=== PATIENT | male | born 1975 | race Caucasian/White ===

== ENCOUNTER → 2016-07-17 | Outpatient (CLI) | payer OTHER ==
[2016-07-17 11:08] LABS: BASO % 0.8 % (0.0-1.0); EOS # 0.3 K/mm3 (0.0-0.50); EOS % 4.8 % (0.0-3.0); LARGE UNSTAINED CELL # 0.2 K/mm3 (0.0-0.4); LARGE UNSTAINED CELL % 3.1 % (0.0-4.0); LYMPH # 1.9 K/mm3 (1.5-4.5); LYMPH % 31.7 % (24.0-44.0); MEAN CORPUSCULAR HEMOGLOBIN 29.6 pg (27.0-33.0); MEAN CORPUSCULAR HGB CONC 33.4 g/dl (32.0-36.5); MEAN CORPUSCULAR VOLUME 88.6 fl (80.0-96.0); MONO # 0.3 K/mm3 (0.0-0.8); MONO % 5.5 % (0.0-5.0); NEUTROPHILS # 3.2 K/mm3 (1.8-7.7); NEUTROPHILS % 54.2 % (36.0-66.0); PLATELET COUNT, AUTOMATED 257 k/mm3 (150-450); WHITE BLOOD COUNT 5.9 K/mm3 (4.0-10.0)
[2016-07-17 11:24] LABS: ALBUMIN/GLOBULIN RATIO 1.33 (1.00-1.93); ALKALINE PHOSPHATASE 69 U/L (45-117); ALT/SGPT 29 U/L (12-78); ANION GAP 5 MEQ/L (8-16); AST/SGOT 24 U/L (15-37); BILIRUBIN,TOTAL 0.4 MG/DL (0.2-1.0); BLOOD UREA NITROGEN 16 MG/DL (7-18); CARBON DIOXIDE LEVEL 31 MEQ/L (21-32); CHLORIDE LEVEL 107 MEQ/L (98-107); GLOMERULAR FILTRATION RATE > 60.0 (>60); GLUCOSE, FASTING 99 MG/DL (70-105); MAGNESIUM LEVEL 2.2 MG/DL (1.8-2.4); POTASSIUM SERUM 4.4 MEQ/L (3.5-5.1); SODIUM LEVEL 143 MEQ/L (136-145)
== END ==
LOC: M LAB 10:41
PROVIDERS: ATTEND Internal Medicine Cardiovascular Disease
DX: I48.92 Unspecified atrial flutter (principal)

== ENCOUNTER → 2016-10-01 | Outpatient (REF) | payer OTHER ==
[2016-10-01 11:38] LABS: MEAN CORPUSCULAR HEMOGLOBIN 29.1 pg (27.0-33.0); MEAN CORPUSCULAR HGB CONC 32.6 g/dl (32.0-36.5); MEAN CORPUSCULAR VOLUME 89.1 fl (80.0-96.0); RED CELL DISTRIBUTION WIDTH 12.8 % (11.5-14.5); WHITE BLOOD COUNT 6.4 K/mm3 (4.0-10.0)
[2016-10-01 11:55] LABS: ANION GAP 5 MEQ/L (8-16); BLOOD UREA NITROGEN 14 MG/DL (7-18); CALCIUM LEVEL 8.6 MG/DL (8.5-10.1); CARBON DIOXIDE LEVEL 31 MEQ/L (21-32); CHLORIDE LEVEL 106 MEQ/L (98-107); CREATININE FOR GFR 0.96 MG/DL (0.70-1.30); GLOMERULAR FILTRATION RATE > 60.0 (>60); GLUCOSE, FASTING 99 MG/DL (70-105); POTASSIUM SERUM 4.2 MEQ/L (3.5-5.1); SODIUM LEVEL 142 MEQ/L (136-145)
== END ==
LOC: M LABDRAW1 11:12
DX: R55 Syncope and collapse (principal)

== ENCOUNTER 2018-01-02 14:48 | Emergency (ER) | payer OTHER, SELFPAY ==
[2018-01-02 15:53] LABS: BASO # 0.1 10^3/uL (0.0-0.2); BASO % 0.9 % (0.0-1.0); EOS # 0.2 10^3/uL (0.0-0.50); EOS % 3.4 % (0.0-3.0); HEMATOCRIT 43.5 % (42.0-52.0); HEMOGLOBIN 15.3 g/dl (13.5-17.5); IMMATURE GRANULOCYTE % 0.1 % (0-3.0); LYMPH # 2.3 10^3/uL (1.5-4.5); LYMPH % 34.2 % (24.0-44.0); MEAN CORPUSCULAR HEMOGLOBIN 29.8 pg (27.0-33.0); MEAN CORPUSCULAR HGB CONC 35.2 g/dl (32.0-36.5); MEAN CORPUSCULAR VOLUME 84.6 fl (80.0-96.0); MONO # 0.5 10^3/uL (0.0-0.8); MONO % 7.1 % (0.0-5.0); NEUTROPHILS # 3.7 10^3/uL (1.8-7.7); NEUTROPHILS % 54.3 % (36.0-66.0); PLATELET COUNT, AUTOMATED 218 10^3/uL (150-450); RED BLOOD COUNT 5.14 10^6/uL (4.30-6.10); RED CELL DISTRIBUTION WIDTH 13.2 % (11.5-14.5); WHITE BLOOD COUNT 6.8 10^3/uL (4.0-10.0)
[2018-01-02 16:18] LABS: ALBUMIN 3.8 GM/DL (3.2-5.2); ALBUMIN/GLOBULIN RATIO 1.23 (1.00-1.93); ALKALINE PHOSPHATASE 74 U/L (45-117); ALT/SGPT 28 U/L (12-78); ANION GAP 7 MEQ/L (8-16); AST/SGOT 19 U/L (7-37); BILIRUBIN,DIRECT < 0.1 MG/DL (0.0-0.2); BILIRUBIN,TOTAL 0.3 MG/DL (0.2-1.0); BLOOD UREA NITROGEN 15 MG/DL (7-18); CALCIUM LEVEL 8.4 MG/DL (8.5-10.1); CARBON DIOXIDE LEVEL 28 MEQ/L (21-32); CHLORIDE LEVEL 107 MEQ/L (98-107); CPK CREATINE PHOSPHOKINASE 120 U/L (39-308); CREATININE FOR GFR 0.94 MG/DL (0.70-1.30); GLOMERULAR FILTRATION RATE > 60.0 (>60); GLUCOSE, FASTING 88 MG/DL (70-100); LIPASE 1058 U/L (73-393); POTASSIUM SERUM 3.7 MEQ/L (3.5-5.1); SODIUM LEVEL 142 MEQ/L (136-145); TOTAL PROTEIN 6.9 GM/DL (6.4-8.2); TROPONIN I < 0.02 NG/ML (< 0.10)
[2018-01-02] MEDS: NS 1,000 ML IV (16:20)
[2018-01-02 16:24] LABS: CK-MB VALUE MASS 1.1 NG/ML (<3.6); MB/CK RELATIVE INDEX 0.91 (< OR =4); NT-PRO BNP 23 PG/ML (<125)
[2018-01-02] MEDS ORDERED: ISOVUE-370 76% 100ML VIAL (Q9967) As Ordered (16:31)
[2018-01-02 21:29] LABS: CPK CREATINE PHOSPHOKINASE 109 U/L (39-308); TROPONIN I < 0.02 NG/ML (< 0.10)
[2018-01-02 21:30] LABS: CK-MB VALUE MASS 1.3 NG/ML (<3.6); MB/CK RELATIVE INDEX 1.19 (< OR =4)
== END 2018-01-02 22:27 | disposition home or self-care (01) ==
LOC: M ED 14:48
DX: R07.89 Other chest pain (principal); Z95.0 Presence of cardiac pacemaker; Z79.899 Other long term (current) drug therapy; Z91.040 Latex allergy status
CPT/HCPCS: Q9967

== ENCOUNTER 2020-03-16 07:08 | Emergency (ER) | payer OTHER ==
[~2020-03-16] VITALS: Ht 180.3 cm; Wt 121.4 kg
[~2020-03-16 07:08] MED LIST: ALLE4TAB11 PO; ZOLO100T PO
[2020-03-16] MEDS ORDERED: HEPARIN DRIP 25,000 UNITS in IV 1 EA IV SCH (07:24)
[2020-03-16] MEDS ORDERED: TENECTEPLASE 50 MG KIT (TNKase) (J3101 PER 1MG) As Ordered ONE (07:25)
[2020-03-16] MEDS ORDERED: TENECTEPLASE 50 MG KIT (TNKase) (J3101 PER 1MG) IV ONE (07:30)
[2020-03-16] MEDS ORDERED: ONDANSETRON 4MG/2ML VIAL IV ONE ×2 (07:30→08:00)
[2020-03-16] MEDS ORDERED: CLOPIDOGREL 300 MG TAB (PLAVIX) PO ONE (07:30)
[2020-03-16] MEDS ORDERED: HEPARIN SOD (PORCINE) 5000UNITS/ML 1ML VIAL/SYRINGE IV ONE (07:30)
[2020-03-16] MEDS ORDERED: MORPHINE 4 MG/ML 1ML VIAL/SYRINGE (J2270) IV PRN (07:30)
[2020-03-16] MEDS: NITROGLYCERIN 0.4 MG SUBL TABLET SL PRN ×2 (07:31→07:39)
[2020-03-16 07:39] VITALS: BP 128/69
[2020-03-16 07:55] VITALS: BP 112/68
[2020-03-16] MEDS ORDERED: NS 500 ML IV ONE (08:00)
--- NOTE | 2020-03-16 08:01 | ED PDOC ---
Post-Departure Follow-Up 44 yo male with history of COPD, PTSD, tobacco, S/P pacer presents c/o Chest gretel n. EKG STEMI inferior with reciprocal changes lateral leads. NO absolute CI to thrombolytics though patient did have colonscopy with polyp resection about 2 months ago. D/W apatient risk and patient understands risk and wishes to proceed with thrombolytics. patient hemodynamically stable in ED - transient drop in BP which responded to minimal fluid administration. Patient improved out the door with decrease in pain and improved ST segments on EKG. Nani Bhatti MD Mar 16, 2020 08:01
[2020-03-16 08:05] LABS: BASO # 0.1 10^3/uL (0.0-0.2); BASO % 0.4 % (0.0-1.0); EOS # 0.1 10^3/uL (0.0-0.5); EOS % 0.9 % (0.0-3.0); HEMATOCRIT 44.8 % (42.0-52.0); HEMOGLOBIN 15.1 g/dl (13.5-17.5); LYMPH % 17.4 % (24.0-44.0); MEAN CORPUSCULAR HEMOGLOBIN 29.5 pg (27.0-33.0); MEAN CORPUSCULAR HGB CONC 33.7 g/dl (32.0-36.5); MEAN CORPUSCULAR VOLUME 87.7 fl (80.0-96.0); MONO # 0.6 10^3/uL (0.0-0.8); MONO % 5.5 % (0.0-5.0); NEUTROPHILS # 8.4 10^3/uL (1.5-8.5); NEUTROPHILS % 75.3 % (36.0-66.0); PLATELET COUNT, AUTOMATED 248 10^3/uL (150-450); RED BLOOD COUNT 5.11 10^6/uL (4.30-6.10); WHITE BLOOD COUNT 11.2 10^3/uL (4.0-10.0)
[2020-03-16 08:16] LABS: INR 0.88; PROTHROMBIN TIME 12.1 SECONDS (12.5-14.3)
[2020-03-16 08:17] LABS: PARTIAL THROMBOPLASTIN TIME 32.6 SECONDS (24.2-38.5)
--- NOTE | 2020-03-16 08:25 | REPVR ---
PROCEDURE INFORMATION: Exam: XR Chest, 1 View Exam date and time: 03/16/2020 7:29 AM Age: 44 years old Clinical indication: Chest pain and chest pressure TECHNIQUE: Imaging protocol: XR of the chest Views: 1 view. COMPARISON: CR PORTABLE CHEST X-RAY 01/02/2018 3:46 PM FINDINGS: Tubes, catheters and devices: A left-sided pacemaker is again present. Lungs: Unremarkable. No consolidation. Pleural space: Unremarkable. No pleural effusion. No pneumothorax. Heart/Mediastinum: The cardiomediastinal silhouette is fairly stable in appearance. Bones/joints: Degenerative changes again involve the spine. IMPRESSION: No evidence for acute pulmonary disease. Electronically signed by: Dylan Morgan On 03/16/2020 08:25:10 AM
[2020-03-16 08:26] LABS: ALT/SGPT 69 U/L (12-78); BILIRUBIN,DIRECT < 0.1 MG/DL (0.0-0.2); BILIRUBIN,TOTAL 0.3 MG/DL (0.2-1.0); BLOOD UREA NITROGEN 12 MG/DL (7-18); CALCIUM LEVEL 9.4 MG/DL (8.5-10.1); CARBON DIOXIDE LEVEL 25 MEQ/L (21-32); CHLORIDE LEVEL 108 MEQ/L (98-107); CK-MB VALUE MASS 3.9 NG/ML (<3.6); CPK CREATINE PHOSPHOKINASE 276 U/L (39-308); CREATININE FOR GFR 1.05 MG/DL (0.70-1.30); GLOMERULAR FILTRATION RATE > 60.0 (>60); GLUCOSE, FASTING 140 MG/DL (70-100); LIPASE 823 U/L (73-393); MB/CK RELATIVE INDEX 1.41 (< OR =4); POTASSIUM SERUM 3.7 MEQ/L (3.5-5.1); SODIUM LEVEL 141 MEQ/L (136-145); TOTAL PROTEIN 7.4 GM/DL (6.4-8.2); TROPONIN I 0.19 NG/ML (< 0.10)
--- NOTE | 2020-03-17 09:01 | ECGEPIP ---
[facility] - ED Test Date: 2020-03-16 Pat Name: CODEY ALVARADO Department: Room: - Gender: Male Clinical Pharmacy Manager: PEDRO : 1975 Requested By: Nani Bhatti Order Number: [id number] Reading MD: Nani Bhatti Measurements Intervals [place] Rate: 69 P: 266 ME: 223 QRS: 56 QRSD: 90 T: 89 QT: 356 QTc: 383 Interpretive Statements ELECTRONIC ATRIAL PACEMAKER ST ELEVATION, INFERIOR ACUTE SD CLINICAL CORRELATION Electronically Signed on 03-17-2020 9:01:21 EDT by Nani Bhatti
--- NOTE | 2020-03-20 18:51 | ECGEPIP ---
[facility] - ED Test Date: 2020-03-16 Pat Name: CODEY ALVARADO Department: Room: - Gender: Male Contract Specialist: MANUEL : 1975 Requested By: Nani Bhatti Order Number: [id number] Reading MD: Yong Leonard Measurements Intervals [place] Rate: 69 P: -23 ND: 202 QRS: 67 QRSD: 93 T: 71 QT: 385 QTc: 414 Interpretive Statements ELECTRONIC ATRIAL PACEMAKER ACUTE INFERIOR INFARCT WITH RESOLVING ST DEVIATIONS Electronically Signed on 03-20-2020 18:50:33 EDT by Yong Leonard
== END 2020-03-16 07:57 | disposition short-term general hospital (02) ==
LOC: M ED 07:08
DX: I21.19 ST elevation (STEMI) myocardial infarction involving other coronary artery of inferior wall (principal); R11.10 Vomiting, unspecified; I51.9 Heart disease, unspecified; J44.9 Chronic obstructive pulmonary disease, unspecified; R55 Syncope and collapse; F43.10 Post-traumatic stress disorder, unspecified; Z95.0 Presence of cardiac pacemaker; F17.200 Nicotine dependence, unspecified, uncomplicated; Z91.040 Latex allergy status; Z79.899 Other long term (current) drug therapy
CPT/HCPCS: 71045; 80047; 80048; 80076; 82550; 82553; 83690; 85025; 85610; 85730; 93005; 93041; 94760; 96365; 96375; 99285; J1644; J2270; J2405; J3101

== ENCOUNTER 2020-05-03 19:42 | Emergency (ER) | payer OTHER ==
[~2020-05-03] VITALS: Ht 177.8 cm; Wt 125.0 kg
[2020-05-03] MEDS ORDERED: HEPARIN DRIP 25,000 UNITS in IV 1 EA IV SCH (20:08)
[2020-05-03] MEDS ORDERED: NITROGLYCERIN 0.4 MG SUBL TABLET SL PRN (20:15)
[2020-05-03] MEDS ORDERED: ASPIRIN 81 MG CHEW TABLET PO ONE (20:15)
[2020-05-03] MEDS ORDERED: MORPHINE 4 MG/ML 1ML VIAL/SYRINGE (J2270) IV PRN (20:15)
[2020-05-03] MEDS ORDERED: ONDANSETRON 4MG/2ML VIAL IV ONE (20:15)
[2020-05-03] MEDS ORDERED: HEPARIN SOD (PORCINE) 5000UNITS/ML 1ML VIAL/SYRINGE IV ONE (20:15)
[2020-05-03] MEDS ORDERED: TENECTEPLASE 50 MG KIT (TNKase) (J3101 PER 1MG) IV ONE (20:30)
[2020-05-03] MEDS ORDERED: CLOPIDOGREL 300 MG TAB (PLAVIX) PO ONE (20:30)
[2020-05-03 20:35] LABS: BASO % 0.2 % (0.0-1.0); EOS # 0.1 10^3/uL (0.0-0.5); EOS % 0.8 % (0.0-3.0); HEMATOCRIT 44.8 % (42.0-52.0); HEMOGLOBIN 14.9 g/dl (13.5-17.5); LYMPH # 3.1 10^3/uL (1.5-5.0); LYMPH % 20.9 % (24.0-44.0); MEAN CORPUSCULAR HEMOGLOBIN 28.8 pg (27.0-33.0); MEAN CORPUSCULAR HGB CONC 33.3 g/dl (32.0-36.5); MEAN CORPUSCULAR VOLUME 86.7 fl (80.0-96.0); MONO % 6.8 % (0.0-5.0); NEUTROPHILS # 10.4 10^3/uL (1.5-8.5); NEUTROPHILS % 70.9 % (36.0-66.0); PLATELET COUNT, AUTOMATED 273 10^3/uL (150-450); RED BLOOD COUNT 5.17 10^6/uL (4.30-6.10); WHITE BLOOD COUNT 14.7 10^3/uL (4.0-10.0)
[2020-05-03 21:00] LABS: INR 1.01; PROTHROMBIN TIME 13.5 SECONDS (12.5-14.3)
[2020-05-03 21:01] LABS: PARTIAL THROMBOPLASTIN TIME 31.9 SECONDS (24.2-38.5)
[2020-05-03 21:08] LABS: BLOOD UREA NITROGEN 16 MG/DL (7-18); CALCIUM LEVEL 9.4 MG/DL (8.5-10.1); CARBON DIOXIDE LEVEL 27 MEQ/L (21-32); CHLORIDE LEVEL 107 MEQ/L (98-107); CK-MB VALUE MASS 8.3 NG/ML (<3.6); CPK CREATINE PHOSPHOKINASE 665 U/L (39-308); CREATININE FOR GFR 1.09 MG/DL (0.70-1.30); GLOMERULAR FILTRATION RATE > 60.0 (>60); GLUCOSE, FASTING 105 MG/DL (70-100); MB/CK RELATIVE INDEX 1.25 (< OR =4); NT-PRO BNP 242 PG/ML (<125); POTASSIUM SERUM 3.6 MEQ/L (3.5-5.1); SODIUM LEVEL 140 MEQ/L (136-145); TROPONIN I < 0.02 NG/ML (< 0.10)
--- NOTE | 2020-05-03 21:08 | REPVR ---
PROCEDURE INFORMATION: Exam: XR Chest, 1 View Exam date and time: 05/03/2020 8:24 PM Age: 44 years old Clinical indication: Chest pain TECHNIQUE: Imaging protocol: XR of the chest Views: 1 view. COMPARISON: CR PORTABLE CHEST X-RAY 03/16/2020 7:24 AM FINDINGS: Tubes, catheters and devices: Stable left chest cardiac device. Lungs: No consolidation. Pleural space: Unremarkable. No pleural effusion. No pneumothorax. Heart/Mediastinum: Stable cardiac silhouette. Bones/joints: Osteopenia. IMPRESSION: No acute cardiopulmonary process. Electronically signed by: Abran Amos On 05/03/2020 21:08:13 PM
[2020-05-03] MEDS ORDERED: ASPI81CH33 PO (21:32)
[2020-05-03] MEDS ORDERED: NITR0.4S14 SL (21:32)
[2020-05-03] MEDS ORDERED: ATOR80TA59 PO (21:32)
[2020-05-03] MEDS ORDERED: CLOP75TA2 PO (21:32)
[2020-05-03] MEDS ORDERED: CARV3.12 PO (21:32)
[2020-05-03 21:58] VITALS: BP 149/86
--- NOTE | 2020-05-04 14:26 | ECGEPIP ---
[facility] - ED Test Date: 2020-05-03 Pat Name: CODEY ALVARADO Department: Room: - Gender: Male Orthotics Prosthetics Technician: bud : 1975 Requested By: JANIS Dorado Order Number: [id number] Reading MD: Nani Bhatti Measurements Intervals [place] Rate: 69 P: -53 [place]: 197 QRS: 17 QRSD: 88 T: -11 QT: 380 QTc: 410 Interpretive Statements ELECTRONIC ATRIAL PACEMAKER ABNORMAL RHYTHM ECG Electronically Signed on 05-04-2020 14:26:35 EST by Nani Bhatti
== END 2020-05-03 22:09 | disposition short-term general hospital (02) ==
LOC: M ED 19:42
DX: I21.3 ST elevation (STEMI) myocardial infarction of unspecified site (principal); R11.2 Nausea with vomiting, unspecified; I25.10 Atherosclerotic heart disease of native coronary artery without angina pectoris; I25.2 Old myocardial infarction; J44.9 Chronic obstructive pulmonary disease, unspecified; Z95.0 Presence of cardiac pacemaker
CPT/HCPCS: 71045; 80048; 82550; 82553; 83880; 85025; 85610; 85730; 93005; 93041; 96365; 96366; 96375; 96376; 99285; J1644; J2270; J2405; J3101; U0002

== ENCOUNTER 2020-06-05 05:07 | Emergency (ER) | payer OTHER, SELFPAY ==
[~2020-06-05 05:07] MED LIST changes: +ASPI81CH33 PO; +ATOR80TA59 PO; +CARV3.12 PO; +CLOP75TA2 PO; +NITR0.4S14 SL
[2020-06-05] MEDS ORDERED: SERT25TA21 PO (05:34)
[2020-06-05] MEDS ORDERED: LORA-622 PO (05:34)
[2020-06-05] MEDS ORDERED: BRIL90TA PO (05:34)
[2020-06-05] MEDS ORDERED: LISI-538 PO (05:34)
[2020-06-05] MEDS ORDERED: AIRB1CHW PO (05:34)
[2020-06-05] MEDS ORDERED: CENT1TAB PO (05:34)
[2020-06-05 05:37] LABS: BASO % 0.4 % (0.0-1.0); EOS # 0.2 10^3/uL (0.0-0.5); EOS % 2.3 % (0.0-3.0); HEMATOCRIT 45.7 % (42.0-52.0); HEMOGLOBIN 15.2 g/dl (13.5-17.5); MEAN CORPUSCULAR HGB CONC 33.3 g/dl (32.0-36.5); MONO # 0.4 10^3/uL (0.0-0.8); MONO % 4.4 % (0.0-5.0); NEUTROPHILS # 7.2 10^3/uL (1.5-8.5); NEUTROPHILS % 72.6 % (36.0-66.0); PLATELET COUNT, AUTOMATED 238 10^3/uL (150-450); RED BLOOD COUNT 5.25 10^6/uL (4.30-6.10); WHITE BLOOD COUNT 9.9 10^3/uL (4.0-10.0)
[2020-06-05 05:49] LABS: INR 0.93; PROTHROMBIN TIME 12.7 SECONDS (12.5-14.3)
[2020-06-05 05:50] LABS: PARTIAL THROMBOPLASTIN TIME 31.1 SECONDS (24.2-38.5)
[2020-06-05 06:10] LABS: BLOOD UREA NITROGEN 7 MG/DL (7-18); CALCIUM LEVEL 8.3 MG/DL (8.5-10.1); CARBON DIOXIDE LEVEL 25 MEQ/L (21-32); CHLORIDE LEVEL 110 MEQ/L (98-107); CK-MB VALUE MASS 2.8 NG/ML (<3.6); CPK CREATINE PHOSPHOKINASE 259 U/L (39-308); CREATININE FOR GFR 0.96 MG/DL (0.70-1.30); GLOMERULAR FILTRATION RATE > 60.0 (>60); GLUCOSE, FASTING 121 MG/DL (70-100); MB/CK RELATIVE INDEX 1.08 (< OR =4); NT-PRO BNP 43 PG/ML (<125); SODIUM LEVEL 142 MEQ/L (136-145); TROPONIN I < 0.02 NG/ML (< 0.10)
[2020-06-05] MEDS ORDERED: NITROGLYCERIN 0.4 MG SUBL TABLET As Ordered ONE (06:25)
[2020-06-05] MEDS: NITROGLYCERIN 0.4 MG SUBL TABLET SL PRN ×4 (06:27→08:38)
[2020-06-05] MEDS ORDERED: ONDANSETRON 4MG/2ML VIAL As Ordered ONE (06:32)
--- NOTE | 2020-06-05 06:37 | REPVR ---
PROCEDURE INFORMATION: Exam: XR Chest, 1 View Exam date and time: 06/05/2020 6:00 AM Age: 44 years old Clinical indication: Chest pain; Type not specified TECHNIQUE: Imaging protocol: XR of the chest Views: 1 view. COMPARISON: CR PORTABLE CHEST X-RAY 05/03/2020 8:21 PM FINDINGS: Lungs: Lungs are well aerated. No consolidation. Pleural space: No significant pleural effusions. No pneumothorax. Heart/Mediastinum: Cardiac size is normal and mediastinal contour stable. Dual lead internal pacemaker is stable in position. Cardiac loop recorder. Bones/joints: Bones are stable. IMPRESSION: No acute abnormalities are identified. Electronically signed by: Bayron Rivas On 06/05/2020 06:37:27 AM
[2020-06-05] MEDS ORDERED: MORPHINE 4 MG/ML 1ML VIAL/SYRINGE (J2270) As Ordered ONE (06:44)
[2020-06-05] MEDS ORDERED: ONDANSETRON 4MG/2ML VIAL IV ONE (06:45)
[2020-06-05] MEDS ORDERED: MORPHINE 4 MG/ML 1ML VIAL/SYRINGE (J2270) IV PRN (06:45)
[2020-06-05] MEDS ORDERED: ISOVUE-370 76% 100ML VIAL As Ordered ONE (07:01)
--- NOTE | 2020-06-05 08:17 | REPVR ---
PROCEDURE INFORMATION: Exam: CT Angiography Chest With Contrast Exam date and time: 06/05/2020 6:53 AM Age: 44 years old Clinical indication: Chest pain; Type not specified; Additional info: Chest pain, SOB TECHNIQUE: Imaging protocol: Computed tomographic angiography of the chest with intravenous contrast. 3D rendering (Not supervised by radiologist): MIP and/or 3D reconstructed images were created by the technologist. Radiation optimization: All CT scans at this facility use at least one of these dose optimization techniques: automated exposure control; mA and/or kV adjustment per patient size (includes targeted exams where dose is matched to clinical indication); or iterative reconstruction. Contrast material: ISO; Contrast volume: 75 ml; Contrast route: INTRAVENOUS (IV); COMPARISON: CT ANGIO CHEST 01/02/2018 4:31 PM FINDINGS: Pulmonary arteries: No evidence of pulmonary embolism. Aorta: Thoracic aorta is normal in caliber. No aneurysm. No dissection. Lungs: Central airways are patent. Lungs are well aerated. No consolidation. Pleural space: No pleural effusions. No pneumothorax. Heart: Cardiac size is normal. Internal pacemaker with right atrial and right ventricular leads. No pericardial effusion. Lymph nodes: No significant adenopathy. Bones/joints: Old/healing fracture involving the lateral right 9th rib. Multilevel degenerative change within the thoracic spine. Soft tissues: Pacemaker battery pack implanted within the subcutaneous tissues of the left anterior chest wall. There is also an implanted cardiac loop recorder. IMPRESSION: 1. No evidence of pulmonary embolism or thoracic aortic aneurysm/dissection. 2. Internal pacemaker and cardiac loop recorder. 3. Lungs are well aerated. No consolidation. 4. Old/healing right lateral 9th rib fracture. Correlate with history of trauma. Electronically signed by: Bayron Rivas On 06/05/2020 08:17:25 AM
[2020-06-05] MEDS ORDERED: GI COCKTAIL 50ML BTL(HYOSCYAMINE/MAALOX/LIDOCAINE VISCOUS)(1:3:1) PO ONE (08:30)
[2020-06-05 08:38] VITALS: BP 161/101
[2020-06-05 09:35] LABS: RSV AMPLIFICATION NEGATIVE (NEGATIVE)
[2020-06-05 09:38] LABS: CK-MB VALUE MASS 3.1 NG/ML (<3.6); CPK CREATINE PHOSPHOKINASE 271 U/L (39-308); MB/CK RELATIVE INDEX 1.14 (< OR =4); TROPONIN I < 0.02 NG/ML (< 0.10)
[2020-06-05 10:32] LABS: C REACTIVE PROTEIN QUANTITATIV < 0.30 MG/DL (0.00-0.30)
[2020-06-05 10:52] LABS: ERYTHROCYTE SEDIMENTATION RATE 2 mm/hr (0-15)
[2020-06-05] MEDS ORDERED: OMEP40CA97 PO (11:52)
[2020-06-05] MEDS ORDERED: SUCR1TA PO (11:52)
[2020-06-05 12:00] VITALS: BP 140/65
--- NOTE | 2020-06-06 00:28 | ECGEPIP ---
[facility] - ED Test Date: 2020-06-05 Pat Name: CODEY ALVARADO Department: Room: - Gender: Male Coat Cutter: : 1975 Requested By: MUKUL Aguilar Order Number: [id number] Reading MD: Yong Leonard Measurements Intervals [place] Rate: 66 P: -61 NM: 229 QRS: 35 QRSD: 86 T: 12 QT: 384 QTc: 403 Interpretive Statements ELECTRONIC ATRIAL PACEMAKER SIMILAR TO 05/03/20 Electronically Signed on 06-06-2020 0:27:56 EST by Yong Leonard
--- NOTE | 2020-06-06 00:30 | ECGEPIP ---
[facility] - ED Test Date: 2020-06-05 Pat Name: CODEY ALVARADO Department: Room: - Gender: Male Behavioral Instructor: PEDRO : 1975 Requested By: SABAS Hadley Order Number: [id number] Reading MD: Yong Leonard Measurements Intervals [place] Rate: 69 P: -81 [place]: 218 QRS: 34 QRSD: 86 T: 9 QT: 384 QTc: 414 Interpretive Statements ELECTRONIC ATRIAL PACEMAKER SIMILAR TO PRIOR ON SAME DATE Electronically Signed on 06-06-2020 0:29:44 EST by Yong Leonard
== END 2020-06-05 12:11 | disposition home or self-care (01) ==
LOC: M ED 05:07
DX: R07.9 Chest pain, unspecified (principal); F12.10 Cannabis abuse, uncomplicated; I51.9 Heart disease, unspecified; I25.2 Old myocardial infarction; Z91.040 Latex allergy status; Z91.018 Allergy to other foods; Z95.0 Presence of cardiac pacemaker
CPT/HCPCS: 71045; 71275; 80048; 82550; 82553; 83880; 85025; 85610; 85652; 85730; 86140; 87631; 93005; 93041; 94760; 96374; 96375; 99285; J2270; J2405; Q9967

== ENCOUNTER → 2020-06-19 | Outpatient (CLI) | payer OTHER ==
[~2020-06-19] MED LIST changes: +AIRB1CHW PO; +BRIL90TA PO; +CENT1TAB PO; +LISI-538 PO; +LORA-622 PO; +OMEP40CA97 PO; +SERT25TA21 PO; +SUCR1TA PO
[2020-06-19 10:11] LABS: HEMATOCRIT 44.4 % (42.0-52.0); HEMOGLOBIN 15.1 g/dl (13.5-17.5); MEAN CORPUSCULAR HEMOGLOBIN 29.9 pg (27.0-33.0); MEAN CORPUSCULAR VOLUME 87.9 fl (80.0-96.0); PLATELET COUNT, AUTOMATED 240 10^3/uL (150-450); RED BLOOD COUNT 5.05 10^6/uL (4.30-6.10); WHITE BLOOD COUNT 7.9 10^3/uL (4.0-10.0)
[2020-06-19 10:35] LABS: BLOOD UREA NITROGEN 11 MG/DL (7-18); CALCIUM LEVEL 9.1 MG/DL (8.5-10.1); CARBON DIOXIDE LEVEL 31 MEQ/L (21-32); CHLORIDE LEVEL 106 MEQ/L (98-107); CREATININE FOR GFR 0.93 MG/DL (0.70-1.30); GLOMERULAR FILTRATION RATE > 60.0 (>60); GLUCOSE, FASTING 96 MG/DL (70-100); POTASSIUM SERUM 4.1 MEQ/L (3.5-5.1); SODIUM LEVEL 140 MEQ/L (136-145)
== END ==
LOC: M LAB 09:04
PROVIDERS: ATTEND Physician Assistant
DX: I25.10 Atherosclerotic heart disease of native coronary artery without angina pectoris (principal)

== ENCOUNTER → 2020-06-20 | Outpatient (CLI) | payer OTHER ==
--- NOTE | 2020-06-20 15:01 | REP ---
INDICATION: SEN HEARING LOSS LEFT EAR. COMPARISON: Comparison head CT January 09, 2016.. TECHNIQUE: Helical scanning is acquired and 1 mm axial images re-formatted. Bone targeted coronal and axial magnified re-formation images are provided. FINDINGS: The external auditory canals are normal and symmetric. The middle ears are normally and symmetrically aerated. There is no evidence of mastoiditis on either side. Internal auditory canals are normal in size and symmetric bilaterally. Soft tissue window settings show no evidence of CP angle cistern mass. Cochlear and vestibular apparatus appear normal bilaterally. The visualized intracranial structures are unremarkable. No intraorbital abnormality is seen. IMPRESSION: Negative noncontrast CT study of the petrous bones and internal auditory canals. <Electronically signed by Oziel June > 06/20/20 [id number]
== END ==
LOC: M RAD 14:40
PROVIDERS: ATTEND Otolaryngology
DX: H90.42 Sensorineural hearing loss, unilateral, left ear, with unrestricted hearing on the contralateral side (principal); H93.12 Tinnitus, left ear

== ENCOUNTER → 2020-09-15 | Outpatient (CLI) | payer OTHER ==
[~2020-09-15] MED LIST changes: -LISI-538 PO; +LISI20TA33 PO
--- NOTE | 2020-09-15 16:09 | REP ---
INDICATION: SYNCOPE AND COLLAPSE. COMPARISON: None. TECHNIQUE: Bilateral carotid artery duplex ultrasound. FINDINGS: Peak flow velocities: Right left Internal carotid artery 88.7 cm/sec 73.9 cm/sec Int. Carotid diastolic a 35.3 cm/sec 20.9 cm/sec External carotid artery the 58.0 cm/sec 66.0 cm/sec Common carotid artery 149 cm/sec 167 cm/sec ICA-CCA ratio 0.5 0.4 There is no visible atheromatous plaque on the right or the left. Peak flow velocities are normal bilaterally. There is no stenosis on the right or the left. There is antegrade flow in the vertebral arteries bilaterally. IMPRESSION: There is no stenosis on the right or the left. There is antegrade flow in the vertebral arteries bilaterally. <Electronically signed by Palomo Claudio > 09/15/20 [id number]
== END ==
LOC: M RAD 13:45
PROVIDERS: ATTEND Physician Assistant
DX: R55 Syncope and collapse (principal)

== ENCOUNTER → 2020-10-19 | Outpatient (CLI) | payer OTHER ==
[2020-10-19 11:20] LABS: ALT/SGPT 53 U/L (12-78); BILIRUBIN,TOTAL 0.3 MG/DL (0.2-1.0); BLOOD UREA NITROGEN 10 MG/DL (7-18); CALCIUM LEVEL 9.2 MG/DL (8.5-10.1); CARBON DIOXIDE LEVEL 28 MEQ/L (21-32); CHLORIDE LEVEL 108 MEQ/L (98-107); CHOLESTEROL LEVEL 108 MG/DL (<200); CREATININE FOR GFR 0.82 MG/DL (0.70-1.30); GLOMERULAR FILTRATION RATE > 60.0 (>60); GLUCOSE, FASTING 102 MG/DL (70-100); HDL CHOLESTEROL 36 MG/DL (>40); LDL CHOLESTEROL 46 MG/DL (<100); NON-HDL-C 72 MG/DL; POTASSIUM SERUM 4.2 MEQ/L (3.5-5.1); SODIUM LEVEL 141 MEQ/L (136-145); TOTAL PROTEIN 7.2 GM/DL (6.4-8.2); TRIGLYCERIDES LEVEL 132 MG/DL (<150)
== END ==
LOC: M LAB 10:17
PROVIDERS: ATTEND Physician Assistant
DX: E78.2 Mixed hyperlipidemia (principal)

== ENCOUNTER → 2020-10-29 | Outpatient (CLI) | payer OTHER | LOC: M LABSMTC 10:52 | DX: Z11.52 Encounter for screening for COVID-19 (principal) ==

== ENCOUNTER 2021-04-18 13:14 | Emergency (ER) | payer OTHER ==
[~2021-04-18] VITALS: Ht 180.3 cm; Wt 109.1 kg
[~2021-04-18 13:14] MED LIST changes: +OMEP40CA4 PO; -OMEP40CA97 PO
--- OUTSIDE RECORDS SUMMARY | 2021-04-18 13:21 | CCD ---
Author Author [facility] Organization [facility] Address Unknown Phone Unavailable Care Team Providers Care Paper Machine Supervisor Name Role Phone Melva Lazo Unavailable PROBLEMS Type Condition ICD9-CM Code [id number] Code Onset Dates Condition S tatus W/U Status Risk SNOMED Code Notes Problem Bipolar affective disorder, remission status unspecified F31.9 Active confirmed 54986017 Problem Hyperlipidemia E78.5 Active confirmed 25349 004 Problem Essential (primary) hypertension I10 Active conf irmed 90278202 Problem Bipolar affective disorder, currently depressed, moderate F31.32 Active confirmed 685630030 Problem Other idiopathic scoliosis, thoracolumbar region M 41.25 Active confirmed 145537626 Problem Anxiety F41.9 Active confirmed 86860281 Problem Other chronic pain G89.29 Active confirmed 8 6558954 Problem Tobacco dependence F17.200 Active confirmed 36054792 Problem Sick sinus syndrome I49.5 Active confirmed 14160067 Problem Fibromyalgia affecting multiple sites M79.7 Ac tive confirmed 12104028 Problem Erectile dysfunction, unspecified erectile dysfunction typ e N52.9 Active confirmed 461077427 Problem Benign prostatic hyperplasia with lower urinary tract symptoms, symptom details unspecified N40.1 Active confirmed 529986837 Problem Coronary atherosclerosis due to calcified coronary lesion I25.84 Active confirmed 97459178 ALLERGIES Allergen (clinical drug ingredient) Drug/Non Drug Allergy do cumented on EMR Reaction Allergy Type Onset Date Status Latex hives Non Drug Allergy Active adhesive rash Non Drug Allergy Active ENCOUNTERS from 1975 to 2021-01-24 Encounter Location Date Provider Diagnosis [address] [address] Jan, Melva Lazo Rectal abscess K61.1 IMMUNIZATIONS Vaccine Route Administration Date Status Tdap IM Intramuscular Mar 16, 2015 Administered INFLUENZA 3 YRS AND OLDER Preservative free IM Intramuscular May 24, 2016 Administered INFLUENZA 3 YRS AND OLDER Preservative free IM Intramuscular Mar 16, 2015 Administered Pneumococcal Vaccine PNEUMO 23 IM Intramuscular May 29, 2016 Administered Influenza preservative free IM Intramuscular Apr 10, 2020 Adm inistered Influenza preservative free IM Intramuscular Apr 14, 2019 Adm inistered SOCIAL HISTORY Tobacco Use: Social History Observation Description Date Details (start date - stop date) Current Smoker Sex Assigned At : Social History Observation Description Sex Assigned At Unknown Alcohol Screen Question Answer Notes Did you have a drink containing alcohol in the past year? No Points 0 Interpretation Negative Tobacco Use/Smoking Question Answer Notes Are you a current smoker How many cigarettes a day do you smoke? 11-20 How often do you smoke cigarettes? every day Sexual History Question Answer Notes Had sex in the past 12 months (vaginal, oral, or anal)? Yes Have you ever had a Sexually transmitted disease? No with Men only Use protection? No REASON FOR REFERRAL No Information VITAL SIGNS Height 67 in Jan, Weight 246.6 lbs Jan, BMI 38.62 kg/m2 Jan, Temperature 98.0 degrees Fahrenheit Jan, Heart Rate 62 /min Jan, Respiratory Rate 18 /min Jan, Oximetry 96 % Jan, Blood pressure systolic 118 mmHg Jan, Blood pressure diastolic 88 mmHg Jan, MEDICATIONS Medication SIG (Take, Route, Frequency, Duration) Notes Start Da te End Date Status Nicotine 14 MG/24HR 1 patch to skin Transdermal Once a day for 1 4 day(s) Sep, Unknown Aspir-81 81 MG 1 tablet Orally Once a day for 90 days Active Nicotine 21 MG/24HR 1 patch to skin Transdermal Once a day for 3 0 day(s) Aug, Not-Taking oxyCODONE-Acetaminophen 5-325 MG 1 tablet as needed Orally every 6 hrs Dec, Not-Taking Airborne - as directed Orally Active Atorvastatin Calcium 80 MG 1 tablet Orally Once a day at bedtime. Active Omeprazole 40 MG 1 capsule 30 minutes before morning meal Orally Once a day for 90 days Active nitroglycerin 0.4 mg 1 po sl q5mins x 3 Active Lisinopril 2.5 MG 1 tablet Orally Once a day at bedtime Active Carvedilol 3.125 MG 1 tablet with food Orally Twice a day for 30 day( s) Active Zoloft 25 MG 1 tablet Orally Once a day for 90 days Active Centrum Silver - as directed Orally Active Cetirizine HCl 10 MG 1 tablet Orally Once a day for 30 day(s) Unknown Brilinta 90 MG 1 tablet Orally Twice a day for 30 day(s) Active PROCEDURES No Information RESULTS No Results REASON FOR VISIT Hospital Followup MEDICAL (GENERAL) HISTORY Type Description Date Medical History hypertension, benign Medical History hyperlipidemia Medical History gastroesophageal reflux disease (GERD) Medical History fatty liver Medical History sick sinus syndrome with pacemaker Medical History bipolar disorder Medical History HPV 2018 Medical History heart attack 03/16/2020 Medical History heart attack 05/03/2020 Medical History Allergy to adhesive Medical History Cannabis abuse Medical History HPV Surgical History cystoscopy 2009 Surgical History colonoscopy-dr. velazquez 2003 Surgical History endoscopy 2003 Surgical History vasectomy Surgical History Umbilical hernia repair; Dr Farrell 2010 Surgical History loop recorder 09/2016 Surgical History pacemaker 10/2016 Surgical History resolute [place] Coronary Stent 03-16-20 Surgical History Rectal abcess removal 12/2020 Hospitalization History asthma 1994 Hospitalization History heart attack 03/16/2020 Hospitalization History heart attack,ST-elevation my ocardial infarction. [facility] 05/03/2020 Hospitalization History rectal abscess 12/2020 Goals Section No Information Health Concerns No Information MEDICAL EQUIPMENT No Information MENTAL STATUS No Information FUNCTIONAL STATUS No Information ASSESSMENTS Encounter Date Diagnosis Assessment Notes Treatment Notes Treatm ent Clinical Notes Jan, Rectal abscess (ICD-10 - K61.1) Pt with rectal abscess that was drained in the hospital. Pt was not comfortable with me taking a look at the abscess today in the office. Pt continues to have some discomfort. I recommended pt use Tylenol or Motrin as needed for pain. Discussed with pt that he should call his surgeon to discuss pain medication if that does not improve pain. Encouraged pt to continue to follow with rectal surgeon. Reviewed signs of infection and when to be seen in the ER. Will continue to monitor. Jan, Other All questions and concerns addressed, patient understanding and agreeable to plan. Patient encouraged to follow up at the clinic for any additional or new questions or concerns. Barbra Alexander, scribing the following service on behalf of JJ Morales on 01/19/2021. Time spent includes face to face time wi th patient and review of any pertinent laboratory results, consult documentation/hospital notes and diagnostic imaging. Time spent: 20 minutes. PLAN OF TREATMENT Medication Medication Name Sig Start Date Stop Date Zoloft 25 MG 1 tablet Orally Once a day for 90 days Omeprazole 40 MG 1 capsule 30 minutes before morning meal Orally Once a day for 90 days Treatment Notes Assessment Notes Clinical Notes Rectal abscess Pt with rectal abscess that was drained in the hospital. Pt was not comfortable with me taking a look at the abscess today in the office. Pt continues to have some discomfort. I recommended pt use Tylenol or Motrin as needed for pain. Discussed with pt that he should call his surgeon to discuss pain medication if that does not improve pain. Encouraged pt to continue to follow with rectal surgeon. Reviewed signs of infection and when to be seen in the ER. Will continue to monitor. Next Appt Details prn Reason: Insurance Providers Payer Name Payer Address Payer Phone Insured Name Patient Relati onship to Insured Coverage Start Date Coverage End Date [employer] MED[employer] [address] [facility] [id number] CODEY ALVARADO
--- OUTSIDE RECORDS SUMMARY | 2021-04-18 13:23 | CCD ---
Author Author [facility] Address Unknown Phone Unavailable Care Team Providers Care [employer] Designer Name Role Phone [place], L Kathrin ORNAMENTAL MACHINE OPERATOR Unavailable Unavailable [place], L Kathrin ORNAMENTAL MACHINE OPERATOR Unavailable Unavailable Harmony, L Kathrin ORNAMENTAL MACHINE OPERATOR Unavailable Unavailable [place], L Kathrin ORNAMENTAL MACHINE OPERATOR Unavailable Unavailable Harmony, L Kathrin ORNAMENTAL MACHINE OPERATOR Unavailable Unavailable [place], L Kathrin ORNAMENTAL MACHINE OPERATOR Unavailable Unavailable Harmony, L Kathrin ORNAMENTAL MACHINE OPERATOR Unavailable Unavailable [place], L Kathrin ORNAMENTAL MACHINE OPERATOR Unavailable Unavailable [place], L Kathrin ORNAMENTAL MACHINE OPERATOR Unavailable Unavailable Harmony, L Kathrin ORNAMENTAL MACHINE OPERATOR Unavailable Unavailable [place], L Kathrin ORNAMENTAL MACHINE OPERATOR Unavailable Unavailable [place], L Kathrin ORNAMENTAL MACHINE OPERATOR Unavailable Unavailable Hamrony, L Kathrin ORNAMENTAL MACHINE OPERATOR Unavailable Unavailable [place], L Kathrin ORNAMENTAL MACHINE OPERATOR Unavailable Unavailable [place], L Kathrin ORNAMENTAL MACHINE OPERATOR Unavailable Unavailable [place], L Kathrin ORNAMENTAL MACHINE OPERATOR Unavailable Unavailable Harmony, L Kathrin ORNAMENTAL MACHINE OPERATOR Unavailable Unavailable Harmony, L Kathrin ORNAMENTAL MACHINE OPERATOR Unavailable Unavailable Harmony, L Kathrin ORNAMENTAL MACHINE OPERATOR Unavailable Unavailable Harmony, L Kathrin ORNAMENTAL MACHINE OPERATOR Unavailable Unavailable Harmony, L Kathrin ORNAMENTAL MACHINE OPERATOR Unavailable Unavailable Harmony, L Kathrin ORNAMENTAL MACHINE OPERATOR Unavailable Unavailable [place], L Kathrin ORNAMENTAL MACHINE OPERATOR Unavailable Unavailable Harmony, L Kathrin ORNAMENTAL MACHINE OPERATOR Unavailable Unavailable [place], L Kathrin ORNAMENTAL MACHINE OPERATOR Unavailable Unavailable Harmony, L Kathrin ORNAMENTAL MACHINE OPERATOR Unavailable Unavailable [place], L Kathrin ORNAMENTAL MACHINE OPERATOR Unavailable Unavailable Harmony, L Kathrin ORNAMENTAL MACHINE OPERATOR Unavailable Unavailable Harmony, L Kathrin ORNAMENTAL MACHINE OPERATOR Unavailable Unavailable Harmony, L Kathrin ORNAMENTAL MACHINE OPERATOR Unavailable Unavailable [place], L Kathrin ORNAMENTAL MACHINE OPERATOR Unavailable Unavailable Harmony, L Kathrin ORNAMENTAL MACHINE OPERATOR Unavailable Unavailable [place], L Kathrin ORNAMENTAL MACHINE OPERATOR Unavailable Unavailable [place], L Kathrin ORNAMENTAL MACHINE OPERATOR Unavailable Unavailable [place], L Kathrin ORNAMENTAL MACHINE OPERATOR Unavailable Unavailable [place], L Kathrin ORNAMENTAL MACHINE OPERATOR Unavailable Unavailable [place], L Kathrin ORNAMENTAL MACHINE OPERATOR Unavailable Unavailable Harmony, L Kathrin ORNAMENTAL MACHINE OPERATOR Unavailable Unavailable [place], L Kathrin ORNAMENTAL MACHINE OPERATOR Unavailable Unavailable Ranulfo, L Ania PA Unavailable Unavailable Ranulfo, L Ania PA Unavailable Unavailable Ranulfo, L Ania PA Unavailable Unavailable Ranulfo, L Ania PA Unavailable Unavailable Ranulfo, L Ania PA Unavailable Unavailable Ranulfo, L Ania PA Unavailable Unavailable Ranulfo, L Ania PA Unavailable Unavailable Ranulfo, L Ania PA Unavailable Unavailable Ranulfo, L Ania PA Unavailable Unavailable Ranulfo, L Ania PA Unavailable Unavailable Ranulfo, L Ania PA Unavailable Unavailable Ranulfo, L Ania PA Unavailable Unavailable Ranulfo, L Ania PA Unavailable Unavailable Ranulfo, L Ania PA Unavailable Unavailable Ranulfo, L Ania PA Unavailable Unavailable Ranulfo, L Ania PA Unavailable Unavailable Ranulfo, L Ania PA Unavailable Unavailable Ranulfo, L Ania PA Unavailable Unavailable Ranulfo, L Ania PA Unavailable Unavailable Ranulfo, L Ania PA Unavailable Unavailable Ranulfo, L Ania PA Unavailable Unavailable Ranulfo, L Ania PA Unavailable Unavailable Ranulfo, L Ania PA Unavailable Unavailable Cintia PAGE MD Unavailable Unavailable Cintia PAGE MD Unavailable Unavailable Cintia PAGE MD Unavailable Unavailable Cintia PAGE MD Unavailable Unavailable Cintia PAGE MD Unavailable Unavailable Cintia PAGE MD Unavailable Unavailable Cintia PAGE MD Unavailable Unavailable Cintia PAGE MD Unavailable Unavailable Cintia PAGE MD Unavailable Unavailable Cintia PAGE MD Unavailable Unavailable Cintia PAGE MD Unavailable Unavailable Cintia PAGE MD Unavailable Unavailable Cintia PAGE MD Unavailable Unavailable Cintia PAGE MD Unavailable Unavailable Cintia PAGE MD Unavailable Unavailable Cintia PAGE MD Unavailable Unavailable Cintia PAGE MD Unavailable Unavailable Cintia PAGE MD Unavailable Unavailable Cintia PAGE MD Unavailable Unavailable Cintia PAGE MD Unavailable Unavailable HALLERAN, Cintia OBREGON MD Unavailable Unavailable HALLERAN, Cintia OBREGON MD Unavailable Unavailable HALLERAN, Cintia OBREGON MD Unavailable Unavailable HALLERAN, Cintia OBREGON MD Unavailable Unavailable HALLERAN, Cintia OBREGON MD Unavailable Unavailable HALLERAN, Cintia OBREGON MD Unavailable Unavailable HALLERAN, Cintia OBREGON MD Unavailable Unavailable HALLERAN, Cintia OBREGON MD Unavailable Unavailable HALLERAN, Cintia OBREGON MD Unavailable Unavailable HALLERAN, Cintia OBREGON MD Unavailable Unavailable HALLERAN, Cintia OBREGON MD Unavailable Unavailable HALLERAN, Cintia OBREGON MD Unavailable Unavailable HALLERAN, Cintia OBREGON MD Unavailable Unavailable HALLERAN, Cintia OBREGON MD Unavailable Unavailable HALLERAN, Cintia OBREGON MD Unavailable Unavailable HALLERAN, Cintia OBREGON MD Unavailable Unavailable HALLERAN, Cintia OBREGON MD Unavailable Unavailable HALLERAN, Cintia OBREGON MD Unavailable Unavailable HALLERAN, Cintia OBREGON MD Unavailable Unavailable HALLERAN, Cintia OBREGON MD Unavailable Unavailable HALLERAN, Cintia OBREGON MD Unavailable Unavailable HALLERAN, Cintia OBREGON MD Unavailable Unavailable HALLERAN, Cintia OBREGON MD Unavailable Unavailable HALLERAN, Cintia OBREGON MD Unavailable Unavailable HALLERAN, Cintia OBREGON MD Unavailable Unavailable HALLERAN, Cintia OBREGON MD Unavailable Unavailable HALLERAN, Cintia OBREGON MD Unavailable Unavailable HALLERAN, Cintia OBREGON MD Unavailable Unavailable HALLERAN, Cintia OBREGON MD Unavailable Unavailable HALLERAN, Cintia OBREGON MD Unavailable Unavailable HALLERAN, Cintia OBREGON MD Unavailable Unavailable HALLERAN, Cintia OBREGON MD Unavailable Unavailable HALLERAN, Cintia OBREGON MD Unavailable Unavailable HALLERAN, Cintia OBREGON MD Unavailable Unavailable HALLERAN, Cintia OBREGON MD Unavailable Unavailable HALLERAN, Cintia OBREGON MD Unavailable Unavailable HALLERAHector, Cintia OBREGON MD Unavailable Unavailable HALLERAN, Cintia OBREGON MD Unavailable Unavailable HALLERAN, Cintia OBREGON MD Unavailable Unavailable HALLERAN, Cintia OBREGON MD Unavailable Unavailable HALLERAN, Cintia OBREGON MD Unavailable Unavailable HALLERAN, Cintia OBREGON MD Unavailable Unavailable HALLERAN, Cintia OBREGON MD Unavailable Unavailable HALLERAHector, Cintia OBREGON MD Unavailable Unavailable HALLERAN, Cintia OBREGON MD Unavailable Unavailable HALLERAN, Cintia OBREGON MD Unavailable Unavailable HALLERAN, Cintia OBREGON MD Unavailable Unavailable HALLERAN, Cintia OBREGON MD Unavailable Unavailable HALLERAN, Cintia OBREGON MD Unavailable Unavailable HALLERAN, Cintia OBREGON MD Unavailable Unavailable HALLERAN, Cintia OBREGON MD Unavailable Unavailable HALLERAN, Cintia OBREGON MD Unavailable Unavailable HALLERAN, Cintia OBREGON MD Unavailable Unavailable El-Marjorieally, Stephon Montes MD Unavailable Unavailable El-Khally, Stephon Montes MD Unavailable Unavailable El-Khally, A Ziad MD Unavailable Unavailable El-Khally, A Ziad MD Unavailable Unavailable El-Khally, A Ziad MD Unavailable Unavailable El-Khally, A Ziad MD Unavailable Unavailable El-Khally, A Ziad MD Unavailable Unavailable El-Khally, A Ziad MD Unavailable Unavailable El-Khally, A Ziad MD Unavailable Unavailable El-Khally, A Ziad MD Unavailable Unavailable El-Khally, A Ziad MD Unavailable Unavailable El-Khally, A Ziad MD Unavailable Unavailable El-Khally, A Ziad MD Unavailable Unavailable El-Khally, A Ziad MD Unavailable Unavailable El-Khally, A Ziad MD Unavailable Unavailable El-Khally, A Ziad MD Unavailable Unavailable El-Khally, A Ziad MD Unavailable Unavailable El-Khally, A Ziad MD Unavailable Unavailable El-Khally, A Ziad MD Unavailable Unavailable El-Khally, A Ziad MD Unavailable Unavailable El-Khally, A Ziad MD Unavailable Unavailable El-Khally, A Ziad MD Unavailable Unavailable El-Khally, A Ziad MD Unavailable Unavailable El-Khally, A Ziad MD Unavailable Unavailable El-Khally, A Ziad MD Unavailable Unavailable El-Khally, A Ziad MD Unavailable Unavailable El-Khally, A Ziad MD Unavailable Unavailable El-Khally, A Ziad MD Unavailable Unavailable El-Khally, A Ziad MD Unavailable Unavailable El-Khally, A Ziad MD Unavailable Unavailable El-Khally, A Ziad MD Unavailable Unavailable El-Khally, A Ziad MD Unavailable Unavailable El-Khally, A Ziad MD Unavailable Unavailable El-Khally, A Ziad MD Unavailable Unavailable El-Khally, A Ziad MD Unavailable Unavailable El-Khally, A Ziad MD Unavailable Unavailable El-Khally, A Ziad MD Unavailable Unavailable El-Khally, A Ziad MD Unavailable Unavailable El-Khally, A Ziad MD Unavailable Unavailable El-Khally, A Ziad MD Unavailable Unavailable El-Khally, A Ziad MD Unavailable Unavailable El-Khally, A Ziad MD Unavailable Unavailable El-Khally, A Ziad MD Unavailable Unavailable Rydberg, Adrienne PA Unavailable Unavailable Rydberg, Adrienne PA Unavailable Unavailable Rydberg, Adrienne PA Unavailable Unavailable Rydberg, Adrienne PA Unavailable Unavailable Rydberg, Adrienne PA Unavailable Unavailable Rydberg, Adrienne PA Unavailable Unavailable Rydberg, Adrienne PA Unavailable Unavailable Rydberg, Adrienne PA Unavailable Unavailable Rydberg, Adrienne PA Unavailable Unavailable Rydberg, Adrienne PA Unavailable Unavailable Rydberg, Adrienne PA Unavailable Unavailable Rydberg, Adrienne PA Unavailable Unavailable Rydberg, Adrienne PA Unavailable Unavailable Rydberg, Adrienne PA Unavailable Unavailable Rydberg, Adrienne PA Unavailable Unavailable Rydberg, Adrienne PA Unavailable Unavailable Rydberg, Adrienne PA Unavailable Unavailable Rydberg, Adrienne PA Unavailable Unavailable Rydberg, Adrienne PA Unavailable Unavailable Rydberg, Adrienne PA Unavailable Unavailable Rydberg, Adrienne PA Unavailable Unavailable Rydberg, Adrienne PA Unavailable Unavailable Rydberg, Adrienne PA Unavailable Unavailable Violet, M Melva PA-C Unavailable Unavailable Violet, M Melva PA-C Unavailable Unavailable Violet, M Melva PA-C Unavailable Unavailable Violet, M Melva PA-C Unavailable Unavailable Violet, M Melva PA-C Unavailable Unavailable Violet, M Melva PA-C Unavailable Unavailable Violet, M Melva PA-C Unavailable Unavailable Violet, M Melva PA-C Unavailable Unavailable Violet, M Melva PA-C Unavailable Unavailable Violet, M Melva PA-C Unavailable Unavailable Violet, M Melva PA-C Unavailable Unavailable Violet, M Melva PA-C Unavailable Unavailable Violet, M Melva PA-C Unavailable Unavailable Violet, M Melva PA-C Unavailable Unavailable Violet, M Melva PA-C Unavailable Unavailable Violet, M Melva PA-C Unavailable Unavailable Violet, M Melva PA-C Unavailable Unavailable Violet, M Melva PA-C Unavailable Unavailable Violet, M Melva PA-C Unavailable Unavailable Violet, M Melva PA-C Unavailable Unavailable Violet, M Melva PA-C Unavailable Unavailable Violet, M Melva PA-C Unavailable Unavailable Violet, M Melva PA-C Unavailable Unavailable Violet, M Melva PA-C Unavailable Unavailable Violet, M Melva PA-C Unavailable Unavailable Violet, M Melva PA-C Unavailable Unavailable Violet, M Melva PA-C Unavailable Unavailable Violet, M Melva PA-C Unavailable Unavailable Violet, M Melva PA-C Unavailable Unavailable Violet, M Melva PA-C Unavailable Unavailable Violet, M Melva PA-C Unavailable Unavailable Violet, M Melva PA-C Unavailable Unavailable Violet, M Melva PA-C Unavailable Unavailable Violet, M Melva PA-C Unavailable Unavailable Violet, M Melva PA-C Unavailable Unavailable Violet, M Melva PA-C Unavailable Unavailable Violet, M Melva PA-C Unavailable Unavailable Sigala, Cintia Elizabeth MD Unavailable Unavailable Sigala, Cintia Elizabeth MD Unavailable Unavailable Sigala, Cintia Elizabeth MD Unavailable Unavailable Sigala, Cintia Elizabeth MD Unavailable Unavailable Sigala, Cintia Elizabeth MD Unavailable Unavailable Sigala, Cintia Elizabeth MD Unavailable Unavailable Sigala, Cintia Elizabeth MD Unavailable Unavailable Sigala, Cintia Elizabeth MD Unavailable Unavailable Sigala, Cintia Elizabeth MD Unavailable Unavailable Sigala, Cintia Elizabeth MD Unavailable Unavailable Sigala, Cintia Elizabeth MD Unavailable Unavailable Sigala, Cintia Elizabeth MD Unavailable Unavailable Sigala, Cintia Elizabeth MD Unavailable Unavailable Sigala, Cintia Elizabeth MD Unavailable Unavailable Sigala, Cintia Elizabeth MD Unavailable Unavailable Sigala, Cintia Elizabeth MD Unavailable Unavailable Sigala, Cintia Elizabeth MD Unavailable Unavailable Sigala, Cintia Elizabeth MD Unavailable Unavailable Sigala, Cintia Elizabeth MD Unavailable Unavailable Sigala, Cintia Elizabeth MD Unavailable Unavailable Sigala, Cintia Elizabeth MD Unavailable Unavailable FISCHI, Jose Rafael ORO MD Unavailable Unavailable FISCHI, Jose Rafael ORO MD Unavailable Unavailable FISCHI, Jose Rafael ORO MD Unavailable Unavailable FISCHI, Jose Rafael ORO MD Unavailable Unavailable FISCHI, Jose Rafael ORO MD Unavailable Unavailable FISCHI, Jose Rafael ORO MD Unavailable Unavailable FISCHI, Jose Rafael ORO MD Unavailable Unavailable FISCHI, Jose Rafael ORO MD Unavailable Unavailable FISCHI, Jose Rafael ORO MD Unavailable Unavailable FISFIDENCIO, Jose Rafael ORO MD Unavailable Unavailable FISCHI, Jose Rafael ORO MD Unavailable Unavailable FISCHI, Jose Rafael ORO MD Unavailable Unavailable FISCHI, Jose Rafael ORO MD Unavailable Unavailable FISCHI, Jose Rafael ORO MD Unavailable Unavailable FISCHI, Jose Rafael ORO MD Unavailable Unavailable FISCHI, Jose Rafael ORO MD Unavailable Unavailable FISCHI, Jose Rafael ORO MD Unavailable Unavailable FISCHI, Jose Rafael ORO MD Unavailable Unavailable FISCHI, Jose Rafael ORO MD Unavailable Unavailable FISCHI, Jose Rafael ORO MD Unavailable Unavailable FISCHI, Jose Rafael ORO MD Unavailable Unavailable FISCHI, Jose Rafael ORO MD Unavailable Unavailable FISCHI, Jose Rafael ORO MD Unavailable Unavailable FISCHI, Jose Rafael ORO MD Unavailable Unavailable FISCHI, Jose Rafael ORO MD Unavailable Unavailable FISFIDENCIO, Jose Rafael ORO MD Unavailable Unavailable FISFIDENCIO, Jose Rafael ORO MD Unavailable Unavailable FISFIDENCIO, Jose Rafael ORO MD Unavailable Unavailable FISCHI, Jose Rafael ORO MD Unavailable Unavailable FISCHI, Jose Rafael ORO MD Unavailable Unavailable FISCHI, Jose Rafael ORO MD Unavailable Unavailable FISCHI, Jose Rafael ORO MD Unavailable Unavailable FISCHI, Jose Rafael ORO MD Unavailable Unavailable FISCHI, Jose Rafael ORO MD Unavailable Unavailable FISCHI, Jose Rafael ORO MD Unavailable Unavailable FISCHI, Jose Rafael ORO MD Unavailable Unavailable FISCHI, Jose Rafael ORO MD Unavailable Unavailable FISCHI, Jose Rafael ORO MD Unavailable Unavailable FISCHI, Jose Rafael ORO MD Unavailable Unavailable FISCHI, Jose Rafael ORO MD Unavailable Unavailable FISCHI, Jose Rafael ORO MD Unavailable Unavailable FISCHI, Jose Rafael ORO MD Unavailable Unavailable FISCHI, Jose Rafael ORO MD Unavailable Unavailable FISCHI, Jose Rafael ORO MD Unavailable Unavailable FISCHI, Jose Rafael ORO MD Unavailable Unavailable FISCHI, Jose Rafael ORO MD Unavailable Unavailable FISCHI, Jose Rafael ORO MD Unavailable Unavailable FISCHI, Jose Rafael ORO MD Unavailable Unavailable FISCHI, Jose Rafael ORO MD Unavailable Unavailable FISCHI, Jose Rafael ORO MD Unavailable Unavailable FISCHI, Jose Rafael ORO MD Unavailable Unavailable FISCHI, Jose Rafael ORO MD Unavailable Unavailable FISCHI, Jose Rafael ORO MD Unavailable Unavailable FISCHI, Jose Rafael ORO MD Unavailable Unavailable FISCHI, Jose Rafael ROO MD Unavailable Unavailable FISCHI, Jose Rafael ORO MD Unavailable Unavailable FISCHI, Jose Rafael ORO MD Unavailable Unavailable FISCHI, Jose Rafael ORO MD Unavailable Unavailable FISCHI, Jose Rafael ORO MD Unavailable Unavailable FISCHI, Jose Rafael OOR MD Unavailable Unavailable FISCHI, Jose Rafael ORO MD Unavailable Unavailable FISCHI, Jose Rafael ORO MD Unavailable Unavailable FISCHI, Jose Rafael ORO MD Unavailable Unavailable FISCHI, Jose Rafael ORO MD Unavailable Unavailable FISCHI, Jose Rafael ORO MD Unavailable Unavailable FISCHI, Jose Rafael ORO MD Unavailable Unavailable FISCHI, Jose Rafael ORO MD Unavailable Unavailable FISCHI, Jose Rafael ORO MD Unavailable Unavailable FISCHI, Jose Rafael ORO MD Unavailable Unavailable FISCHI, Jose Rafael ORO MD Unavailable Unavailable FISCHI, Jose Rafael ORO MD Unavailable Unavailable FISCHI, Jose Rafael ORO MD Unavailable Unavailable FISCHI, Jose Rafael ORO MD Unavailable Unavailable FISCHI, Jose Rafael ORO MD Unavailable Unavailable FISCHI, Jose Rafael ORO MD Unavailable Unavailable FISCHI, Jose Rafael ORO MD Unavailable Unavailable FISCHI, Jose Rafael ORO MD Unavailable Unavailable FISCHI, Jose Rafael ORO MD Unavailable Unavailable Estrella ONTIVEROS Unavailable Unavailable Cintia Sigala MD Unavailable Unavailable Cintia Sigala MD Unavailable Unavailable Cintia Sigala MD Unavailable Unavailable Cintia Sigala MD Unavailable Unavailable Cintia Sigala MD Unavailable Unavailable Cintia Sigala MD Unavailable Unavailable Cintia Sigala MD Unavailable Unavailable Cintia Sigala MD Unavailable Unavailable Cintia Sigala MD Unavailable Unavailable Cintia Sigala MD Unavailable Unavailable Cnitia Sigala MD Unavailable Unavailable Cintia Sigala MD Unavailable Unavailable Cintia Sigala MD Unavailable Unavailable Cintia Sigala MD Unavailable Unavailable Cintia Sigala MD Unavailable Unavailable Cintia Sigala MD Unavailable Unavailable Cintia Sigala MD Unavailable Unavailable Cintia Sigala MD Unavailable Unavailable Jovon, Cintia Elizabeth MD Unavailable Unavailable Jovon, Cintia Elizabeth MD Unavailable Unavailable Sigala, Cintia Elizabeth MD Unavailable Unavailable Alexandra, Catalina W Lizzy HEMSTITCHER-C Unavailable Unavailabl e Alexandra, Catalina W Lizzy HEMSTITCHER-C Unavailable Unavailabl e Alexandra, Catalina W Lizzy HEMSTITCHER-C Unavailable Unavailabl e Alexandra, Catalina W Lizzy HEMSTITCHER-C Unavailable Unavailabl e Alexandra, Catalina W Lizzy HEMSTITCHER-C Unavailable Unavailabl e Alexandra, Catalina W Lizzy HEMSTITCHER-C Unavailable Unavailabl e Alexandra, Catalina W Lizzy HEMSTITCHER-C Unavailable Unavailabl e Alexandra, Catalina W Lizzy HEMSTITCHER-C Unavailable Unavailabl e Alexandra, Catalina W Lizzy HEMSTITCHER-C Unavailable Unavailabl e Alexandra, Catalina W Lizzy HEMSTITCHER-C Unavailable Unavailabl e Alexandra, Catalina W Lizzy HEMSTITCHER-C Unavailable Unavailabl e Alexandra, Catalina W Lizzy HEMSTITCHER-C Unavailable Unavailabl e Alexandra, Catalina W Lizzy HEMSTITCHER-C Unavailable Unavailabl e Alexandra, Catalina W Lizzy HEMSTITCHER-C Unavailable Unavailabl e Alexandra, Catalina W Lizzy HEMSTITCHER-C Unavailable Unavailabl e Alexandra, Catalina W Lizzy HEMSTITCHER-C Unavailable Unavailabl e Alexandra, Catalina W Lizzy HEMSTITCHER-C Unavailable Unavailabl e Alexandra, Catalina W Lizzy HEMSTITCHER-C Unavailable Unavailabl e Alexandra, Regfritz W Lizzy HEMSTITCHER-C Unavailable Unavailabl e Alexandra, Regfritz W Lizzy HEMSTITCHER-C Unavailable Unavailabl e Alexandra, Regfritz W Lizzy HEMSTITCHER-C Unavailable Unavailabl e Alexandra, Regfritz W Lizzy HEMSTITCHER-C Unavailable Unavailabl e Alexandra, Regfritz W Lizzy HEMSTITCHER-C Unavailable Unavailabl e Alexandra, Regfritz W Lizzy HEMSTITCHER-C Unavailable Unavailabl e Alexandra, Regshannan W Lizzy HEMSTITCHER-C Unavailable Unavailabl e Alexandra, Catalina Matson Lizzy HEMSTITCHER-C Unavailable Unavailabl e Alexandra, Catalina Maston Lizzy HEMSTITCHER-C Unavailable Unavailabl e Alexandra, Catalina W Lizzy HEMSTITCHER-C Unavailable Unavailabl e Alexandra, Catalina Matson Lizzy HEMSTITCHER-C Unavailable Unavailabl e Alexandra, Catalina W Lizzy HEMSTITCHER-C Unavailable Unavailabl e Alexandra, Catalina Matson Lizzy HEMSTITCHER-C Unavailable Unavailabl e Alexandra, Regshannanh W Lizzy HEMSTITCHER-C Unavailable Unavailabl e Symenow, Marlene Basilia PA Unavailable Unavailable Symenow, Marlene Basilia PA Unavailable Unavailable Symenow, Marlene Basilia PA Unavailable Unavailable Symenow, Marlene Basilia PA Unavailable Unavailable Symenow, Marlene Basilia PA Unavailable Unavailable Symenow, Marlene Basilia PA Unavailable Unavailable Symenow, Marlene Basilia PA Unavailable Unavailable Symenow, Marlene Basilia PA Unavailable Unavailable Symenow, Marlene Basilia PA Unavailable Unavailable Symenow, Marlene Basilia PA Unavailable Unavailable Symenow, Marlene Basilia PA Unavailable Unavailable Symenow, Marlene Basilia PA Unavailable Unavailable Symenow, Marlene Basilia PA Unavailable Unavailable Symenow, Marlene Basilia PA Unavailable Unavailable Symenow, Marlene Basilia PA Unavailable Unavailable Symenow, Marlene Basilia PA Unavailable Unavailable Symenow, Marlene Basilia PA Unavailable Unavailable Symenow, Marlene Basilia PA Unavailable Unavailable Symenow, Marlene Basilia PA Unavailable Unavailable Symenow, Marlene Basilia PA Unavailable Unavailable Symenow, Marlene Basilia PA Unavailable Unavailable Symenow, Marlene Basilia PA Unavailable Unavailable Symenow, Marlene Basilia PA Unavailable Unavailable Symenow, Marlene Basilia PA Unavailable Unavailable Symenow, Marlene Basilia PA Unavailable Unavailable Symenow, Marlene Basilia PA Unavailable Unavailable Symenow, Marlene Basilia PA Unavailable Unavailable Symenow, Marelne Basilia PA Unavailable Unavailable Symenow, Marlene Basilia PA Unavailable Unavailable Symenow, Marlene Basilia PA Unavailable Unavailable Symenow, Marlene Basilia PA Unavailable Unavailable Symenow, Marlene Basilia PA Unavailable Unavailable Symenow, Marlene Basilia PA Unavailable Unavailable Symenow, Marlene Basilia PA Unavailable Unavailable CORRINE, L DUSTIN PA Unavailable Unavailable CORRINE, L DUSTIN PA Unavailable Unavailable CORRINE, L DUSTIN PA Unavailable Unavailable CORRINE, L DUSTIN PA Unavailable Unavailable CORRINE, L DUSTIN PA Unavailable Unavailable CORRINE, L DUSTIN PA Unavailable Unavailable CORRINE, L DUSTIN PA Unavailable Unavailable CORRINE, L DUSTIN PA Unavailable Unavailable CORRINE, L DUSTIN PA Unavailable Unavailable CORRINE, L DUSTIN PA Unavailable Unavailable CORRINE, L DUSTIN PA Unavailable Unavailable CORRINE, L DUSTIN PA Unavailable Unavailable CORRINE, L DUSTIN PA Unavailable Unavailable CORRINE, L DUSTIN PA Unavailable Unavailable CORRINE, L DUSTIN PA Unavailable Unavailable CORRINE, L DUSTIN PA Unavailable Unavailable ZAPIEN, RIYA SLIM RPA-C Unavailable Unavailable ZAPIEN, RIYA SLIM RPA-C Unavailable Unavailable ZAPIEN, RIYA SLIM RPA-C Unavailable Unavailable ZAPIEN, RIYA SLIM RPA-C Unavailable Unavailable ZAPIEN, RIYA SLIM RPA-C Unavailable Unavailable ZAPIEN, RIYA SLIM RPA-C Unavailable Unavailable ZAPIEN, RIYA SLIM RPA-C Unavailable Unavailable ZAPIEN, RIYA SLIM RPA-C Unavailable Unavailable ZAPIEN, RIYA SLIM RPA-C Unavailable Unavailable ZAPIEN, RIYA SLIM RPA-C Unavailable Unavailable ZAPIEN, RIYA SLIM RPA-C Unavailable Unavailable ZAPIEN, RIYA SLIM RPA-C Unavailable Unavailable ZAPIEN, RIYA SLIM RPA-C Unavailable Unavailable ZAPIEN, RIYA SLIM RPA-C Unavailable Unavailable ZAPIEN, RIYA SLIM RPA-C Unavailable Unavailable ZAPIEN, RIYA SLIM RPA-C Unavailable Unavailable ZAPIEN, RIYA SLIM RPA-C Unavailable Unavailable ZAPIEN, RIYA SLIM RPA-C Unavailable Unavailable ZAPIEN, RIYA SLIM RPA-C Unavailable Unavailable ZAPIEN, RIYA SLIM RPA-C Unavailable Unavailable ZAPIEN, RIYA SLIM RPA-C Unavailable Unavailable ZAPIEN, RIYA SLIM RPA-C Unavailable Unavailable ZAPIEN, RIYA SLIM RPA-C Unavailable Unavailable ZAPIEN, RIYA SLIM RPA-C Unavailable Unavailable ZAPIEN, RIYA SLIM RPA-C Unavailable Unavailable ZAPIEN, RIYA SLIM RPA-C Unavailable Unavailable ZAPIEN, RIYA SLIM RPA-C Unavailable Unavailable ZAPIEN, RIYA SLIM RPA-C Unavailable Unavailable ZAPIEN, RIYA SLIM RPA-C Unavailable Unavailable ZAPIEN, RIYA SLIM RPA-C Unavailable Unavailable ZAPIEN, RIYA SLIM RPA-C Unavailable Unavailable ZAPIEN, RIYA SLIM RPA-C Unavailable Unavailable ZAPIEN, RIYA SLIM RPA-C Unavailable Unavailable ZAPIEN, RIYA SLIM RPA-C Unavailable Unavailable ZAPIEN, RIYA SLIM RPA-C Unavailable Unavailable ZAPIEN, RIYA SLIM RPA-C Unavailable Unavailable ZAPIEN, RIYA SLIM RPA-C Unavailable Unavailable ZAPIEN, RIYA SLIM RPA-C Unavailable Unavailable ZAPIEN, RIYA SLIM RPA-C Unavailable Unavailable ZAPIEN, RIYA SLIM RPA-C Unavailable Unavailable ZAPIEN, RIYA SLIM RPA-C Unavailable Unavailable ZAPIEN, RIYA SLIM RPA-C Unavailable Unavailable ZAPIEN, RIYA SLIM RPA-C Unavailable Unavailable EL, L FARZANEH PA Unavailable Unavailable EL, L FARZANEH PA Unavailable Unavailable EL, L FARZANEH PA Unavailable Unavailable EL, L FARZANEH PA Unavailable Unavailable EL, L FARZANEH PA Unavailable Unavailable EL, L FARZANEH PA Unavailable Unavailable EL, L FARZANEH PA Unavailable Unavailable EL, L FARZANEH PA Unavailable Unavailable EL, L FARZANEH PA Unavailable Unavailable EL, L FARZANEH PA Unavailable Unavailable EL, L FARZANEH PA Unavailable Unavailable EL, L FARZANEH PA Unavailable Unavailable EL, L FARZANEH PA Unavailable Unavailable EL, L FARZANEH PA Unavailable Unavailable EL, L FARZANEH PA Unavailable Unavailable EL, L FARZANEH PA Unavailable Unavailable EL, L FARZANEH PA Unavailable Unavailable EL, L FARZANEH PA Unavailable Unavailable EL, L FARZANEH PA Unavailable Unavailable EL, L FARZANEH PA Unavailable Unavailable EL, L FARZANEH PA Unavailable Unavailable EL, L FARZANEH PA Unavailable Unavailable Re-disclosure Warning The records that you are about to access may contain information from federally-assisted alcohol or drug abuse programs. If such information is present, then the following federally mandated warning applies: This information has been disclosed to you from records protected by federal confidentiality rules (42 CFR part 2). The federal rules prohibit you from making any further disclosure of this information unless further disclosure is expressly permitted by the written consent of the person to whom it pertains or as otherwise permitted by 42 CFR part 2. A general authorization for the release of medical or other information is NOT sufficient for this purpose. The Federal rules restrict any use of the information to criminally investigate or prosecute any alcohol or drug abuse patient.The records that you are about to access may contain highly sensitive health information, the redisclosure of which is protected by Article 27-F of the [facility] Public Health law. If you continue you may have access to information: Regarding HIV / AIDS; Provided by facilities licensed or operated by the [facility] Office of Mental Health; or Provided by the [facility] Office for People With Developmental Disabilities. If such information is present, then the following [facility] mandated warning applies: This information has been disclosed to you from confidential records which are protected by state law. State law prohibits you from making any further disclosure of this information without the specific written consent of the person to whom it pertains, or as otherwise permitted by law. Any unauthorized further disclosure in violation of state law may result in a fine or long-term sentence or both. A general authorization for the release of medical or other information is NOT sufficient authorization for further disc losure. Allergies and Adverse Reactions Type Description Substance Reaction Status Data Source(s ) Propensity to adverse reactions LATEX Latex Acti ve [facility] Family History Family Member Name Family Member Gender Family Member Status Date o f Status Description Data Source(s) Unknown Male Problem MEDENT ([facility]) Unknown Male Problem MEDENT ([facility] Unknown Female Problem MEDENT ([facility]) Encounters Encounter Providers Location Date Indications Data Source(s ) Outpatient Attender: Melva Lazo PA-C 01/19/2021 11:30 :00 AM EDT [facility] (TCM) TCM/Hospital Follow Up [facility] 01/19/2021 12:00:00 AM EDT eCW1 ([facility]) Outpatient [facility] 01/08/2021 12:00:00 AM EDT eCW1 ([facility]) Outpatient [facility] 01/08/2021 12:00:00 AM EDT eCW1 ([facility]) Inpatient Attender: SABAS PAGE MDA dmitter: SABAS PAGE MDReferrer: KANDACE GARDNER [id number] 01/04/2021 03:12:00 PM EDT - 01/06/2021 06:04:00 PM EDT [facility] Patient discharged. Outpatient [facility] 01/04/2021 12:00:00 AM EDT eCW1 ([facility]) Attender: Glenn Sigala MD 11/06/2020 06:15:42 PM EDT [facility] [place] [facility] Outpatient Attender: Glenn Sigala MDAdmitter: Glenn Sigala MD 11/03/2020 07:25:00 AM EDT - 11/03/2020 05:06:00 PM EDT ANAL CONDYLOMA A63.0 [facility] ANAL CONDYLOMA A63.0 Patient discharged. Outpatient Attender: DUSTIN GARDNER Main Office 10/19/2020 0 9:15:00 AM EDT MEDENT ([facility]) Outpatient [facility] 10/19/2020 12:00:00 AM EDT eCW1 ([facility]) Outpatient [facility] 10/09/2020 12:00:00 AM EDT eCW1 ([facility]) Outpatient Attender: Glenn Sigala MD [place] 10/05/2020 03:00:00 PM EDT MEDENT ([facility]) Outpatient Attender: Melva Lazo PA-C 09/29/2020 09:29 :00 AM EDT [facility] Outpatient [facility] 09/29/2020 12:00:00 AM EDT eCW1 ([facility]) Outpatient [facility] 09/13/2020 12:00:00 AM EDT eCW1 ([facility]) [place] [address] [address] 09/12/2020 12:00:00 AM EDT eCW1 ([facility]) [place] [address] [address] 09/08/2020 12:00:00 AM EDT eCW1 ([facility]) Outpatient Attender: DUSTIN GARDNER Main Office 09/07/2020 0 9:45:00 AM EDT MEDENT ([facility]) Outpatient [facility] 09/05/2020 12:00:00 AM EDT eCW1 ([facility]) Outpatient Attender: Melva Lazo PA-C 08/18/2020 08:48 :00 AM EST [facility] Outpatient [facility] 08/18/2020 12:00:00 AM EST eCW1 ([facility]) [place] [address] [address] 08/11/2020 12:00:00 AM EST eCW1 ([facility]) Outpatient [facility] 07/28/2020 12:00:00 AM EST eCW1 ([facility]) Outpatient [facility] 07/26/2020 12:00:00 AM EST eCW1 ([facility]) Outpatient [facility] 07/21/2020 12:00:00 AM EST eCW1 ([facility]) [place] [address] [address] 07/10/2020 12:00:00 AM EST eCW1 ([facility]) Outpatient Attender: Melva Lazo PA-C 06/30/2020 08:40 :00 AM EST [facility] Outpatient [facility] 06/30/2020 12:00:00 AM EST eCW1 ([facility]) Outpatient Attender: DUSTIN GARDNER Main Office 06/21/2020 0 8:15:00 AM EST [facility] ([facility]) [place] [address] [address] 06/19/2020 12:00:00 AM EST eCW1 ([facility]) Outpatient Attender: Melva Lazo PA-C 05/26/2020 08:21 :00 AM EST [facility] Outpatient [facility] 05/26/2020 12:00:00 AM EST eCW1 ([facility]) Outpatient [facility] 05/23/2020 12:00:00 AM EST eCW1 ([facility]) [place] [address] [address] 05/18/2020 12:00:00 AM EST eCW1 ([facility]) Outpatient Attender: Basilia GARDNER Main Office 05/10/2020 07:15:00 AM EST MEDENT ([facility]) Inpatient Attender: PREETHI GUERRERO MDAdmitter: PREETHI VILLAREAL CHI, MD [id number] 05/03/2020 11:28:47 PM EST - 05/05/2020 01:53:00 PM EST [facility] Patient discharged. Outpatient [facility] 04/27/2020 12:00:00 AM EST eCW1 ([facility]) Outpatient [facility] 04/17/2020 12:00:00 AM EST eCW1 ([facility]) Outpatient Attender: Kathrin PATIÑO 04/10/2020 08:52:00 AM EDT [facility] Outpatient [facility] 04/10/2020 12:00:00 AM EDT eCW1 ([facility]) Outpatient [facility] 04/07/2020 12:00:00 AM EDT eCW1 ([facility]) Outpatient Attender: Ania GARDNER Main Office 03/20/2020 08:45:0 0 AM EDT MEDENT ([facility]) Inpatient Attender: Simon Witt MDAdmitter: Simon silver MD [id number] 03/16/2020 09:15:00 AM EDT - 03/18/2020 03:59:00 PM EDT [facility] Patient discharged. Outpatient [facility] 02/28/2020 12:00:00 AM EDT eCW1 ([facility]) Outpatient Attender: Kathrin PATIÑO 01/07/2020 08:10:00 AM T [facility] Outpatient Attender: Kathrin PATIÑO 12/15/2019 03:27:00 PM [facility] Outpatient Attender: Lizzy MCGINNIS-CAttender: Adrienne GARDNER 11/29/2019 04:51:00 PM [facility] Outpatient Attender: Lizzy TIRADO 11/13/2019 11:32:0 0 AM [facility] Outpatient Attender: Adrienne GARDNER 10/23/2019 09:00:00 AM [facility] Outpatient Attender: SLIM CHIANGCReferrer: [facility] 12/01/2018 12:43:00 PM EDT - 12/01/2018 12:43:00 PM EDT [facility] Outpatient Attender: FARZANEH GARDNER EMERG[facility] RO[facility] 0 10/19/2018 01:36:00 PM EDT - 10/19/2018 01:36:00 PM EDT [facility] Outpatient Attender: SLIM ZAPIEN RPA-C 08/14/2017 10:30:00 AM EST [facility] Immunizations Vaccine Date Status Description Data Source(s) COVID-19 VACCINE Moderna 10/09/2020 12:00:00 AM EDT completed [facility] Vaccine Series Complete: YESThis Data wa s Submitted to [facility]. COVID-19 VACC,MRNA(MODERNA)/PF 09/08/2020 12:00:00 AM EDT completed [facility] COVID-19 VACCINE Moderna 09/08/2020 12:00:00 AM EDT completed [facility] Vaccine Series Complete: NOThis Data was Submitted to [facility]. New in 2011. IIV4 04/10/2020 09:46:00 AM EDT completed eCW1 ([facility]) New in 2011. IIV4 04/10/2020 09:46:00 AM EDT completed eCW1 ([facility]) New in 2011. IIV4 04/10/2020 09:46:00 AM EDT completed eCW1 ([facility]) New in 2011. IIV4 04/10/2020 09:46:00 AM EDT completed eCW1 ([facility]) New in 2011. IIV4 04/10/2020 09:46:00 AM EDT completed eCW1 ([facility]) New in 2011. IIV4 04/10/2020 09:46:00 AM EDT completed eCW1 ([facility]) New in 2011. IIV4 04/10/2020 09:46:00 AM EDT completed eCW1 ([facility]) New in 2011. IIV4 04/10/2020 09:46:00 AM EDT completed eCW1 ([facility]) New in 2011. IIV4 04/10/2020 09:46:00 AM EDT completed eCW1 ([facility]) New in 2011. IIV4 04/10/2020 09:46:00 AM EDT completed eCW1 ([facility]) New in 2011. IIV4 04/10/2020 09:46:00 AM EDT completed eCW1 ([facility]) New in 2011. IIV4 04/10/2020 09:46:00 AM EDT completed eCW1 ([facility]) New in 2011. IIV4 04/10/2020 09:46:00 AM EDT completed eCW1 ([facility]) New in 2011. IIV4 04/10/2020 09:46:00 AM EDT completed eCW1 ([facility]) New in 2011. IIV4 04/10/2020 09:46:00 AM EDT completed eCW1 ([facility]) New in 2011. IIV4 04/10/2020 09:46:00 AM EDT completed eCW1 ([facility]) New in 2011. IIV4 04/10/2020 09:46:00 AM EDT completed eCW1 ([facility]) New in 2011. IIV4 04/10/2020 09:46:00 AM EDT completed eCW1 ([facility]) New in 2011. IIV4 04/10/2020 09:46:00 AM EDT completed eCW1 ([facility]) Medications Medication Brand Name Start Date Product Form Dose Route Admi nistrative Instructions Pharmacy Instructions Status Indications Reaction Description Data Source(s) 0.4 mg 04/03/2021 12:00:00 AM EDT tablet, sublingual 25 1TAB.UNDER TONGUE EVERY 5MIN.UP TO 3 DOSES NEEDED FOR CHEST PAIN 1TAB.UNDER TONGUE EVERY 5MIN.UP TO 3 DOSES NEEDED FOR CHEST PAIN SOLD: 04/06/2021 [facility] 2.5 mg 04/03/2021 12:00:00 AM EDT tablet 90 TAKE 1 TABLET BY MOUTH EVERY NIGHT AT BEDTIME TAKE 1 TABLET BY MOUTH EVERY NIGHT AT BEDTIME SOLD: 04/06/20 [facility] 90 mg 04/03/2021 12:00:00 AM EDT tablet 180 TAKE ONE TABLET BY MOUTH TWICE A DAY TAKE ONE TABLET BY MOUTH TWICE A DAY SOLD: 04/06/2021 [facility] 80 mg 03/30/2021 12:00:00 AM EDT tablet 90 TAKE 1 TABLET BY MOUTH EVERY NIGHT AT BEDTIME TAKE 1 TABLET BY MOUTH EVERY NIGHT AT BEDTIME SOLD: 04/03/20 [facility] 25 mg 02/21/2021 12:00:00 AM EDT tablet 30 TAKE ONE TABLET BY MOUTH EVERY DAY TAKE ONE TABLET BY MOUTH EVERY DAY SOLD: 03/26/2021 [facility] 25 mg 02/21/2021 12:00:00 AM EDT tablet 30 TAKE ONE TABLET BY MOUTH EVERY DAY TAKE ONE TABLET BY MOUTH EVERY DAY SOLD: 02/27/2021 [facility] 40 mg 01/29/2021 12:00:00 AM EDT capsule,delayed release (DR/EC) 90 TAKE 1 CAPSULE BY MOUTH ONCE A DAY 30 MINUTES BEFORE MORNING MEAL TAKE 1 CAPSULE BY MOUTH ONCE A DAY 30 MINUTES BEFORE MORNING MEAL SOLD: 02/06/2021 [facility] 5-325 mg 01/08/2021 12:00:00 AM EDT tablet 30 TAKE 1-2 TABLETS BY MOUTH EVERY 4 HOURS NEEDED FOR PAIN MAXIMUM DAILY DOSE = 8 TABLETS TAKE 1-2 TABLETS BY MOUTH EVERY 4 HOURS NEEDED FOR PAIN MAXIMUM DAILY DOSE = 8 TABLETS SOLD: 01/08/2021 [facility] Aspirin 81 MG Chewable Tablet aspirin chewable tablet 81 mg aspirin chewable tablet 81 mg 01/06/2021 09:00:00 AM EDT 81 mg Oral activ e 81 mg, Oral, Daily, First dose on 01/06/21 at 0900 [facility] Medication administered onsite Sertraline 50 MG Oral Tablet sertraline (ZOLOFT) table t 25 mg sertraline (ZOLOFT) tablet 25 mg 01/06/2021 09:00:00 AM EDT 25 mg Oral active 25 mg, Oral, Daily, First dose on 01/06/21 at 0900 [facility] Medication administered onsite Lisinopril 5 MG Oral Tablet lisinopril (PRINIVIL,ZESTR IL) tablet 2.5 mg lisinopril (PRINIVIL,ZESTRIL) tablet 2.5 mg 01/06/2021 09:00:00 AM EDT 2.5 mg Oral active 2.5 mg, Oral, Daily, First dose on 01/06/21 at 0900 [facility] Medication administered onsite Acetaminophen 325 MG / Oxycodone Hydroch loride 5 MG Oral Tablet oxyCODONE- Acetaminophen 5-325 MG oxyCODONE-Acetaminophen 5-325 MG 01/06/2021 12:00:00 A M EDT 1.0 {tablet_as_needed} suspended oxyCODONE-Acetaminophen 5-325 MG eCW1 ([facility]) Acetaminophen 325 MG / Oxycodone Hydroch loride 5 MG Oral Tablet oxyCODONE- acetaminophen (PERCOCET) 5-325 MG per tablet oxyCODONE-acetaminophen (PERCOCET) 5-325 MG per tablet 01/06/2021 12:00:00 AM EDT {tbl} Oral aborted Take 1-2 tablets by mouth every 4 (four) hours as needed for pain Max Daily Amount: 6 tablets [facility] Acetaminophen 325 MG / Oxycodone Hydroch loride 5 MG Oral Tablet oxyCODONE- Acetaminophen 5-325 MG oxyCODONE-Acetaminophen 5-325 MG 01/06/2021 12:00:00 A M EDT 1.0 {tablet_as_needed} active o xyCODONE-Acetaminophen 5-325 MG eCW1 ([facility]) Acetaminophen 325 MG / Oxycodone Hydroch loride 5 MG Oral Tablet oxyCODONE- acetaminophen (PERCOCET) 5-325 MG per tablet oxyCODONE-acetaminophen (PERCOCET) 5-325 MG per tablet 01/06/2021 12:00:00 AM EDT {tbl} Oral active Take 1-2 tablets by mouth every 4 (four) hours as needed for pain Max Daily Amount: 12 tablets [facility] 5-325 mg 01/06/2021 12:00:00 AM EDT tablet 8 TAKE 1-2 TABLETS BY MOUTH EVERY 4 HOURS NEEDED FOR PAIN MAXIMUM DAILY DOSE = 8 TABLETS TAKE 1-2 TABLETS BY MOUTH EVERY 4 HOURS NEEDED FOR PAIN MAXIMUM DAILY DOSE = 8 TABLETS SOLD: 01/06/2021 [facility] Acetaminophen 325 MG / Oxycodone Hydroch loride 5 MG Oral Tablet oxyCODONE- Acetaminophen 5-325 MG oxyCODONE-Acetaminophen 5-325 MG 01/06/2021 12:00:00 A M EDT 1.0 {tablet_as_needed} active o xyCODONE-Acetaminophen 5-325 MG eCW1 ([facility]) 10 ML Atropine Sulfate 0.1 MG/ML Prefill ed Syringe atropine sulfate injection 0.5 mg atropine sulfate injection 0.5 mg 01/05/2021 11:43:58 PM EDT 0.5 mg active 0.5 mg, Intrave nous Push, Every 5 min PRN, other, As needed, for heart rate less than 60 BPM and the patient is hemodynamically unstable and/or SBP is less than 90mmHg, Starting on Fri01/05/21 at 2343, For 1 day, PACU (only)
Not to exceed a total of 3 mg or 0.04 mg/kg. Max of 6 doses
[facility] Medication administered onsite Acetaminophen 325 MG / Oxycodone Hydroch loride 5 MG Oral Tablet oxyCODONE- acetaminophen (PERCOCET) 5-325 MG 1-2 tablet oxyCODONE-acetaminophen (PERCOCET) 5-325 MG 1-2 tablet 01/05/2021 01:08:44 PM EDT {tbl} Oral active 1-2 tablet, Oral, Every 4 hours PRN, moderate pain (4-6), severe pain (7-10), Starting on Fri01/05/21 at 1308, For 7 days [facility] Medication administered onsite carvedilol 3.125 MG Oral Tablet carvedilol (COREG) tab let 3.125 mg carvedilol (COREG) tablet 3.125 mg 01/05/2021 09:00:00 AM EDT 3.125 mg Oral active 3.125 mg, Oral, 2 times daily, First dos e on Fri01/05/21 at 0900
Hold for SBP <110
[facility] Medication administered onsite Nitroglycerin 0.4 MG Sublingual Tablet n itroglycerin (NITROSTAT) SL tablet 0.4 mg nitroglycerin (NITROSTAT) SL tablet 0.4 mg 01/04/2021 11:28:01 P M EDT 0.4 mg Sublingual active 0.4 mg, S ublingual, Every 5 min PRN, chest pain, Starting on [place] 01/04/21 at 2328
May administer up to 3 doses per episode.
[facility] Medication administered onsite Albuterol 0.83 MG/ML Inhalant Solution a lbuterol (PROVENTIL) nebulizer solution 2.5 mg albuterol (PROVENTIL) nebulizer solution 2.5 mg 2020 11:27:52 PM EDT 2.5 mg active 2.5 mg, Nebulization, 2 times daily PRN, wheezing, shortness of breath, Starting on [place] 01/04/21 at 2327 [facility] Medication administered onsite Morphine Sulfate (PF) injection 3 mg [id number] 01/04/2021 11:00: 01 PM EDT 3 mg Intravenous aborted 3 mg, In travenous, Every 4 hours PRN, severe pain (7-10), Starting on [place] 01/04/21 at 2300, For 7 days
Severe breakthrough pain
[facility] Medication administered onsite normal saline flush 0.9 % injection 10 mL [id number] 01/04/2021 10:00:00 PM EDT 10 mL Intravenous active 10 m L, Intravenous, Every 8 hours (scheduled), First dose on [place] 01/04/21 at 2200
Flush with 10 mL NS prior and post medication administration. Flush with 10 mL NS prior to blood specimen collection and flush with 20 mL to clear solution/drug post blood specimen collection
[facility] Medication administered onsite piperacillin-tazobactam (ZOSYN) 3.375 g in sodium chloride (NS) 0.9 % 100 mL IV pigtail 01/04/2021 07:00:00 PM EDT 3.375 g Intravenous active Skin and Soft Tissue Infection 3.375 g, Intravenous, Admini ster over 30 Minutes, Every 6 hours (relative), First dose on [place] 01/04/21 at 1900 [facility] Skin and Soft Tissue Infection Medication administered onsite sodium chloride 0.9% (NS) infusion [id number] 01/04/2021 05:00:00 P M EDT Intravenous active at 100 mL/hr, Intravenous, Continuous, Starting on [place] 01/04/21 at 1700 [facility] Medication administered onsite normal saline flush 0.9 % injection 3 mL [id number] 01/04/2021 05:00:00 PM EDT 3 mL Intravenous active 3 mL , Intravenous, Every 8 hours (scheduled), First dose on [place] 01/04/21 at 1700
flush per protocol, D/C Main IV fluid if appropriate
[facility] Medication administered onsite ondansetron (ZOFRAN) injection 4 mg [id number] 01/04/2021 04:42:1 9 PM EDT 4 mg Intravenous active 4 mg, In travenous, Every 6 hours PRN, nausea, vomiting, Starting on [place] 01/04/21 at 1642 [facility] Medication administered onsite Acetaminophen 325 MG / Oxycodone Hydrochloride 5 MG Or al Tablet [Percocet] Percocet 11/03/2020 12:00:00 AM EDT ORAL active [facility] ([facility]) 5-325 mg 11/03/2020 12:00:00 AM EDT tablet 42 TAKE 1-2 TABLETS BY MOUTH EVERY 4 HOURS NEEDED FOR PAIN MAXIMUM DAILY DOSE = 6 TABLETS TAKE 1-2 TABLETS BY MOUTH EVERY 4 HOURS NEEDED FOR PAIN MAXIMUM DAILY DOSE = 6 TABLETS SOLD: 11/03/2020 [facility] 24 HR Nicotine 0.583 MG/HR Transdermal Patch Nicotine 14 MG/24HR Nicotine 14 MG/24HR 09/29/2020 12:00:00 AM EDT 1.0 {patch_to_skin} active Nicotine 14 MG/24HR eCW1 ([facility]) 24 HR Nicotine 0.583 MG/HR Transdermal Patch Nicotine 14 MG/24HR Nicotine 14 MG/24HR 09/29/2020 12:00:00 AM EDT 1.0 {patch_to_skin} active Nicotine 14 MG/24HR eCW1 ([facility]) 24 HR Nicotine 0.583 MG/HR Transdermal Patch Nicotine 14 MG/24HR Nicotine 14 MG/24HR 09/29/2020 12:00:00 AM EDT 1.0 {patch_to_skin} active Nicotine 14 MG/24HR eCW1 ([facility]) 24 HR Nicotine 0.583 MG/HR Transdermal Patch Nicotine 14 MG/24HR Nicotine 14 MG/24HR 09/29/2020 12:00:00 AM EDT 1.0 {patch_to_skin} active Nicotine 14 MG/24HR eCW1 ([facility]) 24 HR Nicotine 0.583 MG/HR Transdermal Patch Nicotine 14 MG/24HR Nicotine 14 MG/24HR 09/29/2020 12:00:00 AM EDT 1.0 {patch_to_skin} active Nicotine 14 MG/24HR eCW1 ([facility]) 14 mg/24 hr 09/29/2020 12:00:00 AM EDT patch 24 hour 3 APPLY ONE PATCH TO THE SKIN EVERY DAY APPLY ONE PATCH TO THE SKIN EVERY DAY SOLD: 10/04/2020 [facility] 24 HR Nicotine 0.583 MG/HR Transdermal Patch Nicotine 14 MG/24HR Nicotine 14 MG/24HR 09/29/2020 12:00:00 AM EDT 1.0 {patch_to_skin} active Nicotine 14 MG/24HR eCW1 ([facility]) 24 HR Nicotine 0.583 MG/HR Transdermal Patch Nicotine 14 MG/24HR Nicotine 14 MG/24HR 09/29/2020 12:00:00 AM EDT 1.0 {patch_to_skin} active Nicotine 14 MG/24HR eCW1 ([facility]) carvedilol 3.125 MG Oral Tablet CARVEDILOL 09/13/2020 12:00:00 AM EDT tablet 60 TAKE ONE TABLET BY MOUTH TWICE A DAY TAKE ONE TABLET BY MOUT H TWICE A DAY SOLD: 11/15/2020 [facility] carvedilol 3.125 MG Oral Tablet CARVEDILOL 09/13/2020 12:00:00 AM EDT tablet 60 TAKE ONE TABLET BY MOUTH TWICE A DAY TAKE ONE TABLET BY MOUT H TWICE A DAY SOLD: 01/23/2021 [facility] carvedilol 3.125 MG Oral Tablet CARVEDILOL 09/13/2020 12:00:00 AM EDT tablet 60 TAKE ONE TABLET BY MOUTH TWICE A DAY TAKE ONE TABLET BY MOUT H TWICE A DAY SOLD: 02/20/2021 [facility] carvedilol 3.125 MG Oral Tablet CARVEDILOL 09/13/2020 12:00:00 AM EDT tablet 60 TAKE ONE TABLET BY MOUTH TWICE A DAY TAKE ONE TABLET BY MOUT H TWICE A DAY SOLD: 12/20/2020 [facility] carvedilol 3.125 MG Oral Tablet CARVEDILOL 09/13/2020 12:00:00 AM EDT tablet 60 TAKE ONE TABLET BY MOUTH TWICE A DAY TAKE ONE TABLET BY MOUT H TWICE A DAY SOLD: 09/13/2020 [facility] carvedilol 3.125 MG Oral Tablet CARVEDILOL 09/13/2020 12:00:00 AM EDT tablet 60 TAKE ONE TABLET BY MOUTH TWICE A DAY TAKE ONE TABLET BY MOUT H TWICE A DAY SOLD: 03/26/2021 [facility] carvedilol 3.125 MG Oral Tablet CARVEDILOL 09/13/2020 12:00:00 AM EDT tablet 60 TAKE ONE TABLET BY MOUTH TWICE A DAY TAKE ONE TABLET BY MOUT H TWICE A DAY SOLD: 10/17/2020 [facility] 21 mg/24 hr 08/19/2020 12:00:00 AM EST patch 24 hour 28 APPLY 1 PATCH TO SKIN ONCE DAILY APPLY 1 PATCH TO SKIN ONCE DAILY SOLD: 09/28/2020 [facility] 21 mg/24 hr 08/19/2020 12:00:00 AM EST patch 24 hour 28 APPLY 1 PATCH TO SKIN ONCE DAILY APPLY 1 PATCH TO SKIN ONCE DAILY SOLD: 08/25/2020 [facility] 25 mg 08/18/2020 12:00:00 AM EST tablet 30 TAKE ONE TABLET BY MOUTH EVERY DAY TAKE ONE TABLET BY MOUTH EVERY DAY SOLD: 10/29/2020 [facility] 24 HR Nicotine 0.875 MG/HR Transdermal Patch Nicotine 21 MG/24HR Nicotine 21 MG/24HR 08/18/2020 12:00:00 AM EST 1.0 {patch_to_skin} active Nicotine 21 MG/24HR eCW1 ([facility]) 24 HR Nicotine 0.875 MG/HR Transdermal Patch Nicotine 21 MG/24HR Nicotine 21 MG/24HR 08/18/2020 12:00:00 AM EST 1.0 {patch_to_skin} active Nicotine 21 MG/24HR eCW1 ([facility]) 24 HR Nicotine 0.875 MG/HR Transdermal Patch Nicotine 21 MG/24HR Nicotine 21 MG/24HR 08/18/2020 12:00:00 AM EST 1.0 {patch_to_skin} active Nicotine 21 MG/24HR eCW1 ([facility]) 25 mg 08/18/2020 12:00:00 AM EST tablet 30 TAKE ONE TABLET BY MOUTH EVERY DAY TAKE ONE TABLET BY MOUTH EVERY DAY SOLD: 01/23/2021 [facility] 24 HR Nicotine 0.875 MG/HR Transdermal Patch Nicotine 21 MG/24HR Nicotine 21 MG/24HR 08/18/2020 12:00:00 AM EST 1.0 {patch_to_skin} active Nicotine 21 MG/24HR eCW1 ([facility]) 25 mg 08/18/2020 12:00:00 AM EST tablet 30 TAKE ONE TABLET BY MOUTH EVERY DAY TAKE ONE TABLET BY MOUTH EVERY DAY SOLD: 09/28/2020 [facility] 24 HR Nicotine 0.875 MG/HR Transdermal Patch Nicotine 21 MG/24HR Nicotine 21 MG/24HR 08/18/2020 12:00:00 AM EST 1.0 {patch_to_skin} active Nicotine 21 MG/24HR eCW1 ([facility]) 25 mg 08/18/2020 12:00:00 AM EST tablet 30 TAKE ONE TABLET BY MOUTH EVERY DAY TAKE ONE TABLET BY MOUTH EVERY DAY SOLD: 12/25/2020 [facility] 24 HR Nicotine 0.875 MG/HR Transdermal Patch Nicotine 21 MG/24HR Nicotine 21 MG/24HR 08/18/2020 12:00:00 AM EST 1.0 {patch_to_skin} active Nicotine 21 MG/24HR eCW1 ([facility]) 25 mg 08/18/2020 12:00:00 AM EST tablet 30 TAKE ONE TABLET BY MOUTH EVERY DAY TAKE ONE TABLET BY MOUTH EVERY DAY SOLD: 08/25/2020 [facility] 24 HR Nicotine 0.875 MG/HR Transdermal Patch Nicotine 21 MG/24HR Nicotine 21 MG/24HR 08/18/2020 12:00:00 AM EST 1.0 {patch_to_skin} active Nicotine 21 MG/24HR eCW1 ([facility]) 25 mg 08/18/2020 12:00:00 AM EST tablet 30 TAKE ONE TABLET BY MOUTH EVERY DAY TAKE ONE TABLET BY MOUTH EVERY DAY SOLD: 11/28/2020 [facility] 24 HR Nicotine 0.875 MG/HR Transdermal Patch Nicotine 21 MG/24HR Nicotine 21 MG/24HR 08/18/2020 12:00:00 AM EST 1.0 {patch_to_skin} suspended Nicotine 21 MG/24HR eCW1 ([facility]) 24 HR Nicotine 0.875 MG/HR Transdermal Patch Nicotine 21 MG/24HR Nicotine 21 MG/24HR 08/18/2020 12:00:00 AM EST 1.0 {patch_to_skin} active Nicotine 21 MG/24HR eCW1 ([facility]) 24 HR Nicotine 0.875 MG/HR Transdermal Patch Nicotine 21 MG/24HR Nicotine 21 MG/24HR 08/18/2020 12:00:00 AM EST 1.0 {patch_to_skin} active Nicotine 21 MG/24HR eCW1 ([facility]) 40 mg 07/28/2020 12:00:00 AM EST capsule,delayed release (DR/EC) 30 TAKE 1 CAPSULE BY MOUTH ONCE A DAY 30 MINUTES BEFORE MORNING MEAL TAKE 1 CAPSULE BY MOUTH ONCE A DAY 30 MINUTES BEFORE MORNING MEAL SOLD: 12/04/2020 [facility] 40 mg 07/28/2020 12:00:00 AM EST capsule,delayed release (DR/EC) 30 TAKE 1 CAPSULE BY MOUTH ONCE A DAY 30 MINUTES BEFORE MORNING MEAL TAKE 1 CAPSULE BY MOUTH ONCE A DAY 30 MINUTES BEFORE MORNING MEAL SOLD: 10/04/2020 [facility] 40 mg 07/28/2020 12:00:00 AM EST capsule,delayed release (DR/EC) 30 TAKE 1 CAPSULE BY MOUTH ONCE A DAY 30 MINUTES BEFORE MORNING MEAL TAKE 1 CAPSULE BY MOUTH ONCE A DAY 30 MINUTES BEFORE MORNING MEAL SOLD: 11/03/2020 [facility] 40 mg 07/28/2020 12:00:00 AM EST capsule,delayed release (DR/EC) 30 TAKE 1 CAPSULE BY MOUTH ONCE A DAY 30 MINUTES BEFORE MORNING MEAL TAKE 1 CAPSULE BY MOUTH ONCE A DAY 30 MINUTES BEFORE MORNING MEAL SOLD: 09/01/2020 [facility] 40 mg 07/28/2020 12:00:00 AM EST capsule,delayed release (DR/EC) 30 TAKE 1 CAPSULE BY MOUTH ONCE A DAY 30 MINUTES BEFORE MORNING MEAL TAKE 1 CAPSULE BY MOUTH ONCE A DAY 30 MINUTES BEFORE MORNING MEAL SOLD: 08/02/2020 [facility] 40 mg 07/28/2020 12:00:00 AM EST capsule,delayed release (DR/EC) 30 TAKE 1 CAPSULE BY MOUTH ONCE A DAY 30 MINUTES BEFORE MORNING MEAL TAKE 1 CAPSULE BY MOUTH ONCE A DAY 30 MINUTES BEFORE MORNING MEAL SOLD: 01/02/2021 [facility] 25 mg 07/21/2020 12:00:00 AM EST tablet 30 TAKE 1 TABLET BY MOUTH ONCE DAILY TAKE 1 TABLET BY MOUTH ONCE DAILY SOLD: 07/30/2020 [facility] Sinecatechins 0.15 MG/MG Topical Ointment [Veregen] Veregen 15 % Veregen 15 % 07/10/2020 12:00:00 AM EST 1.0 {application} active Veregen 15 % eCW1 ([facility]) Sinecatechins 0.15 MG/MG Topical Ointment [Veregen] Veregen 15 % Veregen 15 % 07/10/2020 12:00:00 AM EST 1.0 {application} active Veregen 15 % eCW1 ([facility]) Sinecatechins 0.15 MG/MG Topical Ointment [Veregen] Veregen 15 % Veregen 15 % 07/10/2020 12:00:00 AM EST 1.0 {application} active Veregen 15 % eCW1 ([facility]) Sinecatechins 0.15 MG/MG Topical Ointment [Veregen] Veregen 15 % Veregen 15 % 07/10/2020 12:00:00 AM EST 1.0 {application} active Veregen 15 % eCW1 ([facility]) 40 mg 07/03/2020 12:00:00 AM EST capsule,delayed release (DR/EC) 30 TAKE ONE CAPSULE BY MOUTH EVERY DAY TAKE ONE CAPSULE BY MOUTH EVERY DAY SOLD: 07/06/2020 [facility] 1 gram 06/21/2020 12:00:00 AM EST tablet 120 TAKE ONE TABLET BY MOUTH FOUR TIMES A DAY TAKE ONE TABLET BY MOUTH FOUR TIMES A DAY SOLD: 06/29/2020 [facility] Sertraline 25 MG Oral Tablet Sertraline HCL 06/20/2020 12:00:00 AM EST ORAL active [facility] ([facility]) Sucralfate 1000 MG Oral Tablet Sucralfate 06/20/2020 12:00:00 AM EST ORAL active [facility] ([facility]) Centrum Silver 06/20/2020 12:00:00 AM EST ORAL act jack MEDENT ([facility]) Omeprazole 40 MG Delayed Release Oral Capsule Omeprazole 06/20/2020 12:00:00 AM EST ORAL active [facility] ([facility]) Loratadine 10 MG Oral Tablet Loratadine 06/20/2020 12:00:00 AM EST ORAL active [facility] ([facility]) Airborne 06/20/2020 12:00:00 AM EST ORAL completed MEDENT ([facility]) 25 mg 05/26/2020 12:00:00 AM EST tablet 30 TAKE ONE TABLET BY MOUTH EVERY DAY TAKE ONE TABLET BY MOUTH EVERY DAY SOLD: 05/30/2020 [facility] Sertraline 25 MG Oral Tablet [Zoloft] Zoloft 25 MG Zoloft 25 MG 05/26/2020 12:00:00 AM EST 1.0 {tablet} active Zo loft 25 MG eCW1 ([facility]) 25 mg 05/26/2020 12:00:00 AM EST tablet 30 TAKE ONE TABLET BY MOUTH EVERY DAY TAKE ONE TABLET BY MOUTH EVERY DAY SOLD: 06/29/2020 [facility] Sertraline 25 MG Oral Tablet [Zoloft] Zoloft 25 MG Zoloft 25 MG 05/26/2020 12:00:00 AM EST 1.0 {tablet} active Zo loft 25 MG eCW1 ([facility]) Sertraline 25 MG Oral Tablet [Zoloft] Zoloft 25 MG Zoloft 25 MG 05/26/2020 12:00:00 AM EST 1.0 {tablet} active Zo loft 25 MG eCW1 ([facility]) Loratadine 10 MG Oral Tablet Loratadine 10 MG 05/18/2020 12:00:00 A M EST 1.0 {tablet} active Loratadine 10 MG eCW1 ( [facility]) Loratadine 10 MG Oral Tablet Loratadine 10 MG 05/18/2020 12:00:00 A M EST 1.0 {tablet} active Loratadine 10 MG eCW1 ( [facility]) Loratadine 10 MG Oral Tablet Loratadine 10 MG 05/18/2020 12:00:00 A M EST 1.0 {tablet} active Loratadine 10 MG eCW1 ( [facility]) 5 % 05/18/2020 12:00:00 AM EST cream in packet 12 APPLY ONE APPLICATION AT BEDTIME TO PERIANAL AREA/PENIS THREE TIMES A WEEK, LEAVE ON FOR 8 HOURS THEN WASH OFF APPLY ONE APPLICATION AT BEDTIME TO VIVIAN ANAL AREA/PENIS THREE TIMES A WEEK, LEAVE ON FOR 8 HOURS THEN WASH OFF SOLD: 05/19/2020 [facility] Loratadine 10 MG Oral Tablet Loratadine 10 MG 05/18/2020 12:00:00 A M EST 1.0 {tablet} active Loratadine 10 MG eCW1 ( [facility]) Loratadine 10 MG Oral Tablet Loratadine 10 MG 05/18/2020 12:00:00 A M EST 1.0 {tablet} active Loratadine 10 MG eCW1 ( [facility]) Loratadine 10 MG Oral Tablet Loratadine 10 MG 05/18/2020 12:00:00 A M EST 1.0 {tablet} active Loratadine 10 MG eCW1 ( [facility]) imiquimod 50 MG/ML Topical Cream Imiquimod 5 % Imiquimod 5 % 05/18/2020 12:00:00 AM EST active Imiquimod 5 % eC W1 ([facility]) 90 mg 05/10/2020 12:00:00 AM EST tablet 60 TAKE ONE TABLET BY MOUTH TWICE A DAY TAKE ONE TABLET BY MOUTH TWICE A DAY SOLD: 10/07/2020 [facility] 2.5 mg 05/10/2020 12:00:00 AM EST tablet 30 TAKE ONE TABLET BY MOUTH NIGHTLY AT BEDTIME TAKE ONE TABLET BY MOUTH NIGHTLY AT BEDTIME SOLD: 11/03/2020 [facility] 90 mg 05/10/2020 12:00:00 AM EST tablet 60 TAKE ONE TABLET BY MOUTH TWICE A DAY TAKE ONE TABLET BY MOUTH TWICE A DAY SOLD: 02/06/2021 [facility] 2.5 mg 05/10/2020 12:00:00 AM EST tablet 90 TAKE ONE TABLET BY MOUTH NIGHTLY AT BEDTIME TAKE ONE TABLET BY MOUTH NIGHTLY AT BEDTIME SOLD: 05/12/2020 [facility] 2.5 mg 05/10/2020 12:00:00 AM EST tablet 30 TAKE ONE TABLET BY MOUTH NIGHTLY AT BEDTIME TAKE ONE TABLET BY MOUTH NIGHTLY AT BEDTIME SOLD: 03/12/2021 [facility] 90 mg 05/10/2020 12:00:00 AM EST tablet 60 TAKE ONE TABLET BY MOUTH TWICE A DAY TAKE ONE TABLET BY MOUTH TWICE A DAY SOLD: 11/06/2020 [facility] 90 mg 05/10/2020 12:00:00 AM EST tablet 60 TAKE ONE TABLET BY MOUTH TWICE A DAY TAKE ONE TABLET BY MOUTH TWICE A DAY SOLD: 03/12/2021 [facility] Ticagrelor 90 MG Oral Tablet [Brilinta] Brilinta 05/10/2020 12:00:0 0 AM EST ORAL active [facility] 2.5 mg 05/10/2020 12:00:00 AM EST tablet 30 TAKE ONE TABLET BY MOUTH NIGHTLY AT BEDTIME TAKE ONE TABLET BY MOUTH NIGHTLY AT BEDTIME SOLD: 08/09/2020 [facility] 2.5 mg 05/10/2020 12:00:00 AM EST tablet 30 TAKE ONE TABLET BY MOUTH NIGHTLY AT BEDTIME TAKE ONE TABLET BY MOUTH NIGHTLY AT BEDTIME SOLD: 12/04/2020 [facility] 90 mg 05/10/2020 12:00:00 AM EST tablet 60 TAKE ONE TABLET BY MOUTH TWICE A DAY TAKE ONE TABLET BY MOUTH TWICE A DAY SOLD: 08/09/2020 [facility] 90 mg 05/10/2020 12:00:00 AM EST tablet 60 TAKE ONE TABLET BY MOUTH TWICE A DAY TAKE ONE TABLET BY MOUTH TWICE A DAY SOLD: 12/04/2020 [facility] 2.5 mg 05/10/2020 12:00:00 AM EST tablet 30 TAKE ONE TABLET BY MOUTH NIGHTLY AT BEDTIME TAKE ONE TABLET BY MOUTH NIGHTLY AT BEDTIME SOLD: 09/07/2020 [facility] 90 mg 05/10/2020 12:00:00 AM EST tablet 180 TAKE ONE TABLET BY MOUTH TWICE A DAY TAKE ONE TABLET BY MOUTH TWICE A DAY SOLD: 05/12/2020 [facility] Lisinopril 2.5 MG Oral Tablet Lisinopril 05/10/2020 12:00:00 AM EST ORAL active MEDENT ([facility]) 2.5 mg 05/10/2020 12:00:00 AM EST tablet 30 TAKE ONE TABLET BY MOUTH NIGHTLY AT BEDTIME TAKE ONE TABLET BY MOUTH NIGHTLY AT BEDTIME SOLD: 01/02/2021 [facility] 90 mg 05/10/2020 12:00:00 AM EST tablet 60 TAKE ONE TABLET BY MOUTH TWICE A DAY TAKE ONE TABLET BY MOUTH TWICE A DAY SOLD: 09/07/2020 [facility] 90 mg 05/10/2020 12:00:00 AM EST tablet 60 TAKE ONE TABLET BY MOUTH TWICE A DAY TAKE ONE TABLET BY MOUTH TWICE A DAY SOLD: 01/02/2021 [facility] 2.5 mg 05/10/2020 12:00:00 AM EST tablet 30 TAKE ONE TABLET BY MOUTH NIGHTLY AT BEDTIME TAKE ONE TABLET BY MOUTH NIGHTLY AT BEDTIME SOLD: 10/07/2020 [facility] 2.5 mg 05/10/2020 12:00:00 AM EST tablet 30 TAKE ONE TABLET BY MOUTH NIGHTLY AT BEDTIME TAKE ONE TABLET BY MOUTH NIGHTLY AT BEDTIME SOLD: 02/06/2021 [facility] sodium chloride 0.9% (NS) infusion [id number] 05/04/2020 02:00:00 P M EST Intravenous completed at 100 mL/hr, Intravenous, Continuous, Starting [place] 05/04/20 at 1400, For 2 hours, Post-op [facility] Medication administered onsite Diazepam 5 MG Oral Tablet diazepam (VALIUM) tablet 5 m g diazepam (VALIUM) tablet 5 mg 05/04/2020 11:00:00 AM EST 5 mg Oral completed 5 mg, Oral, Once, [place] 05/04/20 at 1100, For 1 dose [facility] Medication administered onsite 24 HR Nicotine 0.875 MG/HR Transdermal P atch nicotine (NICODERM CQ) 21 MG/24HR 1 patch nicotine (NICODERM CQ) 21 MG/24HR 1 patch 05/04/2020 09:00:00 AM EST 1 {patch} Transdermal active 1 patch, Transdermal, Administer over 24 Hours, Daily, First dose on [place] 05/04/20 at 0900 [facility] Medication administered onsite clopidogrel 75 MG Oral Tablet clopidogrel (PLAVIX) tab let 75 mg clopidogrel (PLAVIX) tablet 75 mg 05/04/2020 09:00:00 AM EST 75 mg Oral active 75 mg, Oral, Daily, First dose on [place] 05/04/20 at 0900 [facility] Medication administered onsite Aspirin 81 MG Chewable Tablet aspirin chewable tablet 81 mg aspirin chewable tablet 81 mg 05/04/2020 09:00:00 AM EST 81 mg Oral activ e 81 mg, Oral, Daily, First dose on [place] 05/04/20 at 0900 [facility] Medication administered onsite normal saline flush 0.9 % injection 3 mL [id number] 05/04/2020 06:00:00 AM EST 3 mL Intravenous active 3 mL , Intravenous, Every 8 hours (scheduled), First dose on [place] 05/04/20 at 0600
Rapid push positive pressure flushing shall be performed with a 10 cc normal saline syringe to check the PATENCY of a PIV site prior to any infusion therapy initiation unless resistance is met.
[facility] Medication administered onsite atorvastatin 40 MG Oral Tablet atorvastatin (LIPITOR) tablet 40 mg atorvastatin (LIPITOR) tablet 40 mg 05/04/2020 03:00:00 AM EST 40 mg Oral active 40 mg, Oral, Nightly, First dose on [place] 05/04/20 at 0300 [facility] Medication administered onsite carvedilol 3.125 MG Oral Tablet carvedilol (COREG) tab let 3.125 mg carvedilol (COREG) tablet 3.125 mg 05/04/2020 03:00:00 AM EST 3.125 mg Oral active 3.125 mg, Oral, 2 times daily, First dose on [place] 05/04 at 0300 [facility] Medication administered onsite potassium chloride SA (K-DUR,KLOR-CON) CR tablet 20 mEq [id number] 05/04/2020 03:00:00 AM EST 20 meq Oral completed 20 mEq, Oral, Once, [place] 05/04/20 at 0300, For 1 dose [facility] Medication administered onsite Nitroglycerin 0.4 MG Sublingual Tablet n itroglycerin (NITROSTAT) SL tablet 0.4 mg nitroglycerin (NITROSTAT) SL tablet 0.4 mg 05/04/2020 02:23:45 A M EST 0.4 mg Sublingual active 0.4 mg, S ublingual, Every 5 min PRN, chest pain, Starting [place] 05/04/20 at 0223
Hold for SBP less than 100 or if patient has taken Viagra (sildenafil) or Levitra (vardenafil) within 24 hours, or Cialis (tadalafil) within 48 hours
[facility] Medication administered onsite 2 ML Metoclopramide 5 MG/ML Prefilled Sy ringe metoclopramide (REGLAN) injection 10 mg metoclopramide (REGLAN) injection 10 mg 05/04/2020 02:21:[address] 10 mg Intravenous active 10 mg, I ntravenous, Every 6 hours PRN, for Nausea/Vomiting not relieved by zofran, Starting [place] 05/04/20 at 0221 [facility] Medication administered onsite ondansetron (ZOFRAN) injection 4 mg [id number] 05/04/2020 02:21:4 4 AM EST 4 mg Intravenous active 4 mg, In travenous, Every 4 hours PRN, nausea, vomiting, Starting [place] 05/04/20 at 0221 [facility] Medication administered onsite Acetaminophen 325 MG Oral Tablet acetaminophen (TYLENO L) 325 MG tablet 650 mg acetaminophen (TYLENOL) 325 MG tablet 650 mg 05/04/2020 02:21:42 AM EST 650 mg Oral active 650 mg, Or al, Every 4 hours PRN, mild pain (1-3), headaches, Starting [place] 05/04/20 at 0221
"Maximum dose of acetaminophen is 4,000 mg from all sources in 24 hours."
[facility] Medication administered onsite 500 ML heparin sodium, porcine 50 UNT/ML Injection heparin infusion 25,000 units in 500 mL 0.45% NaCl heparin infusion 25,000 units in 500 mL 0.45% NaCl 05/04/2020 12:00:00 AM EST 11.33 U/kg/h Intravenous abor manish 11.33 Units/kg/hr 120 kg (27.192 mL/hr, rounded to 27.2 mL/hr), Intravenous, at 27.2 mL/hr, Continuous, Starting [place] 05/04/20 at 0000
For Cardiac/BridgeaPTT (seconds) Heparin Dose (weight based)< 34 Bolus: 60 units/kg IV (Maximum bolus: 5,000 units) and increase infusion 3 units/kg/hr IV34 - 50 Bolus: 30 units/kg IV (Maximum bolus: 5,000 units) and increase infusion 2 units/kg/hr IV50.1 - 58 No bolus. Increase infusion 1 unit/kg/hr IV58.1 - 87 Therapeutic, No [id number] - 97 Decrease infusion 1 unit/kg/hr IV 97.1 - 110Hold infusion for 30 minutes & decrease infusion 2 units/kg/hr IV> 110 Call MD if patient is bleeding. Hold infusion for 60 minutes & decrease infusion 3 units/kg/hr IVInitial heparin IV infusion rate:Do not exceed 1000 units/hr or 12 units/kg/hr initially (whichever is less)Infuse this medication only through single port tubing (SmartSite Infusion Set ref [id number]). Medication and tubing is to be discarded if infusion off for 4 hours.
[facility] Medication administered onsite 1 ML heparin sodium, porcine 1000 UNT/ML Injection heparin (porcine) injection 100-5,000 Units heparin (porcine) injection 100-5,000 Units 05/03/2020 11:41:13 PM EST Intravenous aborted 100- 5,000 Units, Intravenous, As needed, other, Starting 05/03/20 at 2341
Round dose to nearest 100 units aPTT: < 34 &n bsp; Bolus: 60 units/kg IV (Maximum bolus: 5,000 units) 34 - 50 Bolus: 30 units/kg IV (Maximum bolus: 5,000 units)
[facility] Medication administered onsite 21 mg/24 hr 04/17/2020 12:00:00 AM EST patch 24 hour 28 APPLY ONE PATCH TO THE SKIN ONCE A DAY APPLY ONE PATCH TO THE SKIN ONCE A DAY SOLD: 04/18/2020 [facility] atorvastatin 80 MG Oral Tablet ATORVASTATIN CALCIUM 03/21/2020 1 2:00:00 AM EDT tablet 90 TAKE ONE TABLET BY MOUTH EVERY E VENING AT BEDTIME TAKE ONE TABLET BY MOUTH EVERY EVENING AT BEDTIME SOLD: 04/03/2020 [facility] 80 mg 03/21/2020 12:00:00 AM EDT tablet 90 TAKE ONE TABLET BY MOUTH EVERY EVENING AT BEDTIME TAKE ONE TABLET BY MOUTH EVERY EVENING AT BEDTIME SOLD : 07/06/2020 [facility] 80 mg 03/21/2020 12:00:00 AM EDT tablet 90 TAKE ONE TABLET BY MOUTH EVERY EVENING AT BEDTIME TAKE ONE TABLET BY MOUTH EVERY EVENING AT BEDTIME SOLD : 10/04/2020 [facility] 80 mg 03/21/2020 12:00:00 AM EDT tablet 90 TAKE ONE TABLET BY MOUTH EVERY EVENING AT BEDTIME TAKE ONE TABLET BY MOUTH EVERY EVENING AT BEDTIME SOLD : 01/02/2021 [facility] atorvastatin 80 MG Oral Tablet Atorvastatin Calcium 03/20/2020 1 2:00:00 AM EDT ORAL active MED[facility] ( [facility]) Diphenhydramine Hydrochloride 25 MG Oral Tablet [Benadryl] B enadryl Allergy 03/19/2020 12:00:00 AM EDT ORAL completed [facility] ([facility]) clopidogrel 75 MG Oral Tablet Clopidogrel Bisulfate 03/19/2020 1 2:00:00 AM EDT ORAL completed [facility] ([facility]) carvedilol 3.125 MG Oral Tablet Carvedilol 03/19/2020 12:00:00 AM EDT ORAL active [facility] ([facility]) atorvastatin 40 MG Oral Tablet Atorvastatin Calcium 03/19/2020 1 2:00:00 AM EDT ORAL completed [facility] ([facility]) Cimetidine 200 MG Oral Tablet Cimetidine 03/19/2020 12:00:00 AM EDT ORAL completed [facility] ([facility]) 24 HR Nicotine 0.875 MG/HR Transdermal Patch Nicotine 03/19/2020 12:00:00 AM EDT completed [facility] ([facility]) Nitroglycerin 0.4 MG Sublingual Tablet [Nitrostat] Nitrostat 03/19/2020 12:00:00 AM EDT SUBLINGUAL active MEDEN T ([facility]) 24 HR Nicotine 0.875 MG/HR Transdermal Patch nicotine (NICODERM CQ) 21 MG/24HR nicotine (NICODERM CQ) 21 MG/24HR 03/19/2020 12:00:00 AM EDT 1 { patch} Transdermal aborted Place 1 patch on t he skin daily [facility] clopidogrel 75 MG Oral Tablet clopidogrel (PLAVIX) 75 MG tablet clopidogrel (PLAVIX) 75 MG tablet 03/19/2020 12:00:00 AM EDT 75 mg Oral aborted Take 1 tablet (75 mg total) by mouth daily [facility] 0.4 mg 03/18/2020 12:00:00 AM EDT tablet, sublingual 25 PLACE ONE TABLET UNDER THE TONGUE EVERY 5 MINUTES FOR UP TO 3 DOSES NEEDED FOR CHEST PAIN. IF CHEST PAIN STILL PERSISTS CONTACT [address] ONE TABLET UNDER THE TONGUE EVERY 5 MINUTES FOR UP TO 3 DOSES NEEDED FOR CHEST PAIN. IF CHEST PAIN STILL PERSISTS CONTACT 911 SOLD: 03/18/2020 [facility] carvedilol 3.125 MG Oral Tablet CARVEDILOL 03/18/2020 12:00:00 AM EDT tablet 60 TAKE ONE TABLET BY MOUTH TWICE A DAY TAKE ONE TABLET BY MOUT H TWICE A DAY SOLD: 06/18/2020 [facility] 0.4 mg 03/18/2020 12:00:00 AM EDT tablet, sublingual 25 PLACE ONE TABLET UNDER THE TONGUE EVERY 5 MINUTES FOR UP TO 3 DOSES NEEDED FOR CHEST PAIN. IF CHEST PAIN STILL PERSISTS CONTACT [address] ONE TABLET UNDER THE TONGUE EVERY 5 MINUTES FOR UP TO 3 DOSES NEEDED FOR CHEST PAIN. IF CHEST PAIN STILL PERSISTS CONTACT 911 SOLD: 06/18/2020 [facility] carvedilol 3.125 MG Oral Tablet CARVEDILOL 03/18/2020 12:00:00 AM EDT tablet 60 TAKE ONE TABLET BY MOUTH TWICE A DAY TAKE ONE TABLET BY MOUT H TWICE A DAY SOLD: 08/17/2020 [facility] carvedilol 3.125 MG Oral Tablet CARVEDILOL 03/18/2020 12:00:00 AM EDT tablet 60 TAKE ONE TABLET BY MOUTH TWICE A DAY TAKE ONE TABLET BY MOUT H TWICE A DAY SOLD: 03/18/2020 [facility] carvedilol 3.125 MG Oral Tablet CARVEDILOL 03/18/2020 12:00:00 AM EDT tablet 60 TAKE ONE TABLET BY MOUTH TWICE A DAY TAKE ONE TABLET BY MOUT H TWICE A DAY SOLD: 05/19/2020 [facility] Nitroglycerin 0.4 MG Sublingual Tablet n itroglycerin (NITROSTAT) 0.4 MG SL tablet nitroglycerin (NITROSTAT) 0.4 MG SL tablet 03/18/2020 12:00:00 A M EDT 0.[address] 1 t ablet (0.4 mg total) under the tongue every 5 (five) minutes as needed for chest pain [facility] atorvastatin 40 MG Oral Tablet atorvastatin (LIPITOR) 40 MG tablet atorvastatin (LIPITOR) 40 MG tablet 03/18/2020 12:00:00 AM EDT 40 mg Oral aborted Take 1 tablet (40 mg total) by mouth nightly [facility] carvedilol 3.125 MG Oral Tablet carvedilol (COREG) 3.1 25 MG tablet carvedilol (COREG) 3.125 MG tablet 03/18/2020 12:00:00 AM EDT 3.125 mg Oral active Take 1 tablet (3.125 mg total) by mouth 2 (two) times a day [facility] 75 mg 03/18/2020 12:00:00 AM EDT tablet 30 TAKE ONE TABLET BY MOUTH EVERY DAY TAKE ONE TABLET BY MOUTH EVERY DAY SOLD: 05/19/2020 [facility] 21 mg/24 hr 03/18/2020 12:00:00 AM EDT patch 24 hour 28 APPLY ONE PATCH TO THE SKIN EVERY DAY APPLY ONE PATCH TO THE SKIN EVERY DAY SOLD: 03/18/2020 [facility] 75 mg 03/18/2020 12:00:00 AM EDT tablet 30 TAKE ONE TABLET BY MOUTH EVERY DAY TAKE ONE TABLET BY MOUTH EVERY DAY SOLD: 03/18/2020 [facility] 75 mg 03/18/2020 12:00:00 AM EDT tablet 30 TAKE ONE TABLET BY MOUTH EVERY DAY TAKE ONE TABLET BY MOUTH EVERY DAY SOLD: 04/17/2020 [facility] atorvastatin 40 MG Oral Tablet ATORVASTATIN CALCIUM 03/18/2020 1 2:00:00 AM EDT tablet 30 TAKE 1 TABLET BY MOUTH EVERY NIG HT TAKE 1 TABLET BY MOUTH EVERY NIGHT SOLD: 03/18/2020 [facility] carvedilol 3.125 MG Oral Tablet CARVEDILOL 03/18/2020 12:00:00 AM EDT tablet 60 TAKE ONE TABLET BY MOUTH TWICE A DAY TAKE ONE TABLET BY MOUT H TWICE A DAY SOLD: 07/17/2020 [facility] carvedilol 3.125 MG Oral Tablet CARVEDILOL 03/18/2020 12:00:00 AM EDT tablet 60 TAKE ONE TABLET BY MOUTH TWICE A DAY TAKE ONE TABLET BY MOUT H TWICE A DAY SOLD: 04/17/2020 [facility] Famotidine 20 MG Oral Tablet famotidine (PEPCID) 20 MG tablet famotidine (PEPCID) 20 MG tablet 20 mg Oral aborted Take 20 mg by mouth daily as needed for heartburn [facility] Insurance Providers Payer name Policy type / Coverage type Policy ID Covered republican ID Covered republican's relationship to senior Policy Senior Plan Information State Ins Fund () Workers Compensation [id number] Self Family Health Plus Medigap Part B [id number] Self [facility] Community Plan Commercial [id number] Self [facility] MEDICAID [id number] S [id number] [facility] MEDICAID [id number] S [id number] [facility] MEDICAID [id number] Nancy [id number] [facility] MEDICAID [id number] INSURANCE COVID-19 COVID Nancy C OVID ANSI-Medicaid [id number] ANSI-Medicaid [id number] ANSI-Medicaid [id number] ANSI-Medicaid [id number] ANSI-Medicaid [id number] ANSI-Medicaid [id number] ANSI-Medicaid [id number] ANSI-Medicaid [id number] ANSI-Medicaid [id number] ANSI-Medicaid [id number] ANSI-Medicaid [id number] ANSI-Medicaid [id number] ANSI-Medicaid [id number] ANSI-Medicaid [id number] [facility] Commercial [id number] Self 1 [id number] ANSI-Medicaid [id number] ANSI-Medicaid [id number] ANSI-Medicaid [id number] ANSI-Medicaid [id number] MEDICAID [id number] S [id number] [facility] MEDICAID [facility] [id number] S [id number] UNHC COMMUNITY PLAN MCDHMO UNHC COMMUNITY PLAN MCDO [id number] Self [employer] UNHC COMMUNITY PLAN MCDHMO [facility]HI FAMILY HLTH PLUS [id number] SP [id number] SELF PAY SP UNAVAILABLE S UNAVAILA BLE BCBS [facility] HMO [id number] S [id number] [facility] MEDICAID [id number] S [id number] UNHC COMMUNITY PLAN MCDHMO [id number] SP [id number] [facility] HEA [id number] S [id number] [facility] [id number] S [id number] SELF PAY ONLY SP ANSI-Medicaid [id number] [facility] fos4X [id number] Self [id number] [facility] fos4X [id number] Self [id number] Problems, Conditions, and Diagnoses Code Display Name Description Problem Type Effective Dates Data Source(s) K61.1 Rectal abscess RECTAL ABSCESS Diagnosis 01/19/2021 11:30: 00 AM [facility] K61.1 Rectal abscess Rectal abscess Diagnosis 01/04/2021 03:12: 00 PM [facility] Z71.6 Tobacco abuse counseling TOBACCO ABUSE COUNSELING Diag nosis 09/29/2020 09:29:00 AM [facility] F17.200 Nicotine dependence, unspecified, uncomp licated NICOTINE DEPENDENCE, UNSPECIFIED, UNCOMPLICATED Diagnosis 09/29/2020 09:29:00 AM [facility] B97.7 Papillomavirus as the cause of diseases classified elsewhere PAPILLOMAVIRUS THE CAUSE OF DISEASES CLASSIFIED Diagnosis 10/2020 08:48:00 AM [facility] F17.210 Nicotine dependence, cigarettes, uncompl icated NICOTINE DEPENDENCE, CIGARETTES, UNCOMPLICATED Diagnosis 08/18/2020 08:48:00 AM [facility] F41.9 Anxiety disorder, unspecified ANXIETY DISORDER, UNSPEC IFIED Diagnosis 08/18/2020 08:48:00 AM [facility] E78.5 Hyperlipidemia, unspecified HYPERLIPIDEMIA, UNSPECIFIE D Diagnosis 05/26/2020 08:21:00 AM [facility] I25.84 Coronary atherosclerosis due to calcifie d coronary lesion CORONARY ATHEROSCLEROSIS DUE TO CALCIFIED CORONARY Diagnosis 05/26/2020 08:21:0 0 AM [facility] I10 Essential (primary) hypertension ESSENTIAL (PRIMARY) H YPERTENSION Diagnosis 05/26/2020 08:21:00 AM [facility] I25.2 Old myocardial infarction OLD MYOCARDIAL INFARCTION Di agnosis 05/26/2020 08:21:00 AM [facility] Z72.0 Tobacco use Tobacco use Diagnosis 05/03/2020 11:28:47 PM [facility] I10 Essential (primary) hypertension Essential (primary) h ypertension Diagnosis 05/03/2020 11:28:47 PM [facility] I21.02 ST elevation (STEMI) myocard ial infarction involving left anterior descending coronary artery ST elevation (STEMI) myocardial infarcti Diagnosis 05/03/2020 11:28:47 PM [facility] I21.3 ST elevation (STEMI) myocardial infarcti on of unspecified site ST elevation (STEMI) myocardial infarcti Diagnosis 05/03/2020 11:28:47 PM [facility] Z23 Encounter for immunization ENCOUNTER FOR IMMUNIZATION Diagnosis 04/10/2020 08:52:00 AM [facility] E66.01 Morbid (severe) obesity due to excess ca lories MORBID (SEVERE) OBESITY DUE TO EXCESS CALORIES Diagnosis 04/10/2020 08:52:00 AM [facility] ital A63.0 Anogenital (venereal) warts ANOGENITAL (VENEREAL) WART S Diagnosis 04/10/2020 08:52:00 AM [facility] H91.92 Unspecified hearing loss, left ear UNSPECIFIED H EARING LOSS, LEFT EAR Diagnosis 04/10/2020 08:52:00 AM [facility] I25.10 Atherosclerotic heart diseas e of [place] coronary artery without angina pectoris ATHSCL HEART DISEASE OF [place] CORONARY ARTERY W/O Diagnosis 04/10/2020 08:52:00 AM [facility] I21.9 ACUTE MYOCARDIAL INFARCTION, UNSPECIFIED ACUTE MYOCARDIAL INFARCTION, UNSPECIFIED Diagnosis 04/10/2020 08:52:00 AM [facility] Z01.810 Preop cardiovascular exam Preop cardiovascular exam [id number] 01/05/2021 12:00:00 AM [facility] I49.5 Sick sinus syndrome Sick sinus syndrome [id number] 0 01/05/2021 12:00:00 AM [facility] Z95.5 History of coronary artery stent placeme nt History of coronary artery stent placement [id number] 01/05/2021 12:00:00 AM EDT [facility] J44.9 COPD (chronic obstructive pulmonary dise ase) COPD (chronic obstructive pulmonary disease) [id number] 01/04/2021 12:00:00 AM EDT [facility] K61.1 Rectal abscess Rectal abscess [id number] 01/04/2021 12:00: 00 AM EDT [facility] Z01.810 Preoperative cardiovascular examination Preoperative cardiovascular examination Problem 10/19/2020 12:00:00 AM EDT [facility] ([facility]) R94.31 Electrocardiogram abnormal Electrocardiogram abnormal Problem 09/07/2020 12:00:00 AM EDT [facility] ([facility]) E78.2 Mixed hyperlipidemia Mixed hyperlipidemia Problem 09/07/2020 12:00:00 AM EDT [facility] ([facility]) F17.200 [id number] Tobacco dependence Problem 08/18/2020 12:00: 00 AM EST eCW1 ([facility]) A63.0 [id number] Perianal condyloma acuminatum Problem 08/11/2020 12:00:00 AM EST eCW1 ([facility]) F41.9 [id number] Anxiety Problem 05/26/2020 12:00:00 AM ES T eCW1 ([facility]) I25.[id number] of [address] elevation myocardi al infarction (STEMI) Problem 05/26/2020 12:00:00 AM EST eCW1 ([facility]) F17.200 29962551 Tobacco dependency Problem 05/26/2020 12:00: 00 AM EST eCW1 ([facility]) A63.0 [id number] Genital warts Problem 05/18/2020 12:00:00 AM EST eCW1 ([facility]) F12.90 Marijuana use Marijuana use [id number] 05/04/2020 12:00:00 AM EST [facility] Z72.0 Tobacco abuse Tobacco abuse [id number] 05/04/2020 12:00:00 AM EST [facility] I10 Hypertension Hypertension 95994500 05/04/2020 12:00:00 A M EST [facility] I21.02 ST elevation myocardial infa rction involving left anterior descending (LAD) coronary artery ST elevation myocardial infarction invol ving left anterior descending (LAD) coronary artery [id number] 05/03/2020 12:00:00 AM EST [facility] I25.84 [id number] Coronary atherosclerosis due to calcified coronary lesion Problem 04/15/2020 12:00:00 AM EDT eCW1 ([facility]) I25.2 [id number] History of myocardial infarction Problem 04/15/2020 12:00:00 AM EDT eCW1 ([facility]) I21.9 562913946 History of myocardial infarction within l ast month Problem 04/15/2020 12:00:00 AM EDT eCW1 ([facility]) F43.10 PTSD (post-traumatic stress disorder) PT SD (post-traumatic stress disorder) [id number] 03/16/2020 12:00:00 AM EDT [facility] J45.909 Asthma Asthma 63322521 03/16/2020 12:00:00 AM ED T [facility] J30.2 Seasonal allergies Seasonal allergies 24223524 0 12:00:00 AM EDT [facility] Z95.0 Pacemaker Pacemaker [id number] 03/16/2020 12:00:00 AM ED T [facility] I21.3 STEMI (ST elevation myocardial infarctio n) STEMI (ST elevation myocardial infarction) 85468019 03/16/2020 12:00:00 AM EDT [facility] Surgeries/Procedures Procedure Description Date Indications Data Source(s) ECG ROUTINE ECG W/LEAST 12 LDS TRCG ONLY W/O I&R <td>E CG 12- LEAD</td><td>STAT</td><td>01/05/2021 7:20 PM EDT</td><td></td><td></td> 01/05/2021 07:20:20 PM EDT [facility] XR CHEST PORTABLE <td>XR CHEST PORTABLE</td><t d>Routine</td><td>01/05/2021 12:48 PM EDT</td><td></td><td> </td> 01/05/2021 12:48:42 PM EDT [facility] ECHO TTHRC R-T 2D W/WOM-MODE COMPL SPEC&COLR DOP <td>E CHOCARDIOGRAM TRANSTHORACIC</td><td>Routine</td><td>01/05/2021 12:03 PM EDT</td><td></td><td> </td> 01/05/2021 12:03:43 PM EDT [facility] NT PRO BNP <td>NT PRO BNP</td><td>Routi ne</td><td>01/05/2021 10:15 AM EDT</td><td></td><td> </td> 01/05/2021 10:15:00 AM EDT [facility] COVID/FLU AB/RSV PCR <td>COVID/FLU AB/RSV PCR</td ><td>STAT</td><td>01/04/2021 6:42 PM EDT</td><td></td><td> </td> 01/04/2021 06:42:00 PM EDT [facility] BLOOD COUNT COMPLETE AUTOMATED <td>CBC</td><td>Routine </td><td>01/04/2021 6:42 PM EDT</td><td></td><td> </td> 01/04/2021 06:42:00 PM EDT [facility] BLOOD TYPING ABO <td>TYPE AND SCREEN</td><td> Routine</td><td>01/04/2021 6:42 PM EDT</td><td></td><td> </td> 01/04/2021 06:42:00 PM EDT [facility] PHOSPHORUS INORGANIC <td>PHOSPHORUS</td><td>Routi ne</td><td>01/04/2021 6:42 PM EDT</td><td></td><td> </td> 01/04/2021 06:42:00 PM EDT [facility] MAGNESIUM <td>MAGNESIUM</td><td>Routin e</td><td>01/04/2021 6:42 PM EDT</td><td></td><td> </td> 01/04/2021 06:42:00 PM EDT [facility] BASIC METABOLIC PANEL CALCIUM TOTAL <td>BASIC METABOLI C PANEL</td><td>Routine</td><td>01/04/2021 6:42 PM EDT</td><td></td><td> </td> 01/04/2021 06:42:00 PM EDT [facility] DSTRJ LESION ANUS EXTENSIVE 11/03/2020 12:00:00 AM EDT [facility] ([facility]) ECG ROUTINE ECG W/LEAST 12 LDS W/I&R 10/19/2020 12:00: 00 AM EDT [facility] ([facility]) DOP ECHOCARD COLOR FLOW VELOCITY MAPPING 10/19/2020 12 :00:00 AM EDT [facility] ([facility]) ECHO TTHRC R-T 2D W/WO M-MODE REST&STRS CONT ECG 10/19 12:00:00 AM EDT [facility] ([facility]) OFFICE OUTPATIENT NEW 45 MINUTES 10/05/2020 12:00:00 A M EDT [facility] ([facility]) ECG ROUTINE ECG W/LEAST 12 LDS W/I&R 09/07/2020 12:00: 00 AM EDT [facility] ([facility]) INTERROGATION EVAL IN PERSON 1/DUAL/STUDENT ADVISOR LEAD PM 2020 12:00:00 AM EDT [facility] ([facility]) CV STRS TST XERS&/OR RX CONT ECG PHYS SI&R 07/26/2020 12:00:00 AM EST [facility] ([facility]) ECHO TTHRC R-T 2D W/WOM-MODE COMPL SPEC&COLR DOP 07/24 12:00:00 AM EST [facility] ([facility]) ECG ROUTINE ECG W/LEAST 12 LDS W/I&R 05/10/2020 12:00: 00 AM EST [facility] ([facility]) BLOOD COUNT COMPLETE AUTOMATED <td>CBC</td><td>Routine </td><td>05/05/2020 4:25 AM EST</td><td></td><td> </td> 05/05/2020 09:25:00 AM EST [facility] BASIC METABOLIC PANEL CALCIUM TOTAL <td>BASIC METABOLI C PANEL</td><td>Routine</td><td>05/05/2020 4:25 AM EST</td><td></td><td> </td> 05/05/2020 09:25:00 AM EST [facility] CARDIAC CATHETERIZATION <td>CARDIAC CATHETERIZATION</td><td>Routine</td><td>05/04/2020 1:04 PM EST</td><td> ST elevation myocardial infarction involving left anterior descending (LAD) coronary artery</td><td> </td> 05/04/2020 06:04:[address] elevation myocardial infarction invol ving left anterior descending (LAD) coronary artery [facility] ST elevation myocardial infarction invol ving left anterior descending (LAD) coronary artery DRUG SCR QUAL 1 DRUG CLASS METH EA DRUG CLASS <td>URIN E TOX SCREEN</td><td>Routine</td><td>05/04/2020 9:00 AM EST</td><td></td><td> </td> 05/04/2020 02:00:00 PM EST [facility] ECG ROUTINE ECG W/LEAST 12 LDS TRCG ONLY W/O I&R <td>E CG 12- LEAD</td><td>Routine</td><td>05/04/2020 6:21 AM EST</td><td></td><td></td> 05/04/2020 11:21:59 AM EST [facility] THROMBOPLASTIN TIME PARTIAL PLASMA/WHOLE BLOOD <td>APTT</td><td>STAT</td><td>05/04/2020 6:19 AM EST</td><td></td><td> </td> 05/04/2020 11:19:00 AM EST [facility] BLOOD COUNT COMPLETE AUTOMATED <td>CBC</td><td>Routine </td><td>05/04/2020 6:19 AM EST</td><td></td><td> </td> 05/04/2020 11:19:00 AM EST [facility] BASIC METABOLIC PANEL CALCIUM TOTAL <td>BASIC METABOLI C PANEL</td><td>Routine</td><td>05/04/2020 6:19 AM EST</td><td></td><td> </td> 05/04/2020 11:19:00 AM EST [facility] TROPONIN QUANTITATIVE <td>TROPONIN I</td><td>Timed </td><td>05/04/2020 2:36 AM EST</td><td></td><td> </td> 05/04/2020 07:36:00 AM EST [facility] HEMOGLOBIN GLYCOSYLATED A1C <td>HEMOGLOBIN A1C</td><td>Routine</td><td>05/03/2020 11:59 PM EST</td><td></td><td> </td> 05/04/2020 04:59:00 AM EST [facility] NT PRO BNP <td>NT PRO BNP</td><td>Routi ne</td><td>05/03/2020 11:58 PM EST</td><td></td><td> </td> 05/04/2020 04:58:00 AM EST [facility] TROPONIN QUANTITATIVE <td>TROPONIN I</td><td>Timed </td><td>05/03/2020 11:58 PM EST</td><td></td><td> </td> 05/04/2020 04:58:00 AM EST [facility] THROMBOPLASTIN TIME PARTIAL PLASMA/WHOLE BLOOD <td>APTT</td><td>Routine</td><td>05/03/2020 11:58 PM EST</td><td></td><td> </td> 05/04/2020 04:58:00 AM EST [facility] BLOOD COUNT COMPLETE AUTO&AUTO DIFRNTL WBC COUNT <td>C BC AND DIFFERENTIAL</td><td>STAT</td><td>05/03/2020 11:58 PM EST</td><td></td><td> </td> 05/04/2020 04:58:00 AM EST [facility] THYROID STIMULATING HORMONE TSH <td>TSH</td><td>Routin e</td><td>05/03/2020 11:58 PM EST</td><td></td><td> </td> 05/04/2020 04:58:00 AM EST [facility] MAGNESIUM <td>MAGNESIUM</td><td>Routin e</td><td>05/03/2020 11:58 PM EST</td><td></td><td> </td> 05/04/2020 04:58:00 AM EST [facility] LIPID PANEL <td>LIPID PANEL</td><td>Rout ine</td><td>05/03/2020 11:58 PM EST</td><td></td><td> </td> 05/04/2020 04:58:00 AM EST [facility] COMPREHENSIVE METABOLIC PANEL <td>COMPREHENSIVE METABO LIC PANEL</td><td>STAT</td><td>05/03/2020 11:58 PM EST</td><td></td><td> </td> 05/04/2020 04:58:00 AM EST [facility] ECG ROUTINE ECG W/LEAST 12 LDS TRCG ONLY W/O I&R <td>E CG 12- LEAD</td><td>STAT</td><td>05/03/2020 11:32 PM EST</td><td></td><td></td> 05/04/2020 04:32:40 AM EST [facility] ECG ROUTINE ECG W/LEAST 12 LDS W/I&R 03/20/2020 12:00: 00 AM EDT [facility] ([facility]) Results ID Date Data Source [id number] 01/12/2021 12:05:11 PM EDT [facility] INFORMATIONPatient MRN Name Date of Age Gend*PT [id number] Codey Molina 1975 45 years M SDCXPT Location Admission Date/Time Visit ID Attending [id number] 01/04/21 1512 --- --- EPI ID CSN Admitting Provider [id number] Sabas Page MD([id number]) [place] [address] OPERATIVE REPORT OPNAME: CODEY MOLINA#: [id number] #: [id number] ADMISSION DATE: 01/04/2021OB: 1975 SEX: M PT TYPE: S ColoACCT #: [id number] CARE PHYSICIAN: SABAS CHOUDHARYATE OF OPERATION: 01/05/2021OPERATION:Incision and drainage of rectal abscess, excision of anal warts.SURGEON:Sabas Page MD.ANESTHESIOLOGIST:Dr. Ordonez.ANESTHESIA:LMA general and 10 mL of 1% lidocaine with epinephrine.HISTORY AND INDICATIONS:This is a 45-year-old gentleman, who returns with a recurrent rectalabscess on the right side. The patient has a significant cardiac history.He awaited 1 day for a cardiac clearance prior to surgical intervention.During that time, he was maintained on IV antibiotics.OPERATIVE FINDINGS:The patient showed the abscess to have already spontaneously ruptured. Hestill had persistent anal warts.DESCRIPTION OF PROCEDURE:The patient was brought to the operating room and after induction ofsuccessful general anesthesia, he was placed in the modified lithotomyposition with Yellofin stirrups. The area was prepped with Betadine anddraped in a sterile fashion. Examination revealed induration in the rightlateral more anterolateral area. There was a spontaneous rupture noted.This was probed and no fistulous tract could be determined, although thecavity did extend anteriorly. Approximately 1.5 cm of length was incisedand an ellipse of skin removed to allow for adequate drainage. Next,internal anal examination with a rectal retractor revealed large internalhemorrhoids predominantly the right anterior and to a lesser extent theleft lateral. The patient was found to have external warts mostlyposteriorly. There seemed to be one at the anal verge anteriorly, butnothing seemed to be interior per se. The posterior warts were excised.The smaller ones were simply fulgurated. Hemostasis obtained with acombination of cautery and the use of fibrillar. The I and D site waspacked with fibrillar and the fibrillar placed over the external wounds. Adamaris dressing was placed over this and the patient was awakened and returnedto the recovery room in stable condition.IMPRESSION:Recurrent rectal abscess, no fistula found and recurrent anal warts.JUSTICE Bowen/ROGERS Job #: [id number] DOC #: [id number] Name Value Range Interpretation Code Description Data Karine rce(s) Supporting Document(s) ID Date Data Source [id number] 01/06/2021 11:36:49 AM EDT [facility]FORMATIONPatient MRN Name Date of Age Gend*PT [id number] Codey Molina 1975 45 years M SDCXPT Location Admission Date/Time Visit ID Attending [id number] 01/04/21 1512 --- Sabas Paeg MD([id number]) EPI ID CSN Admitting Provider [id number] Sabas Page MD([id number])Surgical Discharge SummaryCodey MolinaMRN: [id number] date: 01/04/2021dmitting Physician: DHRUV Bowenischarge date and time:Discharge Orders Placed(From admission, onward) Start Ordered 01/06/21 1135 Discharge patient OnceExpected Discharge Date: 01/06/21Discharge Disposition: Home or Self Care 01/06/21 1135Discharge Physician: GILMAR Ambrociorincipal Diagnosis: Rectal abscessSecondary Diagnoses:Active Hospital Problems Diagnosis Date Noted History of coronary artery stent placement Sick sinus syndrome Preop cardiovascular exam Rectal abscess 01/04/2021 COPD (chronic obstructive pulmonary disease) Hypertension 05/04/2020 Pacemaker 03/16/2020 STEMI (ST elevation myocardial infarction) 03/16/2020 Asthma 03/16/2020 PTSD (post-traumatic stress disorder) 03/16/2020Resolved Hospital ProblemsNo resolved problems to display.Discharge Medications:Your medication listSTART taking these medications Instructions Last Dose Given Morning Afternoon Evening Bedtime As NeededoxyCODONE-acetaminophen 5-325 MG per tabletCommonly known as: PERCOCET Take 1-2 tablets by mouth every 4 (four) hours as needed for pain Max DailyAmount: 6 tabletsCONTINUE taking these medications Instructions Last Dose Given Morning Afternoon Evening Bedtime As Neededalbuterol (2.5 MG/3ML) 0.083% nebulizer solutionCommonly known as: PROVENTIL Take 2.5 mg by nebulization 2 (two) times a day as needed for wheezing orshortness of breathaspirin 81 MG chewable tablet Chew 81 mg dailyatorvastatin 80 MG tabletCommonly known as: L IPITOR Take 80 mg by mouth dailyBrilinta 90 MG TabsGeneric drug: ticagrelor Take 90 mg by mouth 2 (two) times a daycarvedilol 3.125 MG tabletCommonly known as: COREG Take 1 tablet (3.125 mg total) by mouth 2 (two) times a dayDaily [place] per tablet Take 1 tablet by mouth dailylisinopril 2.5 MG tabletCommonly known as: PRINIVIL,ZESTRIL Take 2.5 mg by mouth dailynitroglycerin 0.4 MG SL tabletCommonly known as: NITROSTAT Place 1 tablet (0.4 mg total) under the tongue every 5 (five) minutes as neededfor chest painomeprazole 40 MG capsuleCommonly known as: PriLOSEC Take 40 mg by mouth dailysertraline 25 MG tabletCommonly known as: ZOLOFT Take 25 mg by mouth dailytriamcinolone 0.1 % creamCommonly known as: KENALOG Apply 1 application topically daily as needed (for rash)Where to Get Your MedicationsThese medications were sent to [facility] [place], [place] - [place] , [place] [address] oxyCODONE-acetaminophen 5-325 MG per tabletIndication for Admission: perirectal abscessHospital Course & Complications: Pt drained in OR And had condyloma excised.DC next morning to restart anticoagulation for recent stents. Follow up in aweek or so with Dr. Sigala.Past Medical History:Past Medical History:Diagnosis Date Asthma COPD (chronic obstructive pulmonary disease) Fibromyalgia HPV (human papilloma virus) infection Hypertension Tobacco abuseSurgical Procedures:Procedure(s):INCISION AND DRAINAGE OF RECTAL ABSCESS WITH REMOVAL OF ANAL WARTS (N/A)Discharge Exam:Vitals: Temp: [97.5 F-98 F] 97.7 FHeart Rate: [60-65] 62Resp: [12-20] 18BP: (100-135)/(60-79) 122/67Discharged Condition:goodDisposition: Home or Self CareSignature: Antonia Guevara DHRUVate: January 06, 2021Time: 11:35 AM Name Value Range Interpretation Code Description Data Karine rce(s) Supporting Document(s) ID Date Data Source [id number] 01/06/2021 06:23:30 AM EDT [facility] Name Value Range Interpretation Code Description Data Karine rce(s) Supporting Document(s) EKG [facility] SRSPEt5wFdEILgExm9QzXpWhKDOcZI3wwci7M0Z1jKDzC1EleSErf4oqX4ZcQ5ErCZOxUYTEFD8LzZLh jb2 [file] RvYmoKeHJlZgogICAgIDAgICAgMjQKMDAwMDAwMDAw EHN4NNAqWDWfEQcdSOSxIZYtCXEtOXDaGHLwGO6dSsGlCMZsLZL8KQQxAGQtSGNjpuFAVAXxCXL9TRj8 HGPvZOBiFLYnMNhhDGQoENSsDUVlPPW0CAF9XSLmVmVgJVQbLGMrRMJqPPSaLWBbkzBKLLOlHZYvCKA9 ZDXqAMXpEUAyQSbtXGWeCEKxESlxVEAlUSAfOF5zYw EiIQAiOKZeQKizTBJbHSXfthTKTNXmJUUuVSCiEXQlQMVwORFqICogGQScIEFrSEPfRENqICXwQS5eRd BjLTDsDKS8XEHmFSDhUNQtnxIKTXYkDZYqYXm2SIBbUKMkKJEpVQlzEXJiUQAlBEU8DVFgETPdIV6xEj WoXMSaUYW8FfZnIUUhDNNdhzRDTBSzGEIgPXW6IqQk ZILfVYMlOKzbBXXyFXUoNIpfHGXoWFYjTZ7rDoJvBEBrUONgCPnaVWOvVYAnobUEFSWbMKFoMUYaCqIw PYGxYKLwJGwsEHKzLWNlYEj3EBLaIPPkEW9zJqWgLJJxTLZ6BKrtDQHtYZGyxnMDGUVjHIIdGJtxZEXb EORlIUAyQXvpVQRiJMPzLNR2YYNgMJYvNO8aLySsNV RwBNIxEKGaTrS1OqPwKoKDeBJsmGcrqgf1KNfsN4b2AOUcGWuhIV1uodYpBHUtUcooIa8nlIT4KKQrKz kDCy9Oi8UafmY5kjYiCcRoOMu0FeBqXY5M ID Date Data Source [id number] 01/05/2021 11:43:47 PM EDT [facility] NT INFORMATIONPatient MRN Name Date of Age Gend*PT [id number] Codey Molina 1975 45 years M SDCXPT Location Admission Date/Time Visit ID Attending [id number] 01/04/21 1512 --- Sabas Page MD([id number]) EPI ID CSN Admitting Provider [id number] Sabas Page MD([id number]) Attestation signed by Sabas Page MD at 01/05/2021 11:43 PMI saw and evaluated the patient and reviewed Ms Vuong's note. I agree with thehistory, physical and medical decision making with the following additions,exceptions, and/or observations:Signature: DHRUV Bowenate: January 05, 2021Time: 11:43 PM --Codey Molina 1975 45 01/04/2021 PCP: SABAS COBB MDInformant: Codey Molina, Reliable Yes; [facility] pain x 2 daysHPI: Codey Molina is a 45 years old White or male with history thatincludes cardiac including pacemaker for SSS and stents for 2 AMIs in Mar andNov on Plavix bid followed by Dr Vanegas of [facility],COPD/asthma, fibromyalgia, tobacco dependence, and previous rectal abscessdrainages, most recently about 1.5 mo ago at [place]. [facility]Pt presenting direct admit to hospital from the [facility] office c/o rectal pain x 2days, worse when he sits or lies on his back. Denies N/V/C/D, fevers/chills,lightheadedness/dizziness, CP/discomfort, SOB, change in bowel or bladderhabits.PMH:Past Medical History:Diagnosis Date Asthma COPD (chronic obstructive pulmonary disease) Fibromyalgia HPV (human papilloma virus) infection Hypertension Tobacco abusePSH:Past Surgical History:Procedure Laterality Date A-V CARDIAC PACEMAKER INSERTION CARDIAC CATHETERIZATION N/A 03/16/2020 Procedure: Left heart cath; Surgeon: Simon Witt MD; Laterality: N/A; CARDIAC CATHETERIZATION N/A 03/16/2020 Procedure: Coronary angiography; Surgeon: Simon Witt MD; Laterality:N/A; CARDIAC CATHETERIZATION N/A 03/16/2020 Procedure: Left ventriculography; Surgeon: Simon Witt MD; Laterality:N/A; CARDIAC CATHETERIZATION N/A 03/16/2020 Procedure: Percutaneous coronary intervention; Surgeon: Simon Witt MD;Laterality: N/A; CARDIAC CATHETERIZATION N/A 03/17/2020 Procedure: Coronary angiography; Surgeon: Simon Witt MD; Laterality:N/A; CARDIAC CATHETERIZATION N/A 03/17/2020 Procedure: Measurement, Myocardial Fractional Flow Dwight; Surgeon: MD Jose; Laterality: N/A; CARDIAC CATHETERIZATION N/A 05/04/2020 Procedure: Cardiac catheterization; Surgeon: Preethi Guerrero MD; Laterality:N/A; CARDIAC CATHETERIZATION N/A 05/04/2020 Procedure: Percutaneous coronary intervention; Surgeon: Preethi Guerrero MD;Laterality: N/A; COLONOSCOPY IMPLANT/EXPLANT LOOP RECORDER UMBILICAL HERNIA REPAIR VASECTOMYMEDICATIONS: Medication reconciliation will be completed separate ly.ALLERGY:AllergiesAllergen Reactions Latex HivesFH:Family HistoryProblem Relation Age of Onset COPD Mother Myocardial Infarction ([place]) Father 34 at 53 cardiac cause Thyroid disease Sister SIDS Sister Cerebral palsy BrotherSH:Social HistoryTobacco Use Smoking status: Former Smoker Packs/day: 2.00 Years: 30.00 Pack years: 60.00 Types: Cigarettes Quit date: 2019 Years since quittin.5 Smokeless tobacco: Never UsedSubstance Use Topics Alcohol use: Not Currently Drug use: Yes Types: Marijuana Comment: DailyROS:General: See HPI. No malaise, fevers/chills, unexpected weight loss,lightheadedness/dizziness. No trouble with anesthesia.HEENT: No recent visual or hearing changes.Respiratory: No cough, shortness of breath, wheezing, or hemoptysis.Cardiovascular: No CP/discomfort, palpitations, leg swelling.Gastrointestinal: See HPI No abd pain, N/V/D/C, hematemesis, or hematocheziaGenitourinary: No dysuria, hematuria, frequency, or urgency.Extremities/Musculoskeletal: Denies current joint pain or muscle weakness.Neurological: No dizziness, seizures, speech difficulty, or headaches.Psychiatric: Denies new anxiety or depression.Endocrine: No night sweats or temperature intolerance.Hematological: No unusual bruising or bleeding/clotting disorder.Integumentary: No current rashes or lesions.Allergic/Immunology: Denies current hives/itching.Physical Exam:BP 121/70 (BP Location: Left upper arm, Patient Position: Lying) | Pulse 65 |Temp 97.4 F (Oral) | Resp 12 | SpO2 100% RAGeneral: well-appearing, alert and oriented x3 in NAD, cooperative, appearsstated ageSkin: Warm and dry. No rashes or lesions noted.Head: Atraumatic, normocephalicEyes: Sclerae anicteric, conjunctivae clear bilaterally.Ears: External auditory meatus without erythema, edema, or cerumen..Nose: symmetric, no discharge.Mouth: oropharynx without exudates/lesionsNeck: Supple, no carotid bruits or obvoius masses, ROM appears normal.Heart: RRR S1S2, no m/r/g noted.Lungs: Resp effort nonlabored. CTA bilaterally. No wheezing, crackles, rhonchi.Abdomen: rotund, +active BS x4Q, soft, ND, NT, no guarding/rebound.Rectal exam: Deferred - pt seen by attg in office alreadyGU: deferredExt: No muscle atrophy/weakness. Good joint ROM. No redness, swelling, ortenderness of the lower extremities bilaterally. Calves NT supple withoutpalpable cords.Vascular: No JVD; distal pulses intact.Neurologic: Cranial nerves II-XI grossly intact. No focal deficits appreciated.Breast exam: Deferred to [facility], Imaging and other Diagnostics:BMP, Mg, Phos, CBC, T&S, covid pendingAssessment and Plan:Principal Problem: Rectal abscess- Plan: admit to service of Dr Page for planned OR this evening for drainageof abscess, IV abx. Keep NPO prior to OR (last PO intake >6h ago). Pre-opordered fentanyl for analgesia - postop it can be adjusted to PO. zofran forantiemesis.Active Problems: Pacemaker- Plan: [facility] Cardiology spoke with Dr Patel who will place pacerorders for OR. STEMI (ST elevation myocardial infarction)- Plan: pt on plavix BID - took his morning dose. Getting a T&S in caserequires transfusion despite minor case. Asthma Hypertension COPD (chronic obstructive pulmonary disease)- Plan: if pt stays overnight, will order [employer] meds as approp.The patient has been encouraged to contact appropriate medical staff with anyquestions or concerns he may have in the interim. I have discussed this patientwith attending, Sabas Page MD. Further plan per the attending physician.-DVT mechanical prophylaxis (pt already on plavix bid)-Pneumonia prophylaxis - HABIT (HOB>30 degrees, OOB all meals/POD0, [place] gjcqt3u/d, IS use, Teaching expectations)ADOD: 1-2 daysCode status: Full CodeSignature: Kandace Odessa Vuong 16:25 PM Name Value Range Interpretation Code Description Data Karine rce(s) Supporting Document(s) ID Date Data Source [id number] 03/03/2021 10:12:02 AM EDT [facility] SPECIMEN DESCRIPTION TISSUESPECIA L REQUESTS NONEACID FAST SMEAR NO ACID FAST BACILLI (CONCENTRATED SMEAR)CULTURE RESULTS NO ACID FAST BACILLI ISOLATED AFTER 8 WEEKSREPORT STATUS FINAL 03/03/2021 Name Value Range Interpretation Code Description Data Karine rce(s) Supporting Document(s) ID Date Data Source [id number] 02/10/2021 02:37:15 PM EDT [facility] SPECIMEN DESCRIPTION TISSUESPECIA L REQUESTS NONECULTURE RESULTS NO FUNGUS ISOLATED AFTER 5 WEEKSREPORT STATUS FINAL 02/10/2021 Name Value Range Interpretation Code Description Data Karine rce(s) Supporting Document(s) ID Date Data Source [id number] 01/09/2021 08:18:05 AM EDT [facility] SPECIMEN DESCRIPTION TISSUESPECIA L REQUESTS NONECULTURE RESULTS NO ANAEROBES ISOLATEDREPORT STATUS FINAL 01/09/2021 Name Value Range Interpretation Code Description Data Karine rce(s) Supporting Document(s) ID Date Data Source [id number] 01/08/2021 10:21:15 AM EDT [facility] SPECIMEN DESCRIPTION TISSUESPECIA L REQUESTS NONEGRAM STAIN NO WHITE BLOOD CELLS NO BACTERIACULTURE RESULTS RARE ESCHERICHIA COLIREPORT STATUS FINAL 01/08/2021ORGANISM ESCHERICHIA COLIMETHOD MICAMIKACIN <=2 SUSCEPTIBLEAMOXICILLIN/CLAVULANIC AC <=2/1 SUSCEPTIBLEAMPICILLIN <=2 SUSCEPTIBLE ISOLATES SUSCEPTIBLE TO AMPICILLIN ARE ALSO SUSCEPTIBLE TO AMOXICILLIN.CEFEPIME <=1 SUSCEPTIBLECEFOXITIN <=4 SUSCEPTIBLECEFTAZIDIME <=1 SUSCEPTIBLECEFTRIAXONE <=1 SUSCEPTIBLECIPROFLOXACIN <=0.25 SUSCEPTIBLEGENTAMICIN <=1 SUSCEPTIBLELEVOFLOXACIN <=0.12 SUSCEPTIBLEMEROPENEM <=0.25 SUSCEPTIBLEPIPERACILLIN/TAZOBACTAM <=4 SUSCEPTIBLETETRACYCLINE <=1 SUSCEPTIBLE ISOLATES SUSCEPTIBLE TO TETRACYCLINE ARE ALSO SUSCEPTIBLE TO DOXYCYCLINE AND MINOCYCLINE.TOBRAMYCIN <=1 SUSCEPTIBLETRIMETH/SULFA <=1/19 SUSCEPTIBLEERTAPENEM <=0.5 SUSCEPTIBLE Name Value Range Interpretation Code Description Data Karine rce(s) Supporting Document(s) ID Date Data Source [id number] 01/05/2021 10:58:09 PM EDT [facility] NT INFORMATIONPatient MRN Name Date of Age Gend*PT [id number] Codey Molina Jose Rafael 1975 45 years M SDCXPT Location Admission Date/Time Visit ID Attending Provider --- --- --- --- EPI ID CSN Admitting Pr curtiser [id number] ---AirwayPatient location during procedure: ORUrgency: electiveDifficult airway: noAdvanced airway equipment used: noStaffingPerformed by: Lori Velazquez, JOSEPHAnesthesiologist: Aleksandr Patriciaications and Patient ConditionIndications for airway management: anesthesiaPreoxygenated: yesPatient position: supineIn-line stabilization: noMask ventilation: 0 - not attemptedFinal Airway/ApproachesFinal airway type: LMANumber of attempts at final approach: 1Number of other approaches attempted: 0Final Airway DetailsFinal LMA airway: uniqueLMA size 5 Name Value Range Interpretation Code Description Data Karine rce(s) Supporting Document(s) ID Date Data Source [id number] 01/05/2021 01:06:31 PM EDT [facility] Name Value Range Interpretation Code Description Data Karine rce(s) Supporting Document(s) &PDF [facility] WQMXPw4fPmLTEzHb40/NNObyDHJes9ElSLzwVEy2VIexNQTiJ3VqwDpiVOZSQI7YEFUBQIkXHJ4pKjGk yKE [file] vU8UspAZ+qNkUcm/tAlARhTPj9DYr9pH/3B5fGn/community health consultant [file] AgICAgICAgICAgICAgICAgICAgICAgICAgICAgICAgICAgICAgICAgICAgICAgICAgICAgICAgICAgIC AgICAgICAgICAgICAgICAgDQogICAgICAgICAgICAgICAgICAgICAgICAgICAgICAgICAgICAgICAgIC AgICAgICAgICAgICAgICAgICAgICAgICAgICAgICAg ICAgICAgICAgICAgICAgICAgICAgICAgICAgDQogICAgICAgICAgICAgICAgICAgICAgICAgICAgICAg ICAgICAgICAgICAgICAgICAgICAgICAgICAgICAgICAgICAgICAgICAgICAgICAgICAgICAgICAgICAg ICAgICAgICAgDQogICAgICAgICAgICAgICAgICAgIC AgICAgICAgICAgICAgICAgICAgICAgICAgICAgICAgICAgICAgICAgICAgICAgICAgICAgICAgICAgIC AgICAgICAgICAgICAgICAgICAgDQogICAgICAgICAgICAgICAgICAgICAgICAgICAgICAgICAgICAgIC AgICAgICAgICAgICAgICAgICAgICAgICAgICAgICAg ICAgICAgICAgICAgICAgICAgICAgICAgICAgICAgDQogICAgICAgICAgICAgICAgICAgICAgICAgICAg ICAgICAgICAgICAgICAgICAgICAgICAgICAgICAgICAgICAgICAgICAgICAgICAgICAgICAgICAgICAg ICAgICAgICAgICAgDQogICAgICAgICAgICAgICAgIC AgICAgICAgICAgICAgICAgICAgICAgICAgICAgICAgICAgICAgICAgICAgICAgICAgICAgICAgICAgIC AgICAgICAgICAgICAgICAgICAgICAgDQogICAgICAgICAgICAgICAgICAgICAgICAgICAgICAgICAgIC AgICAgICAgICAgICAgICAgICAgICAgICAgICAgICAg ICAgICAgICAgICAgICAgICAgICAgICAgICAgICAgICAgDQogICAgICAgICAgICAgICAgICAgICAgICAg ICAgICAgICAgICAgICAgICAgICAgICAgICAgICAgICAgICAgICAgICAgICAgICAgICAgICAgICAgICAg ICAgICAgICAgICAgICAgDQogICAgICAgICAgICAgIC AgICAgICAgICAgICAgICAgICAgICAgICAgICAgICAgICAgICAgICAgICAgICAgICAgICAgICAgICAgIC IsPXKqPFQoNDVlWRYhAEJgJLNbCTPfYMRdKCw7K4vvEMIkMEPhFF7vZGg8Iw9+HDuKDyHsRBH8hlOwjR 4DGO2ku9NwVGscMJFum4GlCCh1DM1SBXUgDWzoSM9D LTgqvi7LCKShGXSwwDFPf6riNiDoBVC5LPDbLbzcKY7AWMPtB9qwuwMdPIYhHOWPYCjdXSXFEMnuXPJP BAUyZHNrPqMrCRxgOD5Fr8EriOO4WOl+Tg8QUP7sy5TcTVxeYUOfMK1fnh6PZDeENgHcG0N0bCUtE8A5 WTwqHn3DEYVcTJNbAhwaTATRCIfzYL0EMK8nwyT1PV 8GlCPmEQDyPJOsyPLvHTo5R35ufHEdNIlgQC4RRAF+Jignesh+Sw3QDVTzAEQsWXZrPzQlEAIKIqZpI26lpK NgAAJiYFP8KAYhTv0PTMJxQ3NljqUuqTsuddNzZLYvVHKPPB6NLJqbrhUdaWLbpPvrQL27yZdaBH2LAt 7JEcBoGX7cah6PiOPyGx7JQIG5LO7RAYSpAABfZHRn GNJ4CXZpTpVhHFecSFOwJVYuYFW3PEUtMOXoMQ8PBhQkXSXsUqD9SlMcKHZdHBOiak1SGOKxFXE1IEev FUEyEJCvJKBfEOowTRCvECMoEPmxYQZcDBXeEA8JTpKfMNCkMIRfXgyyEKEtGRBwjk3TOJHjRXFzQsT4 ImPxOHJvMWQfFHieSJIgZND0CCFsNMQmVQTlWO9LFw TuAYRvLNSqZmMxZVGmORYcok2NFCVwVMJvDuAiGfBoVVYfPWIkOLviFFHjHFM6UdV2SXDnDHPiTY6SIn XkYAInVPguRfExHDKuXROlfj3HYTLcKOMxIKT1CwOuFMXdPRZbMJnkUOOqVHR8BGU1JTYmHKNsFX8TTm BsMUQpLEi2GfTdTAAlNLHpyj6ITUSjHTIjCGpfHsRs AEZeOAYyZPurQLMgZPFbFHw4ZUNuTNPyUF1ZBvUbFFPvJXOeSledRCQjJDHkqo1QNCLaOMAaOCL4NnDl WBRiIYXcORghVVQxDWGjJxI4GFElQYRnIC2WHbTvXZJbPOV3OgNpIDKfOSIzes6KFUXoDLDbJdFuVfYo JVDuOITjEYqiWBVgBGN3QvTgZFBiRWCoBV1NLrMdWA BdWtQwGDsxFDEpBJCzcq3JBZWfZVNpXmG0QwJbNZBeOFFfWGqgXJEiJBM4QZM0QEGxVGGiAA5NSeKcJK CaDzv0YjHbVDYjJGFmpr8HJQVzGBIbFJn4SNZuEERePJYyMIxmMECcCPV0XZPiRVQoVOQtCN7HPcTnDI SpPoS2UXHeTNExKIJiod2HMOQvPPAzRUJpRBKqQOWj EAPmVQwzIEOzVQWrHNK0APNxAPFcFL5LHcLzFDKxDJDdHwIyBNDzKVIqbu4TZJPtEPW2MNS3PoZwWPDb MNYkZLewQXAaGHLtJZO2LQVnXECmXK1VEuZgBPUcYBGqUOVhIQJyVVIsln1LSLUvCAV7PSd6GcJlCSIc ZXNdLGeuILUdSMTdQvRhXODxJVHbBO5YIjOnRZAgYq YkEIbbNGYyNZIrig3VJOBxTTY7KOe0DqBkUUReGWBiNGv8lfNkmUBbMIf8NR1KS2RmdiPhIYCWRk7Wj3 94BMS5BTWzZm2IX6doWz9rZLEgBCKHQr8QYDx5CLGeKLOnRXP6GFEnDOX6VSG4B0AtXWYhGQUpWVGaGh E+MDhqUGHqSVXvPOJ0CWP8MzysGLU3SgHdCSHcTQB6 JDY1LJ7gIPEMKs6+GCjsrFIcmHszRZYBVuI9FPOuNGmfYZVPTf7S ID Date Data Source [id number] 01/05/2021 12:59:19 PM EDT [address] [address]Avhkdhh Name: CODEY MOLINATARAS: 1975Sex: MOrdering Provider: KORIN TOVARAuthorishirley Prov: KORIN TOVARReferrricky Provider: Procedure Performed: / XR CHEST PORTABLEExam Date: 01/05/2021 12:48MRN: [id number] Number: [id number] Class: InpatientAccount #: [id number] for Exam: rule out HFTechnique: AP portable view obtained.Comparison: NoneFindings: Lung volumes are normal. Lungs are clear and diaphragms are sharply defined. Implantable cardiac loop recorder projected over left chest wall. Atrial ventricular pacemaker appears in good position. There is no pneumothorax, pleural effusion or free air beneath the diaphragms.IMPRESSION: Normal size heart. Clear lungs with no evidence for congestive heart failure. Atrial ventricular pacemaker and cardiac rhythm loop recorder projected over the patient.Report electronically signed by: CODEY SOLIS On 01/05/2021 12:59 PMWorkstation ID: [id number] Name Value Range Interpretation Code Description Data Karine rce(s) Supporting Document(s) ID Date Data Source [id number] 01/05/2021 12:00:35 PM EDT [facility] NT INFORMATIONPatient MRN Name Date of Age Gend*PT [id number] Codey Molina 1975 45 years M SDCXPT Location Admission Date/Time Visit ID Attending [id number] 01/04/21 1512 --- Sabas Page MD([id number]) EPI ID CSN Admitting Provider [id number] Sabas Page MD([id number])CARDIOLOGY CONSULTATIONName: Codey Molina Gender: maleDate of : 1975 Age: 45 yearsDate/Time of Admit: 01/04/2021 3:12 PM Code Status: Full CodePrimary Care Provider / Referring Physician: SABAS COBB MDInformant:HISTORYCHIEF COMPLAINT: No chief complaint on file.HPI:This patient is a 45 years male who I believe was either directly admitted [facility] for 2 days. Thepatient has a perirectal abscess. He requires surgery. We are seeing him forpreoperative evaluation.He has a history of coronary disease with previous stent placement and a cardiacpacemaker.On 10/16/2016 in [facility]. [facility]. Dr Isiah Chapman. Indication: Greater than 5 second pause on LINQ. Medtronic,Generator Advisa MRI compatible pacemaker system. Serial# [id number]. minimumrate 60 bpm. Pacing mode: AAI-DDDIn March 2020 he went to the [facility] where he was found to have criticalstenosis in the right coronary which was treated with rescue angioplasty and adrug-eluting stent. There was moderate to severe disease in the ramus branch ofthe LAD which was not addressed at the time. He already had had moderate leftventricular systolic dysfunction and a mildly elevated LVEDP. He hadexperienced acute systolic heart failure at about the time of that procedure.The next day the patient went back to the [facility] and underwent IFR of the LADlesion and it was found to be nonobstructive. No further intervention wasperformed.April 2020 he went back to the [facility] again after presenting with ananterior ST elevation myocardial infarction treated with lytic therapy. At thattime he underwent stent placement in the ramus branch and in the LAD.His cardiac meds include aspirin, atorvastatin, clopidogrel, Coreg, andsublingual nitroglycerin.His laboratory studies reveal creatinine 0.68 and GFR greater than 60.Hemoglobin is 14.2.A TTE in 2019 demonstrated that he had a mildly dilated left ventricle with EF50 to 55% and segmental LV dysfunction. No significant valvular disease wasdescribed.The patient is asymptomatic and currently free of angina, dyspnea, orthopnea,PND, dizziness, syncope, or palpitations.PAST HI STORYPMH:Past Medical History:Diagnosis Date Asthma COPD (chronic obstructive pulmonary disease) Fibromyalgia HPV (human papilloma virus) infection Hypertension Tobacco abusePSH:Past Surgical History:Procedure Laterality Date A-V CARDIAC PACEMAKER INSERTION CARDIAC CATHETERIZATION N/A 03/16/2020 Procedure: Left heart cath; Surgeon: Simon Witt MD; Laterality: N/A; CARDIAC CATHETERIZATION N/A 03/16/2020 Procedure: Coronary angiography; Surgeon: Simon Witt MD; Laterality:N/A; CARDIAC CATHETERIZATION N/A 03/16/2020 Procedure: Left ventriculography; Surgeon: Simon Witt MD; Laterality:N/A; CARDIAC CATHETERIZATION N/A 03/16/2020 Procedure: Percutaneous coronary intervention; Surgeon: Simon Witt MD;Laterality: N/A; CARDIAC CATHETERIZATION N/A 03/17/2020 Procedure: Coronary angiography; Surgeon: Simon Witt MD; Laterality:N/A; CARDIAC CATHETERIZATION N/A 03/17/2020 Procedure: Measurement, Myocardial Fractional Flow Dwight; Surgeon: MD Jose; Laterality: N/A; CARDIAC CATHETERIZATION N/A 05/04/2020 Procedure: Cardiac catheterization; Surgeon: Preethi Guerrero MD; Laterality:N/A; CARDIAC CATHETERIZATION N/A 05/04/2020 Procedure: Percutaneous coronary intervention; Surgeon: Preethi Guerrero MD;Laterality: N/A; COLONOSCOPY IMPLANT/EXPLANT LOOP RECORDER UMBILICAL HERNIA REPAIR VASECTOMYFH:Family HistoryProblem Relation Age of Onset COPD Mother Myocardial Infarction ([place]) Father 34 at 53 cardiac cause Thyroid disease Sister SIDS Sister Cerebral palsy BrotherPSH:Social HistorySocial History Narrative Not on fileSocial HistorySocioeconomic History Marital status: Spouse name: Not on file Number of children: Not on file Years of education: Not on file Highest education level: Not on fileOccupational History Not on fileTobacco Use Smoking status: Former Smoker Packs/day: 2.00 Years: 30.00 Pack years: 60.00 Types: Cigarettes Quit date: 2019 Years since quittin.5 Smokeless tobacco: Never UsedSubstance and Sexual Activity Alcohol use: Not Currently Drug use: Yes Types: Marijuana Comment: Daily Sexual activity: Not on fileOther Topics Concern Not on fileSocial History Narrative Not on fileSocial Determinants of HealthFinancial Resource Strain: Difficulty of Paying Living Expenses:Food Insecurity: Worried About Running Out of Food in the Last Year: Ran Out of Food in the Last Year:Transportation Needs: Lack of Transportation (Medical): Lack of Transportation (Non-Medical):Physical Activity: Days of Exercise per Week: Minutes of Exercise per Session:Stress: Feeling of Stress :Social Connections: Frequency of Communication with Friends and Family: Frequency of Social Gatherings with Friends and Family: Attends Christian Services: Active Member of Clubs or Organizations: Attends Club or Organization Meetings: Marital Status:Intimate Partner Violence: Fear of Current or Ex-Partner: Emotionally Abused: Physically Abused: Sexually Abused:Review of SystemsConstitutional: No fevers, chills, weight loss or night sweats..Eyes: No blindness, double vision, or glaucomaRespiratory: negative for asthma, chronic bronchitis, hemoptysis, pleurisy,sputum production, or wheezingCardiovascular: negative for claudication and as stated in the HPIGastrointestinal: negative for constipation, diarrhea, melena, nausea, orvomitingNeurological: negative for dizziness, gait problems, headaches and seizuresHematologic/lymphatic: negative for easy bruising, petechiae, or anemi aBehavioral/Psych: negative for anxiety and depressionEndocrine: negative for polydipsia, polyphagia and polyuria and temperatureintoleranceAllergic/Immunologic: No seasonal allergiesMEDICATIONS AND ALLERGIESALLERGIES/SENSITIVITIES:AllergiesAllergen Reactions Latex HivesMEDS:Medications Prior to AdmissionMedication Sig Dispense Refill Last Dose albuterol (PROVENTIL) (2.5 MG/3ML) 0.083% nebulizer solution Take 2.5 mg bynebulization 2 (two) times a day as needed for wheezing or shortness of breath aspirin 81 MG chewable tablet Chew 81 mg daily atorvastatin (LIPITOR) 80 MG tablet Take 80 mg by mouth daily carvedilol (COREG) 3.125 MG tablet Take 1 tablet (3.125 mg total) by mouth 2(two) times a day 60 tablet 5 clopidogrel (PLAVIX) 75 MG tablet Take 1 tablet (75 mg total) by mouth daily30 tablet 5 famotidine (PEPCID) 20 MG tablet Take 20 mg by mouth daily as needed forheartburn nicotine (NICODERM CQ) 21 MG/24HR Place 1 patch on the skin daily 28 patch 0 nitroglycerin (NITROSTAT) 0.[address] 1 tablet (0.4 mg total) underthe tongue every 5 (five) minutes as needed for chest pain 25 tablet 2 triamcinolone (KENALOG) 0.1 % cream Apply 1 application topically daily asneeded (for rash)PhysicalVITAL SIGNS:Blood Pressure: BP: 114/75 Pulse: Heart Rate: 63Temperature: Temp: 97.8 F Respirations: Resp: 18Admission Weight: O2 Saturation: SpO2: 96 %Today's Weight:PHYSICAL EXAMINATION:GENERAL: Well developed, well nourished man in no acute distress and oriented toperson place and time. There is normal affect and thought process.HEENT: No arcus, xanthelasma, or scleral icterus. Nasal and oral mucosa pink.Tongue well-papillated.NECK: JVP normal. Carotids brisk. No lymphadenopathy.LUNGS: Resonant and clearCARDIAC: PMI normal S1 normal S2 physiologically split. No gallops. No murmurs.No rubs.ABDOMEN: Soft and nontender without hepatosplenomegaly. Bowel sounds are normal.PULSES: Pedal pulses are intact and symmetricEXTREMITIES: No edema. No clubbing. No cyanosis. Skin warm and well perfused. Novenous stasis.MUSCULOSKELETAL: No deformities, good muscle tone, normal range of motionNEUROLOGICAL: No major sensory or motor deficits.DiagnosticsLABS:BMP:Lab ResultsComponent Value Date NA 139 01/04/2021 K 4.2 01/04/2021 CL 106 01/04/2021 CO2 28 01/04/2021 ANIONGAP 5 (L) 01/04/2021 CALCIUM 8.5 01/04/2021 GLU 82 01/04/2021 BUN 13 01/04/2021 CREATININE 0.68 (L) 01/04/2021 GFRAA >60 01/04/2021 GFRNONAA >60 01/04/2021BC with Diff:Lab ResultsComponent Value Date WBC 12.3 (H) 01/04/2021 RBC 4.68 01/04/2021 HGB 14.2 01/04/2021 HCT 41.8 01/04/2021 MCV 89.3 01/04/2021 MCH 30.2 01/04/2021 MCHC 33.9 01/04/2021 RDW 13.6 01/04/2021 PLT 292 01/04/2021 MPV 7.9 01/04/2021 LYMPHOPCT 17.8 05/03/2020 MONOPCT 8.4 (H) 05/03/2020 EOSPCT 0.9 05/03/2020 BASOPCT 0.9 05/03/2020 NEUTROABS 9.7 (H) 05/03/2020 MONOABS 1.1 (H) 05/03/2020 BASOSABS 0.1 05/03/2020CBC without Diff:Lab ResultsComponent Value Date WBC 12.3 (H) 12/15 RBC 4.68 01/04/2021 HGB 14.2 01/04/2021 HCT 41.8 01/04/2021 MCV 89.3 01/04/2021 MCH 30.2 01/04/2021 MCHC 33.9 01/04/2021 RDW 13.6 01/04/2021 PLT 292 01/04/2021 MPV 7.9 01/04/2021MP:Lab ResultsComponent Value Date NA 139 01/04/2021 K 4.2 01/04/2021 CL 106 01/04/2021 CO2 28 01/04/2021 ANIONGAP 5 (L) 01/04/2021 BUN 13 01/04/2021 CREATININE 0.68 (L) 01/04/2021 BCR 19.1 01/04/2021 GLU 82 01/04/2021 CALCIUM 8.5 01/04/2021 ALBUMIN 4.2 05/03/2020 GLOB 3.2 05/03/2020 AGRC 1.3 05/03/2020 ALKPHOS 94 05/03/2020 LABBILI 1.0 05/03/2020 AST 32 05/03/2020 ALT 51 05/03/2020 GFRAA >60 01/04/2021 GFRNONAA >60 01/04/2021oags:Lab ResultsComponent Value Date APTT 29.1 05/04/2020D-Dimer: No results found for: DDAT, PROCALCITON, LACTATENT Pro- BNP : No results found for this or any previous visit.DIAGNOSTICS:IMAGING: Chest film not performed.ECG: Not performed.ConclusionsImpressions:1. CAD s/p PCI2. Sick sinus syndrome with Medtronic dual-chamber pacemakerRecommendations:1. Electrocardiogram2. TTE3. Portable chest4. N-terminal proBNP5. Wilman Estrada NP has already completed the ICD/PPM order set.After the above studies I anticipate being able to clear him for his surgicalprocedure.Thank you for this consultation.DHRUV Fosterate: January 05, 2021Time: 9:12 AM Name Value Range Interpretation Code Description Data Karine rce(s) Supporting Document(s) ID Date Data Source [id number] 01/05/2021 11:44:09 AM EDT Lab [facility] Name Value Range Interpretation Code Description Data Karine rce(s) Supporting Document(s) NT PRO BNP 29 pg/mL (0-125) [place] [facility] ID Date Data Source [id number] 01/10/2021 02:15:34 PM EDT [address] [address]Xht# Surgical Pathology ReportPatient Name: CODEY MOLINA: 1975Accession #:[id number](s) ReceivedA: Anal wartsClinical Diagnosis and HistoryRectal abscess DIAGNOSISSKIN, PERIANAL, BIOPSY: FRAGMENTS OF CONDYLOMA ACUMINATUM.CommentsThe section contains fragments of skin with koilocytotic atypia andarchitectural features characteristic of condyloma. No high gradedysplasia is present. Gross DescriptionReceived in formalin labeled "anal wart" are three ruth-white papillaryirregular unoriented fragments of skin ranging from 0.6 x 0.2 x 0.1 cm to1.2 x 0.7 x 0.1 cm. The fragments of differentially inked along the pointof attachment. The largest is trisected. The specimen is entirelysubmitted aA1. emglmr/skl Reported: 01/10/2021Electronically Signed Out By Van Cyr MD [facility] [place] [address] [id number] component performed at [facility], Histopathology, [address] [place] [address], [phone].Reported at [facility], [address] [place] [address], [phone]. This report may includeimmunohistochemical or in-situ hybridization results. Testing wasdeveloped and the performance characteristics determined by [facility] Ollie Solaiem[facility] as required by CLIA '88. The FDA hasdetermined that approval for specific use is not necessary for clinicaluse. The quality of Hematoxylin and Eosin stains and as applicable, forall immunohistochemical and/or special stains, including positive andnegative controls, were reviewed and considered appropriate.ICD codes B07.9CPT codesA: 20559F Name Value Range Interpretation Code Description Data Karine rce(s) Supporting Document(s) ID Date Data Source [id number] 01/04/2021 06:42:00 PM EDT [facility] Name Value Range Interpretation Code Description Data Karine rce(s) Supporting Document(s) SARS coronavirus 2 RNA [Presence] in Res piratory specimen by NELLIE with probe detection NOT DETECTED [facility] This lab was reported by [place] [facility]. ID Date Data Source [id number] 01/04/2021 09:26:09 PM EDT [facility] [place] [facility] SPEC EXP DATE 01/07/2021ATI ENT ABO/Rh B NEGATIVEANTIBODY SCREEN NEGATIVETESTING SITE PERFORMED AT [address] [place] [address] Name Value Range Interpretation Code Description Data Karine rce(s) Supporting Document(s) TYPE AND SCREEN [facility] [place] [facility] ID Date Data Source [id number] 01/04/2021 08:10:09 PM EDT [facility] [place] [facility] Name Value Range Interpretation Code Description Data Karine rce(s) Supporting Document(s) PHOSPHORUS 3.2 mg/dL (2.5-4.5) [facility] [place] [facility] ID Date Data Source [id number] 01/04/2021 08:10:09 PM EDT [facility] [place] [facility] Name Value Range Interpretation Code Description Data Karine rce(s) Supporting Document(s) MAGNESIUM 2.2 mg/dL (1.7-2.4) [facility] [place] [facility] ID Date Data Source [id number] 01/04/2021 08:10:09 PM EDT [facility] [place] [facility] Name Value Range Interpretation Code Description Data Karine rce(s) Supporting Document(s) SODIUM 139 mmol/L (136-145) [facility] [place] [facility] POTASSIUM 4.2 mmol/L (3.6-5.2) [facility] [place] [facility] CHLORIDE 106 mmol/L (100-108) [facility] [place] [facility] CO2 28 mmol/L (22-31) [facility] [place] [facility] ANION GAP 5 mmol/L (7-16) L [facility] [place] [facility] UREA NITROGEN 13 mg/dL (7-24) [facility] [place] [facility] CREATININE 0.68 mg/dL (0.80-1.30) L [facility] [place] [facility] BUN/CREAT RATIO 19.1 RATIO (10.0-20.0) [facility] GLUCOSE 82 mg/dL (70-99) [facility] [place] [facility] CALCIUM 8.5 mg/dL (8.4-10.2) [facility] [place] [facility] GFR >60 ml/min/1.73m2 (>59) [place] [facility] GFR ( AMER) >60 ml/min/1.73m2 (>59) [facility] [place] [facility] GFR INTERPRETATION [facility] [place] --NORMAL KIDNEY FUNCTION OR MILD DISEASE - GFR >OR= 60CHRONIC KIDNEY DISEASE - GFR 15 - 59RENAL FAILURE - GFR <15 Est. GFR calculation based on the MDRDstudy equation, which assumes a steadystate for creatinine. Est. GFR should notbe used for medication dosing. ID Date Data Source [id number] 01/04/2021 07:43:03 PM EDT [place] [facility] Name Value Range Interpretation Code Description Data Karine rce(s) Supporting Document(s) SPECIMEN DESCRIPTION [facility] INFLUENZA A (NEG) [place] [facility] INFLUENZA B (NEG) [facility] [place] [facility] RSV (NEG) [facility] [place] [facility] COMMENT [facility] [place] [facility] THE U.S. FDA HAS MADE THIS TEST AVAILABL EUNDER AN EMERGENCY USE AUTHORIZATION(EUA) FOR THE DETECTION AND/OR DIAGNOSISOF THE VIRUS THAT CAUSES COVID-19.PERFORMED AT [address] [place] [id number] COVID19 RESULT (NDET) [place] THIS ASSAY AMPLIFIES AND DETECTSTHE TARG ET RNA USING REAL-TIME PCR.TESTING PERFORMED ON GOOM GENEXPERTNEGATIVE 2019_NCOV RT-PCR RESULTS DONOT PRECLUDE 2019_NCOV INFECTION ANDSHOULD NOT BE USED THE SOLE BASISFOR PATIENT MANAGEMENT DECISIONS. FIRST TEST [place] [facility] Lab [facility] [place] SYMPTOMATIC [facility] [place] [facility] Thomas DATE OF SYMPT ONSET Lab [facility] [place] HOSPITALIZED [place] [facility] [place] [facility] [place] CONGREGATE CARE SET [facility] [place] [facility] ID Date Data Source [id number] 01/04/2021 07:29:47 PM EDT [facility] [place] [facility] Name Value Range Interpretation Code Description Data Karine rce(s) Supporting Document(s) WBC 12.3 10*3/uL (4.1-11.0) H [facility] [place] [facility] RBC 4.68 10*6/uL (4.60-6.10) [facility] [place] [facility] HGB 14.2 g/dL (13.5-18.0) [facility] [place] [facility] HCT 41.8 % (41.0-53.0) [facility] [place] [facility] PERFORMED AT [address] [place] [address] N [place] [address] MCV 89.3 fL (80.0-95.0) [facility] [place] [facility] MCH 30.2 pg (27.0-32.0) [facility] [place] [facility] MCHC 33.9 g/dL (32.0-36.0) [facility] [place] [facility] RDW 13.6 % (10.5-14.5) [facility] [place] [facility] PLT 292 10*3/uL (150-450) [facility] [place] [facility] MPV 7.9 fL (7.1-10.7) [facility] [place] [facility] ID Date Data Source [id number] 11/06/2020 06:15:41 PM EDT [facility] [place] [facility] [place], [place] [address]Tel# SURGICAL PATHOLOGY REPORTPatient Name:CODEY MOLINADarlene:1975Received:1Accession #:[id number](s) Received: A: Anal condylomaClinical Diagnosis and History: Anal condyloma. DIAGNOSIS:SKIN, ANAL FRAGMENTS OF CONDYLOMA. 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 The specimen measures 4.0 x 3.5 x 2.0 cm in aggregate. The intact largestportion of soft tissue measures 3.0 x 1.5 x up to 1.0 cm, is inked at themargin, sectioned and submitted in blocks 3-4. The specimen is entirelysubmitted for microscopic examination. (4 blocks) jglkas/jieeReported: 11/06/2020Electronically Signed Out By Gretchen Mercado M.D. dPath[facility] Health CenterJose Alfredo.[address] [place], [place] [address]Technical component performed at [facility], Histopathology, [address] [place] [address], [phone].Reported at [facility], [address] [place] [address], [facility].This report may include immunohistochemical or in-situ hybridizationresults. Testing was developed and the performance characteristicsdetermined by [facility] CenterCrowdPl[facility], as required byCLIA '88. The FDA has determined that approval for specific use is notnecessary for clinical use. The quality of Hematoxylin and Eosin stainsand as applicable, for all immunohistochemical and/or special stains,including positive and negative controls, were reviewed and consideredappropriate.ICD codes: A63.0CPT4 codes: A: 04534U Name Value Range Interpretation Code Description Data Karine rce(s) Supporting Document(s) ID Date Data Source [id number] 10/29/2020 11:15:00 AM EDT [facility] Name Value Range Interpretation Code Description Data Karine rce(s) Supporting Document(s) SARS-CoV-2 (COVID-19) RNA [Presence] in Respiratory specimen by NELLIE with probe detection Not Detected [facility] This lab was ordered by [facility] and reported by [facility]. ID Date Data Source [id number] 10/19/2020 10:31:00 AM EDT [facility]) Name Value Range Interpretation Code Description Data Karine rce(s) Supporting Document(s) Triglycerides Level 132 mg/dL [facility] ([facility]) Cholesterol Level 108 mg/dL [facility]) HDL Cholesterol 36 mg/dL [facility]) Non-HDL-C 72 mg/dL [facility] ([facility]) LDL Cholesterol 46 mg/dL [facility] ([facility]) Cholesterol Risk Ratio 3.000 [facility] ([facility]) ID Date Data Source [id number] 10/19/2020 10:31:00 AM EDT [facility]) Name Value Range Interpretation Code Description Data Karine rce(s) Supporting Document(s) Glucose, Fasting 102 mg/dL 70-100 [facility] ([facility]) Blood Urea Nitrogen 10 mg/dL 7-18 [facility] ([facility]) Creatinine For GFR 0.82 mg/dL 0.70-1.30 [facility] ([facility]) Sodium Level 141 meq/L 136-145 [facility] ([facility]) Glomerular Filtration Rate Laboratory test result [facility] ([facility]) <content>Units are mL/min/1.73 m2</content>
<content></content>
<content>Chronic Kidney Disease Staging per NKF:</content>
<content></content>
<content>Stage I & II GFR >=60 Normal to Mildly Decreased</content>
<content>Stage III GFR 30- 59 Moderately Decreased</content>
<content>Stage IV GFR 15-29 Severely Decreased</content>
<content>Stage V GFR <15 Very Little GFR Left</content>
<content>ESRD GFR <15 on [employer]</content>
<content></content> Potassium Serum 4.2 meq/L 3.5-5.1 [facility] ([facility]) Chloride Level 108 meq/L 98-107 [facility] ([facility]) Anion Gap 5 meq/L 8-16 [facility] ([facility]) Carbon Dioxide Level 28 meq/L 21-32 [facility] ([facility]) Calcium Level 9.2 mg/dL 8.5-10.1 [facility] ([facility]) Ast/Sgot 33 U/L 7-37 [facility] ([facility]) Alt/SGPT 53 U/L 12-78 [facility]) Alkaline Phosphatase 95 U/L 45-117 [facility] ([facility]) Bilirubin,Total 0.3 mg/dL 0.2-1.0 [facility] ([facility]) Total Protein 7.2 GM/DL 6.4-8.2 [facility] ([facility]) Albumin 4.0 GM/DL 3.2-5.2 [facility] Albumin/Globulin Ratio 1.3 [facility] ([facility]) ID Date Data Source [id number] 06/19/2020 09:14:00 AM EST [facility] ([facility]) Name Value Range Interpretation Code Description Data Karine rce(s) Supporting Document(s) White Blood Count 7.9 10 4.0-10.0 [facility] ([facility]) Red Blood Count 5.05 10 4.30-6.10 [facility] ([facility]) Hemoglobin 15.1 g/dL 13.5-17.5 [facility] ([facility]) Hematocrit 44.4 % 42.0-52.0 [facility] ([facility]) Mean Corpuscular Volume 87.9 fl 80.0-96.0 M [facility] ([facility]) Red Cell Distribution Width 13.2 % 11.5-14.5 [facility] ([facility]) Mean Corpuscular HGB Conc 34.0 g/dL 32.0-36.5 [facility] ([facility]iology [facility]) Mean Corpuscular Hemoglobin 29.9 pg 27.0-33.0 [facility] ([facility]) Platelet Count, Automated 240 10 150-450 [facility] ([facility]) Nucleated Red Blood Cell % 0.0 % 0-0 [facility] ([facility]) ID Date Data Source [id number] 06/19/2020 09:14:00 AM EST [facility]) Name Value Range Interpretation Code Description Data Karine rce(s) Supporting Document(s) Glucose, Fasting 96 mg/dL 70-100 [facility] ([facility]) Blood Urea Nitrogen 11 mg/dL 7-18 [facility] ([facility]) Creatinine For GFR 0.93 mg/dL 0.70-1.30 [facility] ([facility]) Sodium Level 140 meq/L 136-145 [facility] ([facility]) Glomerular Filtration Rate Laboratory test result [facility] ([facility]) <content>Units are mL/min/1.73 m2</content>
<content></content>
<content>Chronic Kidney Disease Staging per NKF:</content>
<content></content>
<content>Stage I & II GFR >=60 Normal to Mildly Decreased</content>
<content>Stage III GFR 30- 59 Moderately Decreased</content>
<content>Stage IV GFR 15-29 Severely Decreased</content>
<content>Stage V GFR <15 Very Little GFR Left</content>
<content>ESRD GFR <15 on [employer] ADVIS[employer]</content>
<content></content> Potassium Serum 4.1 meq/L 3.5-5.1 [facility] ([facility]) Chloride Level 106 meq/L 98-107 [facility] ([facility]) Anion Gap 3 meq/L 8-16 [facility] ([facility]) Carbon Dioxide Level 31 meq/L 21-32 [facility] ([facility]) Calcium Level 9.1 mg/dL 8.5-10.1 [facility] ([facility]) ID Date Data Source [id number] 06/05/2020 09:06:00 AM EST [facility]) Name Value Range Interpretation Code Description Data Karine rce(s) Supporting Document(s) White Blood Count 9.9 5.0-10.0 [facility] ([facility]) Red Blood Count 5.25 4.00-5.40 [facility] ([facility]) Platelets 238 172-450 [facility] ([facility]) Hemoglobin 15.2 [facility] ([facility]) Hematocrit 45.7 [facility] ([facility]) ID Date Data Source [id number] 06/05/2020 09:06:00 AM EST [facility]) Name Value Range Interpretation Code Description Data Karine rce(s) Supporting Document(s) Sodium 142 [facility] Calcium [Mass/volume] in Serum or Plasma 8.3 [facility] ([facility]) Carbon dioxide, total [Moles/volume] in Serum or Plasma 25 [facility] ([facility]) Chloride [Moles/volume] in Serum or Plasma 110 [facility] ([facility]) Glucose 121 83-110 [facility] Potassium [Moles/volume] in Serum or Plasma 4.0 [facility] ([facility]) Creatinine 0.96 0.6-1.0 [facility] ([facility]) Blood Urea Nitrogen 7 7-18 [facility] ([facility]) Glomerular filtration rate/1.73 sq M.pre dicted [Volume Rate/Area] in Serum or Plasma by Creatinine-based formula (MDRD) Laboratory test result [facility] ([facility]) ID Date Data Source [id number] 06/05/2020 08:39:00 AM EST [facility] Name Value Range Interpretation Code Description Data Karine rce(s) Supporting Document(s) SARS coronavirus 2 RNA [Presence] in Res piratory specimen by NELLIE with probe detection [facility] This lab was ordered by [facility] a nd reported by [facility]. ID Date Data Source [id number] 05/15/2020 11:33:28 AM EST [facility] CenterPATIE NT INFORMATIONPatient MRN Name Date of Age Gend*PT [id number] Codey Molina 1975 44 years M IPPT Location Admission Date/Time Visit ID Attending [id number] 05/03/20 2328 --- --- EPI ID CSN Admitting Provider [id number] Preethi Guerrero MD([id number]) Attestation signed by Preethi Guerrero MD at 05/15/2020 11:33 AMSignature: DHRUV Fragosoate: May 15, 2020Time: 11:33 AM Physician Discharge Summary Codey MolinaMRN: [id number] date: 05/03/2020Attending Physician: Preethi Guerrero MDAdmission Diagnosis: STEMI (ST elevation myocardial infarction)Secondary Diagnoses: Principal Problem: STEMI (ST elevation myocardial infarction)Active Problems: Hypertension Tobacco abuse Marijuana use ST elevation myocardial infarction involving left anterior descending (LAD)coronary arteryPrinciple Procedures:1. LHC: Mid LAD lesion is 70% stenosed. Ramus lesion is 70% stenosed. Prox RCA lesion is 40% stenosed. Mid Cx lesion is 35% stenosed.No complications, estimated blood loss minimal.Successful stenting of culprit lesions in the mid LAD and ramus with a total of3 drug-eluting stents. The previously placed stents are patent. Contin uationof Plavix for at least 1 year and preferably longer given the fact that he hasnow had a second STEMI within such a short timeframe of his last event. Thecase was discussed with the patient as well as his daughter via telephone.Indication for Admission: Codey is a 44 year old male with PMH of CADpreviously stented in 03/2020, HTN, HLD, tobacco abuse, daily marijuana use,fibromyalgia who was transferred from [facility] with STEMI. Thepatient was treated here at [facility] in 03/2020 for STEMI based on cath which showedcritical stenosis in the mid right coronary artery. He underwent successf ulrescue angioplasty with drug-eluting stent placement. Additionally, he was notedto have moderate to severe disease in the ramus and mid LAD. He had been doingfine until yesterday morning when he states he wok up with chest pain whichprogressively got worse. He subsequently was nauseated and did vomit and havediarrhea concurrently with the chest pain. He eventually called EMS when thepain did not subside. He was taken to [facility] where he was noted tohave ST elevation in lead I. Troponin was negative. Dr. Guerrero was contactedand the patient was accepted for transfer. He was given TNK, started onheparin, given plavix, asa. He continued to have short bouts of chest painuntil arrival to [facility]. He reports compliance with medication regimen. Familyhistory notable for father with MN at 34 and at 53 with CAD. At thetime of encounter he is pain free and there are no ST elevations. He will beadmitted for further work up and treatment.Hospital Course & Complications: Mr Molina was transferred to [facility] fortreatment of acute MN. He underwent emergent cardiac catheterization, seeresults above. He tolerated the procedure well. He was continued on guidelinemedical therapy and remained hemodynamically stable. He had no elevation introponin. He was monitored on telemetry until today. He was ambulatory withoutsymptoms. He was seen and evaluated by Dr Guerrero and deemed stable for dischargeto home. The patient was in agreement. All discharge instructions, limitationsand medications were reviewed. He verbalized understanding of the need forstrict medication and follow up c ompliance. All questions were answered. Followup was arranged with his physiotherapist's assistant, Dr Newby, next week.Past Medical History:Past Medical History:Diagnosis Date Asthma COPD (chronic obstructive pulmonary disease) Fibromyalgia HPV (human papilloma virus) infection Hypertension Tobacco abuseMost Recent Labs:BMP:Lab ResultsComponent Value Date NA 142 05/05/2020 K 3.6 05/05/2020 CL 111 (H) 05/05/2020 CO2 26 05/05/2020 ANIONGAP 5 (L) 05/05/2020 CALCIUM 8.8 05/05/2020 GLU 92 05/05/2020 BUN 15 05/05/2020 CREATININE 0.83 05/05/2020 GFRAA >60 05/05/2020 GFRNONAA >60 05/05/2020Cardiac:Lab ResultsComponent Value Date TROPONINI <0.05 05/04/2020 PROBNP 219 (H) 05/03/2020CBC Brief:Lab ResultsComponent Value Date WBC 7.3 05/05/2020 HGB 14.6 05/05/2020 HCT 41.9 05/05/2020 PLT 211 05/05/2020Medications:Your medication listCONTINUE taking these medications Instructions Last Dose Given Morning Afternoon Evening Bedtime As Neededalbuterol (2.5 MG/3ML) 0.083% nebulizer solutionCommonly known as: PROVENTIL Take 2.5 mg by nebulization 2 (two) times a day as needed for wheezing orshortness of breathaspirin 81 MG chewable tablet Chew 81 mg dailyatorvastatin 80 MG tabletCommonly known as: LIPITOR Take 80 mg by mouth dailycarvedilol 3.125 MG tabletCommonly known as: COREG Take 1 tablet (3.125 mg total) by mouth 2 (two) times a dayclopidogrel 75 MG tabletCommonly known as: PLAVIX Take 1 tablet (75 mg total) by mouth dailyfamotidine 20 MG tabletCommonly known as: PEPCID Take 20 mg by mouth daily as needed for heartburnnicotine 21 MG/24HRCommonly known as: NICODERM CQ Place 1 patch on the skin dailynitroglycerin 0.4 MG SL tabletCommonly known as: NITROSTAT Place 1 tablet (0.4 mg total) under the tongue every 5 (five) minutes as neededfor chest paintriamcinolone 0.1 % creamCommonly known as: KENALOG Apply 1 application topically daily as needed (for rash)Discharge Exam:Vitals: Temp: [97.8 F-99.2 F] 97.8 FHeart Rate: [69-89] 69Resp: [16] 16BP: (100-135)/(59-78) 119/65Pleasant, comfortable, not in acute distress.Awake, alert, oriented times 3.Moves all extremities.General appearance: alert, appears stated age and cooperativeHEENT: No recent change in vision or hearing.Lungs: Clear to auscultation bilaterally.Chest wall: no tendernessHeart: RRAbdomen: Soft, nontender, bowel sounds present.Extremities: No edema. RRA site C/D/I (+) pulsesPulses: 2+ and symmetricSkin: No rash or lumps.Discharged Condition: stableDisposition: Discharge to homeFollow Up: Dr Newby 05/10/2020 8:15aSignature: MARLENE GILLIS NPDate: May 05, 2020Time: 11:19 AM Name Value Range Interpretation Code Description Data Karine rce(s) Supporting Document(s) ID Date Data Source [id number] 05/05/2020 10:31:00 AM EST [facility] ([facility] Name Value Range Interpretation Code Description Data Karine rce(s) Supporting Document(s) Calcium [Mass/volume] in Serum or Plasma 8.8 [facility] ([facility]) Sodium 142 [facility] (Cardiology [facility]) Carbon dioxide, total [Moles/volume] in Serum or Plasma 26 [facility] ([facility]) Chloride [Moles/volume] in Serum or Plasma 111 [facility] ([facility]) Glucose 92 70-99 [facility] ([facility]) Potassium [Moles/volume] in Serum or Plasma 3.6 [facility] ([facility]) Blood Urea Nitrogen 15 7-24 [facility] (Ca rdiology [facility]) Creatinine 0.83 0.80-1.30 [facility] (Cardiology [facility]) Glomerular filtration rate/1.73 sq M.pre dicted [Volume Rate/Area] in Serum or Plasma by Creatinine-based formula (MDRD) Laboratory test result [facility] (Cardiology [facility]) ID Date Data Source [id number] 05/05/2020 10:31:00 AM EST [facility] ([facility]) Name Value Range Interpretation Code Description Data Karine rce(s) Supporting Document(s) Red Blood Count 4.77 4.60-6.10 [facility] ([facility]io [facility]) White Blood Count 7.3 4.1-11.0 [facility] (Card [facility]) Platelets 211 150-450 [facility] ([facility]) Hemoglobin 14.6 13.5-18.0 [facility] ([facility]) Hematocrit 41.9 41.0-53.0 [facility] ([facility]) ID Date Data Source [id number] 05/05/2020 05:45:57 AM EST [facility] [place] [facility] Name Value Range Interpretation Code Description Data Karine rce(s) Supporting Document(s) SODIUM 142 mmol/L (136-145) [facility] [place] [facility] POTASSIUM 3.6 mmol/L (3.6-5.2) [facility] [place] [facility] CHLORIDE 111 mmol/L (100-108) H [facility] [place] [facility] CO2 26 mmol/L (22-31) [facility] [place] [facility] ANION GAP 5 mmol/L (7-16) L [facility] [place] [facility] UREA NITROGEN 15 mg/dL (7-24) [facility] [place] [facility] CREATININE 0.83 mg/dL (0.80-1.30) [facility] [place] [facility] BUN/CREAT RATIO 18.1 RATIO (10.0-20.0) [facility] GLUCOSE 92 mg/dL (70-99) [facility] [place] [facility] CALCIUM 8.8 mg/dL (8.4-10.2) [facility] [place] [facility] GFR >60 ml/min/1.73m2 (>59) [facility] [place] [facility] GFR ( AMER) >60 ml/min/1.73m2 (>59) [facility] [place] [facility] GFR INTERPRETATION [facility] --NORMAL KIDNEY FUNCTION OR MILD DISEASE - GFR >OR= 60CHRONIC KIDNEY DISEASE - GFR 15 - 59RENAL FAILURE - GFR <15 Est. GFR calculation based on the MDRDstudy equation, which assumes a steadystate for creatinine. Est. GFR should notbe used for medication dosing. ID Date Data Source [id number] 05/05/2020 05:19:44 AM EST [facility] [place] [facility] Name Value Range Interpretation Code Description Data Karine rce(s) Supporting Document(s) WBC 7.3 10*3/uL (4.1-11.0) [facility] [place] [facility] [place] RBC 4.77 10*6/uL (4.60-6.10) [facility] [place] [facility] HGB 14.6 g/dL (13.5-18.0) [facility] [place] [facility] [place] HCT 41.9 % (41.0-53.0) [facility] [place] [facility] MCV 87.9 fL (80.0-95.0) [facility] [place] [facility] MCH 30.5 pg (27.0-32.0) [facility] [place] [facility] MCHC 34.7 g/dL (32.0-36.0) [facility] [place] [facility] RDW 13.7 % (10.5-14.5) [facility] [place] [facility] PLT 211 10*3/uL (150-450) [facility] [place] [facility] MPV 7.1 fL (7.1-10.7) [facility] [place] [facility] ID Date Data Source [id number] 05/04/2020 01:19:03 PM EST [facility] Name Value Range Interpretation Code Description Data Karine rce(s) Supporting Document(s) &PDF [facility] AQFVLq0wDcDVVpNy87/TYFpuTMOil2DrHFmgDGz1XBciBDJhD0WpfZvgKBHIZT1GNDHTWOgZKY5yJdWn vci [file] s6dYi21DbSIEpyuGNDxMO+bSnM2h2effuO1zeV6D3GPoy4E+community health consultant+P1gbYKRbgh3IsIWKuAa7sholkXIpy [file] PIWnxgQIWeCGypPDYTMx7E ID Date Data Source [id number] 05/04/2020 10:33:35 AM EST [facility] NT INFORMATIONPatient MRN Name Date of Age Gend*PT [id number] Tracy Codey [place] 1975 44 years M IPPT Location Admission Date/Time Visit ID Attending [id number] 05/03/208 --- Preethi Guerrero MD ([id number]) EPI ID CSN Admitting Provider [id number] Preethi Guerrero MD([id number]) Attestation signed by Preethi Guerrero MD at 05/04/2020 10:33 AMI saw and evaluated the patient and reviewed Ms. Wilkerson's note. I agree withthe history, physical and medical decision making. Patient presenting with ananterior ST elevation myocardial infarction status post successful reperfusionafter lytic therapy. Plan for coronary angiography today via the radialapproach. The procedure and risks were explained and understood.Signature: DHRUV Fragosoate: May 04, 2020Time: 10:30 AM Inpatient History & PhysicalCodey [facility]: [id number] and Plan:Principal Problem: STEMI (ST elevation myocardial infarction)Active Problems: Hypertension Tobacco abuse Marijuana use1. STEMI: ST elevation in lead I at [facility]. He was given TNK, asa, plavix,SL nitro, and heparin. Troponin remained flat. Continue heparin, monitortelemetry, trend troponin. NPO for cath in am2. HTN: continue BB3. HLD: continue statin, check lipids.4. Tobacco abuse: states he quit March 16. He is requesting nicoderm.5. Marijuana use: daily- reports that he takes it for his fibromyalgia.DVT px: HeparinPatient is FULL CODE verified by discussion with patient.D/W Dr. Guerrero. Please refer to attestation for additions.History of Present Illness: Codey is a 44 year old male with PMH of CADpreviously stented in 03/2020, HTN, HLD, tobacco abuse, daily marijuana use,fibromyalgia who was transferred from [facility] with STEMI. Thepatient was treated here at [facility] in 03/2020 for STEMI based on cath which showedcritical stenosis in the mid right coronary artery. He underwent successfulrescue angioplasty with drug-eluting stent placement. Additionally, he was notedto have moderate to severe disease in the ramus and mid LAD. He had been doingfine until yesterday morning when he states he wok up with chest pain whichprogressively got worse. He subsequently was nauseated and did vomit and havediarrhea concurrently with the chest pain. He eventually called EMS when thepain did not subside. He was taken to [facility] where he was noted tohave ST elevation in lead I. Troponin was negative. Dr. Guerrero was contactedand the patient was accepted for transfer. He was given TNK, started onheparin, given plavix, asa. He continued to have short bouts of chest painuntil arrival to [facility]. He reports compliance with medication regimen. Familyhistory notable for father with MN at 34 and at 53 with CAD. At thetime of encounter he is pain free and there are no ST elevations. He will beadmitted for further work up and treatment.Past Medical History:Past Medical History:Diagnosis Date Asthma COPD (chronic obstructive pulmonary disease) Fibromyalgia HPV (human papilloma virus) infection Hypertension Tobacco abusePast Surgical History:Past Surgical History:Procedure Lateralit y Date A-V CARDIAC PACEMAKER INSERTION CARDIAC CATHETERIZATION N/A 03/16/2020 Procedure: Left heart cath; Surgeon: Simon Witt MD; Laterality: N/A; CARDIAC CATHETERIZATION N/A 03/16/2020 Procedure: Coronary angiography; Surgeon: Simon Witt MD; Laterality:N/A; CARDIAC CATHETERIZATION N/A 03/16/2020 Procedure: Left ventriculography; Surgeon: Simon Witt MD; Laterality:N/A; CARDIAC CATHETERIZATION N/A 03/16/2020 Procedure: Percutaneous coronary intervention; Surgeon: Simon Witt MD;Laterality: N/A; CARDIAC CATHETERIZATION N/A 03/17/2020 Procedure: Coronary angiography; Surgeon: Simon Witt MD; Laterality:N/A; CARDIAC CATHETERIZATION N/A 03/17/2020 Procedure: Measurement, Myocardial Fractional Flow Dwight; Surgeon: MD Jose; Laterality: N/A; COLONOSCOPY IMPLANT/EXPLANT LOOP RECORDER UMBILICAL HERNIA REPAIR VASECTOMYMedications:Medications Prior to AdmissionMedication Sig Dispense Refill Last Dose aspirin 81 MG chewable tablet Chew 81 mg daily 05/04/2020 at Unknown time atorvastatin (LIPITOR) 40 MG tablet Take 1 tablet (40 mg total) by mouthnightly 30 tablet 5 05/03/2020 at Unknown time carvedilol (COREG) 3.125 MG tablet Take 1 tablet (3.125 mg total) by mouth 2(two) times a day 60 tablet 5 05/04/2020 at Unknown time clopidogrel (PLAVIX) 75 MG tablet Take 1 tablet (75 mg total) by mouth daily30 tablet 5 05/04/2020 at Unknown time nicotine (NICODERM CQ) 21 MG/24HR Place 1 patch on the skin daily 28 patch at Unknown time nitroglycerin (NITROSTAT) 0.[address] 1 tablet (0.4 mg total) underthe tongue every 5 (five) minutes as needed for chest pain 25 tablet 2Allergies:LatexFamily History:Family HistoryProblem Relation Age of Onset COPD Mother Myocardial Infarction (MN) Father 34 at 53 cardiac cause Thyroid disease Sister SIDS Sister Cerebral palsy BrotherSocial History:Social HistorySocioeconomic History Marital status: Spouse name: Not on file Number of children: Not on file Years of education: Not on file Highest education level: Not on fileOccupational History Not on fileSocial Needs Financial resource strain: Not on file Food insecurity: Worry: Not on file Inability: Not on file Transportation needs: Medical: Not on file Non-medical: Not on fileTobacco Use Smoking status: Former Smoker Packs/day: 2.00 Years: 30.00 Pack years: 60.00 Types: Cigarettes Last attempt to quit: 2020 Years since quittin.8 Smokeless tobacco: Never UsedSubstance and Sexual Activity Alcohol use: Not Currently Drug use: Yes Types: Marijuana Comment: Daily Sexual activity: Not on fileLifestyle Physical activity: Days per week: Not on file Minutes per session: Not on file Stress: Not on fileRelationships Social connections: Talks on phone: Not on file Gets together: Not on file Attends druze service: Not on file Active member of club or organization: Not on file Attends meetings of clubs or organizations: Not on file Relationship status: Not on file Intimate partner violence: Fear of current or ex partner: Not on file Emotionally abused: Not on file Physically abused: Not on file Forced sexual activity: Not on fileOther Topics Concern Not on fileSocial History Narrative Not on fileReview of SystemsConstitutional: Positive for appetite change. Negative for chills anddiaphoresis. Appears much older than stated ageHENT: Negative for sore throat and trouble swallowing.Respiratory: Positive for chest tightness, shortness of breath and wheezing.Gastrointestinal: Positive for diarrhea, nausea and vomiting.Genitourinary: Negative for difficulty urinating.Musculoskeletal: Positive for myalgias. Negative for arthralgias.Skin: Negative for rash and wound.Neurological: Negative for dizziness, light- headedness and headaches.Temp: [98.4 F] 98.4 FHeart Rate: [71] 71Resp: [16] 16BP: (158)/(79) 158/79Physical ExamConstitutional: He is oriented to person, place, and time. He appearswell- developed and well-nourished.HENT:Head: Normocephalic.Eyes: Pupils are equal, round, and reactive to light. EOM are normal.Cardiovascular: Normal rate and regular rhythm. Peripheral Edema: no lowerextremity edema.Pulmonary/Chest: Effort normal. No stridor. He has wheezes.Abdominal: Soft. Bowel sounds are normal.Neurological: He is alert and oriented to person, place, and time.Skin: Skin is warm and dry. He is not diaphoretic.Vitals reviewed.Labs, Imaging and Other Diagnostic Tests:Diagnostic test reviewed for today's visit include: Old RecordsReviewed.Significant findings: Patient NameChaCodey morrissey ([id number]) SexMale DO1975PhysiciansPanel Physicians Referring Physician Case Authorizing Raman Witt MD (Primary)Assisting Physician: noneInterpretation [id number]-tyrt-rld man with history of syncope status post dual-chamber pacemakerpresenting with inferior myocardial infarction post lytics. He had recurrentchest pain while awaiting for his coronary angiography and he was takenemergently to the [facility].1. Critical stenosis in the mid right coronary artery status post successfulrescue angioplasty with drug-eluting stent placement.2. Moderate to severe disease in the ramus and mid LAD. This lesions may beapproached percutaneously especially with the patient continues to have chestpain or arrhythmia.3. Moderate left ventricular systolic dysfunction.4. Mildly elevated left ventricular end-diastolic pressure sign of acutesystolic and diastolic heart failure.5. Right radial access. No complications, estimated blood loss minimal.Pre-procedure DiagnosisSTEMI Post-procedure DiagnosisSTEMIIndicationsSTEMI (ST elevation myocardial infarction) (I21.3 (ICD-10-CM))Procedure PrepCath Procedure Preparation 44-year-old man with history of syncope status postdual-chamber pacemaker who presented to the emergency room at [facility] complaining of chest pain for [address] elevation in theinferior leads. He received thrombolytics and was referred here for furthermanagement. On arrival he was chest pain-free and his EKG had normalized. Soonafter he started having recurrent chest pain and nausea which was his presentingsymptom and he was taken to the [facility] for possible rescue angioplasty.CCS Functional Classification: IVAngina Type: UnstableAO Pressures 03/16/20 1059--10/1/20 1142 before dischargeDate/Time AO Systolic Cath Pressure AO Diastolic Cath Pressure AO Mean CathPressure AO Heart Rate03/16/20 11:08:01 115 77 95 90LV Pressures 03/16/20 1059--03/16/20 1142 before dischargeDate/Time LV Systolic Cath Pressure LV Diastolic Cath Pressure LV Heart Rate LVEnd Yjcqsveut45/01/20 11:11:20 113 11 75 23Implants ImplantStent,Coronary,Rex,4.83z78tm - [id number] - ImplantedInventory item: STENT,CORONARY,REX,4.25E37XP Model/Cat number: [id number]: [employer] SP[employer]RAFT Lot number: [id number] of 03/16/2020Status: ImplantedStent,Coronary,[place],4.32z88od - [id number] - WastedInventory item: STENT,CORONARY,REX,4.22Q40RH Model/Cat number: [id number]: MED [employer] SPINAL [employer]RAFT Lot number: [id number] of 03/16/2020Status: WastedWall MotionThe mid anterior, basilar anterior and apical anterior segments are normal. Thebasilar inferior segment is hypokinetic. The mid inferior and apical inferiorsegments are akinetic.LV pressure 114/23.No gradient accross the AV.Systolic function is moderately decreased with EF 35%.ComplicationsComplications documented before study signed (03/16/2020 12:00 PM EDT)No complications were associated with this study.Documented by Simon Mahoney MD - 03/16/2020 11:37 AM EDTSigned at 1143 EDTCoronary FindingsDiagnosticDominance: RightLeft Anterior DescendingMid LAD lesion is 75% stenosed.Second Diagonal BranchThe vessel is small.Third Diagonal BranchThe vessel is small.Ramus IntermediusRamus lesion is 70% stenosed.Left CircumflexThird Obtuse Marginal BranchThe vessel is small.Right Coronary ArteryProx RCA lesion is 30% stenosed.Prox RCA to Mid RCA lesion is 90% stenosed. Culprit lesion. SUNIL flow is 3. Thelesion is type C, located at the bend and thrombotic.InterventionProx RCA to Mid RCA lesionStentDrug-eluting stent was successfully placed. The stent used was aSTENT,CORONARY,REX,4.77B30BN.Post-Intervention Lesion AssessmentThe intervention was successful. Post-intervention SUNIL flow is 3. There were nocomplications.There is a 0% residual stenosis post intervention.PACS Images Show images for Cardiac catheterizationLink to Procedure LogProcedure LogPrintable Result ReportResult Report EncounterView Encounter OP NotesNo notes of this type exist within this time range.Cardiac catheterizationOrder: [id number]: Final result Visible to patient: No (Not Released) Next appt: NoneDx: STEMI (ST elevation myocardial infarc...DetailsReading Physician Reading Date Result Lv Witt MD 03/16/2020 RoutineNarrative & Lgksbiedqw56-pgmo-gnv man with history of syncope status post dual-chamber pacemakerpresenting with inferior myocardial infarction post lytics. He had recurrentchest pain while awaiting for his coronary angiography and he was takenemergently to the [facility] Rec[facility].1. Critical stenosis in the mid right coronary artery status post successfulrescue angioplasty with drug-eluting stent placement.2. Moderate to severe disease in the ramus and mid LAD. This lesions may beapproached percutaneously especially with the patient continues to have chestpain or arrhythmia.3. Moderate left ventricular systolic dysfunction.4. Mildly elevated left ventricular end-diastolic pressure sign of acutesystolic and diastolic heart failure.5. Right radial access. No complications, estimated blood loss minimal. Last Resulted: 03/16/20 12:00 Order Details View Encounter Lab and CollectionDetails Routing Result History.Signature: RAS Vinson-BCDate: May 04, 2020Time: 2:25 AM Name Value Range Interpretation Code Description Data Karine rce(s) Supporting Document(s) ID Date Data Source [id number] 05/04/2020 10:26:00 AM EST [facility] ([facility]) Name Value Range Interpretation Code Description Data Karine rce(s) Supporting Document(s) White Blood Count 9.3 4.1-11.0 [facility] Red Blood Count 4.66 4.60-6.10 [facility] ([facility]) Platelets 220 150-450 [facility] (Cardiology A ssoci[facility]) Hematocrit 41.3 41.0-53.0 [facility] ([facility]) Hemoglobin 14.2 13.5-18.0 [facility] ([facility]) ID Date Data Source [id number] 05/04/2020 10:26:00 AM EST [facility] ([facility]i ology [facility]) Name Value Range Interpretation Code Description Data Karine rce(s) Supporting Document(s) Calcium [Mass/volume] in Serum or Plasma 8.4 [facility] ([facility]) Sodium 143 [facility] Chloride [Moles/volume] in Serum or Plasma 109 [facility] ([facility]) Carbon dioxide, total [Moles/volume] in Serum or Plasma 25 [facility] ([facility]) Potassium [Moles/volume] in Serum or Plasma 3.9 [facility] ([facility]) Glucose 104 70-99 [facility] (Cardiology A [facility]) Blood Urea Nitrogen 16 7-24 [facility] (Ca rdiology [facility]) Creatinine 0.87 0.80-1.30 [facility] ([facility]) Glomerular filtration rate/1.73 sq M.pre dicted [Volume Rate/Area] in Serum or Plasma by Creatinine-based formula (MDRD) Laboratory test result [facility] ([facility]) ID Date Data Source [id number] 05/04/2020 10:26:00 AM EST [facility] ([facility]i [facility]y [facility]) Name Value Range Interpretation Code Description Data Karine rce(s) Supporting Document(s) Troponin Laboratory test result [facility] ([facility]) ID Date Data Source [id number] 05/04/2020 10:23:29 AM EST [facility] [place] [facility] Name Value Range Interpretation Code Description Data Karine rce(s) Supporting Document(s) AMPHETAMINES,URINE (NEG) [facility] BARBITURATES,URINE (NEG) [facility] BENZODIAZEPINE,URINE (NEG) [facility] CANNABINOIDS,URINE (NEG) A [facility] COCAINE,URINE (NEG) [facility] [place] [facility] OPIATES,URINE (NEG) A [facility] [place] [facility] [place] NOTE: Oxycodone is not sufficientlydetec manish by this screening assay. A moresensitive assay is available upon request. PHENCYCLIDINE,URINE (NEG) Lab Jovana Szymanski PLEASE NOTE: [facility] [place] [facility] [place] ARE REPORTED POSITIVE WHEN THE RESULT SEXCEED THE THRESHOLD (CUTOFF) INDICATED. ALIST OF POTENTIAL INTERFERENCES FOR EACHMETHOD CAN BE MADE AVAILABLE UPON REQUEST.CONFIRMATION OF A POSITIVE SCREEN CAN BE PERFORMED BY A REFERENCE LABORATORY IFREQUEST IS MADE WITHIN 48 HRS.* * * * * * * * * * * * * * *THIS ASSAY IS NOT INTENDED TO BE USED FORMONITORING MEDICATION COMPLIANCE. ID Date Data Source [id number] 05/04/2020 08:09:41 AM EST [facility] Name Value Range Interpretation Code Description Data Karine rce(s) Supporting Document(s) [facility] TJCQBc9oZrHMVbHqn1XyDaAjVZLdXL1mhuf9Y0O4tPWfQ7XesOAii5kmE2JiK9MzQSZlBATCIW4WbLRc jb2 [file] 90IDUgMCBSCgo+YjrbjOMvmSduTPNPHKQxQSoEHXBTQ6Q= ID Date Data Source [id number] 05/04/2020 07:19:55 AM EST [facility] Name Value Range Interpretation Code Description Data Karine rce(s) Supporting Document(s) EKG [facility] AJRUDm2wDsALQjVzx3IhCxXuLYVfRO3imbf8M5R8sKLmQ0NemCZhv7szY5SqY1VfNCAwIANEZR9ApBLb jb2 [file] y5i6se6bbjhBtautTaqKclffTkuksdsJH6DobbhkwxoVN2WbricyiaoLEGy8f0qVBm3KWrS/47MN1Ca+ F9GIJk1VbOF79IsnxuEzlKqzRlWLrqkkcdHjZZ65N8vd9Zjmtgpnq2vb9Hodcqtfy6ba9WAf7ENek4LJ bn9lSfpHvLm9AhTm4ptaw8n6vo9jyqdParopKzvDzj zjXzdmwglPT9BcsdgivxcDI6SopuqvcaqILMV1EpOSTMDFUie4Dzsf3uDzgCa7qo3H0WH72OcyGEvhhc EBkSI9An3Ru5z/GE0tM1B0bfmfe03aD1P3ghsbt13wP9G7CYTf5RZlp5ILay4pBlgVtPy1QrNe3wiyu8 a0oi5enzoQeqwoAweUrly1ZZ0v5SCw3enGRL1e9YLv 1ghCGJ7p9Tp0DaMggjJj/g+eJ//kqmYYp0xWH//pgLHWcKpme7mEkR2HWaSyGpxOTxLN006BNBD+CQGz E+SSKciRDsWAVJCwdAJTBKzp4FCSSmIJaYH4E5oA9MX1cD3CrWbWbySEos1TJZcxKVlJtnOCB8/jtBiU rUX/vOh3IwRtJ/sFPl0RXhuTkJVrpPxtuN/MXxvHV9 dA8ST42PDjikaLymuLbauzY0ed51u+HCIr4cp423esw4pFB1e+Ljx42bJ3JHE/OLdaSQfiqqWIJcSo6Q RfaH9knbGy0SYGW4g9mZG+V3HEA22aAeeC34SOAXQKABfWUH4qlmcUeAvT0B/ghJmCcPAaZixOA84Acs 5kJSR08NfQMimtk3L0w3lf3U8UC/P1c0gpNU/6+Feb RABBIT DRESSER+FJbIC9tKL93DgrqA1FZvM78XZ9o6150UMGNj27/aMetMihbukNXzr5n/2258CTIbj1A+LztltELF H4l2rcF3Zn9FXYSFqDF/B+13DDo8S6Ab2c/R4dDtUZiT6CaUPPP4/gBbyBDdiBT+QsXolETQXZfK8WD/ v6dcoWD/ccTQeed/UmYnnLCJSUFWBv3YZS5HgXZln2 pi9P5FfUiPPZA5L4Jenigx3K3TcdpPuze9Na643ckhnoiAn2JeuQ78jtWF6CCDT04TpTeobbDDKc1Ztw XwPbtYa6lY5H40bgrnpD2zdHmmPwdRy5E/iUyX7hV2jhf+b9Zkgeq0x6KZmO4+po3//g/U8ahcSe1F06 AoOzvXQy8aqzsYSsecCqp9xxbMYIDSYRsFWU5AYkAy HGOKidNnPn1ESqSrmrFb7+RthkRCT2y9qKv3IBw/vikBt+11c2WNaIb6lY40n/5pEsSadBC3+c3kdhRZ vw6N+Pfah3o5MHKqi86MopaUwL6dweXZl+IDfbwijyePg9SBpMwucV5YLdU0gpmvJIXjUaKrMeGB6+oQ T+ypWZ+Wn5nyEPJ/k9w4BP9Ak1SGzrn/phwaQI2n0w aa9iDI/V35DH1hs1NOAqwU4hDUdVU7Z/N/oX/rSN9pvZIAAp0ZXngDlprVnb8keHKGeQvIo4WhyQxIu9 4wPtoBBvyw4J97jVFaVlyLF4RI/ayuVV8lf7fqmRmSXMVUKQyB8Yl2aLu/p8LEN7o+M2Bubnu2zpS77p ciVx+hnO3jt7Acn/bacc6fgbDja54yNGQm/4geJHf1 X9dBKggDK6Rl++r3Nw1TuCD+9I0dn7TljTwgMqdyKpGF5k9ec2iy0pGGmLjbGwS8q7yRbPrBdVLbN8/0 70K9W095nIEM9QK1iEf8LRrfK+7s/5AEPuhNwJuRNyZ/Eklutna/JEHG2LndexVQaGV/4UNL9FyEVMG/ACxp L/QjsvtPPq7/6mStWktyHedBV4PQ0hS5Df6R/heQ1y IXRUp5d8MuEnUli61NbV8fN6q+Z3JVZXwe17KosMlI49vt6FoTI/YmPmDulO73IbtGiBfbk8GF/kHsg9 Pe+xrx3oMwgtdmh99AbuX/uTC+v162l/cj39/d3uOhhuF7/OLv8XB6eGDfNd3CCm/2rJAk6/Lp4l/avC Cyes0AH9qpXHN/DPorCUBEGEdyUwth0UXhI1e+e/a/ P1g0X1maMs7v5K97MCk9XYe8/XcOD+/q7Z3/7V1tz2eRQMsRRX6IBeA5cgmzohtQ7DpxGRs75SrgLhhk uVzRDZyZ3TM+qaX8FLdgrSrWJcs3mua41bnhxzGXL3iaDtyXk+sRHR/vQzZC0Yoy78CwZS/XPT+DbF9n r4wBA3imBu1uowWAzqn829rmm13nf4LbKr8Ixtuc5/ q0ZfQStb/LL47BX4i0y7U5nGycpjK44+dQFu/2p5f4+JY3YEtZjt+SbTFf2a9+e3qPRLjbd2vFHc4EMx wHjeg+c9/ne1qKPEOTVF9IClxGzSfX82n5aKG3xh6z3NYND6/j5O21OzuH16svwwI4kw9dVQ8Mss+Fc7 7HPK2l55YwcIb4/fdVeqGq3hhBHYFqd2wSzAz/Q64R 99XwwWkbKp3nnJB+3V0rv9UFBkxahrGbqm4u2eBj3BzWM+tWd/9/dEO0+0M/yrPXu+pLv3b8Q/J/p3Yl oe1hrGa+e/kgmlZJ3RA9esKfcpoQ7baextkeTJbL14I6f5Kvx2j/iRab4iefncd6HlQ2ctlFapIvmMWl 5zpUZW9bzcRxa+74R2gIZetzfdHk9sm/vreH8d/mark X0f/Jkc0mQ3hbM6TU1q2Je278wyxd2C+Pejfg/6VeMENM3U8Znsdm47m7JsTwXASQ3C1rgtve7WpAfuQ oLCl9PIcz7RWs0gXnjgIGSoz++8F3SrLlaaeLo/gCdx+rGnJTcSXPm7jneTuAfb+kcG/sjGAJ/ACbvts p1iazPars/gnCcXLyKN6qbWEvnVynqlfU+wP2kT/zr YbBv/K4F9Z+leFB/NX3uT0J/5Y0c3G7REmohcpZIJjpTiPU/VDrzCNOTWe3cQizqpwgb0Fk5/XTt71em lAeh7bLwr8jLHQANzQ1w0n1qft3CSrg8e9SVrCvTks9GAenfJ2R16h+eyv8Oz1O/NcVwlZYa/bp2yqz0 UQVk0mW+a9vmHe+5KG+yDQceM9Mlv/ovEp0MT7yE9/ j+mT3Gi2sFjwFTzj++3+XARGaQKUjJKe7A4vabPzU+7b1NVDQ7DZF30YisQsDI2WVVKC86tNT5lMDHvT T+OE4J53qyJ175g78/Alejandra+SYK4hpayxNeiHEW7ceCkf4rN25DimIA52y0RIlqfdvnbfZfDt/vWp2zV27 [file] community health consultant//v73//Lfhowazw98HM/fnohQdcxZW6t+eIFvANHMMXXUn6+MLF75xBAR2b/P42/CdCF2msodIIO+7 [file] IDUgMCBSCgo+VrzivJTkvJriDQYERWK5JXFVLYQTD1N= ID Date Data Source [id number] 05/04/2020 07:38:57 AM EST [facility] Name Value Range Interpretation Code Description Data Karine rce(s) Supporting Document(s) SODIUM 143 mmol/L (136-145) [facility] POTASSIUM 3.9 mmol/L (3.6-5.2) [facility] CHLORIDE 109 mmol/L (100-108) H [facility] CO2 25 mmol/L (22-31) [facility] ANION GAP 9 mmol/L (7-16) [facility] UREA NITROGEN 16 mg/dL (7-24) [facility] CREATININE 0.87 mg/dL (0.80-1.30) [facility] BUN/CREAT RATIO 18.4 RATIO (10.0-20.0) [facility] GLUCOSE 104 mg/dL (70-99) H [facility] CALCIUM 8.4 mg/dL (8.4-10.2) [facility] GFR >60 ml/min/1.73m2 (>59) [facility] GFR ( AMER) >60 ml/min/1.73m2 (>59) [facility] GFR INTERPRETATION [facility] --NORMAL KIDNEY FUNCTION OR MILD DISEASE - GFR >OR= 60CHRONIC KIDNEY DISEASE - GFR 15 - 59RENAL FAILURE - GFR <15 Est. GFR calculation based on the MDRDstudy equation, which assumes a steadystate for creatinine. Est. GFR should notbe used for medication dosing. ID Date Data Source [id number] 05/04/2020 07:02:16 AM EST [facility] Name Value Range Interpretation Code Description Data Karine rce(s) Supporting Document(s) APTT 29.1 s (22.0-34.3) [facility] ID Date Data Source [id number] 05/04/2020 06:50:56 AM EST [facility] Name Value Range Interpretation Code Description Data Karine rce(s) Supporting Document(s) WBC 9.3 10*3/uL (4.1-11.0) [facility] [place] RBC 4.66 10*6/uL (4.60-6.10) [facility] HGB 14.2 g/dL (13.5-18.0) [facility] HCT 41.3 % (41.0-53.0) [facility] MCV 88.7 fL (80.0-95.0) [facility] MCH 30.4 pg (27.0-32.0) [facility] MCHC 34.3 g/dL (32.0-36.0) [facility] RDW 13.6 % (10.5-14.5) [facility] PLT 220 10*3/uL (150-450) [facility] MPV 7.0 fL (7.1-10.7) L [facility] ID Date Data Source [id number] 05/04/2020 03:49:26 AM EST [facility] Name Value Range Interpretation Code Description Data Karine rce(s) Supporting Document(s) TROPONIN I <0.05 ng/mL (<0.05) [facility] [place] Less than 0.05: Myocardial injury unlike lyGreater than or equal to 0.05: Highly suggestive of myocardial injuryCorrelation with rise and/or fall ofserial troponins, clinical symptomsand ECG changes is necessary. ID Date Data Source [id number] 05/04/2020 12:59:44 AM EST [facility] Name Value Range Interpretation Code Description Data Karine rce(s) Supporting Document(s) HEMOGLOBIN A1C @ 5.6 % (4.0-6.0) [facility] Performed using Siemens Walsh immunoassa y.Care must be taken when interpreting FuE8ssymiawe in patients with a hemoglobin variantor decreased erythrocyte lifespan. Values 5.7 - 6.4% suggest prediabetes.Values >=6.5% are diagnostic for diabetes.REFERENCE: DIABETES CARE 2018: 41(S13-S27).PERFORMED AT [address] [place] [id number] EST [place] GLUCOSE 114 mg/dL [facility] ID Date Data Source [id number] 05/04/2020 09:22:43 AM EST [facility] Name Value Range Interpretation Code Description Data Karine rce(s) Supporting Document(s) CHOLESTEROL @ 103 mg/dL (0-200) [facility] TRIGLYCERIDE @ 102 mg/dL (30-200) [facility] HDL CHOLESTEROL @ 37 mg/dL (>40) L [facility] PER NCEP ATP III GUIDELINES:RESULTS LOWE R THAN 40 MG/DL ARE SUGGESTIVEOF INCREASED RISK FOR CORONARY ARTERYDISEASE. RESULTS > OR = TO 60 MG/DL ARECONSIDERED A NEGATIVE RISK FACTOR. CHOL/HDL RATIO 2.8 RATIO [facility] INTERPRETATION OF CHOL-HDL RATIO CHD RISK FEMALE MALEVERY HIGH >8.3 >14.3HIGH 5.6- 8.3 6.7- 14.3AVERAGE 3.7- 5.6 4.0- 6.7BELOW AVERAGE 2.5- 3.7 2.7- 4.0PROTECTED <2.5 <2.7 LDL CHOL (CALC) 46 mg/dL (<130) [facility] PER NCEP ATP III GUIDELINES: OPTIMAL < 100 NEAR OPTIMAL 100 - 129BORDERLINE HIGH 130 - 159 HIGH 160 - 189 VERY HIGH > 189 ID Date Data Source [id number] 05/04/2020 01:14:44 AM EST [facility] Name Value Range Interpretation Code Description Data Karine rce(s) Supporting Document(s) TSH,ULTRASENSITIVE @ 2.516 mIU/L (0.360-4.170) [facility] PERFORMED AT [address] [place] [address] [place] [address] ID Date Data Source [id number] 05/04/2020 01:14:44 AM EST [facility] Name Value Range Interpretation Code Description Data Karine rce(s) Supporting Document(s) NT PRO BNP 219 pg/mL (0-125) H [facility] ID Date Data Source [id number] 05/04/2020 01:14:44 AM EST [facility] Name Value Range Interpretation Code Description Data Karine rce(s) Supporting Document(s) TROPONIN I <0.05 ng/mL (<0.05) [facility] [place] Less than 0.05: Myocardial injury unlike lyGreater than or equal to 0.05: Highly suggestive of myocardial injuryCorrelation with rise and/or fall ofserial troponins, clinical symptomsand ECG changes is necessary. ID Date Data Source [id number] 05/04/2020 01:14:44 AM EST [facility] Name Value Range Interpretation Code Description Data Karine rce(s) Supporting Document(s) SODIUM 142 mmol/L (136-145) [facility] POTASSIUM 3.5 mmol/L (3.6-5.2) L [facility] CHLORIDE 111 mmol/L (100-108) H [facility] CO2 24 mmol/L (22-31) [facility] ANION GAP 7 mmol/L (7-16) [facility] UREA NITROGEN 16 mg/dL (7-24) [facility] CREATININE 1.00 mg/dL (0.80-1.30) [facility] BUN/CREAT RATIO 16.0 RATIO (10.0-20.0) [facility] GLUCOSE 109 mg/dL (70-99) H [facility] CALCIUM 9.1 mg/dL (8.4-10.2) [facility] TOTAL PROTEIN 7.4 g/dL (6.4-8.2) [facility] ALBUMIN 4.2 g/dL (3.5-4.6) [facility] GLOBULIN 3.2 g/dL (2.7-4.3) [facility] ALB/GLOB RATIO 1.3 RATIO [facility] ALKALINE PHOSPHATASE 94 U/L (45-117) [facility] BILIRUBIN,TOTAL 1.0 mg/dL (0.0-1.0) [facility] PLEASE NOTE:Total bilirubin results may be falselyelevated in patients taking Eltrombopag. AST (SGOT) 32 U/L (11-39) [facility] ALT (SGPT) 51 U/L (12-78) [facility] GFR >60 ml/min/1.73m2 (>59) [facility] GFR ( AMER) >60 ml/min/1.73m2 (>59) [facility] GFR INTERPRETATION [facility] --NORMAL KIDNEY FUNCTION OR MILD DISEASE - GFR >OR= 60CHRONIC KIDNEY DISEASE - GFR 15 - 59RENAL FAILURE - GFR <15 Est. GFR calculation based on the MDRDstudy equation, which assumes a steadystate for creatinine. Est. GFR should notbe used for medication dosing. ID Date Data Source [id number] 05/04/2020 01:06:13 AM EST [facility] Name Value Range Interpretation Code Description Data Karine rce(s) Supporting Document(s) MAGNESIUM 1.7 mg/dL (1.7-2.4) [facility] ID Date Data Source [id number] 05/04/2020 12:48:46 AM EST [facility] Name Value Range Interpretation Code Description Data Karine rce(s) Supporting Document(s) APTT 26.4 s (22.0-34.3) [facility] ID Date Data Source [id number] 05/04/2020 12:37:17 AM EST [facility] Name Value Range Interpretation Code Description Data Karine rce(s) Supporting Document(s) WBC 13.4 10*3/uL (4.1-11.0) H [facility] RBC 4.91 10*6/uL (4.60-6.10) [facility] HGB 14.8 g/dL (13.5-18.0) [facility] HCT 41.7 % (41.0-53.0) [facility] MCV 84.9 fL (80.0-95.0) [facility] MCH 30.1 pg (27.0-32.0) [facility] MCHC 35.4 g/dL (32.0-36.0) [facility] RDW 13.9 % (10.5-14.5) [facility] PLT 264 10*3/uL (150-450) [facility] MPV 7.1 fL (7.1-10.7) [facility] NEUT % 72.0 % (35.0-75.0) [facility] LYMPH % 17.8 % (16.0-52.0) [facility] MONO % 8.4 % (0.0-8.0) H [facility] EOS % 0.9 % (0.0-5.0) [facility] BASO % 0.9 % (0.0-4.0) [facility] NEUT # 9.7 10*3/uL (1.8-7.7) H [facility] LYMPH # 2.4 10*3/uL (1.2-4.8) [facility] MONO # 1.1 10*3/uL (0.0-0.8) H [facility] Eosinophils [#/volume] in Blood by Automated count 0.1 10*3/uL (0.0-0 .5) [facility] BASO # 0.1 10*3/uL (0.0-0.2) [facility] ID Date Data Source [id number] 05/03/2020 10:04:00 AM EST [facility] ([facility]) Name Value Range Interpretation Code Description Data Karine rce(s) Supporting Document(s) Hemoglobin A1c/Hemoglobin.total in Blood 5.6 [facility] ([facility]) ID Date Data Source [id number] 05/03/2020 10:04:00 AM EST [facility] ([facility]) Name Value Range Interpretation Code Description Data Karine rce(s) Supporting Document(s) Magnesium Level 1.7 1.8-2.4 [facility] ([facility]) ID Date Data Source [id number] 05/03/2020 10:04:00 AM EST [facility] ([facility]) Name Value Range Interpretation Code Description Data Karine rce(s) Supporting Document(s) Albumin [Mass/volume] in Serum or Plasma 4.2 [facility] ([facility]) Alanine aminotransferase [Enzymatic activity/volume] in Serum or Pl asma 51 [facility] ([facility]) Calcium [Mass/volume] in Serum or Plasma 9.1 [facility] ([facility]) Carbon dioxide, total [Moles/volume] in Serum or Plasma 24 [facility] ([facility]) Chloride [Moles/volume] in Serum or Plasma 111 [facility] ([facility]) Potassium [Moles/volume] in Serum or Plasma 3.5 [facility] ([facility]) Alkaline phosphatase [Enzymatic activity/volume] in Serum or Plasma 9 4 [facility] ([facility]) Aspartate aminotransferase [Enzymatic activity/volume] in Serum or Plasma 32 [facility] ([facility]) Sodium 142 [facility] ([facility]) Protein [Mass/volume] in Serum or Plasma 7.4 [facility] ([facility]) Urea nitrogen [Mass/volume] in Serum or Plasma 16 [facility] ([facility]) Glucose 109 70-99 [facility] ([facility]) Creatinine For GFR 1.00 [facility] ([facility]) ID Date Data Source [id number] 05/03/2020 10:04:00 AM EST [facility] ([facility]) Name Value Range Interpretation Code Description Data Karine rce(s) Supporting Document(s) Cholesterol 103 0-200 [facility] ([facility]) Triglycerides 102 30-200 [facility] ([facility]) Cholesterol in LDL [Mass/volume] in Serum or Plasma by calculation 46 [facility] ([facility]) HDL 37 [facility] Chol/HDL Ratio 2.8 [facility] ([facility]) ID Date Data Source [id number] 05/03/2020 10:04:00 AM EST [facility]) Name Value Range Interpretation Code Description Data Karine rce(s) Supporting Document(s) Thyroid Stimulating Hormone 2.516 ME [facility] ([facility]) Natriuretic peptide.B prohormone N-Terminal [Mass/volu me] in Serum or Plasma 219 [facility] ([facility]) ID Date Data Source [id number] 05/03/2020 10:04:00 AM EST [facility]) Name Value Range Interpretation Code Description Data Karine rce(s) Supporting Document(s) White Blood Count 14.7 4.0-10.0 [facility] ([facility]) Platelets 273 150-450 [facility] ([facility]) Red Blood Count 5.17 4.30-6.10 [facility] ([facility]) Hematocrit 44.8 [facility] ([facility]) Hemoglobin 14.9 [facility] ([facility]) ID Date Data Source [id number] 05/03/2020 10:04:00 AM EST [facility] ([facility]) Name Value Range Interpretation Code Description Data Karine rce(s) Supporting Document(s) Troponin Laboratory test result [facility] ([facility]) ID Date Data Source [id number] 03/18/2020 02:33:34 PM [facility]T [facility] INFORMATIONPatient MRN Name Date of Age Gend*PT [id number] Codey Molina 1975 44 years M IPPT Location Admission Date/Time Visit ID Attending [id number] 03/16/20 0915 --- Simon Witt MD([id number]) EPI ID CSN Admitting Provider [id number] Simon Witt MD([id number]) Attestation signed by Jesus Garcia MD at 03/18/2020 2:33 PMI saw and evaluated the patient and reviewed Ms. Norman's note. I agree with thehistory, physical and medical decision making.Signature: Jesus De La Rosa MDDate: March 18, 2020Time: 2:33 PM Physician Discharge Summary Codey Mantilla TracyMRN: [id number] date: 03/16/2020Attending Physician: Simon Witt MDAdmission Diagnosis: STEMI (ST elevation myocardial infarction)Principle Procedures:1. Cardiac catheterization: 03/16/2020Interpretation [id number] man with history of syncope status post dual-chamber pacemakerpresenting with inferior myocardial infarction post lytics. He had recurrentchest pain while awaiting for his coronary angiography and he was takenemergently to the [facility].1. Critical stenosis in the mid right coronary artery status post successfulrescue angioplasty with drug-eluting stent placement.2. Moderate to severe disease in the ramus and mid LAD. This lesions may beapproached percutaneously especially with the patient continues to have chestpain or arrhythmia.3. Moderate left ventricular systolic dysfunction.4. Mildly elevated left ventricular end- diastolic pressure sign of acutesystolic and diastolic heart failure.5. Right radial access. No complications, estimated blood loss minimal.Cardiac catheterization: 03/17/2020Interpretation Gpszjly27-eaej-dqr man with coronary artery disease or myocardial infarction inferiorwall status post thoracic angioplasty yesterday to the right. He had severedisease on the same angiogram in the mid LAD and he was brought back for PCI tothe LAD because of recurrent chest pain this morning. 1. Angiographically less severe and probably moderate stenosis in the mid LADwith negative IFR as described below. No need for intervention.2. Right radial access. The patient will be discharged tomorrow if there is no further events ontelemetry. He will follow-up with Dr. Newby in [place] no complications, estimated blood loss minimal.Echocardiogram: 03/17/2020Interpretation Summary The following segments are hypokinetic: basal anterolateral. The left ventricular cavity is mildly dilated. LV function at the lower limits of normal No significant valvular disease Could not assess PA pressures due to lack of TR jet No pericardial effusion No prior for comparisonEchocardiographic FindingsWall Scoring RestingThe following segments are hypokinetic: basal anterolateral.Other segments could not be evaluated.Left Ventricle The left ventricular cavity is mildly dilated. Low normal(50-55%) ejection fraction. Wall motion is abnormal. There is segmentaldysfunction of the left ventricle. Left ventricular diastolic dysfunctionconsistent with impaired relaxation. mild concentric left ventricularhypertrophy observed.Right Ventricle The right ventricle is normal. Pacing wire present in theventricle.Left Atrium The left atrium is normal in size. The interatrial septum isintact.Left atrial appendage is not well visualized.Right Atrium The right atrium is normal in size.IVC/SVC Inferior vena cava is normal.Mitral Valve No stenosis. No regurgitation.Tricuspid Valve The tricuspid valve is normal. No stenosis. No regurgitation.Aortic Valve The aortic valve is normal in structure. No stenosis. No aorticinsufficiency is present.Pulmonic Valve The pulmonic valve normal. No stenosis. No regurgitation.Ascending Aorta Normal aortic root, size and contour. no aneurysm is present. Nograft present.Pericardium Pericardium is normal. No pericardial effusion.Indication for Admission: "44-year-old man transferred from [facility] for acute inferior myocardial infarction post thrombolytic therapy. The patient is obese and smoker and has no other known risk factor for coronaryartery disease and he awoke from sleep around 3 in the morning when he startedcomplaining of substernal chest pressure without radiation. Soon after hestarted becoming sweaty and nauseous. In the morning he was taken to theemergency department in [place] where his EKG showed ST elevation in theinferior leads with reciprocal changes in the high lateral leads and he receivedthrombolytics along with heparin aspirin and Plavix. He was transferred herefor further management. On arrival his chest pain had decreased from 10 out of10 to about 2 out of 10. There was proof of AI VR in transport and his EKGshowed resolution of the ST elevation on arrival.The patient has a history of GERD and he takes aspirin occasionally. He has nobright red blood per rectum or melena. He does not drink. He smokes and usesmarijuana sometimes. He denies any cocaine use."Hospital Course & Complications: Patient was admitted and monitored ontelemetry, patient underwent cardiac catheterization which was treated with DESto RCA, staged PCI to the LAD with no intervention, see detailed report above.Patient has tolerated procedure well and post op course was uneventful. Renalfunction stable post op. Procedure site right radial stable, no hematoma ordrainage noted. Patient was monitored on telemetry and remained in sinus rhythm.Patient had short run of NSVT, electrolytes stable, beta-rhina started and nofurther NSVT noted on telemetry. All vital signs stable, lab reviewed. Patientwas ambulating without symptoms.Patient was seen and evaluated by Dr. De La Rosa and deemed appropriate for dischargeto home. Patient was in agreement. Patient is in stable condition, ambulating,no angina, vital signs st able. No EKG changes. All discharge instructions,activity limitations and medications were reviewed. All questions answered.Patient verbalized the understanding of the need for strict medications andfollow up compliance. Patient will be send home with DAPT (ASA, plavix), BB,Statin. Patient will be follow up with Dr. Newby in 1-2 weeks. Patient is tocontact our office with any discomfort or issues immediately.Past Medical History:Past Medical History:Diagnosis Date Asthma COPD (chronic obstructive pulmonary disease) HPV (human papilloma virus) infection HypertensionMost Recent Labs:Cardiac:Lab ResultsComponent Value Date TROPONINI 14.40 (HH) 03/17/2020CBC with Diff:Lab ResultsComponent Value Date WBC 10.2 03/18/2020 RBC 5.24 03/18/2020 HGB 15.4 03/18/2020 HCT 47.1 03/18/2020 MCV 89.9 03/18/2020 MCH 29.3 03/18/2020 MCHC 32.6 03/18/2020 RDW 13.7 03/18/2020 PLT 224 03/18/2020 MPV 7.5 03/18/2020 LYMPHOPCT 22.4 03/18/2020 MONOPCT 7.4 03/18/2020 EOSPCT 1.0 03/18/2020 BASOPCT 0.5 03/18/2020 NEUTROABS 7.0 03/18/2020 MONOABS 0.8 03/18/2020 BASOSABS 0.0 03/18/2020CMP:Lab ResultsComponent Value Date NA 139 03/18/2020 K 3.7 03/18/2020 CL 106 03/18/2020 CO2 24 03/18/2020 ANIONGAP 9 03/18/2020 BUN 9 03/18/2020 CREATININE 0.79 (L) 03/18/2020 BCR 11.4 03/18/2020 GLU 100 (H) 03/18/2020 CALCIUM 8.8 03/18/2020 GFRAA >60 03/18/2020 GFRNONAA >60 03/18/2020Coags:Lab ResultsComponent Value Date APTT 36.8 (H) 03/16/2020D-Dimer: No results found for: DDAT, PROCALCITON, BSCRNEWDfyV0q: No results found for: AJFQ2WHkbfutirwvuirg:Lab ResultsComponent Value Date CHOL 192 03/17/2020 TRIG 135 03/17/2020 HDL 33 (L) 03/17/2020 CHOLHDL 5.8 03/17/2020 LDLCALC 132 (H) 03/17/2020Medications:Your medication listSTART taking these medications Instructions Last Dose Given Morning Afternoon Evening Bedtime As Neededatorvastatin 40 MG tabletCommonly known as: LIPITOR Take 1 tablet (40 mg total) by mouth nightlycarvedilol 3.125 MG tabletCommonly known as: COREG Take 1 tablet (3.125 mg total) by mouth 2 (two) times a dayclopidogrel 75 MG tabletCommonly known as: PLAVIXStart taking on: March 19, 2020 Take 1 tablet (75 mg total) by mouth dailynicotine 21 MG/24HRCommonly known as: NICODERM CQStart taking on: March 19, 2020 Place 1 patch on the skin dailynitroglycerin 0.4 MG SL tabletCommonly known as: NITROSTAT Place 1 tablet (0.4 mg total) under the tongue every 5 (five) minutes as neededfor chest painCONTINUE taking these medications Instructions Last Dose Given Morning Afternoon Evening Bedtime As Neededaspirin 81 MG chewable tablet Chew 81 mg dailyWhere to Get Your MedicationsThese medications were sent to [id number] [place] - [address] [address] [facility] [address] atorvastatin 40 MG tablet carvedilol 3.125 MG tablet clopidogrel 75 MG tablet nicotine 21 MG/24HR nitroglycerin 0.4 MG SL tabletDischarge Exam:Vitals: Temp: [98 F-99 F] 99 FHeart Rate: [69-90] 69Resp: [18-19] 18BP: (125-137)/(72-91) 131/81Pleasant, comfortable, not in acute distress.Awake, alert, oriented times 3.Moves all extremities.HEENT: No recent change in vision or hearing.Lungs: Clear to auscultation bilaterally.Chest wall: no tendernessHeart: regular rate and rhythm, S1, S2 normal, no murmur, click, rub or gallopAbdomen: Soft, nontender, bowel sounds present.Extremities: No edema. Cardiac cath site right radial, with dry dressing,dressing C/D/I, no hematoma noted, + pulsePulses: 2+ and symmetricSkin: No rash or lumps.Neuro: grossly normalLymph nodes: Cervical, supraclavicular, and axillary nodes normal.The remainder of the physical exam is noncontributory.Discharged Condition:stableDisposition: Home or Self CareFollow Up: Dr. Newby in 1-2 weeksSignature: Lisette Norman NPDate: March 18, 2020Time: 10:08 AM Name Value Range Interpretation Code Description Data Karine rce(s) Supporting Document(s) ID Date Data Source [id number] 03/18/2020 09:53:00 AM EDT [facility] ([facility]) Name Value Range Interpretation Code Description Data Karine rce(s) Supporting Document(s) Calcium [Mass/volume] in Serum or Plasma 8.8 [facility] ([facility]) Sodium 139 [facility] [place] Chloride [Moles/volume] in Serum or Plasma 106 [facility] ([facility]) Carbon dioxide, total [Moles/volume] in Serum or Plasma 24 [facility] ([facility]) Potassium [Moles/volume] in Serum or Plasma 3.7 [facility] ([facility]) Glucose 100 70-99 [facility] ([facility]) Blood Urea Nitrogen 9 7-24 [facility] ([facility] [facility]) Creatinine 0.79 0.80-1.30 [facility] ([facility]) Glomerular filtration rate/1.73 sq M.pre dicted [Volume Rate/Area] in Serum or Plasma by Creatinine-based formula (MDRD) Laboratory test result [facility] (Cardiology [facility]) ID Date Data Source [id number] 03/18/2020 10:07:55 AM EDT [facility] [place] [facility] Name Value Range Interpretation Code Description Data Karine rce(s) Supporting Document(s) SODIUM 139 mmol/L (136-145) [facility] [place] [facility] POTASSIUM 3.7 mmol/L (3.6-5.2) [facility] CHLORIDE 106 mmol/L (100-108) [facility] [place] [facility] CO2 24 mmol/L (22-31) [facility] ANION GAP 9 mmol/L (7-16) [facility] [place] [facility] UREA NITROGEN 9 mg/dL (7-24) [facility] [place] [facility] CREATININE 0.79 mg/dL (0.80-1.30) L [facility] [place] [facility] BUN/CREAT RATIO 11.4 RATIO (10.0-20.0) [facility] GLUCOSE 100 mg/dL (70-99) H [facility] [place] [facility] CALCIUM 8.8 mg/dL (8.4-10.2) [facility] [place] [facility] GFR >60 ml/min/1.73m2 (>59) [facility] [place] [facility] GFR ( AMER) >60 ml/min/1.73m2 (>59) [facility] GFR INTERPRETATION [facility] --NORMAL KIDNEY FUNCTION OR MILD DISEASE - GFR >OR= 60CHRONIC KIDNEY DISEASE - GFR 15 - 59RENAL FAILURE - GFR <15 Est. GFR calculation based on the MDRDstudy equation, which assumes a steadystate for creatinine. Est. GFR should notbe used for medication dosing. ID Date Data Source [id number] 03/18/2020 09:27:27 AM EDT [facility] Name Value Range Interpretation Code Description Data Karien rce(s) Supporting Document(s) WBC 10.2 10*3/uL (4.1-11.0) [facility] [place] [facility] RBC 5.24 10*6/uL (4.60-6.10) [facility] [place] [facility] HGB 15.4 g/dL (13.5-18.0) [facility] [place] [facility] HCT 47.1 % (41.0-53.0) [facility] [place] [facility] MCV 89.9 fL (80.0-95.0) [facility] [place] [facility] MCH 29.3 pg (27.0-32.0) [facility] [place] [facility] MCHC 32.6 g/dL (32.0-36.0) [facility] [place] [facility] RDW 13.7 % (10.5-14.5) [facility] [place] [facility] PLT 224 10*3/uL (150-450) [facility] [place] [facility] MPV 7.5 fL (7.1-10.7) [facility] [place] [facility] NEUT % 68.7 % (35.0-75.0) [facility] [place] [facility] LYMPH % 22.4 % (16.0-52.0) [facility] [place] [facility] MONO % 7.4 % (0.0-8.0) [facility] [place] [facility] EOS % 1.0 % (0.0-5.0) [facility] [place] [facility] BASO % 0.5 % (0.0-4.0) [facility] [place] [facility] NEUT # 7.0 10*3/uL (1.8-7.7) [facility] [place] [facility] LYMPH # 2.3 10*3/uL (1.2-4.8) [facility] [place] [facility] MONO # 0.8 10*3/uL (0.0-0.8) [facility] [place] [facility] Eosinophils [#/volume] in Blood by Automated count 0.1 10*3/uL (0.0-0 .5) [facility] [place] [facility] BASO # 0.0 10*3/uL (0.0-0.2) [facility] [place] [facility] ID Date Data Source [id number] 03/17/2020 03:48:21 PM EDT [facility] Name Value Range Interpretation Code Description Data Karine rce(s) Supporting Document(s) &PDF [facility] [id number]QpyTGHOGI2YMSSWBRpJOA4hQqDf yKE [file] [id number]= ID Date Data Source [id number] 03/17/2020 01:48:45 PM EDT [facility] [place] [facility] [place] Name Value Range Interpretation Code Description Data Karine rce(s) Supporting Document(s) CHOLESTEROL @ 192 mg/dL (0-200) [facility] [place] [facility] TRIGLYCERIDE @ 135 mg/dL (30-200) [facility] [place] [facility] HDL CHOLESTEROL @ 33 mg/dL (>40) L [facility] [place] [facility] PER NCEP ATP III GUIDELINES:RESULTS LOWE R THAN 40 MG/DL ARE SUGGESTIVEOF INCREASED RISK FOR CORONARY ARTERYDISEASE. RESULTS > OR = TO 60 MG/DL ARECONSIDERED A NEGATIVE RISK FACTOR. CHOL/HDL RATIO 5.8 RATIO [facility] [place] [facility] INTERPRETATION OF CHOL-HDL RATIO CHD RISK FEMALE MALEVERY HIGH >8.3 >14.3HIGH 5.6- 8.3 6.7- 14.3AVERAGE 3.7- 5.6 4.0- 6.7BELOW AVERAGE 2.5- 3.7 2.7- 4.0PROTECTED <2.5 <2.7 LDL CHOL (CALC) 132 mg/dL (<130) H [facility] [place] [facility] PER NCEP ATP III GUIDELINES: OPTIMAL < 100 NEAR OPTIMAL 100 - 129BORDERLINE HIGH 130 - 159 HIGH 160 - 189 VERY HIGH > 189 ID Date Data Source [id number] 03/17/2020 09:43:00 AM EDT [facility] ([facility]) Name Value Range Interpretation Code Description Data Karine rce(s) Supporting Document(s) Red Blood Count 4.90 4.60-6.10 [facility] ([facility]) White Blood Count 10.3 4.1-11.0 [facility] ([facility]) Platelets 203 150-450 [facility] ([facility]iology [facility]) Hemoglobin 14.6 13.5-18.0 [facility] ([facility]) Hematocrit 43.9 41.0-53.0 [facility] ([facility]) ID Date Data Source [id number] 03/17/2020 09:43:00 AM EDT [facility] [place] [facility] Name Value Range Interpretation Code Description Data Karine rce(s) Supporting Document(s) Cholesterol 190 0-200 [facility] ([facility]) Triglycerides 135 [facility] ([facility]iolo [facility]) Chol/HDL Ratio 5.8 [facility] ([facility]) HDL 33 [facility] Cholesterol in LDL [Mass/volume] in Serum or Plasma by calculation 13 2 [facility] ([facility]) ID Date Data Source [id number] 03/17/2020 09:43:00 AM EDT [facility] Name Value Range Interpretation Code Description Data Karine rce(s) Supporting Document(s) Troponin 14.40 [facility] ([facility]) ID Date Data Source [id number] 03/17/2020 09:43:00 AM EDT [facility] Name Value Range Interpretation Code Description Data Karine rce(s) Supporting Document(s) Calcium [Mass/volume] in Serum or Plasma 8.4 [facility] ([facility]) Carbon dioxide, total [Moles/volume] in Serum or Plasma 22 [facility] ([facility]) Sodium 142 [facility] ([facility]) Chloride [Moles/volume] in Serum or Plasma 108 [facility] ([facility]) Glucose 98 70-99 [facility] ([facility]) Potassium [Moles/volume] in Serum or Plasma 3.9 [facility] ([facility]) Blood Urea Nitrogen 9 7-24 [facility] ([facility]) Glomerular filtration rate/1.73 sq M.pre dicted [Volume Rate/Area] in Serum or Plasma by Creatinine-based formula (MDRD) Laboratory test result [facility] ([facility]) Creatinine 0.77 0.80-1.30 [facility] ([facility]) ID Date Data Source [id number] 03/17/2020 09:14:16 AM EDT [facility] Name Value Range Interpretation Code Description Data Karine rce(s) Supporting Document(s) &PDF [facility] KAYCZs8gMcDYQiVm69/NJWmoVUXnt6HlBLgjSTu6MKqtLDAaW2HxmWxaZXPKOC2ONRWYZVxTUV4gSaRj yKE [file] wFJw5f6tAHOkuzYay1drCtuXrr7QVAVs/poWZX9M4soLjpwXGi337VaGZd/NATIONAL EXPANSION RECRUITER/cUvQfMW0eBU30Q1Vt [file] ICAgICAgICAgICAgICAgICAgICAgICAgICAgICAgICAgICAgICAgICAgICAgICAgICAgICAgICAgICAg NGNyHZVvXMOvHBRcVPVnYIPtYKVoAFVhJL6SLGBeLDIuVRJwHDAeLLVvENYgRJWmEYQeVPCrHGLeXQPv ICAgICAgICAgICAgICAgICAgICAgICAgICAgICAgIC WaYECbGEVeATOzGDDdITNaDBIgTHBcTLXdDXSoDNLjLGZsYT7XOQOjLHOsUOUxNROwCKQaTSPbXMGdCA AgICAgICAgICAgICAgICAgICAgICAgICAgICAgICAgICAgICAgICAgICAgICAgICAgICAgICAgICAgIC OsYWVaCUHgIVZbJDStPXDoNN0VXLPkKVZcITGhSKUv ICAgICAgICAgICAgICAgICAgICAgICAgICAgICAgICAgICAgICAgICAgICAgICAgICAgICAgICAgICAg TZKfPTAxURUtTZOaBERnNLDgKRYfSWRzNYDlCZ1PRLFqGODnOVAzLPDhPKRkLKYlODRiIWHrKAMuGWBx ICAgICAgICAgICAgICAgICAgICAgICAgICAgICAgIC LeZBSzHKEmBNIpHNFaEUKrEKBtOXDaEGDyPMFwTJGxWLJyHCAoQK8NWNRlZZRvSBIdYCGzMNSwQXTsWS AgICAgICAgICAgICAgICAgICAgICAgICAgICAgICAgICAgICAgICAgICAgICAgICAgICAgICAgICAgIC MmINMbWFCzAJPdASPxLZFsAQZvMA8SNSUlBGPwUTJn ICAgICAgICAgICAgICAgICAgICAgICAgICAgICAgICAgICAgICAgICAgICAgICAgICAgICAgICAgICAg QZXsOIIyTZIsJIBtLKDqAPDlWCBsAMZnWXWrCFFbSD6JVYMgWNMaQOMlGFZuNPBbWZDyKAHoSWLxWYFf ICAgICAgICAgICAgICAgICAgICAgICAgICAgICAgIC EzSKWqMWIuCNJeKGTqGTUxBOLoEXPuHXZgEKBnXEJyILEwJNJmNBVzQW6FFLYzRAOnKMHeYRQkMXRfSV AgICAgICAgICAgICAgICAgICAgICAgICAgICAgICAgICAgICAgICAgICAgICAgICAgICAgICAgICAgIC ZiHICaOOLfJKVlLYQwZLTrONBcPIVtCR7AYAJzOCLk ICAgICAgICAgICAgICAgICAgICAgICAgICAgICAgICAgICAgICAgICAgICAgICAgICAgICAgICAgICAg OGSdVRYiMIAoXAXlUMBzKJKwRPIbGEBbHXSzCPXcTRXwFJ2KHF27iFBpn1Z6MXAyOI8byyv/Fz3LZEqv stCjcRBeMX2KFxLmJU1dyp2GMbSoSV2yxr6GGUpRBv MmH5D8oKGeQZLaJIOCUcYxB96lXJzkBn65XWtqKWTlSgXqZFg3Nw1QAgHaU8raHCTqSoH8XCJcKsZ4BG WmOcK9NOGjZlYqQMxwDW5Jb1JveJNfZKa+Et4JAM1dq8YuHEopRVAmSK5rpp8ZFRyHStOqY0G4rTZsZ9 A3MGgkJl5FVZOaKWXaOaKrULGBUImvED5CAY5rdiX9 NE5AaYQsSZJzWSIrvEJjATn6E91ugOWaVIktKS6JYWR+Jignesh+Wz1JIFKzRPWcUAXjNcTlWVBIIvBhB13b pZKrPFNwQGT9YIDbXb9USAHyW9BneqFfiTmiizWnEFTsOHUYIB6PHYvkkcOzfNBznVqgJN85lBccZC1S Rs5KBtVkBW6tfz2ApDYnRp6XCOLjKn1UHFKtINXmKR HxQCX0XZZsQeAhKFwrJXZvYMGbMDZ3XBXoUBWfVE4GXhXlMMMaMIM1MiAvWFCsEGNmxr6LUBQxJVA4Ul H5CGJoALQkKHElASnvGUZrHPTsKZotRBClMFFlMQ1UUyCxWHMtZSXxPBHzPFZxYMBffu2XWCFtZPOxBd Y4OFZfLGTxGHFdCUogADNgHZN6DHvkAQPsRMXzFZ8W HaGzDPEuXRG0WWVvHLCePSGjsf5POHFbKCLyHqIdStNzFMKkXLPfOYrxMVCzFYH0GhD2RSWlMNHsWA4M VeUgBHAqPPk0DgXqVABxALCluh9DPDBuFRWdKKg8OuSrAALkXJQlSAmuMGUrDQY6MYU2WUMmKRLcZS6S NpLgBHGbIQx2JWPeNCGsEUCojn9JQOHeEZJzZMCnWl ZyPZPqEAWkVRpvNEEnKXYzGdT7CIHuZHNeGW6USqSfAYIhNXMhIbEySKByPLMxlk2VROItYXYwYWX5LH JpYZKtWEIqRCisRZOtJYZ3VsdcHIWiRYRsJE9EKxTtRHRxJJE9AfKmHNIkRJLwbi6HWZCkUJGgXlS8Zx IsYOHoSXPkQQkiGOJxOVV7CKW4KOKfEQGhFN1VXhMv HKPcGNqvLVUkOPGnCTRjle2TOZCsRUVmCvY6AuFiZMDhSBIwWFiwWWKvPQXvOMTmGNYbAJXwUX5VRsZc CENaPcJ7BRjhRHGsFTEkql4GYJFwCNMjHmWmKsJtGMHqIXLwGGhyFYPaTTG1OyIaPEYdEAKuRY4ZNfOk MQErPPl2VNZjSKFrBAFiml2IZCQmIOX8WAL1HOUsHN CfDFLtFNwoIDFxKEA4QtLhKHZwUZRoQY0DCqMlITQrMmP2QyOfHHDjGGMazu9ICSOlXKB6HGK3EMRuVO YbAMRwKEeaSMVpYEdzQdF6YQNmPRLwUR7MTbDbRGJjYQV5LrFxALBzVOKrwm8IvIWzzYylsn4IZOvPPg 0AeQuhJWD4BZqrGc2cbBSnCZUjYCNASz7HekCrQLBh KVOCSEcpKFBjCMX0Ven6JtchOgz3FvZqXHx5GVFgQmBiCmT7EDR5EmEpEdC6AJVhTgn4KVDwMAjdMwOt EKp1IPGcTJUpZcDfTUk8GUZ+RY0pOKs+Vx5Zi0YraqU5noJqHEs3Lsl4MM3TUSIDX6UGIo== ID Date Data Source [id number] 03/17/2020 08:10:01 AM EDT [facility] Name Value Range Interpretation Code Description Data Karine rce(s) Supporting Document(s) EKG [facility] LBRRVy0hNfJWGmJxb3ZxYwByVGXiCO4bfcx8Y2Z5hWQaH3KnoDLoa3tsT0YdB6QtVTHgALZEMJ2AcXPv jb2 [file] 1Lm5exzbl/LS8NYx35k0QJCegg8BrtBnt/k51GO77y6EnLu84+Marie/vYzMIZu7H0D2Vj/hX7Xw2MgIBch VV49kjRqBc5fx5875keYintnZD4t+Gvvl0HrLbll7kVBuOhBmanjm688GgJ7N8PF3d6dMAp+Z/0q1w/P bNJYmWNs6jjIqHd/9ask78F4nkX1HUk0ccK7aDPikH KTni+YGLADB/B+x5vNHs+W/tUZ55b+KnCSgDAToS5qfk9caZ1r8MiTVLp7q9Ou5tKqV7zRVrwtS3Y9xN 38d30IpsgrQ9n645WHsi8vrcOE3ZSwXREzuiJpy5IhPekiUhsio4Vw47Dopz9XgHuIwJW40If6SzjTha /fet6vef2V2xyasH0V9cpSeAgs1p07E/F4hWRC4/2N 9jcs+wntJW0Z7T5Kj/8wHdcCZm3XWqzn1+2L5leUTzoAJ06o2dOAz8DXO2hhx0w/7++community health consultant+9Piqpp0+32 pFivr4550wXK/wclT3QRZbf/v78+JOlT1yVpQxwCnuqNS4GFV/BuLA/vGWju5ZyP+zkubZ89/avTF57+ 8UC3lK8mqo78/dnAG8f3o+thtyz37plfkjD7ciS20D a10iVsbvcNArv5CwLCBLJQrCIx3nzDPFe2+hJBZSBydYgHrERJjct47oeqx56z1x4oA+Cfxph6sfFX/j UFNmAHxrjCfNAxH/MpT1LZ8hVPt0vkm6d0iAiAgGLj31Ffy9O2/WqYYano1G+RR3+ONYs97ASukH1UvF i+x4XzBogsBr0KQHCayX4JsqyaQxu+2+vrsdb42XyU xtN+Zcz8InbVx6xnkDegHKqv5isvDq6x6Vl1LrAxlcmX3iby34JDcJUrknDbWpZXx+2gkpbX2j2PlHrg 15rhOYDpz/sXz2948IB4su69hipgAvu/GT8df3ydqa/tt1iQJd2HgM/pOXmpfL/A/cNdp7NeL28/Y05c 00CNqb7W8v8LcCuu/Xbf73YodXlOgwzrB6UwfZoYzT 5NhdLruAC5oJP5prTr49UTFvig/cD+LJblV2ZhAXzX60NDXH5nWrqQHEYVsRIuCQLRQNu3k8iZ8bwN+A DXmm3yq8N+YHj7k+G9fxTe+ariaXxFs32igI2JDRtG6ms5xh9l67wcUtJGZuVTlgXq2e2P/EB1m8sPeJ 9O2wYF2T0/x+51c0p86+28vCz1IRsa79EM/Z3Lwt9S N0A1gqL75x/rulqwVylp44dD/2o/va+kzrR3xIN7Lsg56oPRG/Usd89a5ooEs0Iv0CU2+8Z6+8Z6+5YJ 3O/dmk7NY7mdwONyNR2/rBV2tb9BLQHSwAEV3yPrVz7frtm09FqtG3cpX1wbF5dNTsLnD3gwxil82QoQ l7v40OC1w/b+88CZgJPhJ5IaFp5iBa98nN28wla3fm kaLV1DKniRWrsoJu8t5/7KI27YCkwFzrk6mLGO5j4K6y4wJpgwWr14vStlb6hygE9tJ/vPO3p+tKPtxg 0ZoVL308ZD6qC7dEn3nPtB20w/q3n8ZpcE8w4FyEu3sHe3N1y9mH4w9mX4ObIJ1z9gLo5ziFBv0h5wdd 0hkcoqO85oH3a40MflIajOxLuO1IYydO2WI8Pfm7L6 P0HisIQ8DkFG6z7BuLouOkmgjrqnEFYP+nnVUSLB2i5QfsbfRBhITEzirL/XKDNP3migVccVyw8lVs0E SCq8Dpdz16hCd8j33DSLwBvg0ut4dbboYp5GlH2k5y5WN71+M1//Mety/yzVpEqm95UgMUJ16lITKtX7 XuBiSAkVpJhi9sgtAkZ9h2KuugZJNQKvzgKj48UZon fxlab6PHOKGLgZfsrIpH+mSOp4lsv+HWMDpire4OnypCKVY+mbV2lxIqQG2ElIpV0O0nW+HyEQcfsER2 H7iqIeoarsphQwxIHtQCD/iKx+4nXAYAS23VgfGqXEBmXiIYZ5eSsjrMhXjdo8IY9uQ8vtAff2vcLSXV /urSdXI5Zd7t4u33CVW1UoYBh6ONw/+uuXdblv/wzs R44KqM+5opHoM9b82VOyDsICGpFC/0JHOLy9wYnkbUR6GvG+jcrojQ04o0OFeYYUW+p9evCX4zVDagFp f1lqj7Gbvj4pSScQaodbn0n7aAamdG4AsUNkJ1RcM1bJDkKFiTdi0w5DfOeGe8AyLMAm51J+ZdblbjJJ Fm+gJEbiJEyvUGpgDwnbwNgGxjYwtgFmrWPQJlYc/i [file] [id number]+PaouuWWiuBrzVBNLYFX1JahWVDJNJ4Y= ID Date Data Source [id number] 03/17/2020 09:17:14 AM EDT [facility] [place] [facility] Name Value Range Interpretation Code Description Data Karine rce(s) Supporting Document(s) TROPONIN I 14.40 ng/mL (<0.05) [facility] [place] [facility] [place] Less than 0.05: Myocardial injury unlike lyGreater than or equal to 0.05: Highly suggestive of myocardial injuryCorrelation with rise and/or fall ofserial troponins, clinical symptomsand ECG changes is necessary.ALERTED CRITICAL RESULT TOCHRIS([id number]) [place] [address] ON 03/17/20 AT 0915 [place] [id number] ID Date Data Source [id number] 03/17/2020 09:17:14 AM EDT [facility] [place] [facility] Name Value Range Interpretation Code Description Data Karine rce(s) Supporting Document(s) CKMB 50.2 ng/mL (0.0-5.0) [facility] [place] [facility] ALERTED CRITICAL RESULT TOCHRIS([id number]) [place] [address] ON 03/17/20 [place]15 [place] [id number] CKMB RELATIVE INDEX 5.1 {index_val} (0.0-4.0) H [facility] [place] [facility] ID Date Data Source [id number] 03/17/2020 08:43:37 AM EDT [facility] [place] [facility] Name Value Range Interpretation Code Description Data Karine rce(s) Supporting Document(s) CK 987 U/L (39-308) H [facility] [place] [facility] ID Date Data Source [id number] 03/17/2020 08:43:37 AM EDT [facility] [place] [facility] Name Value Range Interpretation Code Description Data Karine rce(s) Supporting Document(s) SODIUM 142 mmol/L (136-145) [facility] [place] [facility] POTASSIUM 3.9 mmol/L (3.6-5.2) [facility] [place] [facility] CHLORIDE 108 mmol/L (100-108) [facility] [place] [facility] CO2 22 mmol/L (22-31) [facility] [place] [facility] ANION GAP 12 mmol/L (7-16) [facility] [place] [facility] UREA NITROGEN 9 mg/dL (7-24) [facility] [place] [facility] CREATININE 0.77 mg/dL (0.80-1.30) L [facility] [place] [facility] BUN/CREAT RATIO 11.7 RATIO (10.0-20.0) [facility] GLUCOSE 98 mg/dL (70-99) [facility] [place] [facility] CALCIUM 8.4 mg/dL (8.4-10.2) [facility] [place] [facility] GFR >60 ml/min/1.73m2 (>59) [facility] [place] [facility] GFR ( AMER) >60 ml/min/1.73m2 (>59) [facility] [place] [facility] GFR INTERPRETATION [facility] --NORMAL KIDNEY FUNCTION OR MILD DISEASE - GFR >OR= 60CHRONIC KIDNEY DISEASE - GFR 15 - 59RENAL FAILURE - GFR <15 Est. GFR calculation based on the MDRDstudy equation, which assumes a steadystate for creatinine. Est. GFR should notbe used for medication dosing. ID Date Data Source [id number] 03/17/2020 07:59:45 AM EDT [facility] [place] [facility] [place] Name Value Range Interpretation Code Description Data Karine rce(s) Supporting Document(s) WBC 10.3 10*3/uL (4.1-11.0) [facility] [place] [facility] RBC 4.90 10*6/uL (4.60-6.10) [facility] [place] [facility] HGB 14.6 g/dL (13.5-18.0) [facility] [place] [facility] HCT 43.9 % (41.0-53.0) [facility] [place] [facility] MCV 89.5 fL (80.0-95.0) [facility] [place] [facility] MCH 29.9 pg (27.0-32.0) [facility] [place] [facility] MCHC 33.4 g/dL (32.0-36.0) [facility] [place] [facility] RDW 13.8 % (10.5-14.5) [facility] [place] [facility] PLT 203 10*3/uL (150-450) [facility] [place] [facility] MPV 7.3 fL (7.1-10.7) [facility] [place] [facility] NEUT % 66.8 % (35.0-75.0) [facility] [place] [facility] LYMPH % 24.4 % (16.0-52.0) [facility] [place] [facility] MONO % 7.5 % (0.0-8.0) [facility] [place] [facility] EOS % 0.9 % (0.0-5.0) [facility] [place] [facility] BASO % 0.4 % (0.0-4.0) [facility] [place] [facility] NEUT # 6.9 10*3/uL (1.8-7.7) [facility] [place] [facility] LYMPH # 2.5 10*3/uL (1.2-4.8) [facility] [place] [facility] MONO # 0.8 10*3/uL (0.0-0.8) [facility] [place] [facility] Eosinophils [#/volume] in Blood by Automated count 0.1 10*3/uL (0.0-0 .5) [facility] [place] [facility] BASO # 0.0 10*3/uL (0.0-0.2) [facility] [place] [facility] ID Date Data Source [id number] 03/17/2020 01:40:51 AM EDT [facility] [place] [facility] Name Value Range Interpretation Code Description Data Karine rce(s) Supporting Document(s) CKMB 64.4 ng/mL (0.0-5.0) [facility] [place] [facility] ALERTED CRITICAL RESULT TOMIKE ([id number]) [place] [address] ON 03/17/20 [place] [id number] CKMB RELATIVE INDEX 6.1 {index_val} (0.0-4.0) H [facility] [place] [facility] ID Date Data Source [id number] 03/17/2020 01:40:51 AM EDT [facility] [place] [facility] Name Value Range Interpretation Code Description Data Karine rce(s) Supporting Document(s) CK 1057 U/L (39-308) [facility] [place] [facility] ALERTED CRITICAL RESULT TOMIKE ([id number]) [place] [address] ON 03/17/20 [place]137 [place] [id number] ID Date Data Source [id number] 03/16/2020 02:03:04 PM EDT [facility] Name Value Range Interpretation Code Description Data Karine rce(s) Supporting Document(s) EKG [facility] EFEBEh1vTzNESwZop6HwRqHaDEZtQG5kyij7C4W2kTTkG0BtwAZxh6tkR6QlO9WdRJZoOETTVL6PdBSg jb2 [file] [id number]//uMst9wSwRm79ElK55wz4iM/3j58ef/w8T8/ f+qG20+fFsq7jkDyEmvuOl/13n8KWnoiMBIGM88X5+/e/vrx/dvDlzydnj9/nXvXNSTyehm0GGL/PMUh R/+yygPa5XQX/70vBrc42/M76fA+wlsdMh2No6jbs/cel78notk6vFhsdRv8ZC/rHw3ZySt+kIMIc0eL Q254fLq15PCFqh6/7HTf/D+JjWrFGoCuIZO6zuHzuJ aplhYrObdCAJcfDESmGsa6EU1MfNArNRFrN7A6JZAkbe1iNJNfAEPkeTHuFuBxBGFAHN7PcTDdSD1CIF m3FIXjUETdPyLxZWTnkwM7OMSzKILpEFXpG4NywyMidACfLFJcLg6+HC6le6JtEwGqUNAdDbt5LL4ZsZ OtPL5ZzAQybQ3soiLsB049tvFrSFRkFkodm7FsCJih UYZUEY3PZGA8XVI0PVUyHc5+OB2ls6KlXrBvZPJeZbs6JQ3WcHXgs0LtTV9UQ4SyOPJvVQLFVKP6z0Tg ZDUjohhgtvhgG2YyXQM8bO9tLOG3RAYwNRngVYYnGWCoQZL8QIRtHBvoOWXqWCKoYBZiTODdIQg6cXRs JJ0HA0SoAQCpJBWFBUTncfCiYc4tHGSDZU6PMDUNPU VBN6zIAVP9MBQ6DWBfGJeaQ5F6AbxpT4DsYE5GN0TvFWFxARMZSCImxjWgEP8OqgZfcA4vWShUBDWDAV nTSSfqEdX6j74rmoVVDTEsULOxBAvzUCMlZECqHBNbGGFsXCBkFROaPPSbNA5DL8FuXJNwXYKIOVY1y7 VkKWPwfnahnaslIo2tgaQzPeu+XrejWAVfo8KeRGil S0E0rGMoK4PfC0OrSJ9FdMGnMHjvRPTwXJJeWZVdJ340sxCdOY1+LH2ny1JtXfhdWEHPJQJoLVEhZRAw JZK1AvEiUHKjDCJdISEwBqC7WhIoWzIPUBSaKMG1JyZgCURsJNXbCKPtJDqoTPYcNMObKmh7CBUjQFSg BA8zYsVsSCHfFPHxNLNlZWCzEEUuolTWQFYpAZHuVL CtMMH8ZJCcXECvSShgXUIeVKIzWZD4QJTnQMSkQE9lJhNfHNAhFQGoPtpoBDAxMCKsskSRHVKaCFNtSV P0CzHmSIYxLCXfCKseRKCiPFDoEyc3YJAxDCIhXF5lQxVcWSHoIUK9FXtxMPXdTUNpukFGUAYiVRXeBB OqFwCdNURnXVPkETkyVFHpCWUdUpGmHWGyXGKwUY6i UlTzIIGyYIB6PDZkYXFlTZIfynEDQVHqFGWnTUf0IMXwXGMiSFWzCIqcJNBuIMCqYVT6UDNhBTPzQC6i KbQqACQoZUMlIIXoNLXwQFKexmMDVSMrVGSkORI8VTAyAWUoMVDaAGjxTUVfWJBqKgn9VZBuDBCeFB9p AnVkYHHlJFV8HJOhSQOpTWNdihOTHMJvPUN2GeI9DE AgKPByNSJdONylUXLhIFCxLqS6SPMfIWCoGQ2iYuLvSIQtVVE1MiTzMLRmLZZamaFPCQCoJPIbTCK5Fs RdFNBaQVQtFCbwSZPcDCGeRHCgLGS4IIP3TTSuWhTbXNnbVOXTXMcZU5SarjYdSpMOT5cdFs9zCiPiZO VSY5Rjp5SsPUCuSINZNo6+AfN2QXZ8gAMaXdt3CxL3SqcvJBHXXh== ID Date Data Source [id number] 03/16/2020 02:03:04 PM EDT [facility] Name Value Range Interpretation Code Description Data Karine rce(s) Supporting Document(s) EKG [facility] ALVAVm2hHeYSDzWha4YoCdDaNOLuNQ7btal4Y4X6sNYeF8CovANap7uqS9HjC2VcOHHzFZRVTJ7YtBRg jb2 [file] 8NplZyZQHzGIATFy6Qz185SCYqHPJJBwz+XsbliFHmaXddNGPBJKz1KTeMULEHL1I= ID Date Data Source [id number] 03/16/2020 12:31:09 PM EDT [facility] Name Value Range Interpretation Code Description Data Karine rce(s) Supporting Document(s) EKG [facility] WLEYXi1nUqTDVfZrq2PaOoZqDAZsXW4kcyw7R3T5kGWbO8FkiVGac2mqV8BjE8GqLGYtMTANTL8RuBEt jb2 [file] v0ZJJ04l76whzpA//6h7uxD4LM+kl5+reEM7E//N2DIGBPartBZFNM/community health consultant/Gn7WywkPU26gemCLJVYTUZ Y52mxJI0gXUkDAvhbNir3U4OeCx0NHTJ9zZACZuuLd +u0nkzePldb0gak1/gcsb+pl3O+NY3p7iHXK04VmTA2nl2F+ofND6I/jxhh5809tMVfKRf2y+9qHwQ1/ euIh22OP++uE3pkcejglme1xLy7mWm6rGb9gByx8W1QUxxS/YP+rdoxu4HxOTlzslmKNh29ukyXt143M 7D8v/aB/BCJp56P0nRuba9C0102ygiNNb64Yo+7M87 [file] NNgZO9bkar5yr6UbQOwm1lY+CZpj7pJLT0afmOXh+fO2mtI7FEDKqtKoLt6owD8sM/Earnest+HcuSBnOxbk gAlH0sPSgs0g5SpQFn0aKIR5rLGjG9HTznDFGMbZXq 3bAAEIUkYhMMrJKVkAYrPK4sby8ZJHFqiQfmZUGYC4IGXZWPDL5PlEG3Dt3bEN5RNTy0iloQ1dhMLi5G Ub3SlHu8y2YQUVdHTMTX1WAVob4vU85wJMD1zSPgUFZRxWLakARVDOJ033MGAArcIbtjONUM4qv4LpNx GNFdi3kEIuCDfEALoK+bSEX2XM/LkM1OspzNmTx3Gs tdPrxT8IF4fEJACD5MxjuRwP9r81TMXMviaKMayv9MfUA5bj2mFzlyEh9Qlkw8wY1Z8x4w+7fe/zcurm yfXzb2/vXn91+s+LO54rBwMhPqr9bRl4mkTYVWMGvZDTMj7LffJQl2j8E/l13mzlPTrINpC3c5ELsy33 //X5h1/lnjbgb88MY00+fvX0/ezBr6d3r+8Sd5Rap+ /ux714Kw4s4ld3h/jBO2ig6OXUB394jCIzDp9hxu+wqqps369d/c/bd+9/PP3y0++//fTxTy6/DN1++b uiIp78z694ac75250dAktfgh13eDW4chb08lMv9oQN058gI3o7m+nlf5z4+Kj5WradB4+kS71souE07H bm/y1of2y8xzm5A+7vnt58/+z67vTq+ub2+fV/3d6d nly/Pj/1l4qfOcs+7ygz12GyBs8T/slvXEzoPryfP/2dhu5ruk//008Dw325862+/HmC5iePjx+9ff/z 6Yd/bkS9nfiO5dJeZ5y+Cd/p1F3zQmYaxL9uHx7Kn+4ayUo2lzSt2as/UfqJYpovoJ6Su7oU1+f5X1vn 8/hdPkb7SdBXycI06bHF1H6woA3tQl096lfnLu9PlW llKYu4k62UVw2chGwSSUenAXk1+/cQ9keqzMr/i6nkUTg8J35+7Fu4tKwcPEmyzhp1me34/+m3r0+/community health consultant 3t/YO7X+He6O3wUhsDf86/wt7wt920+qg59x451vRx11/537c//8ntZ6/82e1XX/hfrr2Athc9+vxpnR v/4fOnL++/p15+cX/w6gq06j62512/w/qtLM33w28V [file] ITOUCs4Df886THDhQNSJUgk+OjiftNFnwOgwONPMFLr9RAaTWNMAA4P= ID Date Data Source [id number] 03/16/2020 12:00:31 PM EDT [facility] Name Value Range Interpretation Code Description Data Karine rce(s) Supporting Document(s) &PDF [facility] JMLRBp7nKsSEXiDr56/CPWpdVOBey4RoREbxLBe3HTgkDCHfB5WldQzgSGBXST5MKBRGBDvBRD8rUnJj yKE [file] aBjvWEQQBpz3PxH1HDocTGHFOt8F ID Date Data Source [id number] 03/16/2020 01:54:34 PM EDT [facility] Name Value Range Interpretation Code Description Data Karine rce(s) Supporting Document(s) CKMB 31.9 ng/mL (0.0-5.0) [facility] ALERTED CRITICAL RESULT TOSARAH([id number])[place] [address] AT 1141 ON [id number] BY [id number] CKMB RELATIVE INDEX 7.5 {index_val} (0.0-4.0) [facility] ID Date Data Source [id number] 03/16/2020 11:46:00 AM EDT [facility] Name Value Range Interpretation Code Description Data Karine rce(s) Supporting Document(s) CK 428 U/L (39-308) [facility] ALERTED CRITICAL RESULT TOSARAH([id number])[place] [address] AT 1141 ON 488126 BY [id number] ID Date Data Source [id number] 03/16/2020 11:31:53 AM EDT [facility] Name Value Range Interpretation Code Description Data Karine rce(s) Supporting Document(s) TROPONIN I 3.70 ng/mL (<0.05) [facility] Less than 0.05: Myocardial injury unlike lyGreater than or equal to 0.05: Highly suggestive of myocardial injuryCorrelation with rise and/or fall ofserial troponins, clinical symptomsand ECG changes is necessary.ALERTED CRITICAL RESULT TOSARAH([id number])[place] [address] ON 970202 AT 1125 BY [id number] ID Date Data Source [id number] 03/16/2020 10:54:44 AM EDT [facility] Name Value Range Interpretation Code Description Data Karine rce(s) Supporting Document(s) APTT 36.8 s (22.0-34.3) [facility] ID Date Data Source [id number] 03/16/2020 10:43:38 AM EDT [facility] Name Value Range Interpretation Code Description Data Karine rce(s) Supporting Document(s) WBC 11.9 10*3/uL (4.1-11.0) [facility] RBC 4.96 10*6/uL (4.60-6.10) [facility] HGB 14.8 g/dL (13.5-18.0) [facility] HCT 43.0 % (41.0-53.0) [facility] MCV 86.7 fL (80.0-95.0) [facility] MCH 29.8 pg (27.0-32.0) [facility] MCHC 34.4 g/dL (32.0-36.0) [facility] RDW 14.1 % (10.5-14.5) [facility] PLT 237 10*3/uL (150-450) [facility] MPV 7.4 fL (7.1-10.7) [facility] ID Date Data Source [id number] 03/16/2020 09:41:00 AM EDT [facility] ([facility] Name Value Range Interpretation Code Description Data Karine rce(s) Supporting Document(s) White Blood Count 11.2 4.0-10.0 [facility] ([facility]) Hemoglobin 15.1 [facility] ([facility] [facility]) Platelets 248 150-450 MEDENT ([facility]iology [facility]) Red Blood Count 5.11 4.30-6.10 MEDENT (Cardio logy [facility]) Hematocrit 44.8 MEDENT ([facility]iology [facility]) ID Date Data Source [id number] 03/16/2020 09:41:00 AM EDT MEDENT (Cardi ology [facility]) Name Value Range Interpretation Code Description Data Karine rce(s) Supporting Document(s) Sodium 141 MEDENT ([facility]) Calcium [Mass/volume] in Serum or Plasma 9.4 MEDENT ([facility]) Chloride [Moles/volume] in Serum or Plasma 108 MEDENT ([facility]) Carbon dioxide, total [Moles/volume] in Serum or Plasma 25 MEDENT ([facility]) Potassium [Moles/volume] in Serum or Plasma 3.7 MEDENT ([facility]) Blood Urea Nitrogen 12 7-18 MEDENT (Ca rdiology [facility]) Glucose 140 70-100 [facility] Creatinine 1.05 0.70-1.30 MEDENT ([facility]) Glomerular filtration rate/1.73 sq M.pre dicted [Volume Rate/Area] in Serum or Plasma by Creatinine-based formula (MDRD) Laboratory test result MEDENT ([facility]) ID Date Data Source [id number] 03/16/2020 09:41:00 AM EDT MEDENT ([facility]i [facility]y [facility]) Name Value Range Interpretation Code Description Data Karine rce(s) Supporting Document(s) Troponin 0.13 MEDENT (Cardiology [facility]) ID Date Data Source [id number] 03/16/2020 09:33:26 AM EDT [facility] INFORMATIONPatient MRN Name Date of Age Gend*PT [id number] TracyCodey Jose Rafael 1975 44 years M EDPT Location Admission Date/Time Visit ID Attending [id number] 03/16/20 0915 --- Simon Witt MD ([id number]) EPI ID CSN Admitting Provider [id number] Simon Witt MD([id number])44-year-old man transferred from [facility] for acute inferiormyocardial infarction post thrombolytic therapy.The patient is obese and smoker and has no other known risk factor for coronaryartery disease and he awoke from sleep around 3 in the morning when he startedcomplaining of substernal chest pressure without radiation. Soon after hestarted becoming sweaty and nauseous. In the morning he was taken to theemergency department in [place] where his EKG showed ST elevation in theinferior leads with reciprocal changes in the high lateral leads and he receivedthrombolytics along with heparin aspirin and Plavix. He was transferred herefor further management. On arrival his chest pain had decreased from 10 out of10 to about 2 out of 10. There was proof of AI VR in transport and his EKGshowed resolution of the ST elevation on arrival.The patient has a history of GERD and he takes aspirin occasionally. He has nobright red blood per rectum or melena. He does not drink. He smokes and usesmarijuana sometimes. He denies any cocaine use.Medications at home include aspirin and gastroesophageal reflux medicine asneeded.Family history is positive for coronary artery disease in his father.Physical exam.Blood pressure 129/83 heart rate 70 respiratory rate 16 oxygen saturation 99%afebrile.Alert and oriented. No JVD. No carotid bruit. Lungs are clear to auscultationheart sounds are normal. Bowel sounds are normal. There is no lower extremityedema. Right radial pulse with ulnar pulse and right Yan test are normal.Laboratory data is not available at this time.Assessment and plan.44-year-old man with acute inferior myocardial infarction status post successfulthrombolytics. At this time he is chest pain-free.1. Because of the successful lytics given within the last 2 hours the patientwill be admitted to the floor to continue with heparin drip. We will continuewith aspirin and Plavix. No beta-blockers yet.2. He will be started on a statin. Fasting blood sugar will be checked.3. Cardiac catheterization either later today or tomorrow given the successfulthrombolytics. Name Value Range Interpretation Code Description Data [facility] Supporting Document(s) ID Date Data Source [id number] 03/16/2020 09:33:00 AM EDT [facility] Name Value Range Interpretation Code Description Data [facility] Supporting Document(s) EKG [facility] [id number]yucu3S2F6nZWfS1ZigEOpt7yhU1EmP8KpLMWlAAFNUT2MeTXt jb2 [file] 5XT//yYu4TodhA8oP5urBr38n/9j5jnS9snho4/uLyyYurh/+4drgvby323A/qx6j5uqR/3w7/community health consultant/99/ vf/5865r5Tf5+Hn/66ffJ97QkL09+IoMbLa6inlGmX L47+pRGPWds8vyq4cjNmWd2+/kWLuD1rk4Q1Wb56s/MaIlxv58n32naA11/xNji+T24rSP6gUzoc5+2L G0eUE8Unm1S6JOF52CgWsy39syRfQ8GKMetIvfIo0dSCBCI8k+LaPITov1rgmzDMe64mIOrRvWST4vx5 6PP4b6d4d+/H6v9qSoJPsrjqU6G7/nUfi0t/ePc5+P bm0X9A45sm/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 ID Date Data Source [id number] 03/16/2020 11:27:53 AM EDT [facility] [place] [facility] Name Value Range Interpretation Code Description Data Karine rce(s) Supporting Document(s) SPECIMEN DESCRIPTION [facility] [place] [place] COVID19 RESULT (NDET) [facility] [place] [facility] THIS ASSAY AMPLIFIES AND DETECTSTHE TARG ET RNA USING REAL-TIME PCR.NEGATIVE 2019_NCOV RT-PCR RESULTS DONOT PRECLUDE 2019_NCOV INFECTION ANDSHOULD NOT BE USED THE SOLE BASISFOR PATIENT MANAGEMENT DECISIONS. COMMENT [facility] [place] [facility] UNDER AN EMERGENCY USE AUTHORIZATION(EUA ) FOR THE DETECTION AND/OR DIAGNOSISOF THE VIRUS THAT CAUSES COVID-19.EMAILED TO [facility] AT [id number] [place] [id number]. FIRST TEST [facility] [place] [facility] [employer]ED IN [employer] [facility] [place] SYMPTOMATIC [facility] [place] [facility] DATE OF SYMPT ONSET [facility] [place] [facility] [place] [facility] [place] [facility] ICU [facility] [place] [facility] [place] CONGREGATE CARE SET [facility] [place] [facility] [place] [facility] [place] [facility] Procedure Social History Code Duration Value Status Description Data Source(s ) Smoking 01/19/2021 12:00:00 AM EDT Current Smoker completed Curre nt Smoker eCW1 ([facility]) Smoking 01/08/2021 12:00:00 AM EDT Former Smoker completed Former Smoker eCW1 ([facility]) Smoking 01/08/2021 12:00:00 AM EDT Former Smoker completed Former Smoker eCW1 ([facility]) Smoking 09/29/2020 12:00:00 AM EDT Former Smoker completed Former Smoker eCW1 ([facility]) Smoking 09/29/2020 12:00:00 AM EDT Former Smoker completed Former Smoker eCW1 ([facility]) Smoking 09/29/2020 12:00:00 AM EDT Former Smoker completed Former Smoker eCW1 ([facility]) Smoking 09/29/2020 12:00:00 AM EDT Former Smoker completed Former Smoker eCW1 ([facility]) Smoking 09/08/2020 12:00:00 AM EDT Current Smoker completed Curre nt Smoker eCW1 ([facility]) Smoking 09/08/2020 12:00:00 AM EDT Current Smoker completed Curre nt Smoker eCW1 ([facility]) Smoking 08/18/2020 12:00:00 AM EST Current Smoker completed Curre nt Smoker eCW1 ([facility]) Smoking 08/18/2020 12:00:00 AM EST Current Smoker completed Curre nt Smoker eCW1 ([facility]) Smoking 08/18/2020 12:00:00 AM EST Current Smoker completed Curre nt Smoker eCW1 ([facility]) Smoking 08/11/2020 12:00:00 AM EST Current Smoker completed Curre nt Smoker eCW1 ([facility]) Smoking 07/10/2020 12:00:00 AM EST Former Smoker completed Former Smoker eCW1 ([facility]) Smoking 06/30/2020 12:00:00 AM EST Current Smoker completed Curre nt Smoker eCW1 ([facility]) Smoking 06/30/2020 12:00:00 AM EST Current Smoker completed Curre nt Smoker eCW1 ([facility]) Smoking 06/30/2020 12:00:00 AM EST Current Smoker completed Curre nt Smoker eCW1 ([facility]) Smoking 06/30/2020 12:00:00 AM EST Current Smoker completed Curre nt Smoker eCW1 ([facility]) Smoking 06/19/2020 12:00:00 AM EST Former Smoker completed Former Smoker eCW1 ([facility]) Smoking 05/26/2020 12:00:00 AM EST Current Smoker completed Curre nt Smoker eCW1 ([facility]) Smoking 05/18/2020 12:00:00 AM EST Former Smoker completed Former Smoker eCW1 ([facility]) Smoking 05/10/2020 12:00:00 AM EST Patient is a former smoker completed Patient is a former smoker MEDENT ([facility]) Alcohol intake 05/05/2020 12:00:00 AM EST Ex-drinker (finding) comp leted Ex- drinker (finding) [facility] Cigarette pack-years 05/05/2020 12:00:00 AM EST UNK completed [facility] Cigarettes smoked current (pack per day) - Reported 05/05/20 12:00:00 AM EST UNK completed [facility] Smoking 05/05/2020 12:00:00 AM EST Former smoker completed Former smoker [facility] Tobacco use and exposure 05/04/2020 12:00:00 AM EST Never used co mpleted Never used [facility] Cigarette pack-years 05/04/2020 12:00:00 AM EST UNK completed [facility] Cigarettes smoked current (pack per day) - Reported 05/04/20 12:00:00 AM EST UNK completed [facility] Smoking 05/04/2020 12:00:00 AM EST Former smoker completed Former smoker [facility] Smoking 04/15/2020 12:00:00 AM EDT Former Smoker completed Former Smoker eCW1 ([facility]) Smoking 04/15/2020 12:00:00 AM EDT Former Smoker completed Former Smoker eCW1 ([facility]) Smoking 04/15/2020 12:00:00 AM EDT Former Smoker completed Former Smoker eCW1 ([facility]) Smoking 04/15/2020 12:00:00 AM EDT Former Smoker completed Former Smoker eCW1 ([facility]) Vital Signs ID Date Data Source UNK Name Value Range Interpretation Code Description Data Source(s) Body height 67 [in_i] 67 [in_i] eCW1 ([facility]) Body weight 246.6 [lb_av] 246.6 [lb_av] eCW1 ([facility]) Body mass index (BMI) [Ratio] 38.62 kg/m2 38.62 kg/m2 eCW1 ([facility]) Body temperature 98.0 [degF] 98.0 [degF] eCW1 ( [facility]) Heart rate 62 /min 62 /min eCW1 ([facility]) Respiratory rate 18 /min 18 /min eCW1 ([facility]) Oxygen saturation in Arterial blood by Pulse oximetry 96 % 96 % eCW1 ([facility]) Systolic blood pressure 122 mm[Hg] 122 mm[Hg] [facility] Diastolic blood pressure 67 mm[Hg] 67 mm[Hg] [facility] Heart rate 62 /min 62 /min [facility] Body temperature 36.5 Victorina 36.5 Victorina [facility] Respiratory rate 18 /min 18 /min [facility] Oxygen saturation in Arterial blood by Pulse oximetry 96 % 96 % [facility] Body height 180.3 cm 180.3 cm [facility] Body weight 115.214 kg 115.214 kg [facility] Body mass index (BMI) [Ratio] 35.43 kg/m2 35.43 kg/m2 [facility] Systolic blood pressure 117 mm[Hg] 117 mm[Hg] M EDENT ([facility]) Diastolic blood pressure 79 mm[Hg] 79 mm[Hg] MEDENT ([facility]) Heart rate 68 /min 68 /min MEDENT ([facility]) Body temperature 98.1 [degF] 98.1 [degF] MEDENT ([facility]) Respiratory rate 18 /min 18 /min MEDENT ( [facility]) Body height 71 [in_i] 71 [in_i] MEDENT ([facility]) 5'11" Body weight 254.00 [lb_av] 254.00 [lb_av] MEDEN T ([facility]) Body mass index (BMI) [Ratio] 35.4 kg/m2 35.4 k g/m2 MEDENT ([facility]) Body weight 260.00 [lb_av] 260.00 [lb_av] MEDEN T ([facility]) Body height 71 [in_i] 71 [in_i] [facility] ([facility] 5'11" Body mass index (BMI) [Ratio] 36.3 kg/m2 36.3 k g/m2 MED[facility] ([facility]) Heart rate 64 /min 64 /min [facility] ([facility]) Systolic blood pressure--sitting 126 mm[Hg] 126 mm[Hg] MEDENT ([facility]) Ra, large cuff Diastolic blood pressure--sitting 82 mm[Hg] 82 mm[Hg] MED[facility] ([facility]) Ra, large cuff Respiratory rate 16 /min 16 /min MEDENT ( [facility]) Systolic blood pressure 139 mm[Hg] 139 mm[Hg] M EDENT ([facility]) Diastolic blood pressure 86 mm[Hg] 86 mm[Hg] MEDENT ([facility]) Heart rate 96 /min 96 /min MEDENT ([facility]) Body temperature 98.6 [degF] 98.6 [degF] MEDENT ([facility]) Body mass index (BMI) [Ratio] 37.0 kg/m2 37.0 k g/m2 MEDENT ([facility]) Body height 71 [in_i] 71 [in_i] MEDENT ([facility]) 5'11" Body weight 265.00 [lb_av] 265.00 [lb_av] MEDEN T ([facility]) Body height 67 [in_i] 67 [in_i] eCW1 ([facility]) Body weight 268.8 [lb_av] 268.8 [lb_av] eCW1 ([facility]) Body mass index (BMI) [Ratio] 42.10 kg/m2 42.10 kg/m2 eCW1 ([facility]) Body temperature 97.9 [degF] 97.9 [degF] eCW1 ( [facility]) Heart rate 70 /min 70 /min eCW1 ([facility]) Respiratory rate 18 /min 18 /min eCW1 ([facility]) Oxygen saturation in Arterial blood by Pulse oximetry 97 % 97 % eCW1 ([facility]) Body weight 269.6 [lb_av] 269.6 [lb_av] eCW1 ([facility]) Body height 70 [in_i] 70 [in_i] eCW1 ([facility]) Body mass index (BMI) [Ratio] 38.68 kg/m2 38.68 kg/m2 eCW1 ([facility]) Body mass index (BMI) [Ratio] 37.1 kg/m2 37.1 k g/m2 MEDENT ([facility]) Body weight 266.00 [lb_av] 266.00 [lb_av] MEDEN T ([facility]) Body height 71 [in_i] 71 [in_i] MEDENT ([facility]i [facility]y [facility]) 5'11" Systolic blood pressure--sitting 132 mm[Hg] 132 mm[Hg] MEDENT ([facility]) Ra, large cuff Diastolic blood pressure--sitting 80 mm[Hg] 80 mm[Hg] MEDENT ([facility]) Ra, large cuff Body height 67 [in_i] 67 [in_i] eCW1 ([facility]) Body weight 263.2 [lb_av] 263.2 [lb_av] eCW1 ([facility]) Body mass index (BMI) [Ratio] 41.22 kg/m2 41.22 kg/m2 eCW1 ([facility]) Body temperature 98.0 [degF] 98.0 [degF] eCW1 ( [facility]) Heart rate 90 /min 90 /min eCW1 ([facility]) Respiratory rate 18 /min 18 /min eCW1 ([facility]) Oxygen saturation in Arterial blood by Pulse oximetry 98 % 98 % eCW1 ([facility]) Diastolic blood pressure 80 mm[Hg] 80 mm[Hg] eCW1 ([facility]) Body weight 263.4 [lb_av] 263.4 [lb_av] eCW1 ([facility]) Body height 70 [in_i] 70 [in_i] eCW1 ([facility]) Body mass index (BMI) [Ratio] 37.79 kg/m2 37.79 kg/m2 eCW1 ([facility]) Systolic blood pressure 110 mm[Hg] 110 mm[Hg] e CW1 ([facility]) Body weight 265 [lb_av] 265 [lb_av] eCW1 ([facility]) Body height 70 [in_i] 70 [in_i] eCW1 ([facility]) Body mass index (BMI) [Ratio] 38.02 kg/m2 38.02 kg/m2 eCW1 ([facility]) Systolic blood pressure 124 mm[Hg] 124 mm[Hg] e CW1 ([facility]) Diastolic blood pressure 76 mm[Hg] 76 mm[Hg] eCW1 ([facility]) Body height 67 [in_i] 67 [in_i] eCW1 ([facility]) Body weight 268.4 [lb_av] 268.4 [lb_av] eCW1 ([facility]) Body mass index (BMI) [Ratio] 42.03 kg/m2 42.03 kg/m2 eCW1 ([facility]) Body temperature 98.4 [degF] 98.4 [degF] eCW1 ( [facility]) Heart rate 70 /min 70 /min eCW1 ([facility]) Respiratory rate 18 /min 18 /min eCW1 ([facility]) Oxygen saturation in Arterial blood by Pulse oximetry 96 % 96 % eCW1 ([facility]) Body weight 262.00 [lb_av] 262.00 [lb_av] MEDEN T ([facility]) Body height 71 [in_i] 71 [in_i] MEDTANI ([facility]i [facility]y [facility]) 5'11" Body mass index (BMI) [Ratio] 36.5 kg/m2 36.5 k g/m2 MEDENT ([facility]) Heart rate 72 /min 72 /min MEDENT ([facility]) regular Respiratory rate 16 /min 16 /min MEDENT ( [facility]) nonlabored Systolic blood pressure--sitting 118 mm[Hg] 118 mm[Hg] MEDENT ([facility]) Ra, large cuff Diastolic blood pressure--sitting 72 mm[Hg] 72 mm[Hg] MEDENT ([facility]) Ra, large cuff Body weight 266.0 [lb_av] 266.0 [lb_av] eCW1 ([facility]) Body height 70 [in_i] 70 [in_i] eCW1 ([facility]) Body mass index (BMI) [Ratio] 38.16 kg/m2 38.16 kg/m2 eCW1 ([facility]) Systolic blood pressure 122 mm[Hg] 122 mm[Hg] e CW1 ([facility]) Diastolic blood pressure 76 mm[Hg] 76 mm[Hg] eCW1 ([facility]) Body height 67 [in_i] 67 [in_i] eCW1 ([facility]) Body weight 260.8 [lb_av] 260.8 [lb_av] eCW1 ([facility]) Body mass index (BMI) [Ratio] 40.84 kg/m2 40.84 kg/m2 eCW1 ([facility]) Body temperature 98.6 [degF] 98.6 [degF] eCW1 ( [facility]) Heart rate 70 /min 70 /min eCW1 ([facility]) Respiratory rate 18 /min 18 /min eCW1 ([facility]) Oxygen saturation in Arterial blood by Pulse oximetry 96 % 96 % eCW1 ([facility]) Body weight 267.0 [lb_av] 267.0 [lb_av] eCW1 ([facility]) Body height 70 [in_i] 70 [in_i] eCW1 ([facility]) Body mass index (BMI) [Ratio] 38.31 kg/m2 38.31 kg/m2 eCW1 ([facility]) Systolic blood pressure 128 mm[Hg] 128 mm[Hg] e CW1 ([facility]) Diastolic blood pressure 84 mm[Hg] 84 mm[Hg] eCW1 ([facility]) Body mass index (BMI) [Ratio] 37.9 kg/m2 37.9 k g/m2 MEDENT ([facility]) Respiratory rate 16 /min 16 /min MEDENT ( [facility]) Systolic blood pressure 126 mm[Hg] 126 mm[Hg] M EDENT ([facility]) sitting, large cuff Heart rate 68 /min 68 /min MEDENT ([facility]io [facility]) Regular Diastolic blood pressure 76 mm[Hg] 76 mm[Hg] MEDENT ([facility]) sitting, large cuff Body weight 272.00 [lb_av] 272.00 [lb_av] MEDEN T ([facility]) Body height 71 [in_i] 71 [in_i] MEDENT ([facility]) 5'11" Systolic blood pressure 119 mm[Hg] 119 mm[Hg] [facility] Diastolic blood pressure 65 mm[Hg] 65 mm[Hg] [facility] Heart rate 69 /min 69 /min [facility] Oxygen saturation in Arterial blood by Pulse oximetry 94 % 94 % [facility] Body temperature 36.56 Victorina 36.56 Victorina [facility] Respiratory rate 16 /min 16 /min [facility] Body weight 119.115 kg 119.115 kg [facility] Body mass index (BMI) [Ratio] 37.68 kg/m2 37.68 kg/m2 [facility] Body height 177.8 cm 177.8 cm [facility] Body height 67 [in_i] 67 [in_i] eCW1 ([facility]) Body weight 275.6 [lb_av] 275.6 [lb_av] eCW1 ([facility]) Body mass index (BMI) [Ratio] 43.16 kg/m2 43.16 kg/m2 eCW1 ([facility]) Body temperature 98.8 [degF] 98.8 [degF] eCW1 ( [facility]) Heart rate 71 /min 71 /min eCW1 ([facility]) Respiratory rate 17 /min 17 /min eCW1 ([facility]) Oxygen saturation in Arterial blood by Pulse oximetry 97 % 97 % eCW1 ([facility]) Body weight 266.00 [lb_av] 266.00 [lb_av] MEDEN T ([facility]) Body height 71 [in_i] 71 [in_i] MEDENT ([facility]) 5'11" Body mass index (BMI) [Ratio] 37.1 kg/m2 37.1 k g/m2 MEDENT ([facility]) Heart rate 69 /min 69 /min MEDENT ([facility]) Systolic blood pressure--sitting 118 mm[Hg] 118 mm[Hg] MEDENT ([facility]) large cuff, Ra Diastolic blood pressure--sitting 78 mm[Hg] 78 mm[Hg] MEDENT ([facility]) large cuff, Ra Patient Treatment Plan of Care Planned Activity Planned Date Details Description Data Source (s) Lisinopril 5 MG Oral Tablet 01/06/2021 09:00:00 AM EDT [facility] Acetaminophen 325 MG / Oxycodone Hydrochloride 5 MG Or al Tablet 01/06/2021 12:00:00 AM EDT [facility] Acetaminophen 325 MG / Oxycodone Hydrochloride 5 MG Or al Tablet 01/06/2021 12:00:00 AM EDT [facility] 10 ML Atropine Sulfate 0.1 MG/ML Prefilled Syringe 01/05/2021 11 :43:58 PM EDT [facility] Nitroglycerin 0.4 MG Sublingual Tablet 01/04/2021 11:28:01 PM EDT [facility] Albuterol 0.83 MG/ML Inhalant Solution 01/04/2021 11:27:52 PM EDT [facility] normal saline flush 0.9 % injection 10 mL 01/04/2021 10:00:00 PM ED T [facility] 24 HR Nicotine 0.583 MG/HR Transdermal Patch 09/29/2020 12:00:00 AM EDT eCW1 ([facility]) 24 HR Nicotine 0.583 MG/HR Transdermal Patch 09/29/2020 12:00:00 AM EDT eCW1 ([facility]) 24 HR Nicotine 0.583 MG/HR Transdermal Patch 09/29/2020 12:00:00 AM EDT eCW1 ([facility]) 24 HR Nicotine 0.583 MG/HR Transdermal Patch 09/29/2020 12:00:00 AM EDT eCW1 ([facility]) 24 HR Nicotine 0.875 MG/HR Transdermal Patch 08/18/2020 12:00:00 AM EST eCW1 ([facility]) 24 HR Nicotine 0.875 MG/HR Transdermal Patch 08/18/2020 12:00:00 AM EST eCW1 ([facility]) 24 HR Nicotine 0.875 MG/HR Transdermal Patch 08/18/2020 12:00:00 AM EST eCW1 ([facility]) Sinecatechins 0.15 MG/MG Topical Ointment [Veregen] 07/10/19 12:00:00 AM EST eCW1 ([facility]) Sertraline 25 MG Oral Tablet [Zoloft] 05/26/2020 12:00:00 AM EST eCW1 ([facility]) Sertraline 25 MG Oral Tablet [Zoloft] 05/26/2020 12:00:00 AM EST eCW1 ([facility]) imiquimod 50 MG/ML Topical Cream 05/18/2020 12:00:00 AM EST [id number] ([facility]) 24 HR Nicotine 0.875 MG/HR Transdermal Patch 03/19/2020 12:00:00 AM EDT [facility] clopidogrel 75 MG Oral Tablet 03/19/2020 12:00:00 AM EDT [facility] Nitroglycerin 0.4 MG Sublingual Tablet 03/18/2020 12:00:00 AM EDT [facility] carvedilol 3.125 MG Oral Tablet 03/18/2020 12:00:00 AM EDT [facility] atorvastatin 40 MG Oral Tablet 03/18/2020 12:00:00 AM EDT [facility] Famotidine 20 MG Oral Tablet [facility]
[2021-04-18] MEDS ORDERED: LISI2.5T9 (13:40)
--- NOTE | 2021-04-18 13:40 | REP ---
INDICATION: CHEST PAIN. COMPARISON: Multiple the latest 06/05/2020 also portable TECHNIQUE: Portable FINDINGS: The technique utilized in obtaining the radiograph has magnified the cardiac silhouette and accentuated the interstitial markings. The cardiomediastinal silhouette is unchanged. The dual chamber bipolar pacemaker devices unchanged. The loop recorder is unchanged. A few minimal left basilar opacities may have developed since the last exam. The left CP angle is not included on the radiograph. The right CP angle is sharp. There is no change in the osseous structures. IMPRESSION: Possible early left basilar opacities. <Electronically signed by José Miguel Barajas > 04/18/21 [id number]
[2021-04-18] MEDS ORDERED: MORPHINE 4 MG/ML 1ML VIAL/SYRINGE (J2270) IV ONE (13:50)
[2021-04-18 13:51] LABS: BASO # 0.1 10^3/uL (0.0-0.2); BASO % 0.6 % (0.0-1.0); EOS # 0.2 10^3/uL (0.0-0.5); EOS % 2.9 % (0.0-3.0); HEMATOCRIT 44.1 % (42.0-52.0); HEMOGLOBIN 14.6 g/dl (13.5-17.5); LYMPH # 2.8 10^3/uL (1.5-5.0); LYMPH % 35.7 % (24.0-44.0); MEAN CORPUSCULAR HEMOGLOBIN 29.2 pg (27.0-33.0); MEAN CORPUSCULAR HGB CONC 33.1 g/dl (32.0-36.5); MEAN CORPUSCULAR VOLUME 88.2 fl (80.0-96.0); MONO # 0.5 10^3/uL (0.0-0.8); MONO % 6.8 % (2.0-8.0); NEUTROPHILS # 4.2 10^3/uL (1.5-8.5); NEUTROPHILS % 53.9 % (36.0-66.0); PLATELET COUNT, AUTOMATED 265 10^3/uL (150-450); WHITE BLOOD COUNT 7.8 10^3/uL (4.0-10.0)
[2021-04-18 14:01] LABS: INR 0.98; PROTHROMBIN TIME 13.4 SECONDS (12.7-14.5)
[2021-04-18] MEDS ORDERED: ONDANSETRON 4MG/2ML VIAL IV ONE (14:10)
[2021-04-18 14:19] LABS: ALBUMIN 3.9 GM/DL (3.2-5.2); ALT/SGPT 37 U/L (12-78); BILIRUBIN,DIRECT 0.1 MG/DL (0.0-0.2); BILIRUBIN,TOTAL 0.3 MG/DL (0.2-1.0); BLOOD UREA NITROGEN 12 MG/DL (7-18); CALCIUM LEVEL 9.1 MG/DL (8.5-10.1); CARBON DIOXIDE LEVEL 30 MEQ/L (21-32); CHLORIDE LEVEL 106 MEQ/L (98-107); CK-MB VALUE MASS 5.1 NG/ML (<3.6); CPK CREATINE PHOSPHOKINASE 371 U/L (39-308); CREATININE FOR GFR 0.85 MG/DL (0.70-1.30); GLOMERULAR FILTRATION RATE > 60.0 (>60); GLUCOSE, FASTING 97 MG/DL (70-100); LIPASE 271 U/L (73-393); MB/CK RELATIVE INDEX 1.37 (< OR =4); POTASSIUM SERUM 3.6 MEQ/L (3.5-5.1); SODIUM LEVEL 140 MEQ/L (136-145); TOTAL PROTEIN 6.9 GM/DL (6.4-8.2); TROPONIN I < 0.02 NG/ML (< 0.10)
[2021-04-18 14:40] LABS: RSV AMPLIFICATION NEGATIVE (NEGATIVE)
--- NOTE | 2021-04-18 15:26 | REP ---
INDICATION: chest pain. COMPARISON: 06/05/2020. TECHNIQUE: CT angiogram chest performed following the intravenous administration of 100 cc of Isovue 370. Sagittal and coronal reconstruction images are performed. FINDINGS: Lungs: Hazy ground-glass opacities are seen in the posterior lower lobes inferiorly bilaterally, right greater than left. These most likely represent dependent atelectatic changes. Underlying infiltrate cannot be completely excluded. Mediastinum: No adenopathy. Pulmonary arteries: No evidence of pulmonary embolism. Kateryna: No adenopathy. Axilla: No adenopathy. Pleura: No effusion. Heart: Not enlarged. Thoracic aorta: No aneurysm or dissection. Upper abdominal structures: There is a small hiatal hernia. Visualized osseous structures: There are degenerative changes of the spine without compression deformity. There is an internal pacemaker again noted as well as a loop recorder. IMPRESSION: No CT evidence of pulmonary embolism. No thoracic aortic aneurysm or dissection. Hazy ground-glass opacities are seen in the posterior lower lobes inferiorly bilaterally, right greater than left. These most likely represent dependent atelectatic changes. Underlying infiltrate cannot be completely excluded. <Electronically signed by Palomo Gill > 04/18/21 [id number]
--- OUTSIDE RECORDS SUMMARY | 2021-04-18 16:20 | CCD ---
Author Author [facility] Organization [facility] Address Unknown Phone Unavailable Care Team Providers Care Brick Wheeler Name Role Phone Harmony, L Kathrin ORTHOPEDICALLY IMPAIRED TEACHER Unavailable Unavailable [place], L Kathrin ORTHOPEDICALLY IMPAIRED TEACHER Unavailable Unavailable [place], L Kathrin ORTHOPEDICALLY IMPAIRED TEACHER Unavailable Unavailable [place], L Kathrin ORTHOPEDICALLY IMPAIRED TEACHER Unavailable Unavailable Harmony, L Kathrin ORTHOPEDICALLY IMPAIRED TEACHER Unavailable Unavailable [place], L Kathrin ORTHOPEDICALLY IMPAIRED TEACHER Unavailable Unavailable [place], L Kathrin ORTHOPEDICALLY IMPAIRED TEACHER Unavailable Unavailable [place], L Kathrin ORTHOPEDICALLY IMPAIRED TEACHER Unavailable Unavailable [place], L Kathrin ORTHOPEDICALLY IMPAIRED TEACHER Unavailable Unavailable Harmony, L Kathrin ORTHOPEDICALLY IMPAIRED TEACHER Unavailable Unavailable [place], L Kathrin ORTHOPEDICALLY IMPAIRED TEACHER Unavailable Unavailable Harmony, L Kathrin ORTHOPEDICALLY IMPAIRED TEACHER Unavailable Unavailable [place], L Kathrin ORTHOPEDICALLY IMPAIRED TEACHER Unavailable Unavailable Harmony, L Kathrin ORTHOPEDICALLY IMPAIRED TEACHER Unavailable Unavailable Harmony, L Kathrin ORTHOPEDICALLY IMPAIRED TEACHER Unavailable Unavailable Harmony, L Kathrin ORTHOPEDICALLY IMPAIRED TEACHER Unavailable Unavailable Harmony, L Kathrin ORTHOPEDICALLY IMPAIRED TEACHER Unavailable Unavailable Harmony, L Kathrin ORTHOPEDICALLY IMPAIRED TEACHER Unavailable Unavailable Harmony, L Kathrin ORTHOPEDICALLY IMPAIRED TEACHER Unavailable Unavailable Harmony, L Kathrin ORTHOPEDICALLY IMPAIRED TEACHER Unavailable Unavailable [place], L Kathrin ORTHOPEDICALLY IMPAIRED TEACHER Unavailable Unavailable Harmony, L Kathrin ORTHOPEDICALLY IMPAIRED TEACHER Unavailable Unavailable [place], L Kathrin ORTHOPEDICALLY IMPAIRED TEACHER Unavailable Unavailable Harmony, L Kathrin ORTHOPEDICALLY IMPAIRED TEACHER Unavailable Unavailable [place], L Kathrin ORTHOPEDICALLY IMPAIRED TEACHER Unavailable Unavailable Harmony, L Kathrin ORTHOPEDICALLY IMPAIRED TEACHER Unavailable Unavailable [place], L Kathrin ORTHOPEDICALLY IMPAIRED TEACHER Unavailable Unavailable [place], L Kathrin ORTHOPEDICALLY IMPAIRED TEACHER Unavailable Unavailable [place], L Kathrin ORTHOPEDICALLY IMPAIRED TEACHER Unavailable Unavailable [place], L Kathrin ORTHOPEDICALLY IMPAIRED TEACHER Unavailable Unavailable [place], L Kathrin ORTHOPEDICALLY IMPAIRED TEACHER Unavailable Unavailable Harmony, L Kathrin ORTHOPEDICALLY IMPAIRED TEACHER Unavailable Unavailable [place], L Kathrin ORTHOPEDICALLY IMPAIRED TEACHER Unavailable Unavailable [place], L Kathrin ORTHOPEDICALLY IMPAIRED TEACHER Unavailable Unavailable Harmony, L Kathrin ORTHOPEDICALLY IMPAIRED TEACHER Unavailable Unavailable [place], L Kathrin ORTHOPEDICALLY IMPAIRED TEACHER Unavailable Unavailable Harmony, L Kathrin ORTHOPEDICALLY IMPAIRED TEACHER Unavailable Unavailable Harmony, L Kathrin ORTHOPEDICALLY IMPAIRED TEACHER Unavailable Unavailable [place], L Kathrin ORTHOPEDICALLY IMPAIRED TEACHER Unavailable Unavailable Ranulfo, L Ania PA Unavailable [...] HALLERAN, Cintia OBREGON MD Unavailable Unavailable HALLERAN, Citnia OBREGON MD Unavailable Unavailable HALLERAN, Cintia OBREGON [...] Unavailable HALLERAHector, Cintia OBREGON MD Unavailable Unavailable HALLERAHector, Cintia OBREGON MD Unavailable Unavailable HALLERAHector, Cintia OBREGON MD Unavailable Unavailable HALLERAHector, Cintia OBREGON MD Unavailable Unavailable HALLERAHector, Cintia OBREGON MD Unavailable Unavailable HALLERAHector, Cintia OBREGON MD Unavailable Unavailable HALLJV, Cintia OBREGON MD Unavailable Unavailable HALLJV, Cintia OBREGON MD Unavailable Unavailable HALLJV, Cintia OBREGON MD Unavailable Unavailable HALLJV, Cintia OBREGON MD Unavailable Unavailable HALLERAN, Cintia OBREGON MD Unavailable Unavailable HALLERAN, Cintia OBREGON MD Unavailable Unavailable HALLERAN, Cintia OBREGON MD Unavailable Unavailable HALLERAN, Cintia OBREGON MD Unavailable Unavailable HALLERAN, Cintia OBREGON MD Unavailable Unavailable HALLERAN, Cintia OBREGON MD Unavailable Unavailable HALLERAN, Cintia OBREGON MD Unavailable Unavailable El-Maru, Stephon Montes MD Unavailable Unavailable El-Khally, Stephon [...] Unavailable Rydberg, Adrienne PA Unavailable Unavailable Rydberg, Adrienen PA Unavailable Unavailable Rydberg, Adrienne PA Unavailable [...] Unavailable Violet, M Melva PA-C Unavailable Unavailable Jovon, Cintia Elizabeth MD Unavailable [...] Unavailable Unavailable Cintia Sigala MD Unavailable Unavailable Sigala, Cintia Elizabeth MD Unavailable Unavailable Cintia Sigala MD Unavailable Unavailable Sigala, Cintia Elizabeth MD Unavailable Unavailable Alexandra, Catalina W Lizzy GRINDER LAP-C Unavailable Unavailabl e Alexandra, Reginavanita W Lizzy GRINDER LAP-C Unavailable Unavailabl e Alexandra, Regfritz W Lizzy GRINDER LAP-C Unavailable Unavailabl e Alexandra, Catalina W Lizzy GRINDER LAP-C Unavailable Unavailabl e Alexandra, Reginavanita W Lizzy GRINDER LAP-C Unavailable Unavailabl e Alexandra, Reginavanita W Lizzy GRINDER LAP-C Unavailable Unavailabl e Alexandra, Reginavanita W Lizzy GRINDER LAP-C Unavailable Unavailabl e Alexandra, Catalina W Lizzy GRINDER LAP-C Unavailable Unavailabl e Alexandra, Catalina W Lizzy GRINDER LAP-C Unavailable Unavailabl e Alexandra, Catalina W Lizzy GRINDER LAP-C Unavailable Unavailabl e Alexandra, Catalina W Lizzy GRINDER LAP-C Unavailable Unavailabl e Alexandra, Catalina W Lizzy GRINDER LAP-C Unavailable Unavailabl e Alexandra, Regfritz W Lizzy GRINDER LAP-C Unavailable Unavailabl e Alexandra, Brandi W Lizzy GRINDER LAP-C Unavailable Unavailabl e Alexandra, Brandi W Lizzy GRINDER LAP-C Unavailable Unavailabl e Alexandra, Regshannan W Lizzy GRINDER LAP-C Unavailable Unavailabl e Alexandra, Regshannan W Lizzy GRINDER LAP-C Unavailable Unavailabl e Alexandra, Regina W Lizzy GRINDER LAP-C Unavailable Unavailabl e Alexandra, Regina W Lizzy GRINDER LAP-C Unavailable Unavailabl e Alexandra, Reginavanita W Lizzy GRINDER LAP-C Unavailable Unavailabl e Alexandra, Regina W Lizzy GRINDER LAP-C Unavailable Unavailabl e Alexandra, Regina W Lizzy GRINDER LAP-C Unavailable Unavailabl e Alexandra, Regina W Lizzy GRINDER LAP-C Unavailable Unavailabl e Alexandra, Regina W Lizzy GRINDER LAP-C Unavailable Unavailabl e Alexandra, Regina W Lizzy GRINDER LAP-C Unavailable Unavailabl e Alexandra, Reginah W Lizzy GRINDER LAP-C Unavailable Unavailabl e Alexandra, Catalina Matson Lizzy GRINDER LAP-C Unavailable Unavailabl e Alexandra, Catalina Matson Lizzy GRINDER LAP-C Unavailable Unavailabl e Alexandra, Catalina Matson Lizzy GRINDER LAP-C Unavailable Unavailabl e Alexandra, Catalina Matson Lizzy GRINDER LAP-C Unavailable Unavailabl e Alexandra, Catalina Matson Lizzy GRINDER LAP-C Unavailable Unavailabl e Alexandra, Brandih W Lizzy GRINDER LAP-C Unavailable Unavailabl e Symenow, Marlene Basilia PA [...] is protected by Article 27-F of the [facility] Public Health law. If you continue you may have access to information: Regarding HIV / AIDS; Provided by facilities licensed or operated by the [facility] Office of Mental Health; or Provided by the [facility] Office for People With Developmental Disabilities. If such information is present, then the following [facility] mandated warning applies: This information has been [...] law may result in a fine or shelter sentence or both. A general authorization for the release of medical or other information is NOT sufficient authorization for further disc losure. Allergies and Adverse Reactions Type Description Substance Reaction Status Data Source(s ) Propensity to adverse reactions LATEX Latex Acti ve [facility] Family History Family Member Name Family Member Gender Family Member Status Date o f Status Description Data Source(s) Unknown Male Problem [facility] ([facility]) Unknown Male Problem MEDENT ([facility] Unknown Female Problem MEDENT ([facility]) Encounters Encounter Providers Location Date Indications Data Source(s ) Outpatient Attender: Melva Lazo PA-C 01/19/2021 11:30 :00 AM EDT [facility] (TCM) TCM/Hospital Follow Up [facility] 01/19/2021 12:00:00 AM EDT eCW1 ([facility]) Outpatient [facility] 01/08/2021 12:00:00 AM EDT eCW1 ([facility]) Outpatient [facility] 01/08/2021 12:00:00 AM EDT eCW1 ([facility]) Inpatient Attender: SABAS PAGE MDA dmitter: SABAS PAGE MDReferrer: KANDACE GARDNER [id number] 01/04/2021 03:12:00 PM EDT - 01/06/2021 06:04:00 PM EDT [facility] Patient discharged. Outpatient [facility] 01/04/2021 12:00:00 AM EDT eCW1 ([facility]) Attender: Glenn Sigala MD 11/06/2020 06:15:42 PM EDT [facility] Outpatient Attender: Glenn Sigala MDAdmitter: Glenn Sigala MD 11/03/2020 07:25:00 AM EDT - 11/03/2020 05:06:00 PM EDT ANAL CONDYLOMA A63.0 [facility] ANAL CONDYLOMA A63.0 Patient discharged. Outpatient Attender: DUSTIN GARDNER Main Office 10/19/2020 0 9:15:00 AM EDT [facility] ([facility]) Outpatient [facility] 10/19/2020 12:00:00 AM EDT eCW1 ([facility]) Outpatient [facility] 10/09/2020 12:00:00 AM EDT eCW1 ([facility]) Outpatient Attender: Glenn Sigala MD [place] 10/05/2020 03:00:00 PM EDT MEDENT ([facility]) Outpatient Attender: Melva Lazo PA-C 09/29/2020 09:29 :00 AM EDT [facility] Outpatient [facility] 09/29/2020 12:00:00 AM EDT eCW1 ([facility]) Outpatient [facility] 09/13/2020 12:00:00 AM EDT eCW1 ([facility]) [place] [address] [address] 09/12/2020 12:00:00 AM EDT eCW1 ([facility]) [place] [address] [address] 09/08/2020 12:00:00 AM EDT eCW1 ([facility]) Outpatient Attender: DUSTIN GARDNER Main Office 09/07/2020 0 9:45:00 AM EDT [facility] ([facility]) Outpatient [facility] 09/05/2020 12:00:00 AM EDT eCW1 ([facility]) Outpatient Attender: Melva Lazo PA-C 08/18/2020 08:48 :00 AM EST [facility] Outpatient [facility] 08/18/2020 12:00:00 AM EST eCW1 ([facility]) [place] [address] [facility] [address] 08/11/2020 12:00:00 AM EST eCW1 ([facility]) Outpatient [facility] 07/28/2020 12:00:00 AM EST eCW1 ([facility]) Outpatient [facility] 07/26/2020 12:00:00 AM EST eCW1 ([facility]) Outpatient [facility] 07/21/2020 12:00:00 AM EST eCW1 ([facility]) [place] [address] [facility] [address] 07/10/2020 12:00:00 AM EST eCW1 ([facility]) Outpatient Attender: Melva Lazo PA-C 06/30/2020 08:40 :00 AM EST [facility] Outpatient [facility] 06/30/2020 12:00:00 AM EST eCW1 ([facility]) Outpatient Attender: DUSTIN GARDNER Main Office 06/21/2020 0 8:15:00 AM EST [facility] ([facility]) [place] [address] [facility] [address] 06/19/2020 12:00:00 AM EST eCW1 ([facility]) Outpatient Attender: Melva Lazo PA-C 05/26/2020 08:21 :00 AM EST [facility] Outpatient [facility] 05/26/2020 12:00:00 AM EST eCW1 ([facility]) Outpatient [facility] 05/23/2020 12:00:00 AM EST eCW1 ([facility]) [place] [address] [facility] [address] 05/18/2020 12:00:00 AM EST eCW1 ([facility]) Outpatient Attender: Basilia GARDNER Main Office 05/10/2020 07:15:00 AM EST [facility] ([facility]) Inpatient Attender: PREETHI GUERRERO MDAdmitter: PREETHI VILLAREAL CHI, MD [id number] 05/03/2020 11:28:47 PM EST - 05/05/2020 01:53:00 PM EST [facility] Patient discharged. Outpatient [facility] 04/27/2020 12:00:00 AM EST eCW1 ([facility]) Outpatient [facility] 04/17/2020 12:00:00 AM EST eCW1 ([facility]) Outpatient Attender: Kathrin PATIÑO 04/10/2020 08:52:00 AM EDT [facility] Outpatient [facility] 04/10/2020 12:00:00 AM EDT eCW1 ([facility]) Outpatient [facility] 04/07/2020 12:00:00 AM EDT eCW1 ([facility]) Outpatient Attender: Ania GARDNER Main Office 03/20/2020 08:45:0 0 AM EDT [facility] ([facility]) Inpatient Attender: Simon Witt MDAdmitter: Simon silver MD [id number] 03/16/2020 09:15:00 AM EDT - 03/18/2020 03:59:00 PM EDT [facility] Patient discharged. Outpatient [facility] 02/28/2020 12:00:00 AM EDT eCW1 ([facility]) Outpatient Attender: Kathrin PATIÑO 01/07/2020 08:10:00 AM [facility] Outpatient Attender: Kathrin PATIÑO 12/15/2019 03:27:00 PM [facility] Outpatient Attender: Lizzy MCGINNIS-CAttender: Adrienne GARDNER 11/29/2019 04:51:00 PM [facility] Outpatient Attender: Lizzy TIRADO 11/13/2019 11:32:0 0 AM [facility] Outpatient Attender: Adrienne GARDNER 10/23/2019 09:00:00 AM [facility] Outpatient Attender: SLIM CHIANGCReferrer: [facility] 12/01/2018 12:43:00 PM EDT - 12/01/2018 12:43:00 PM EDT [facility] Outpatient Attender: FARZANEH GARDNER [facility] 0 10/19/2018 01:36:00 PM EDT - 10/19/2018 01:36:00 PM EDT [facility] Outpatient Attender: SLIM ZAPIEN RPA-C 08/14/2017 10:30:00 AM EST [facility] Immunizations Vaccine Date Status Description Data Source(s) COVID-19 VACCINE Moderna 10/09/2020 12:00:00 AM EDT completed [facility] Vaccine Series Complete: YESThis Data wa s Submitted to [facility] Via [employer]. COVID-19 VACC,MRNA(MODERNA)/PF 09/08/2020 12:00:00 AM EDT completed [facility] COVID-19 VACCINE Moderna 09/08/2020 12:00:00 AM EDT completed [facility] Vaccine Series Complete: NOThis Data was Submitted to [facility] Via [employer]. New in 2011. IIV4 04/10/2020 09:46:00 AM EDT completed eCW1 ([facility]) New in 2011. IIV4 04/10/2020 09:46:00 AM EDT completed eCW1 ([facility]) New in 2011. IIV4 04/10/2020 09:46:00 AM EDT completed eCW1 ([facility]) New in 2011. IIV4 04/10/2020 09:46:00 AM EDT completed eCW1 ([facility]) New in 2011. IIV4 04/10/2020 09:46:00 AM EDT completed eCW1 ([facility]) New in 2011. IIV4 04/10/2020 09:46:00 AM EDT completed eCW1 ([facility]) New in 2011. IIV4 04/10/2020 09:46:00 AM EDT completed eCW1 ([facility]) New in 2011. IIV4 04/10/2020 09:46:00 AM EDT completed eCW1 ([facility]) New in 2011. IIV4 04/10/2020 09:46:00 AM EDT completed eCW1 ([facility]) New in 2011. IIV4 04/10/2020 09:46:00 AM EDT completed eCW1 ([facility]) New in 2011. IIV4 04/10/2020 09:46:00 AM EDT completed eCW1 ([facility]) New in 2011. IIV4 04/10/2020 09:46:00 AM EDT completed eCW1 ([facility]) New in 2011. IIV4 04/10/2020 09:46:00 AM EDT completed eCW1 ([facility]) New in 2011. IIV4 04/10/2020 09:46:00 AM EDT completed eCW1 ([facility]) New in 2011. IIV4 04/10/2020 09:46:00 AM EDT completed eCW1 ([facility]) New in 2011. IIV4 04/10/2020 09:46:00 AM EDT completed eCW1 ([facility]) New in 2011. IIV4 04/10/2020 09:46:00 AM EDT completed eCW1 ([facility]) New in 2011. IIV4 04/10/2020 09:46:00 AM EDT completed eCW1 ([facility]) New in 2011. IIV4 04/10/2020 09:46:00 AM EDT completed eCW1 ([facility]) Medications Medication Brand Name Start Date Product [...] Daily, First dose on 01/06/21 at 0900 [facility] Medication administered onsite Sertraline 50 MG Oral Tablet sertraline (ZOLOFT) table t 25 mg sertraline (ZOLOFT) tablet 25 mg 01/06/2021 09:00:00 AM EDT 25 mg Oral active 25 mg, Oral, Daily, First dose on 01/06/21 at 0900 [facility] Medication administered onsite Lisinopril 5 MG Oral Tablet lisinopril (PRINIVIL,ZESTR IL) tablet 2.5 mg lisinopril (PRINIVIL,ZESTRIL) tablet 2.5 mg 01/06/2021 09:00:00 AM EDT 2.5 mg Oral active 2.5 mg, Oral, Daily, First dose on 01/06/21 at 0900 [facility] Medication administered onsite Acetaminophen 325 MG / Oxycodone Hydroch loride 5 MG Oral Tablet oxyCODONE- Acetaminophen 5-325 MG oxyCODONE-Acetaminophen 5-325 MG 01/06/2021 12:00:00 A M EDT 1.0 {tablet_as_needed} suspended oxyCODONE-Acetaminophen 5-325 MG eCW1 ([facility]) Acetaminophen 325 MG / Oxycodone Hydroch loride 5 MG Oral Tablet oxyCODONE- acetaminophen (PERCOCET) 5-325 MG per tablet oxyCODONE-acetaminophen (PERCOCET) 5-325 MG per tablet 01/06/2021 12:00:00 AM EDT {tbl} Oral aborted Take 1-2 tablets by mouth every 4 (four) hours as needed for pain Max Daily Amount: 6 tablets [facility] Acetaminophen 325 MG / Oxycodone Hydroch loride 5 MG Oral Tablet oxyCODONE- Acetaminophen 5-325 MG oxyCODONE-Acetaminophen 5-325 MG 01/06/2021 12:00:00 A M EDT 1.0 {tablet_as_needed} active o xyCODONE-Acetaminophen 5-325 MG eCW1 ([facility]) Acetaminophen 325 MG / Oxycodone Hydroch loride 5 MG Oral Tablet oxyCODONE- acetaminophen (PERCOCET) 5-325 MG per tablet oxyCODONE-acetaminophen (PERCOCET) 5-325 MG per tablet 01/06/2021 12:00:00 AM EDT {tbl} Oral active Take 1-2 tablets by mouth every 4 (four) hours as needed for pain Max Daily Amount: 12 tablets [facility] 5-325 mg 01/06/2021 12:00:00 AM EDT tablet 8 TAKE 1-2 TABLETS BY MOUTH EVERY 4 HOURS NEEDED FOR PAIN MAXIMUM DAILY DOSE = 8 TABLETS TAKE 1-2 TABLETS BY MOUTH EVERY 4 HOURS NEEDED FOR PAIN MAXIMUM DAILY DOSE = 8 TABLETS SOLD: 01/06/2021 Sydni Moreno Acetaminophen 325 MG / Oxycodone Hydroch loride 5 MG Oral Tablet oxyCODONE- Acetaminophen 5-325 MG oxyCODONE-Acetaminophen 5-325 MG 01/06/2021 12:00:00 A M EDT 1.0 {tablet_as_needed} active o xyCODONE-Acetaminophen 5-325 MG eCW1 ([facility]) 10 ML Atropine Sulfate 0.1 MG/ML Prefill [...] or 0.04 mg/kg. Max of 6 doses
[facility] Medication administered onsite Acetaminophen 325 MG / Oxycodone Hydroch loride 5 MG Oral Tablet oxyCODONE- acetaminophen (PERCOCET) 5-325 MG 1-2 tablet oxyCODONE-acetaminophen (PERCOCET) 5-325 MG 1-2 tablet 01/05/2021 01:08:44 PM EDT {tbl} Oral active 1-2 tablet, Oral, Every 4 hours PRN, moderate pain (4-6), severe pain (7-10), Starting on Fri01/05/21 at 1308, For 7 days [facility] Medication administered onsite carvedilol 3.125 MG Oral Tablet carvedilol (COREG) tab let 3.125 mg carvedilol (COREG) tablet 3.125 mg 01/05/2021 09:00:00 AM EDT 3.125 mg Oral active 3.125 mg, Oral, 2 times daily, First dos e on Fri01/05/21 at 0900
Hold for SBP <110
[facility] Medication administered onsite Nitroglycerin 0.4 MG Sublingual Tablet n itroglycerin (NITROSTAT) SL tablet 0.4 mg nitroglycerin (NITROSTAT) SL tablet 0.4 mg 01/04/2021 11:28:01 P M EDT 0.4 mg Sublingual active 0.4 mg, S ublingual, Every 5 min PRN, chest pain, Starting on [place] 01/04/21 at 2328
May administer up to 3 doses per episode.
[facility] Medication administered onsite Albuterol 0.83 MG/ML Inhalant Solution a lbuterol (PROVENTIL) nebulizer solution 2.5 mg albuterol (PROVENTIL) nebulizer solution 2.5 mg 2020 11:27:52 PM EDT 2.5 mg active 2.5 mg, Nebulization, 2 times daily PRN, wheezing, shortness of breath, Starting on [place] 01/04/21 at 2327 [facility] Medication administered onsite Morphine Sulfate (PF) injection 3 mg [id number] 01/04/2021 11:00: 01 PM EDT 3 mg Intravenous aborted 3 mg, In travenous, Every 4 hours PRN, severe pain (7-10), Starting on [place] 01/04/21 at 2300, For 7 days
Severe breakthrough pain
[facility] Medication administered onsite normal saline flush 0.9 % injection 10 mL [id number] 01/04/2021 10:00:00 PM EDT 10 mL Intravenous active 10 m L, Intravenous, Every 8 hours (scheduled), First dose on [place] 01/04/21 at 2200
Flush with 10 mL NS prior and post medication administration. Flush with 10 mL NS prior to blood specimen collection and flush with 20 mL to clear solution/drug post blood specimen collection
[facility] Medication administered onsite piperacillin-tazobactam (ZOSYN) 3.375 g in sodium chloride (NS) 0.9 % 100 mL IV pigtail 01/04/2021 07:00:00 PM EDT 3.375 g Intravenous active Skin and Soft Tissue Infection 3.375 g, Intravenous, Admini ster over 30 Minutes, Every 6 hours (relative), First dose on [place] 01/04/21 at 1900 [facility] Skin and Soft Tissue Infection Medication administered onsite sodium chloride 0.9% (NS) infusion [id number] 01/04/2021 05:00:00 P M EDT Intravenous active at 100 mL/hr, Intravenous, Continuous, Starting on [place] 01/04/21 at 1700 [facility] Medication administered onsite normal saline flush 0.9 % injection 3 mL [id number] 01/04/2021 05:00:00 PM EDT 3 mL Intravenous active 3 mL , Intravenous, Every 8 hours (scheduled), First dose on [place] 01/04/21 at 1700
flush per protocol, D/C Main IV fluid if appropriate
[facility] Medication administered onsite ondansetron (ZOFRAN) injection 4 mg [id number] 01/04/2021 04:42:1 9 PM EDT 4 mg Intravenous active 4 mg, In travenous, Every 6 hours PRN, nausea, vomiting, Starting on [place] 01/04/21 at 1642 [facility] Medication administered onsite Acetaminophen 325 MG / [...] DAILY DOSE = 6 TABLETS SOLD: 11/03/2020 [facility] 24 HR Nicotine 0.583 MG/HR Transdermal Patch Nicotine 14 MG/24HR Nicotine 14 MG/24HR 09/29/2020 12:00:00 AM EDT 1.0 {patch_to_skin} active Nicotine 14 MG/24HR eCW1 ([facility]) 24 HR Nicotine 0.583 MG/HR Transdermal Patch Nicotine 14 MG/24HR Nicotine 14 MG/24HR 09/29/2020 12:00:00 AM EDT 1.0 {patch_to_skin} active Nicotine 14 MG/24HR eCW1 ([facility]) 24 HR Nicotine 0.583 MG/HR Transdermal Patch Nicotine 14 MG/24HR Nicotine 14 MG/24HR 09/29/2020 12:00:00 AM EDT 1.0 {patch_to_skin} active Nicotine 14 MG/24HR eCW1 ([facility]) 24 HR Nicotine 0.583 MG/HR Transdermal Patch Nicotine 14 MG/24HR Nicotine 14 MG/24HR 09/29/2020 12:00:00 AM EDT 1.0 {patch_to_skin} active Nicotine 14 MG/24HR eCW1 ([facility]) 24 HR Nicotine 0.583 MG/HR Transdermal Patch Nicotine 14 MG/24HR Nicotine 14 MG/24HR 09/29/2020 12:00:00 AM EDT 1.0 {patch_to_skin} active Nicotine 14 MG/24HR eCW1 ([facility]) 14 mg/24 hr 09/29/2020 12:00:00 AM EDT patch 24 hour 3 APPLY ONE PATCH TO THE SKIN EVERY DAY APPLY ONE PATCH TO THE SKIN EVERY DAY SOLD: 10/04/2020 [facility] 24 HR Nicotine 0.583 MG/HR Transdermal Patch Nicotine 14 MG/24HR Nicotine 14 MG/24HR 09/29/2020 12:00:00 AM EDT 1.0 {patch_to_skin} active Nicotine 14 MG/24HR eCW1 ([facility]) 24 HR Nicotine 0.583 MG/HR Transdermal Patch Nicotine 14 MG/24HR Nicotine 14 MG/24HR 09/29/2020 12:00:00 AM EDT 1.0 {patch_to_skin} active Nicotine 14 MG/24HR eCW1 ([facility]) carvedilol 3.125 MG Oral Tablet CARVEDILOL 09/13/2020 12:00:00 AM EDT tablet 60 TAKE ONE TABLET BY MOUTH TWICE A DAY TAKE ONE TABLET BY MOUT H TWICE A DAY SOLD: 11/15/2020 [facility] carvedilol 3.125 MG Oral Tablet CARVEDILOL 09/13/2020 12:00:00 AM EDT tablet 60 TAKE ONE TABLET BY MOUTH TWICE A DAY TAKE ONE TABLET BY MOUT H TWICE A DAY SOLD: 01/23/2021 [facility] carvedilol 3.125 MG Oral Tablet CARVEDILOL 09/13/2020 12:00:00 AM EDT tablet 60 TAKE ONE TABLET BY MOUTH TWICE A DAY TAKE ONE TABLET BY MOUT H TWICE A DAY SOLD: 02/20/2021 [facility] carvedilol 3.125 MG Oral Tablet CARVEDILOL [...] 1.0 {patch_to_skin} active Nicotine 21 MG/24HR eCW1 ([facility]) 24 HR Nicotine 0.875 MG/HR Transdermal Patch Nicotine 21 MG/24HR Nicotine 21 MG/24HR 08/18/2020 12:00:00 AM EST 1.0 {patch_to_skin} active Nicotine 21 MG/24HR eCW1 ([facility]) 24 HR Nicotine 0.875 MG/HR Transdermal Patch Nicotine 21 MG/24HR Nicotine 21 MG/24HR 08/18/2020 12:00:00 AM EST 1.0 {patch_to_skin} active Nicotine 21 MG/24HR eCW1 ([facility]) 25 mg 08/18/2020 12:00:00 AM EST tablet 30 TAKE ONE TABLET BY MOUTH EVERY DAY TAKE ONE TABLET BY MOUTH EVERY DAY SOLD: 01/23/2021 [facility] 24 HR Nicotine 0.875 MG/HR Transdermal Patch Nicotine 21 MG/24HR Nicotine 21 MG/24HR 08/18/2020 12:00:00 AM EST 1.0 {patch_to_skin} active Nicotine 21 MG/24HR eCW1 ([facility]) 25 mg 08/18/2020 12:00:00 AM EST tablet 30 TAKE ONE TABLET BY MOUTH EVERY DAY TAKE ONE TABLET BY MOUTH EVERY DAY SOLD: 09/28/2020 [facility] 24 HR Nicotine 0.875 MG/HR Transdermal Patch Nicotine 21 MG/24HR Nicotine 21 MG/24HR 08/18/2020 12:00:00 AM EST 1.0 {patch_to_skin} active Nicotine 21 MG/24HR eCW1 ([facility]) 25 mg 08/18/2020 12:00:00 AM EST tablet 30 TAKE ONE TABLET BY MOUTH EVERY DAY TAKE ONE TABLET BY MOUTH EVERY DAY SOLD: 12/25/2020 [facility] 24 HR Nicotine 0.875 MG/HR Transdermal Patch Nicotine 21 MG/24HR Nicotine 21 MG/24HR 08/18/2020 12:00:00 AM EST 1.0 {patch_to_skin} active Nicotine 21 MG/24HR eCW1 ([facility]) 25 mg 08/18/2020 12:00:00 AM EST tablet 30 TAKE ONE TABLET BY MOUTH EVERY DAY TAKE ONE TABLET BY MOUTH EVERY DAY SOLD: 08/25/2020 [facility] 24 HR Nicotine 0.875 MG/HR Transdermal Patch Nicotine 21 MG/24HR Nicotine 21 MG/24HR 08/18/2020 12:00:00 AM EST 1.0 {patch_to_skin} active Nicotine 21 MG/24HR eCW1 ([facility]) 25 mg 08/18/2020 12:00:00 AM EST tablet 30 TAKE ONE TABLET BY MOUTH EVERY DAY TAKE ONE TABLET BY MOUTH EVERY DAY SOLD: 11/28/2020 [facility] 24 HR Nicotine 0.875 MG/HR Transdermal Patch Nicotine 21 MG/24HR Nicotine 21 MG/24HR 08/18/2020 12:00:00 AM EST 1.0 {patch_to_skin} suspended Nicotine 21 MG/24HR eCW1 ([facility]) 24 HR Nicotine 0.875 MG/HR Transdermal Patch Nicotine 21 MG/24HR Nicotine 21 MG/24HR 08/18/2020 12:00:00 AM EST 1.0 {patch_to_skin} active Nicotine 21 MG/24HR eCW1 ([facility]) 24 HR Nicotine 0.875 MG/HR Transdermal Patch Nicotine 21 MG/24HR Nicotine 21 MG/24HR 08/18/2020 12:00:00 AM EST 1.0 {patch_to_skin} active Nicotine 21 MG/24HR eCW1 ([facility]) 40 mg 07/28/2020 [...] 1.0 {application} active Veregen 15 % eCW1 ([facility]) Sinecatechins 0.15 MG/MG Topical Ointment [Veregen] Veregen 15 % Veregen 15 % 07/10/2020 12:00:00 AM EST 1.0 {application} active Veregen 15 % eCW1 ([facility]) Sinecatechins 0.15 MG/MG Topical Ointment [Veregen] Veregen 15 % Veregen 15 % 07/10/2020 12:00:00 AM EST 1.0 {application} active Veregen 15 % eCW1 ([facility]) Sinecatechins 0.15 MG/MG Topical Ointment [Veregen] Veregen 15 % Veregen 15 % 07/10/2020 12:00:00 AM EST 1.0 {application} active Veregen 15 % eCW1 ([facility]) 40 mg 07/03/2020 12:00:00 AM EST capsule,delayed [...] EST ORAL active [facility] ([facility]) Sucralfate 1000 MG Oral Tablet Sucralfate 06/20/2020 12:00:00 AM EST ORAL active [facility] ([facility]) Centrum Silver 06/20/2020 12:00:00 AM EST ORAL act jack [facility] ([facility]) Omeprazole 40 MG Delayed Release Oral Capsule Omeprazole 06/20/2020 12:00:00 AM EST ORAL active [facility] ([facility]) Loratadine 10 MG Oral Tablet Loratadine 06/20/2020 12:00:00 AM EST ORAL active [facility] ([facility]) Airborne 06/20/2020 12:00:00 AM EST ORAL completed [facility] ([facility]) 25 mg 05/26/2020 12:00:00 AM EST tablet 30 TAKE ONE TABLET BY MOUTH EVERY DAY TAKE ONE TABLET BY MOUTH EVERY DAY SOLD: 05/30/2020 [facility] Sertraline 25 MG Oral Tablet [Zoloft] Zoloft 25 MG Zoloft 25 MG 05/26/2020 12:00:00 AM EST 1.0 {tablet} active Zo loft 25 MG eCW1 ([facility]) 25 mg 05/26/2020 12:00:00 AM EST tablet 30 TAKE ONE TABLET BY MOUTH EVERY DAY TAKE ONE TABLET BY MOUTH EVERY DAY SOLD: 06/29/2020 [facility] Sertraline 25 MG Oral Tablet [Zoloft] Zoloft 25 MG Zoloft 25 MG 05/26/2020 12:00:00 AM EST 1.0 {tablet} active Zo loft 25 MG eCW1 ([facility]) Sertraline 25 MG Oral Tablet [Zoloft] Zoloft 25 MG Zoloft 25 MG 05/26/2020 12:00:00 AM EST 1.0 {tablet} active Zo loft 25 MG eCW1 ([facility]) Loratadine 10 MG Oral Tablet Loratadine 10 MG 05/18/2020 12:00:00 A M EST 1.0 {tablet} active Loratadine 10 MG eCW1 ( [facility]) Loratadine 10 MG Oral Tablet Loratadine 10 MG 05/18/2020 12:00:00 A M EST 1.0 {tablet} active Loratadine 10 MG eCW1 ( [facility]) Loratadine 10 MG Oral Tablet Loratadine 10 MG 05/18/2020 12:00:00 A M EST 1.0 {tablet} active Loratadine 10 MG eCW1 ( [facility]) 5 % 05/18/2020 12:00:00 AM EST cream [...] {tablet} active Loratadine 10 MG eCW1 ( [facility]) Loratadine 10 MG Oral Tablet Loratadine 10 MG 05/18/2020 12:00:00 A M EST 1.0 {tablet} active Loratadine 10 MG eCW1 ( [facility]) Loratadine 10 MG Oral Tablet Loratadine 10 MG 05/18/2020 12:00:00 A M EST 1.0 {tablet} active Loratadine 10 MG eCW1 ( [facility]) imiquimod 50 MG/ML Topical Cream Imiquimod 5 % Imiquimod 5 % 05/18/2020 12:00:00 AM EST active Imiquimod 5 % eC W1 ([facility]) 90 mg 05/10/2020 12:00:00 AM EST tablet [...] 0 AM EST ORAL active [facility] ([facility]) 2.5 mg 05/10/2020 12:00:00 AM EST tablet [...] ORAL active [facility] ([facility]) 2.5 mg 05/10/2020 12:00:00 AM EST tablet [...] [facility] sodium chloride 0.9% (NS) infusion 3255-6969-21 05/04/2020 02:00:00 P M EST Intravenous completed at 100 mL/hr, Intravenous, Continuous, Starting Orquidea 05/04/20 at 1400, For 2 hours, Post-op [facility] Medication administered onsite Diazepam 5 MG Oral Tablet diazepam (VALIUM) tablet 5 m g diazepam (VALIUM) tablet 5 mg 05/04/2020 11:00:00 AM EST 5 mg Oral completed 5 mg, Oral, Once, Orquidea 05/04/20 at 1100, For 1 dose [facility] Medication administered onsite 24 HR Nicotine 0.875 MG/HR Transdermal P atch nicotine (NICODERM CQ) 21 MG/24HR 1 patch nicotine (NICODERM CQ) 21 MG/24HR 1 patch 05/04/2020 09:00:00 AM EST 1 {patch} Transdermal active 1 patch, Transdermal, Administer over 24 Hours, Daily, First dose on Orquidea 05/04/20 at 0900 [facility] Medication administered onsite clopidogrel 75 MG Oral Tablet clopidogrel (PLAVIX) tab let 75 mg clopidogrel (PLAVIX) tablet 75 mg 05/04/2020 09:00:00 AM EST 75 mg Oral active 75 mg, Oral, Daily, First dose on Orquidea 05/04/20 at 0900 [facility] Medication administered onsite Aspirin 81 MG Chewable Tablet aspirin chewable tablet 81 mg aspirin chewable tablet 81 mg 05/04/2020 09:00:00 AM EST 81 mg Oral activ e 81 mg, Oral, Daily, First dose on Orquidea 05/04/20 at 0900 [facility] Medication administered onsite normal saline flush 0.9 % injection 3 mL 04177-601-50 05/04/2020 06:00:00 AM EST 3 mL Intravenous active 3 mL , Intravenous, Every 8 hours (scheduled), First dose on Orquidea 05/04/20 at 0600
Rapid push positive pressure flushing shall be performed with a 10 cc normal saline syringe to check the PATENCY of a PIV site prior to any infusion therapy initiation unless resistance is met.
[facility] Medication administered onsite atorvastatin 40 MG Oral Tablet atorvastatin (LIPITOR) tablet 40 mg atorvastatin (LIPITOR) tablet 40 mg 05/04/2020 03:00:00 AM EST 40 mg Oral active 40 mg, Oral, Nightly, First dose on Orquidea 05/04/20 at 0300 [facility] Medication administered onsite carvedilol 3.125 MG Oral Tablet carvedilol (COREG) tab let 3.125 mg carvedilol (COREG) tablet 3.125 mg 05/04/2020 03:00:00 AM EST 3.125 mg Oral active 3.125 mg, Oral, 2 times daily, First dose on Orquidea 05/04 at 0300 [facility] Medication administered onsite potassium chloride SA (K-DUR,KLOR-CON) CR tablet 20 mEq [id number] 05/04/2020 03:00:00 AM EST 20 meq Oral completed 20 mEq, Oral, Once, Orquidea 05/04/20 at 0300, For 1 dose [facility] Medication administered onsite Nitroglycerin 0.4 MG Sublingual [...] hours, or Cialis (tadalafil) within 48 hours
[facility] Medication administered onsite 2 ML Metoclopramide 5 MG/ML Prefilled Sy ringe metoclopramide (REGLAN) injection 10 mg metoclopramide (REGLAN) injection 10 mg 05/04/2020 02:21:[address] 10 mg Intravenous active 10 mg, I ntravenous, Every 6 hours PRN, for Nausea/Vomiting not relieved by zofran, Starting Orquidea 05/04/20 at 0221 [facility] Medication administered onsite ondansetron (ZOFRAN) injection 4 mg [id number] 05/04/2020 02:21:4 4 AM EST 4 mg Intravenous active 4 mg, In travenous, Every 4 hours PRN, nausea, vomiting, Starting Orquidea 05/04/20 at 0221 [facility] Medication administered onsite Acetaminophen 325 MG Oral Tablet acetaminophen (TYLENO L) 325 MG tablet 650 mg acetaminophen (TYLENOL) 325 MG tablet 650 mg 05/04/2020 02:21:42 AM EST 650 mg Oral active 650 mg, Or al, Every 4 hours PRN, mild pain (1-3), headaches, Starting Orquidea 05/04/20 at 0221
"Maximum dose of acetaminophen is 4,000 mg from all sources in 24 hours."
[facility] Medication administered onsite 500 ML heparin sodium, [...] 1 unit/kg/hr IV58.1 - 87 Therapeutic, No Blcpzn01.1 - 97 Decrease infusion 1 unit/kg/hr IV [...] single port tubing (SmartSite Infusion Set ref [id number]). Medication and tubing is to be discarded if infusion off for 4 hours.
[facility] Medication administered onsite 1 ML heparin sodium, [...] 30 units/kg IV (Maximum bolus: 5,000 units)
[facility] Medication administered onsite 21 mg/24 hr 04/17/2020 [...] EDT ORAL active MEDENT ( [facility]) Diphenhydramine Hydrochloride 25 MG Oral Tablet [Benadryl] B enadryl Allergy 03/19/2020 12:00:00 AM EDT ORAL completed [facility] ([facility]) clopidogrel 75 MG Oral Tablet Clopidogrel Bisulfate 03/19/2020 1 2:00:00 AM EDT ORAL completed [facility] ([facility]) carvedilol 3.125 MG Oral Tablet Carvedilol 03/19/2020 12:00:00 AM EDT ORAL active [facility] ([facility]) atorvastatin 40 MG Oral Tablet Atorvastatin Calcium 03/19/2020 1 2:00:00 AM EDT ORAL completed [facility] ([facility]) Cimetidine 200 MG Oral Tablet Cimetidine 03/19/2020 12:00:00 AM EDT ORAL completed [facility] ([facility]) 24 HR Nicotine 0.875 MG/HR Transdermal Patch Nicotine 03/19/2020 12:00:00 AM EDT completed [facility] ([facility]) Nitroglycerin 0.4 MG Sublingual Tablet [Nitrostat] Nitrostat 03/19/2020 12:00:00 AM EDT SUBLINGUAL active MEDEN T ([facility]) 24 HR Nicotine 0.875 MG/HR Transdermal Patch nicotine (NICODERM CQ) 21 MG/24HR nicotine (NICODERM CQ) 21 MG/24HR 03/19/2020 12:00:00 AM EDT 1 { patch} Transdermal aborted Place 1 patch on t he skin daily [facility] clopidogrel 75 MG Oral Tablet clopidogrel (PLAVIX) 75 MG tablet clopidogrel (PLAVIX) 75 MG tablet 03/19/2020 12:00:00 AM EDT 75 mg Oral aborted Take 1 tablet (75 mg total) by mouth daily [facility] 0.4 mg 03/18/2020 12:00:00 AM EDT tablet, [...] (five) minutes as needed for chest pain [facility] atorvastatin 40 MG Oral Tablet atorvastatin (LIPITOR) 40 MG tablet atorvastatin (LIPITOR) 40 MG tablet 03/18/2020 12:00:00 AM EDT 40 mg Oral aborted Take 1 tablet (40 mg total) by mouth nightly [facility] carvedilol 3.125 MG Oral Tablet carvedilol (COREG) 3.1 25 MG tablet carvedilol (COREG) 3.125 MG tablet 03/18/2020 12:00:00 AM EDT 3.125 mg Oral active Take 1 tablet (3.125 mg total) by mouth 2 (two) times a day [facility] 75 mg 03/18/2020 12:00:00 AM EDT tablet [...] by mouth daily as needed for heartburn [facility] Insurance Providers Payer name Policy type / Coverage type Policy ID Covered green party ID Covered green party's relationship to senior Policy Senior Plan Information State Ins Fund () Workers Compensation [id number] Self Family Health Plus Medigap Part B [id number] Self [facility] Community Plan Commercial [id number] Self [employer] MEDICAID [id number] S [id number] [employer] MEDICAID [id number] S [id number] [facility] MEDICAID [id number] [id number] [facility] MEDICAID [id number] Nancy [id number] INSURANCE COVID-19 COVID Nancy C OVID ANS-Medicaid [id number] ANSI-Medicaid [id number] ANSI-Medicaid [id number] ANSI-Medicaid [id number] ANSI-Medicaid [id number] ANSI-Medicaid [id number] ANSI-Medicaid [id number] ANSI-Medicaid [id number] ANSI-Medicaid [id number] ANSI-Medicaid [id number] ANSI-Medicaid [id number] ANSI-Medicaid [id number] ANSI-Medicaid [id number] ANSI-Medicaid [id number] [facility] Commercial [id number] Self 1 [id number] ANSI-Medicaid [id number] ANSI-Medicaid [id number] ANSI-Medicaid [id number] ANSI-Medicaid [id number] MEDICAID [id number] S [id number] [facility] [id number] S [id number] UNHC COMMUNITY PLAN MCDO UNHC COMMUNITY PLAN MCDO [id number] Self [employer] UNHC COMMUNITY PLAN MCDO [employer] FAM[employer] PLUS [id number] SP [id number] SELF PAY SP UNAVAILABLE S UNAVAILA BLE BCBS [facility] ELVIN HMO [id number] S [id number] UNHC COMMUNITY PLAN MCDHMO [id number] SP [id number] [facility] MEDICAID [id number] S [id number] [facility] HEA [id number] S [id number] [facility](MCAID) [id number] S [id number] SELF PAY ONLY SP ANSI-Medicaid [id number] [facility] Commercial [id number] Self [id number] [facility] Commercial [id number] Self [id number] Problems, Conditions, and Diagnoses Code Display Name Description Problem Type Effective Dates Data Source(s) K61.1 Rectal abscess RECTAL ABSCESS Diagnosis 01/19/2021 11:30: 00 AM [facility] K61.1 Rectal abscess Rectal abscess Diagnosis 01/04/2021 03:12: [address] [facility] Z71.6 Tobacco abuse counseling TOBACCO ABUSE COUNSELING Diag nosis 09/29/2020 09:29:00 AM [facility] F17.200 Nicotine dependence, unspecified, uncomp licated NICOTINE DEPENDENCE, UNSPECIFIED, UNCOMPLICATED Diagnosis 09/29/2020 09:29:00 AM [facility] B97.7 Papillomavirus as the cause of diseases classified elsewhere PAPILLOMAVIRUS THE CAUSE OF DISEASES CLASSIFIED Diagnosis 10/2020 08:48:00 AM [facility] F17.210 Nicotine dependence, cigarettes, uncompl icated NICOTINE DEPENDENCE, CIGARETTES, UNCOMPLICATED Diagnosis 08/18/2020 08:48:00 AM [facility] F41.9 Anxiety disorder, unspecified ANXIETY DISORDER, UNSPEC IFIED Diagnosis 08/18/2020 08:48:00 AM [facility] E78.5 Hyperlipidemia, unspecified HYPERLIPIDEMIA, UNSPECIFIE D Diagnosis 05/26/2020 08:21:00 AM [facility] I25.84 Coronary atherosclerosis due to calcifie d coronary lesion CORONARY ATHEROSCLEROSIS DUE TO CALCIFIED CORONARY Diagnosis 05/26/2020 08:21:0 0 AM [facility] I10 Essential (primary) hypertension ESSENTIAL (PRIMARY) H YPERTENSION Diagnosis 05/26/2020 08:21:00 AM [facility] I25.2 Old myocardial infarction OLD MYOCARDIAL INFARCTION Di agnosis 05/26/2020 08:21:00 AM [facility] Z72.0 Tobacco use Tobacco use Diagnosis 05/03/2020 11:28:47 PM [facility] I10 Essential (primary) hypertension Essential (primary) h ypertension Diagnosis 05/03/2020 11:28:47 PM [facility] I21.02 ST elevation (STEMI) myocard ial infarction involving left anterior descending coronary artery ST elevation (STEMI) myocardial infarcti Diagnosis 05/03/2020 11:28:47 PM [facility] I21.3 ST elevation (STEMI) myocardial infarcti on of unspecified site ST elevation (STEMI) myocardial infarcti Diagnosis 05/03/2020 11:28:47 PM [facility] Z23 Encounter for immunization ENCOUNTER FOR IMMUNIZATION Diagnosis 04/10/2020 08:52:00 AM [facility] E66.01 Morbid (severe) obesity due to excess ca lories MORBID (SEVERE) OBESITY DUE TO EXCESS CALORIES Diagnosis 04/10/2020 08:52:00 AM [facility] ital A63.0 Anogenital (venereal) warts ANOGENITAL (VENEREAL) WART S Diagnosis 04/10/2020 08:52:00 AM [facility] H91.92 Unspecified hearing loss, left ear UNSPECIFIED H EARING LOSS, LEFT EAR Diagnosis 04/10/2020 08:52:00 AM [facility] I25.10 Atherosclerotic heart diseas e of [place] coronary artery without angina pectoris ATHSCL HEART DISEASE OF [place] CORONARY ARTERY W/O Diagnosis 04/10/2020 08:52:00 AM [facility] I21.9 ACUTE MYOCARDIAL INFARCTION, UNSPECIFIED ACUTE MYOCARDIAL INFARCTION, UNSPECIFIED Diagnosis 04/10/2020 08:52:00 [facility] Z[facility].810 Preop cardiovascular exam Preop cardiovascular exam [id number] 01/05/2021 12:00:[address] [facility] I49.5 Sick sinus syndrome Sick sinus syndrome [id number] 01/05/2021 12:00:[address] [facility] Z95.5 History of coronary artery stent placeme nt History of coronary artery stent placement [id number] 01/05/2021 12:00:00 AM EDT [facility] J44.9 COPD (chronic obstructive pulmonary dise ase) COPD (chronic obstructive pulmonary disease) [id number] 01/04/2021 12:00:00 AM EDT [facility] K61.1 Rectal abscess Rectal abscess [id number] 01/04/2021 12:00: 00 AM EDT [facility] Z01.810 Preoperative cardiovascular examination Preoperative cardiovascular examination Problem 10/19/2020 12:00:00 AM EDT [facility] ([facility]) R94.31 Electrocardiogram abnormal Electrocardiogram abnormal Problem 09/07/2020 12:00:00 AM EDT [facility] ([facility]) E78.2 Mixed hyperlipidemia Mixed hyperlipidemia Problem 09/07/2020 12:00:00 AM EDT [facility] ([facility]) F17.200 [id number] Tobacco dependence Problem 08/18/2020 12:00: 00 AM EST eCW1 ([facility]) A63.0 [id number] Perianal condyloma acuminatum Problem 08/11/2020 12:00:00 AM EST eCW1 ([facility]) F41.9 [id number] Anxiety Problem 05/26/2020 12:00:00 AM ES T eCW1 ([facility]) I25.[id number] of [address] elevation myocardi al infarction (STEMI) Problem 05/26/2020 12:00:00 AM EST eCW1 ([facility]) F17.200 [id number] Tobacco dependency Problem 05/26/2020 12:00: 00 AM EST eCW1 ([facility]) A63.0 [id number] Genital warts Problem 05/18/2020 12:00:00 AM EST eCW1 ([facility]) F12.90 Marijuana use Marijuana use [id number] 05/04/2020 12:00:00 AM EST [facility] Z72.0 Tobacco abuse Tobacco abuse [id number] 05/04/2020 12:00:00 AM EST [facility] I10 Hypertension Hypertension [id number] 05/04/2020 12:00:00 A M EST [facility] I21.02 ST elevation myocardial infa rction involving left anterior descending (LAD) coronary artery ST elevation myocardial infarction invol ving left anterior descending (LAD) coronary artery [id number] 05/03/2020 12:00:00 AM EST [facility] I25.84 [id number] Coronary atherosclerosis due to calcified coronary lesion Problem 04/15/2020 12:00:00 AM EDT eCW1 ([facility]) I25.2 [id number] History of myocardial infarction Problem 04/15/2020 12:00:00 AM EDT eCW1 ([facility]) I21.9 [id number] History of myocardial infarction within l ast month Problem 04/15/2020 12:00:00 AM EDT eCW1 ([facility]) F43.10 PTSD (post-traumatic stress disorder) PT SD (post-traumatic stress disorder) [id number] 03/16/2020 12:00:00 AM EDT [facility] J45.909 Asthma Asthma [id number] 03/16/2020 12:00:00 AM ED T [facility] J30.2 Seasonal allergies Seasonal allergies [id number] 0 12:00:00 AM EDT [facility] Z95.0 Pacemaker Pacemaker [id number] 03/16/2020 12:00:00 AM ED T [facility] I21.3 STEMI (ST elevation myocardial infarctio n) STEMI (ST elevation myocardial infarction) [id number] 03/16/2020 12:00:00 AM EDT [facility] Surgeries/Procedures Procedure Description Date Indications Data Source(s) ECG ROUTINE ECG W/LEAST 12 LDS TRCG ONLY W/O I&R <td>E CG 12- LEAD</td><td>STAT</td><td>01/05/2021 7:20 PM EDT</td><td></td><td></td> 01/05/2021 07:20:20 PM EDT [facility] XR CHEST PORTABLE <td>XR CHEST PORTABLE</td><t d>Routine</td><td>01/05/2021 12:48 PM EDT</td><td></td><td> </td> 01/05/2021 12:48:42 PM EDT [facility] ECHO TTHRC R-T 2D W/WOM-MODE COMPL SPEC&COLR DOP <td>E CHOCARDIOGRAM TRANSTHORACIC</td><td>Routine</td><td>01/05/2021 12:03 PM EDT</td><td></td><td> </td> 01/05/2021 12:03:43 PM EDT [facility] NT PRO BNP <td>NT PRO BNP</td><td>Routi ne</td><td>01/05/2021 10:15 AM EDT</td><td></td><td> </td> 01/05/2021 10:15:00 AM EDT [facility] COVID/FLU AB/RSV PCR <td>COVID/FLU AB/RSV PCR</td ><td>STAT</td><td>01/04/2021 6:42 PM EDT</td><td></td><td> </td> 01/04/2021 06:42:00 PM EDT [facility] BLOOD COUNT COMPLETE AUTOMATED <td>CBC</td><td>Routine </td><td>01/04/2021 6:42 PM EDT</td><td></td><td> </td> 01/04/2021 06:42:00 PM EDT [facility] BLOOD TYPING ABO <td>TYPE AND SCREEN</td><td> Routine</td><td>01/04/2021 6:42 PM EDT</td><td></td><td> </td> 01/04/2021 06:42:00 PM EDT [facility] PHOSPHORUS INORGANIC <td>PHOSPHORUS</td><td>Routi ne</td><td>01/04/2021 6:42 PM EDT</td><td></td><td> </td> 01/04/2021 06:42:00 PM EDT [facility] MAGNESIUM <td>MAGNESIUM</td><td>Routin e</td><td>01/04/2021 6:42 PM EDT</td><td></td><td> </td> 01/04/2021 06:42:00 PM EDT [facility] BASIC METABOLIC PANEL CALCIUM TOTAL <td>BASIC METABOLI C PANEL</td><td>Routine</td><td>01/04/2021 6:42 PM EDT</td><td></td><td> </td> 01/04/2021 06:42:00 PM EDT [facility] DSTRJ LESION ANUS EXTENSIVE 11/03/2020 12:00:00 AM EDT [facility] ([facility]) ECG ROUTINE ECG W/LEAST 12 LDS W/I&R 10/19/2020 12:00: 00 AM EDT [facility] ([facility]) DOP ECHOCARD COLOR FLOW VELOCITY MAPPING 10/19/2020 12 :00:00 AM EDT [facility] ([facility]) ECHO TTHRC R-T 2D W/WO M-MODE REST&STRS CONT ECG 10/19 12:00:00 AM EDT [facility] (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 LEAD PM 2020 12:00:00 AM EDT [facility] ([facility]) CV STRS TST XERS&/OR RX CONT ECG PHYS SI&R 07/26/2020 12:00:00 AM EST [facility] ([facility]) ECHO TTHRC R-T 2D W/WOM-MODE COMPL SPEC&COLR DOP 07/24 12:00:00 AM EST [facility] ([facility]) ECG ROUTINE ECG W/LEAST 12 LDS W/I&R 05/10/2020 12:00: 00 AM EST [facility] ([facility]) BLOOD COUNT COMPLETE AUTOMATED <td>CBC</td><td>Routine </td><td>05/05/2020 4:25 AM EST</td><td></td><td> </td> 05/05/2020 09:25:00 AM EST [facility] BASIC METABOLIC PANEL CALCIUM TOTAL <td>BASIC METABOLI C PANEL</td><td>Routine</td><td>05/05/2020 4:25 AM EST</td><td></td><td> </td> 05/05/2020 09:25:00 AM EST [facility] CARDIAC CATHETERIZATION <td>CARDIAC CATHETERIZATION</td><td>Routine</td><td>05/04/2020 1:04 PM EST</td><td> ST elevation myocardial infarction involving left anterior descending (LAD) coronary artery</td><td> </td> 05/04/2020 06:04:[address] elevation myocardial infarction invol ving left anterior descending (LAD) coronary artery [facility] ST elevation myocardial infarction invol ving left anterior descending (LAD) coronary artery DRUG SCR QUAL 1 DRUG CLASS METH EA DRUG CLASS <td>URIN E TOX SCREEN</td><td>Routine</td><td>05/04/2020 9:00 AM EST</td><td></td><td> </td> 05/04/2020 02:00:00 PM EST [facility] ECG ROUTINE ECG W/LEAST 12 LDS TRCG ONLY W/O I&R <td>E CG 12- LEAD</td><td>Routine</td><td>05/04/2020 6:21 AM EST</td><td></td><td></td> 05/04/2020 11:21:59 AM EST [facility] THROMBOPLASTIN TIME PARTIAL PLASMA/WHOLE BLOOD <td>APTT</td><td>STAT</td><td>05/04/2020 6:19 AM EST</td><td></td><td> </td> 05/04/2020 11:19:00 AM EST [facility] BLOOD COUNT COMPLETE AUTOMATED <td>CBC</td><td>Routine </td><td>05/04/2020 6:19 AM EST</td><td></td><td> </td> 05/04/2020 11:19:00 AM EST [facility] BASIC METABOLIC PANEL CALCIUM TOTAL <td>BASIC METABOLI C PANEL</td><td>Routine</td><td>05/04/2020 6:19 AM EST</td><td></td><td> </td> 05/04/2020 11:19:00 AM EST [facility] TROPONIN QUANTITATIVE <td>TROPONIN I</td><td>Timed </td><td>05/04/2020 2:36 AM EST</td><td></td><td> </td> 05/04/2020 07:36:00 AM EST [facility] HEMOGLOBIN GLYCOSYLATED A1C <td>HEMOGLOBIN A1C</td><td>Routine</td><td>05/03/2020 11:59 PM EST</td><td></td><td> </td> 05/04/2020 04:59:00 AM EST [facility] NT PRO BNP <td>NT PRO BNP</td><td>Routi ne</td><td>05/03/2020 11:58 PM EST</td><td></td><td> </td> 05/04/2020 04:58:00 AM EST [facility] TROPONIN QUANTITATIVE <td>TROPONIN I</td><td>Timed </td><td>05/03/2020 11:58 PM EST</td><td></td><td> </td> 05/04/2020 04:58:00 AM EST [facility] THROMBOPLASTIN TIME PARTIAL PLASMA/WHOLE BLOOD <td>APTT</td><td>Routine</td><td>05/03/2020 11:58 PM EST</td><td></td><td> </td> 05/04/2020 04:58:00 AM EST [facility] BLOOD COUNT COMPLETE AUTO&AUTO DIFRNTL WBC COUNT <td>C BC AND DIFFERENTIAL</td><td>STAT</td><td>05/03/2020 11:58 PM EST</td><td></td><td> </td> 05/04/2020 04:58:00 AM EST [facility] THYROID STIMULATING HORMONE TSH <td>TSH</td><td>Routin e</td><td>05/03/2020 11:58 PM EST</td><td></td><td> </td> 05/04/2020 04:58:00 AM EST [facility] MAGNESIUM <td>MAGNESIUM</td><td>Routin e</td><td>05/03/2020 11:58 PM EST</td><td></td><td> </td> 05/04/2020 04:58:00 AM EST [facility] LIPID PANEL <td>LIPID PANEL</td><td>Rout ine</td><td>05/03/2020 11:58 PM EST</td><td></td><td> </td> 05/04/2020 04:58:00 AM EST [facility] COMPREHENSIVE METABOLIC PANEL <td>COMPREHENSIVE METABO LIC PANEL</td><td>STAT</td><td>05/03/2020 11:58 PM EST</td><td></td><td> </td> 05/04/2020 04:58:00 AM EST [facility] ECG ROUTINE ECG W/LEAST 12 LDS TRCG ONLY W/O I&R <td>E CG 12- LEAD</td><td>STAT</td><td>05/03/2020 11:32 PM EST</td><td></td><td></td> 05/04/2020 04:32:40 AM EST [facility] ECG ROUTINE ECG W/LEAST 12 LDS W/I&R 03/20/2020 12:00: 00 AM EDT [facility] ([facility]) Results ID Date Data Source [id number] 01/12/2021 12:05:[address] [facility] NT INFORMATIONPatient MRN Name Date of Age Gend*PT [id number] Codey Molina 1975 45 years M SDCXPT Location Admission Date/Time Visit ID Attending [id number] 01/04/21 1512 --- --- EPI ID CSN Admitting Provider [id number] Sabas Page MD([id number]) [place] [address] OPERATIVE REPORT OPNAME: CODEY MOLINA#: [id number] #: [id number] ADMISSION DATE: 01/04/2021OB: 1975 SEX: M PT TYPE: S ColoACCT #: [id number] CARE PHYSICIAN: SABAS CHOUDHARYATE OF OPERATION: 01/05/2021OPERATION:Incision [...] and recurrent anal warts.JUSTICE Bowen/ROGERS Job #: [id number] DOC #: [id number] Name Value Range Interpretation Code Description Data Karine rce(s) Supporting Document(s) ID Date Data Source [id number] 01/06/2021 11:36:[address] NT INFORMATIONPatient MRN Name Date of Age Gend*PT [id number] Codey Molina 1975 45 years M SDCXPT Location Admission Date/Time Visit ID Attending [id number] 01/04/21 1512 --- Sabas Page MD([id number]) EPI ID CSN Admitting Provider [id number] Sabas Page MD([id number])Surgical Discharge SummaryCodey MolinaMRN: [id number] date: 01/04/2021dmitting Physician: DHRUV Bowenischarge date and [...] Your MedicationsThese medications were sent to [facility] [place], [place] - [place] , [place] [address] oxyCODONE-acetaminophen 5-325 MG per tabletIndication for Admission: [...] 122/67Discharged Condition:goodDisposition: Home or Self CareSignature: Antonia GuevaraDHRUVate: January 06, 2021Time: 11:35 AM Name Value Range Interpretation Code Description Data Karine rce(s) Supporting Document(s) ID Date Data Source [id number] 01/06/2021 06:23:30 AM EDT [facility] Name Value Range Interpretation Code Description Data Karine rce(s) Supporting Document(s) EKG [facility] MKCJMh9aHwFHBqNei0ZtLbSeCUFoWZ7hktt9H7Q8tNTrN4XuoODmn2rjY6OwC7OeSEAmLSAINA5DuSBo jb2 [file] RvYmoKeHJlZgogICAgIDAgICAgMjQKMDAwMDAwMDAw JXC9GEPdUYQnXDrxULGsUQSbROCxRFOeOLWgGM9yHyWrVHQcFGW4QZDeVVTdHXEnjsVUSZAhBGO1ACg0 VJHsXDKyJSPuYGsoEIVyDLUtZABrZAS5PNV7YUUvCmKjVJNlRZKgBKYgOFDyKBVdncDQHCOhOLRfZFW7 AIEvWUPnSILcIKkfUOBoPNZvIAkzQLAwOADtAC0mJl MwREIzQXSuYKwhVXYtUYMkmvKMBPYlCVIbGPNuPOBaDHLzYQWsPQvrAZYxBKXdLAByOVQwFSMpGO8aMu QhNNZcVZX2QSZrFXDkSSLlavKSJVUdDFZlPZf5FWYdAVTeUIAqJVozNIWmOSOrZWS8GLUwQLUhVS8oQh HjCUSoYJZ1IxUbSCUzGRRumnUKXWFhEGHyFZW1ZrJr ZLPgUDQcVBpoSKGaMBBtQAkkNNSfKJYxSJ4nTnKeMRRiKXBiJKrgHNZtTYAjrdGVRZLkPHNkXOHjUnFr SPCxKGNgTTqrYDAuANWzXXm4OSMgZMSzRM5fArFhLRUnDIX7MQaeVIQsDMMxydREVCQyLWZtGHleXTIa ERDuLEPoMFxqUTGyBZWtHUW1TDGnYFAjAV9vFdLsKH ReAGArQWBtGiM3SdLmBjHJkHMvuNpknhy2CRzbA5u7REEpUSeeTA2zzvLjOOEzChrsAw8pcUS5ETFqWp tFUu6Av0UenmE9iwOcLoGnMFq7GoSgIU7B ID Date Data Source [id number] 01/05/2021 11:43:47 PM EDT [facility] NT INFORMATIONPatient MRN Name Date of Age Gend*PT [id number] Codey Molina 1975 45 years M SDCXPT Location Admission Date/Time Visit ID Attending [id number] 01/04/21 1512 --- Sabas Page MD([id number]) EPI ID CSN Admitting Provider [id number] Sabas Page MD([id number]) Attestation signed by Sabas Page MD at 01/05/2021 11:43 PMI saw and evaluated the patient and reviewed Ms Vuong's note. I agree with thehistory, physical and medical decision making with the following additions,exceptions, and/or observations:Signature: DHRUV Bowenate: January 05, 2021Time: 11:43 PM --Codey Molina 1975 45 years01/04/2021 PCP: SABAS COBB MDInformant: Codey Molina, Reliable Yes; [facility] pain x 2 daysHPI: Codey Molina is a 45 years old White or male with history thatincludes cardiac including pacemaker for SSS and stents for 2 AMIs in Mar andNov on Plavix bid followed by Dr Vanegas of [facility],COPD/asthma, fibromyalgia, tobacco dependence, and previous rectal abscessdrainages, most recently about 1.5 mo ago at [facility]. [facility] records [facility]available [facility].Pt presenting direct admit to hospital from [...] N/A 03/17/2020 Procedure: Measurement, Myocardial Fractional Flow Letcher; Surgeon: MD Jose; Laterality: N/A; CARDIAC CATHETERIZATION N/A 05/04/2020 Procedure: Cardiac catheterization; Surgeon: Preethi Guerrero MD; Laterality:N/A; CARDIAC CATHETERIZATION N/A 05/04/2020 Procedure: Percutaneous coronary intervention; Surgeon: Preethi Guerrero MD;Laterality: N/A; COLONOSCOPY IMPLANT/EXPLANT LOOP RECORDER UMBILICAL HERNIA REPAIR VASECTOMYMEDICATIONS: Medication reconciliation will be completed separate ly.ALLERGY:AllergiesAllergen Reactions Latex HivesFH:Family HistoryProblem Relation Age of Onset COPD Mother Myocardial Infarction (NM) Father 34 at 53 cardiac cause Thyroid [...] PO. zofran forantiemesis.Active Problems: Pacemaker- Plan: contacted [facility] Cardiology spoke with Dr Patel who will place pacerorders for OR. STEMI (ST elevation myocardial infarction)- Plan: pt on plavix BID - took his morning dose. Getting a T&S in caserequires transfusion despite minor case. Asthma Hypertension COPD (chronic obstructive pulmonary disease)- Plan: if pt stays overnight, will order C[employer]ATOR meds as approp.The patient has been encouraged to contact appropriate medical staff with anyquestions or concerns he may have in the interim. I have discussed this patientwith attending, Sabas Page MD. Further plan per the attending physician.-DVT mechanical prophylaxis (pt already on plavix bid)-Pneumonia prophylaxis - HABIT (HOB>30 degrees, OOB all meals/POD0, [place] pjvyh3g/d, IS use, Teaching expectations)ADOD: 1-2 daysCode status: Full CodeSignature: Kandace Odessa Vuong 16:25 PM Name Value Range Interpretation Code Description Data Karine rce(s) Supporting Document(s) ID Date Data Source [id number] 03/03/2021 10:12:02 AM EDT [facility] SPECIMEN DESCRIPTION TISSUESPECIA L REQUESTS NONEACID FAST SMEAR NO ACID FAST BACILLI (CONCENTRATED SMEAR)CULTURE RESULTS NO ACID FAST BACILLI ISOLATED AFTER 8 WEEKSREPORT STATUS FINAL 03/03/2021 Name Value Range Interpretation Code Description Data Karine rce(s) Supporting Document(s) ID Date Data Source [id number] 02/10/2021 02:37:15 PM EDT [facility] SPECIMEN DESCRIPTION TISSUESPECIA L REQUESTS NONECULTURE RESULTS NO FUNGUS ISOLATED AFTER 5 WEEKSREPORT STATUS FINAL 02/10/2021 Name Value Range Interpretation Code Description Data Karine rce(s) Supporting Document(s) ID Date Data Source [id number] 01/09/2021 08:18:05 AM EDT [facility] SPECIMEN DESCRIPTION TISSUESPECIA L REQUESTS NONECULTURE RESULTS NO ANAEROBES ISOLATEDREPORT STATUS FINAL 01/09/2021 Name Value Range Interpretation Code Description Data Karine rce(s) Supporting Document(s) ID Date Data Source [id number] 01/08/2021 10:21:15 AM EDT [facility] SPECIMEN DESCRIPTION TISSUESPECIA L REQUESTS [...] rce(s) Supporting Document(s) ID Date Data Source [id number] 01/05/2021 10:58:[address] NT INFORMATIONPatient MRN Name Date of Age Gend*PT [id number] Codey Molina Jose Rafael 1975 45 years M SDCXPT Location Admission Date/Time Visit ID Attending Provider --- --- --- --- EPI ID CSN Admitting Pr curtiser [id number] ---AirwayPatient location during procedure: ORUrgency: electiveDifficult airway: noAdvanced airway equipment used: noStaffingPerformed by: Lori Velazquez, CRNAAnesthesiologist: Aleksandr Patriciaications and Patient ConditionIndications for airway management: anesthesiaPreoxygenated: yesPatient position: supineIn-line stabilization: noMask ventilation: 0 - not attemptedFinal Airway/ApproachesFinal airway type: LMANumber of attempts at final approach: 1Number of other approaches attempted: 0Final Airway DetailsFinal LMA airway: uniqueLMA size 5 Name Value Range Interpretation Code Description Data Karine rce(s) Supporting Document(s) ID Date Data Source [id number] 01/05/2021 01:06:31 PM EDT [facility] Name Value Range Interpretation Code Description Data Karine rce(s) Supporting Document(s) &PDF [facility] UHDVYp9jOeSGFdAl47/BPBohRGAji7FaCOtePZh9DAmwGIJoR1QqlGfiZUAYYH8LGMGWYYjRLA6mUuNm yKE [file] vY6JfkMI+qNkUcm/bFbXMuZTl7QVs6tD/3B5fGn/supply chain tech [file] AgICAgICAgICAgICAgICAgICAgICAgICAgICAgICAgICAgICAgICAgICAgICAgICAgICAgICAgICAgIC AgICAgICAgICAgICAgICAgDQogICAgICAgICAgICAgICAgICAgICAgICAgICAgICAgICAgICAgICAgIC AgICAgICAgICAgICAgICAgICAgICAgICAgICAgICAg ICAgICAgICAgICAgICAgICAgICAgICAgICAgDQogICAgICAgICAgICAgICAgICAgICAgICAgICAgICAg ICAgICAgICAgICAgICAgICAgICAgICAgICAgICAgICAgICAgICAgICAgICAgICAgICAgICAgICAgICAg ICAgICAgICAgDQogICAgICAgICAgICAgICAgICAgIC AgICAgICAgICAgICAgICAgICAgICAgICAgICAgICAgICAgICAgICAgICAgICAgICAgICAgICAgICAgIC AgICAgICAgICAgICAgICAgICAgDQogICAgICAgICAgICAgICAgICAgICAgICAgICAgICAgICAgICAgIC AgICAgICAgICAgICAgICAgICAgICAgICAgICAgICAg ICAgICAgICAgICAgICAgICAgICAgICAgICAgICAgDQogICAgICAgICAgICAgICAgICAgICAgICAgICAg ICAgICAgICAgICAgICAgICAgICAgICAgICAgICAgICAgICAgICAgICAgICAgICAgICAgICAgICAgICAg ICAgICAgICAgICAgDQogICAgICAgICAgICAgICAgIC AgICAgICAgICAgICAgICAgICAgICAgICAgICAgICAgICAgICAgICAgICAgICAgICAgICAgICAgICAgIC AgICAgICAgICAgICAgICAgICAgICAgDQogICAgICAgICAgICAgICAgICAgICAgICAgICAgICAgICAgIC AgICAgICAgICAgICAgICAgICAgICAgICAgICAgICAg ICAgICAgICAgICAgICAgICAgICAgICAgICAgICAgICAgDQogICAgICAgICAgICAgICAgICAgICAgICAg ICAgICAgICAgICAgICAgICAgICAgICAgICAgICAgICAgICAgICAgICAgICAgICAgICAgICAgICAgICAg ICAgICAgICAgICAgICAgDQogICAgICAgICAgICAgIC AgICAgICAgICAgICAgICAgICAgICAgICAgICAgICAgICAgICAgICAgICAgICAgICAgICAgICAgICAgIC NiNRKySZIfPUMvLWYnDFQgAJFrEERxASVqMWw1M6ahVIOsXBWoPA8rTLb4Yd9+QZvGWuNnEGZ9enSnnD 3YUP3nh6IoKXnzAACzo9RgYWv3CD5GWAKeSXizHP2J OHzjzf8FILGfMMKlhRHFv5zrDdXxANX7EWQrJlmtTG5PASFuF7usslHpHUIoDYLLQQuaSXQHYOraJUVZ SRQsBAIpCiPgKSolHP3Gv5DahFB2SQh+Gy9CMP6qf2GdBRmvCHCgSC5kti1KWFnQLzVwM0G9eRJpC0W5 MXuuEp6VHNAqBWJfKcznLYHPKNyzOB7CAJ2msnB6HM 8VcLEtNRKmRNHrnBGdENk0V56uqFKrNEgdGH9HZEO+Jignesh+Pf4LAWXbVEQjWHBpYqGvRLOMJgRhP72hiZ BtDLQiXVV5MBUhQu4AWMAwF1MydbTneBlyhbPhZIKwVVQWWI1PPGedhdVxvYNrcDfeJS92pPjkLH7ROs 8GPkYaPV8bec5MgHZhTv8DECG5AF6YTFZfEYYjMPQr BYY4UOSvRtTgXOtkMZCzQKZuAJB1PAQkXMHrNE6JSpLzAKXqQyQ4JrYkAGHtMEQulx2BCJFwMOB2JUcp ZQWvURLeLPSqJIslEYEnYWQtKKbrXOEjBNOpOC3GHgPhHILgPZWiKtctNOHhIUHhqc0YNYCaYAUqIdX7 HyAdHPPuVKYxGFezNNNjMAA8RBRaELIjHWCqZV2VAa YvUXDtTJDcDjLmPIGzRTHawr8PYWMoEAYiLgJzHaJbESAlVIRjGPjrOMOzSJF3RlS8BDCgFSObGG0DEu AwQTKaMOweHqIfXNReIOFizv7ISMYdJHIkXAN9RsJpBKDhXTPfIXmhEZOxSOQ2QJU0HIWhNTUqVT4DCy FmSPGnWQd9MjWsTVEvNSYumw7LGJBwOPMuYVhgDnEu FEWyIXIiSTkqCLGbTORgFHm9OEOdSGVbES9VQhCcXPUjANHjWfogTPVgDEVnmz5AUJJpIOYwGRA4RqRc DCDxFVNhUSooRCQsPBYkTeF1RMJmLELaUI9ZSxCeUDCsEXX1LxGqFAWpJKKuoc7XJJLiDXUfDdNbIgRa WFBcJZIyJYurXTMcLEL9AhIvPXJnAELhTD9LRhAiIH UpLrVlLJrvIWYsDMGzuf9IUDXfMYAwHeA9OrTqWANiUYIuQVuwXGSlZUW4NVS0KKUlQTGeDT2BUdXaID ZyPyr7MoHuVUNjGYXmdw1JAZVoLEOqTTv0RBViYUFpPMEmTAkgUMMaYDS4XDZoGIIeDRQkIS5TZqRiTT WgTtS3OLXdJKWkVZVmid8ETWJiIXVuYSSgXOSaTXIl HFJzGTadWMLoFKCdFYH3FOExDBQmUS0DJpOaOOLsDVVcDuIfSHTdLRYpow8LQZUeBQH5WZS2UbKhVZQm RUJcYUgkMNLyYJUqUZB0XNIbOERmGZ8BYoLjUPLaIYFbZQMxMOSuNFCsky4IEGCnBLQ9WQd8DcMeBXRx TBNmERejWJOmINJiDvJuWJBtCURhPI7NAiEbLREmYl PiNWbtTXZaPCHdxa4OLFLsSKL5POa2PjAjFUNjNICfOYr1zzXhfLIbLUj7JF1SF4WfapEhNEIKQx3Kr3 89OXY1IEStMr4YA4jtLp0xFUIgWNEQQl7IWVt1DSKxZQMxWHC3ANVbBUO0BIH1H5TpUKGxWTMsQEMvOl E+FXjwONXlETGkDRE2RNK4NisvHCR5LqIjCIHpKVC7 IXA2GF1aZYARHz6+HUrhpNIgwSvuTPQNYeS6QZOiDLamLJKNLm8G ID Date Data Source [id number] 01/05/2021 12:59:19 PM EDT [address] [address]Acfziyl Name: CODEY MOLINATARAS: 1975Sex: MOrdering Provider: KORIN TOVARAuthorishirley Prov: KORIN TOVARReferrricky Provider: Procedure Performed: / XR CHEST PORTABLEExam Date: 01/05/2021 12:48MRN: [id number] Number: [id number] Class: InpatientAccount #: [id number] for Exam: rule out HFTechnique: AP portable [...] CODEY SOLIS On 01/05/2021 12:59 PMWorkstation ID: [id number] Name Value Range Interpretation Code Description Data Karine rce(s) Supporting Document(s) ID Date Data Source [id number] 01/05/2021 12:00:[address] [facility] NT INFORMATIONPatient MRN Name Date of Age Gend*PT [id number] Codey Molina 1975 45 years M SDCXPT Location Admission Date/Time Visit ID Attending [id number] 01/04/21 1512 --- Sabas Page MD([id number]) EPI ID CSN Admitting Provider [id number] Sabas Page MD([id number])CARDIOLOGY CONSULTATIONName: Codey Molina Gender: maleDate of : 1975 Age: 45 yearsDate/Time of Admit: 01/04/2021 3:12 PM Code Status: Full CodePrimary Care Provider / Referring Physician: SABAS COBB MDInformant:HISTORYCHIEF COMPLAINT: No chief complaint on file.HPI:This patient is a 45 years male who I believe was either directly admitted [facility] for 2 days. Thepatient has a perirectal abscess. He requires surgery. We are seeing him forpreoperative evaluation.He has a history of coronary disease with previous stent placement and a cardiacpacemaker.On 10/16/2016 in [facility]. [facility]. Dr Isiah Chapman. Indication: Greater than 5 second pause on LINQ. Medtronic,Generator Advisa MRI compatible pacemaker system. Serial# [id number]. minimumrate 60 bpm. Pacing mode: AAI-DDDIn March 2020 he went to the [facility] where he was found to have criticalstenosis [...] day the patient went back to the [facility] and underwent IFR of the LADlesion and it was found to be nonobstructive. No further intervention wasperformed.April 2020 he went back to the [facility] again after presenting with ananterior ST elevation [...] N/A 03/17/2020 Procedure: Measurement, Myocardial Fractional Flow Letcher; Surgeon: MD Jose; Laterality: N/A; CARDIAC CATHETERIZATION N/A 05/04/2020 Procedure: Cardiac catheterization; Surgeon: Preethi Guerrero MD; Laterality:N/A; CARDIAC CATHETERIZATION N/A 05/04/2020 Procedure: Percutaneous coronary intervention; Surgeon: Preethi Guerrero MD;Laterality: N/A; COLONOSCOPY IMPLANT/EXPLANT LOOP RECORDER UMBILICAL HERNIA REPAIR VASECTOMYFH:Family HistoryProblem Relation Age of Onset COPD Mother Myocardial Infarction (NM) Father 34 at 53 cardiac cause Thyroid [...] Social Gatherings with Friends and Family: Attends Worship Services: Active Member of Clubs or Organizations: [...] Diff:Lab ResultsComponent Value Date WBC 12.3 (H) 0707/2020 RBC 4.68 01/04/2021 HGB 14.2 01/04/2021 HCT [...] rce(s) Supporting Document(s) ID Date Data Source [id number] 01/05/2021 11:44:09 AM EDT [facility] Name Value Range Interpretation Code Description Data Karine rce(s) Supporting Document(s) NT PRO BNP 29 pg/mL (0-125) [facility] ID Date Data Source [id number] 01/10/2021 02:15:34 PM EDT [address] [address]Lxw# Surgical Pathology ReportPatient Name: CODEY MOLINA: 1975Accession [...] 01/10/2021Electronically Signed Out By Van Cyr MD [facility] [place] [address] [id number] component performed at [facility], Histopathology, [address] [place] [address], [phone].Reported at [facility], [address] [place] [address], [id number]. This report may includeimmunohistochemical or in-situ hybridization results. Testing wasdeveloped and the performance characteristics determined by [facility] as required by CLIA '88. The FDA hasdetermined that approval for specific use is not necessary for clinicaluse. The quality of Hematoxylin and Eosin stains and as applicable, forall immunohistochemical and/or special stains, including positive andnegative controls, were reviewed and considered appropriate.ICD codes B07.9CPT codesA: 10805E Name Value Range Interpretation Code Description Data Karine rce(s) Supporting Document(s) ID Date Data Source [id number] 01/04/2021 06:42:00 PM EDT [facility] Name Value Range Interpretation Code Description Data Karine rce(s) Supporting Document(s) SARS coronavirus 2 RNA [Presence] in Res piratory specimen by NELLIE with probe detection NOT DETECTED [facility] This lab was reported by [facility]. ID Date Data Source [id number] 01/04/2021 09:26:09 PM EDT [facility] SPEC EXP DATE 01/07/2021ATI ENT ABO/Rh B NEGATIVEANTIBODY SCREEN NEGATIVETESTING SITE PERFORMED AT [address] [place] [id number] Name Value Range Interpretation Code Description Data Karine rce(s) Supporting Document(s) TYPE AND SCREEN [facility] ID Date Data Source [id number] 01/04/2021 08:10:09 PM EDT [facility] Name Value Range Interpretation Code Description Data Karine rce(s) Supporting Document(s) PHOSPHORUS 3.2 mg/dL (2.5-4.5) [facility] ID Date Data Source [id number] 01/04/2021 08:10:09 PM EDT [facility] Name Value Range Interpretation Code Description Data Karine rce(s) Supporting Document(s) MAGNESIUM 2.2 mg/dL (1.7-2.4) [facility] ID Date Data Source [id number] 01/04/2021 08:10:09 PM EDT [facility] Name Value Range Interpretation Code Description Data Karine rce(s) Supporting Document(s) SODIUM 139 mmol/L (136-145) [facility] POTASSIUM 4.2 mmol/L (3.6-5.2) [facility] CHLORIDE 106 mmol/L (100-108) [facility] CO2 28 mmol/L (22-31) [facility] ANION GAP 5 mmol/L (7-16) L [facility] UREA NITROGEN 13 mg/dL (7-24) [facility] CREATININE 0.68 mg/dL (0.80-1.30) L [facility] BUN/CREAT RATIO 19.1 RATIO (10.0-20.0) [facility] GLUCOSE 82 mg/dL (70-99) [facility] CALCIUM 8.5 mg/dL (8.4-10.2) [facility] GFR >60 ml/min/1.73m2 (>59) [facility] GFR ( AMER) >60 ml/min/1.73m2 (>59) [facility] GFR INTERPRETATION [facility] [place] --NORMAL KIDNEY FUNCTION OR MILD DISEASE - GFR >OR= 60CHRONIC KIDNEY DISEASE - GFR 15 - 59RENAL FAILURE - GFR <15 Est. GFR calculation based on the MDRDstudy equation, which assumes a steadystate for creatinine. Est. GFR should notbe used for medication dosing. ID Date Data Source [id number] 01/04/2021 07:43:03 PM EDT [facility] [place] Name Value Range Interpretation Code Description Data Karine rce(s) Supporting Document(s) SPECIMEN DESCRIPTION [facility] [place] INFLUENZA A (NEG) [facility] INFLUENZA B (NEG) [facility] RSV (NEG) [facility] COMMENT [facility] THE U.[place]. FDA HAS MADE THIS TEST AVAILABL EUNDER AN EMERGENCY USE AUTHORIZATION(EUA) FOR THE DETECTION AND/OR DIAGNOSISOF THE VIRUS THAT CAUSES COVID-19.PERFORMED AT [address] [place] [id number] COVID19 RESULT (NDET) [facility] [place] THIS ASSAY AMPLIFIES AND DETECTSTHE TARG ET RNA USING REAL-TIME PCR.TESTING PERFORMED ON [employer] GENEXPERTNEGATIVE 2019_NCOV RT-PCR RESULTS DONOT PRECLUDE 2019_NCOV INFECTION ANDSHOULD NOT BE USED THE SOLE BASISFOR PATIENT MANAGEMENT DECISIONS. FIRST TEST [facility] [place] EMPLOYED IN HLTHCARE [facility] [place] SYMPTOMATIC [facility] [place] Thomas DATE OF SYMPT ONSET [facility] [place] HOSPITALIZED [facility] ICU [facility] [place] CONGREGATE CARE SET [facility] [place] [facility] ID Date Data Source [id number] 01/04/2021 07:29:47 PM EDT [facility] Name Value Range Interpretation Code Description Data Karine rce(s) Supporting Document(s) WBC 12.3 10*3/uL (4.1-11.0) H [facility] RBC 4.68 10*6/uL (4.60-6.10) [facility] HGB 14.2 g/dL (13.5-18.0) [facility] HCT 41.8 % (41.0-53.0) [facility] PERFORMED AT [address] [place] [address] N Y [address] MCV 89.3 fL (80.0-95.0) [facility] MCH 30.2 pg (27.0-32.0) [facility] MCHC 33.9 g/dL (32.0-36.0) [facility] RDW 13.6 % (10.5-14.5) [facility] PLT 292 10*3/uL (150-450) [facility] MPV 7.9 fL (7.1-10.7) [facility] ID Date Data Source [id number] 11/06/2020 06:15:41 PM EDT [facility] [place] [facility] [place], [place] [address]Tel# SURGICAL PATHOLOGY REPORTPatient Name:CODEY MOLINADarlene:1975Received:11/03/2020ccession #:[id number](s) Received: A: Anal condylomaClinical Diagnosis [...] 11/06/2020Electronically Signed Out By Gretchen Mercado M.D. jmdPathology Associates St[facility] HospitalJose Alfredo.[address] [place] [id number] component performed at [facility], Histopathology, [address] [place] [address], [phone].Reported at [facility], [address] [place] [address], [facility].This report may include immunohistochemical or in-situ hybridizationresults. Testing was developed and the performance characteristicsdetermined by [facility], as required byCLIA '88. The FDA has determined that approval for specific use is notnecessary for clinical use. The quality of Hematoxylin and Eosin stainsand as applicable, for all immunohistochemical and/or special stains,including positive and negative controls, were reviewed and consideredappropriate.ICD codes: A63.0CPT4 codes: A: 93208M Name Value Range Interpretation Code Description Data Karine rce(s) Supporting Document(s) ID Date Data Source [id number] 10/29/2020 11:15:00 AM EDT [facility] Name Value Range Interpretation Code Description Data Karine rce(s) Supporting Document(s) SARS-CoV-2 (COVID-19) RNA [Presence] in Respiratory specimen by NELLIE with probe detection Not Detected [facility] This lab was ordered by [facility] and reported by [employer]. ID Date Data Source [id number] 10/19/2020 10:31:00 AM EDT [facility] ([facility]) Name Value Range Interpretation Code Description Data Karine rce(s) Supporting Document(s) Triglycerides Level 132 mg/dL [facility] ([facility]) Cholesterol Level 108 mg/dL [facility] ([facility]) HDL Cholesterol 36 mg/dL [facility] ([facility]) Non-HDL-C 72 mg/dL [facility] (Cardiology A [facility]ociates of [facility]) LDL Cholesterol 46 mg/dL [facility] ([facility]) Cholesterol Risk Ratio 3.000 [facility] ([facility]) ID Date Data Source [id number] 10/19/2020 10:31:00 AM EDT [facility] ([facility]) Name Value Range Interpretation Code Description Data Karine rce(s) Supporting Document(s) Glucose, Fasting 102 mg/dL 70-100 [facility] ([facility]) Blood Urea Nitrogen 10 mg/dL 7-18 [facility] ([facility]) Creatinine For GFR 0.82 mg/dL 0.70-1.30 [facility] ([facility]) Sodium Level 141 meq/L 136-145 [facility] ([facility]) Glomerular Filtration Rate Laboratory test result [facility] ([facility]) <content>Units are mL/min/1.73 m2</content>
<content></content>
<content>Chronic Kidney Disease Staging per NKF:</content>
<content></content>
<content>Stage I & II GFR >=60 Normal to Mildly Decreased</content>
<content>Stage III GFR 30- 59 Moderately Decreased</content>
<content>Stage IV GFR 15-29 Severely Decreased</content>
<content>Stage V GFR <15 Very Little GFR Left</content>
<content>ESRD GFR <15 on RAIL TRANSPORTATION OPERATOR</content>
<content></content> Potassium Serum 4.2 meq/L 3.5-5.1 [facility] ([facility]) Chloride Level 108 meq/L 98-107 [facility] ([facility]) Anion Gap 5 meq/L 8-16 [facility] (Cardiology A [facility]) Carbon Dioxide Level 28 meq/L 21-32 [facility] (C [facility]) Calcium Level 9.2 mg/dL 8.5-10.1 [facility] ([facility]iolo gy [facility]) Ast/Sgot 33 U/L 7-37 [facility] ([facility]iology [facility]) Alt/SGPT 53 U/L 12-78 [facility] ([facility]iology [facility]) Alkaline Phosphatase 95 U/L 45-117 [facility] ([facility]) Bilirubin,Total 0.3 mg/dL 0.2-1.0 [facility] ([facility]) Total Protein 7.2 GM/DL 6.4-8.2 [facility] ([facility]iolo gy [facility]) Albumin 4.0 GM/DL 3.2-5.2 [facility] Albumin/Globulin Ratio 1.3 [facility] ([facility]) ID Date Data Source [id number] 06/19/2020 09:14:00 AM EST [facility] ([facility]) Name Value Range Interpretation Code Description Data Karine rce(s) Supporting Document(s) White Blood Count 7.9 10 4.0-10.0 [facility] ([facility]) Red Blood Count 5.05 10 4.30-6.10 [facility] ([facility]) Hemoglobin 15.1 g/dL 13.5-17.5 [facility] ([facility]) Hematocrit 44.4 % 42.0-52.0 [facility] ([facility]) Mean Corpuscular Volume 87.9 fl 80.0-96.0 M EDENT ([facility]) Red Cell Distribution Width 13.2 % 11.5-14.5 [facility] ([facility]) Mean Corpuscular HGB Conc 34.0 g/dL 32.0-36.5 [facility] (Cardiology [facility]) Mean Corpuscular Hemoglobin 29.9 pg 27.0-33.0 [facility] ([facility]) Platelet Count, Automated 240 10 150-450 [facility] ([facility]) Nucleated Red Blood Cell % 0.0 % 0-0 MED ENT ([facility]) ID Date Data Source [id number] 06/19/2020 09:14:00 AM EST [facility] ([facility]) Name Value Range Interpretation Code Description Data Karine rce(s) Supporting Document(s) Glucose, Fasting 96 mg/dL 70-100 [facility] ([facility]) Blood Urea Nitrogen 11 mg/dL 7-18 [facility] ([facility]) Creatinine For GFR 0.93 mg/dL 0.70-1.30 [facility] ([facility]) Sodium Level 140 meq/L 136-145 [facility] ([facility]) Glomerular Filtration Rate Laboratory test result [facility] ([facility]) <content>Units are mL/min/1.73 m2</content>
<content></content>
<content>Chronic Kidney Disease Staging per NKF:</content>
<content></content>
<content>Stage I & II GFR >=60 Normal to Mildly Decreased</content>
<content>Stage III GFR 30- 59 Moderately Decreased</content>
<content>Stage IV GFR 15-29 Severely Decreased</content>
<content>Stage V GFR <15 Very Little GFR Left</content>
<content>ESRD GFR <15 on RAIL TRANSPORTATION OPERATOR</content>
<content></content> Potassium Serum 4.1 meq/L 3.5-5.1 [facility] ([facility]) Chloride Level 106 meq/L 98-107 [facility] ([facility]) Anion Gap 3 meq/L 8-16 [facility] ([facility]iology A [facility]) Carbon Dioxide Level 31 meq/L 21-32 [facility] ([facility]) Calcium Level 9.1 mg/dL 8.5-10.1 [facility] ([facility]o [facility]) ID Date Data Source [id number] 06/05/2020 09:06:00 AM EST [facility] ([facility]) Name Value Range Interpretation Code Description Data Karine rce(s) Supporting Document(s) White Blood Count 9.9 5.0-10.0 [facility] ([facility]) Red Blood Count 5.25 4.00-5.40 [facility] ([facility]) Platelets 238 172-450 [facility] ([facility]) Hemoglobin 15.2 [facility] ([facility]) Hematocrit 45.7 [facility] ([facility]) ID Date Data Source [id number] 06/05/2020 09:06:00 AM EST [facility] ([facility]) Name Value Range Interpretation Code Description Data Karine rce(s) Supporting Document(s) Sodium 142 [facility] Calcium [Mass/volume] in Serum or Plasma 8.3 [facility] ([facility]) Carbon dioxide, total [Moles/volume] in Serum or Plasma 25 [facility] ([facility]) Chloride [Moles/volume] in Serum or Plasma 110 [facility] (Cardiology [facility]) Glucose 121 83-110 [facility] (Cardiology A [facility]) Potassium [Moles/volume] in Serum or Plasma 4.0 [facility] (Cardiology [facility]) Creatinine 0.96 0.6-1.0 [facility] ([facility]iology [facility]) Blood Urea Nitrogen 7 7-18 [facility] (Ca [facility]) Glomerular filtration rate/1.73 sq M.pre dicted [Volume Rate/Area] in Serum or Plasma by Creatinine-based formula (MDRD) Laboratory test result [facility] ([facility]iology [facility]) ID Date Data Source [id number] 06/05/2020 08:39:00 AM EST [facility] Name Value Range Interpretation Code Description Data Karine rce(s) Supporting Document(s) SARS coronavirus 2 RNA [Presence] in Res piratory specimen by NELLIE with probe detection [facility] This lab was ordered by [facility] a nd reported by [facility]. ID Date Data Source [id number] 05/15/2020 11:33:[address] [facility] NT INFORMATIONPatient MRN Name Date of Age Gend*PT [id number] Codey Molina 1975 44 years M IPPT Location Admission Date/Time Visit ID Attending [id number] 05/03/20 2328 --- --- EPI ID CSN Admitting Provider [id number] Preethi Guerrero MD([id number]) Attestation signed by Preethi Guerrero MD at 05/15/2020 11:33 AMSignature: [id number] Fragosoate: May 15, 2020Time: 11:33 AM Physician Discharge Summary Codey MolinaMRN: [id number] date: 05/03/2020Attending Physician: Preethi Guerrero MDAdmission Diagnosis: [...] daily marijuana use,fibromyalgia who was transferred from [facility] with STEMI. Thepatient was treated here at [facility] in 03/2020 for STEMI based on cath [...] did not subside. He was taken to [facility] where he was noted tohave ST elevation in lead I. Troponin was negative. Dr. Guerrero was contactedand the patient was accepted for transfer. He was given TNK, started onheparin, given plavix, asa. He continued to have short bouts of chest painuntil arrival to [facility]. He reports compliance with medication regimen. Familyhistory notable for father with NM at 34 and at 53 with CAD. At thetime of encounter he is pain free and there are no ST elevations. He will beadmitted for further work up and treatment.Hospital Course & Complications: Mr Molina was transferred to [facility] fortreatment of acute NM. He underwent emergent cardiac catheterization, seeresults above. [...] were answered. Followup was arranged with his manufacturing weaver, Dr Newby, next week.Past Medical History:Past Medical [...] to homeFollow Up: Dr Newby 05/10/2020 8:15aSignature: Patrick MALINte: May 05, 2020Time: 11:19 AM Name Value Range Interpretation Code Description Data Karine rce(s) Supporting Document(s) ID Date Data Source [id number] 05/05/2020 10:31:00 AM EST [facility] ([facility]) Name Value Range Interpretation Code Description Data Karine rce(s) Supporting Document(s) Calcium [Mass/volume] in Serum or Plasma 8.8 [facility] ([facility]) Sodium 142 [facility] ([facility]iology [facility]) Carbon dioxide, total [Moles/volume] in Serum or Plasma 26 [facility] ([facility]) Chloride [Moles/volume] in Serum or Plasma 111 [facility] ([facility]) Glucose 92 70-99 [facility] ([facility]) Potassium [Moles/volume] in Serum or Plasma 3.6 [facility] ([facility]) Blood Urea Nitrogen 15 7-24 [facility] ([facility]) Creatinine 0.83 0.80-1.30 [facility] (Cardiology [facility]) Glomerular filtration rate/1.73 sq M.pre dicted [Volume Rate/Area] in Serum or Plasma by Creatinine-based formula (MDRD) Laboratory test result [facility] ([facility]) ID Date Data Source [id number] 05/05/2020 10:31:00 AM EST [facility] ([facility]) Name Value Range Interpretation Code Description Data Karine rce(s) Supporting Document(s) Red Blood Count 4.77 4.60-6.10 [facility] ([facility]) White Blood Count 7.3 4.1-11.0 [facility] ([facility]) Platelets 211 150-450 [facility] ([facility]iology [facility]) Hemoglobin 14.6 13.5-18.0 [facility] ([facility]) Hematocrit 41.9 41.0-53.0 [facility] ([facility]) ID Date Data Source [id number] 05/05/2020 05:45:57 AM EST [facility] Name Value Range Interpretation Code Description Data Karine rce(s) Supporting Document(s) SODIUM 142 mmol/L (136-145) [facility] POTASSIUM 3.6 mmol/L (3.6-5.2) [facility] CHLORIDE 111 mmol/L (100-108) H [facility] CO2 26 mmol/L (22-31) [facility] ANION GAP 5 mmol/L (7-16) L [facility] UREA NITROGEN 15 mg/dL (7-24) [facility] CREATININE 0.83 mg/dL (0.80-1.30) [facility] BUN/CREAT RATIO 18.1 RATIO (10.0-20.0) [facility] GLUCOSE 92 mg/dL (70-99) [facility] CALCIUM 8.8 mg/dL (8.4-10.2) [facility] GFR >60 ml/min/1.73m2 (>59) [facility] GFR ( AMER) >60 ml/min/1.73m2 (>59) [facility] GFR INTERPRETATION [facility] --NORMAL KIDNEY FUNCTION OR MILD DISEASE - GFR >OR= 60CHRONIC KIDNEY DISEASE - GFR 15 - 59RENAL FAILURE - GFR <15 Est. GFR calculation based on the MDRDstudy equation, which assumes a steadystate for creatinine. Est. GFR should notbe used for medication dosing. ID Date Data Source [id number] 05/05/2020 05:19:44 AM EST [facility] Name Value Range Interpretation Code Description Data Karine rce(s) Supporting Document(s) WBC 7.3 10*3/uL (4.1-11.0) [facility] [place] RBC 4.77 10*6/uL (4.60-6.10) [facility] HGB 14.6 g/dL (13.5-18.0) [facility] HCT 41.9 % (41.0-53.0) [facility] MCV 87.9 fL (80.0-95.0) [facility] MCH 30.5 pg (27.0-32.0) [facility] MCHC 34.7 g/dL (32.0-36.0) [facility] RDW 13.7 % (10.5-14.5) [facility] PLT 211 10*3/uL (150-450) [facility] MPV 7.1 fL (7.1-10.7) [facility] ID Date Data Source [id number] 05/04/2020 01:19:03 PM EST [facility] Name Value Range Interpretation Code Description Data Karine rce(s) Supporting Document(s) &PDF [facility] IERJBn6qCqUJNhXm51/ILHokUXCta1MhBHxeRAr0DZlsQAIdT9CzmIgrZAAKZR8MMCUZUTtLBC0rOzBy vci [file] s7cBk89ZmKVZvuhTBQpVO+mYmC8d8jrfqZ7weZ3E8AMei9J+supply chain tech+F7jjVCXozi1UbVMCmVw2hxepyRWqe [file] ICAgICAgICAgICAgICAgICAgICAgICAgICAgICAgIC AgICAgICAgICAgICAgICAgICAgICAgICAgICAgICAgICAgICAgICAgICAgICAgICAgICAgICAgICAgIC AgICAgDQogICAgICAgICAgICAgICAgICAgICAgICAgICAgICAgICAgICAgICAgICAgICAgICAgICAgIC AgICAgICAgICAgICAgICAgICAgICAgICAgICAgICAg ICAgICAgICAgICAgICAgDQogICAgICAgICAgICAgICAgICAgICAgICAgICAgICAgICAgICAgICAgICAg ICAgICAgICAgICAgICAgICAgICAgICAgICAgICAgICAgICAgICAgICAgICAgICAgICAgICAgICAgDQog ICAgICAgICAgICAgICAgICAgICAgICAgICAgICAgIC AgICAgICAgICAgICAgICAgICAgICAgICAgICAgICAgICAgICAgICAgICAgICAgICAgICAgICAgICAgIC AgICAgICAgDQogICAgICAgICAgICAgICAgICAgICAgICAgICAgICAgICAgICAgICAgICAgICAgICAgIC AgICAgICAgICAgICAgICAgICAgICAgICAgICAgICAg ICAgICAgICAgICAgICAgICAgDQogICAgICAgICAgICAgICAgICAgICAgICAgICAgICAgICAgICAgICAg ICAgICAgICAgICAgICAgICAgICAgICAgICAgICAgICAgICAgICAgICAgICAgICAgICAgICAgICAgICAg DQogICAgICAgICAgICAgICAgICAgICAgICAgICAgIC AgICAgICAgICAgICAgICAgICAgICAgICAgICAgICAgICAgICAgICAgICAgICAgICAgICAgICAgICAgIC AgICAgICAgICAgDQogICAgICAgICAgICAgICAgICAgICAgICAgICAgICAgICAgICAgICAgICAgICAgIC AgICAgICAgICAgICAgICAgICAgICAgICAgICAgICAg ICAgICAgICAgICAgICAgICAgICAgDQogICAgICAgICAgICAgICAgICAgICAgICAgICAgICAgICAgICAg ICAgICAgICAgICAgICAgICAgICAgICAgICAgICAgICAgICAgICAgICAgICAgICAgICAgICAgICAgICAg ICAgDQogICAgICAgICAgICAgICAgICAgICAgICAgIC AgICAgICAgICAgICAgICAgICAgICAgICAgICAgICAgICAgICAgICAgICAgICAgICAgICAgICAgICAgIC UjTLTqAELsMJJhNLAzOJn2X3frUKQiUGJwLK1dUZs6Sz1+DTpTIxKmPWI2frVgeS4XYR0nm4VtWSxrPD Tii7ZdYXv2TM2PFXAtPEmaWY9XHUncdh9GUQXnNUZn uTHLx3txFyLlENS1TZJkGchfAT7MLUJsN7xfraCrEDPkPOBQFNjoEPBAPJqvIYZYSCSxGTZzNeIpYtAa DVSfCUWzHHTRGW9GGsOnE2BpnO29HFOQNl3+HNfxdbRhPtdQKyW7VQWnw8EdCBl8VX7QQRDcOrhkv6Bk SjTxVHPUCQddJO0DABQ7IDP3EHPyOq8SGGRaE423lo JfUN0UEo5NQqOhFU8wyj6HVsEdIVTnZulGXlg6RLseDW0TbSQoOPoCyYHwCB57nbtSKxFrD1Hig9McLr G0NAQvAuXbFKsvUAMwYhN2MP78sRxpIE4PBYKhCMQkGO31LDY8XFKvTy8SDc9UXoCbYO0yum7PNmpzHP ToFmgXFix6HGgbNW6DgTNlG8GxpUDuy4uLXdHeE2GV KYMqZJNhCx7PKZLyXbHvOZBzIFuxRL1zEQKtRTDTqFfsxgK7BS1TXI2zyhAyUE6XAdCdNq5cCt7ICiVz W6IjH2OdBKGhELLFDGdkXP1SXCdnWU7kVY6Zb4OThYInqU4jbk1XTVNmNXQnTedmwc8XDsbeJ6W8sUeh PMShNsLtSEXEEDpgPW0WYMGuUSM0FAQbBJRfGOBKTs PwI28oND7FO3Tkd89yZjD1LDMhAqXpFHktUS72hIxjfrEkfQFkkSqoHX6FPt5+DQplbmRvYmoNCnhyZW SFGjWqWcqIUiBkCDNsYOJwAOGnUhR2ZfMlYn3MNKIcYRRtVOJeGeFiYMFmRTXzLDffHVWkXXb6QRD0EX LiCICoNV6YKvFgIPXdRia2VFwoARXrNNTbjr8OGCNc BKWfUND4XjYbSYMgXORkGOftFFZqMPKeBUF7SZXaEQRdHQ2PDpPbGAHkGAStAdCoETSdKMEkdl7GLCFb FPDiJHb5ECMxGJQyUWDkNKqiCCQxDDF9JBAdOPEbSHTmMP7QCiEqRNPoMCC6EPQhBCNhUGUzec5JRDMg BWTrFzi0IqLvNSTfEHMzZGzeTZTdXKX2VRI8LKSwNF ZgNG9URyKaTQEiRSqxUwEhFNWuZXBjvk1QHHRlZRRxPGb8DgYzKEQxPAUqZQcsFXEtYAUgXNfgCOChJW YaVQ4IOcNcBZJfCKJ0BKLvIGYdGHTcxh1JFIZsRHAcDqF4YJBqBVSoFOXvLDxiBRQsVMQ2QXI8QRLcCO BsYV3XExMdTOMuAUZtLSJfWRAnECOmjx6KBQNtHVAg OHMeKNArHEFoTIVjYWpuTKHzZUC9Jzl5OLJzQNPyEI0CYnJuFAXnTSI7QTJrHCKkSFFxdb9DINCeQIIb LVg6HOZcAUPhAJQrKFziCALnXPPxTcY0RAFkLBKxJY5WAiMzIOFiJbP8NDFcBYOiFENbum7KRLUdRLBf KBO7GuKjPEYlGHCeZWrdIWKgTMIzBFEjPNYqQCTwYJ 3IEwBbNJSmDkT5CMXjGTIcFDGdyj4XROVzFWGsKtUjZpFhVVBiJDNzWFdfLBLzGHDqGQjqXBKvGCXlYC 6PXbGhGMAbBHS7PJJqHKSbVPNkze1EBEPsKPQ8Emc8UPLhTKErYKAgKUntQEAbMRV8FgqdYRIsVCIpEK 8PWoBxGFEdTnsxXENkEDOzBPYzxm0FFUElRLT3EJAu KRXuAOMsZAUgSSgxPWOzVZouLZu8XDHmFOWgIM9EQjSxIIAbMTRnTtYpDHXiRWRjxq0SMKXeORZ9BEH1 LPRdLVGzJWCrLNb1unFxkVEkZUh4FO8NW1UqruXtYfdCKv1Ns219PRU5YPGjRu5IL8htHk4nOMQjQILQ Uf9BJDu3TNf6NnS2KlHcLEBnYAL5LkR0FQC1Hzm7SU cwZDdhYTI+RHdzTquhDLq5SWNbBEFsZps4PQqqDGShUnR3KqEwO6QrSv3nFIGXAm3+DQpzdGFydHhyZW EZBmiwQRBlNQotEDXEWd6G ID Date Data Source [id number] 05/04/2020 10:33:35 AM EST [facility] NT INFORMATIONPatient MRN Name Date of Age Gend*PT [id number] Tracy Codey Jose Rafael 1975 44 years M IPPT Location Admission Date/Time Visit ID Attending [id number] 05/03/20 2328 --- Preethi Guerrero MD ([id number]) EPI ID CSN Admitting Provider [id number] Preethi Guerrero MD([id number]) Attestation signed by Preethi Guerrero MD at [...] 10:30 AM Inpatient History & PhysicalCodey [facility] [id number] and Plan:Principal Problem: STEMI (ST elevation myocardial infarction)Active Problems: Hypertension Tobacco abuse Marijuana use1. STEMI: ST elevation in lead I at [facility]. He was given TNK, asa, plavix,SL nitro, [...] daily marijuana use,fibromyalgia who was transferred from [facility] with STEMI. Thepatient was treated here at [facility] in 03/2020 for STEMI based on cath [...] did not subside. He was taken to [facility] where he was noted tohave ST elevation in lead I. Troponin was negative. Dr. Guerrero was contactedand the patient was accepted for transfer. He was given TNK, started onheparin, given plavix, asa. He continued to have short bouts of chest painuntil arrival to [facility]. He reports compliance with medication regimen. Familyhistory notable for father with NM at 34 and at 53 with CAD. [...] N/A 03/17/2020 Procedure: Measurement, Myocardial Fractional Flow Letcher; Surgeon: MD Jose; Laterality: N/A; COLONOSCOPY IMPLANT/EXPLANT [...] Age of Onset COPD Mother Myocardial Infarction (NM) Father 34 at 53 cardiac cause Thyroid [...] file Gets together: Not on file Attends taoism service: Not on file Active member of [...] include: Old RecordsReviewed.Significant findings: Patient NameChaCodey morrissey ([id number]) SexMale DO1975PhysiciansPanel Physicians Referring Physician Case Authorizing Raman Witt MD (Primary)Assisting Physician: noneInterpretation [id number] man with history of syncope status post dual-chamber pacemakerpresenting with inferior myocardial infarction post lytics. 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 Critical stenosis in the mid right coronary [...] who presented to the emergency room at [facility] complaining of chest pain for [address] elevation in theinferior leads. He received thrombolytics and was referred here for furthermanagement. On arrival he was chest pain-free and his EKG had normalized. Soonafter he started having recurrent chest pain and nausea which was his presentingsymptom and he was taken to the Projection Welding Machine Operator for possible rescue angioplasty.CCS Functional Classification: IVAngina Type: UnstableAO Pressures 03/16/20 1059--03/16/20 1142 before dischargeDate/Time AO Systolic Cath Pressure AO Diastolic Cath Pressure AO Mean CathPressure AO Heart Rate03/16/20 11:08:01 115 77 95 90LV Pressures 03/16/20 1059--03/16/20 1142 before dischargeDate/Time LV Systolic Cath Pressure LV Diastolic Cath Pressure LV Heart Rate LVEnd Krutkwgmr15/01/20 11:11:20 113 11 75 23Implants ImplantStent,Coronary,Rex,4.71c55yf - [id number] - ImplantedInventory item: STENT,CORONARY,REX,4.02P47HY Model/Cat number: [id number]: [employer] SPINAL GRAFT Lot number: [id number] of 03/16/2020Status: ImplantedStent,Coronary,Ferris,4.00z00em - [id number] - WastedInventory item: STENT,CORONARY,REX,4.74W39RQ Model/Cat number: [id number]: MED [employer] SPINAL GRAFT Lot number: [id number] of 03/16/2020Status: WastedWall MotionThe mid anterior, basilar [...] was successfully placed. The stent used was aSTENT,CORONARY,REX,4.67R10UC.Post-Intervention Lesion AssessmentThe intervention was successful. Post-intervention SUNIL flow is 3. There were nocomplications.There is a 0% residual stenosis post intervention.PACS Images Show images for Cardiac catheterizationLink to Procedure LogProcedure LogPrintable Result ReportResult Report EncounterView Encounter OP NotesNo notes of this type exist within this time range.Cardiac catheterizationOrder: [id number]: Final result Visible to patient: No (Not Released) Next appt: NoneDx: STEMI (ST elevation myocardial infarc...DetailsReading Physician Reading Date Result Lv Witt MD 03/16/2020 RoutineNarrative & Kmijlbunpl14-dxvo-zrl man with history of syncope status post dual-chamber pacemakerpresenting with inferior myocardial infarction post lytics. 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 Critical stenosis in the mid right coronary [...] rce(s) Supporting Document(s) ID Date Data Source [id number] 05/04/2020 10:26:00 AM EST [facility] ([facility]) Name Value Range Interpretation Code Description Data Karine rce(s) Supporting Document(s) White Blood Count 9.3 4.1-11.0 [facility] (Card [facility]) Red Blood Count 4.66 4.60-6.10 MED[facility] ([facility]io [facility]) Platelets 220 150-450 MED[facility] (Cardiology A [facility]) Hematocrit 41.3 41.0-53.0 [facility] ([facility]) Hemoglobin 14.2 13.5-18.0 [facility] ([facility]) ID Date Data Source [id number] 05/04/2020 10:26:00 AM EST [facility] ([facility]i [facility]) Name Value Range Interpretation Code Description Data Karine rce(s) Supporting Document(s) Calcium [Mass/volume] in Serum or Plasma 8.4 [facility] ([facility]) Sodium 143 [facility] Chloride [Moles/volume] in Serum or Plasma 109 [facility] ([facility]) Carbon dioxide, total [Moles/volume] in Serum or Plasma 25 [facility] ([facility]) Potassium [Moles/volume] in Serum or Plasma 3.9 [facility] ([facility]) Glucose 104 70-99 MED[facility] ([facility]) Blood Urea Nitrogen 16 7-24 MED[facility] (Ca rdiology [facility]) Creatinine 0.87 0.80-1.30 [facility] ([facility]) Glomerular filtration rate/1.73 sq M.pre dicted [Volume Rate/Area] in Serum or Plasma by Creatinine-based formula (MDRD) Laboratory test result [facility] ([facility]) ID Date Data Source [id number] 05/04/2020 10:26:00 AM EST [facility] ([facility]i [facility]) Name Value Range Interpretation Code Description Data Karine rce(s) Supporting Document(s) Troponin Laboratory test result [facility] ([facility]) ID Date Data Source [id number] 05/04/2020 10:23:29 AM EST [facility] Name Value Range Interpretation Code Description Data Karine rce(s) Supporting Document(s) AMPHETAMINES,URINE (NEG) [facility] BARBITURATES,URINE (NEG) [facility] BENZODIAZEPINE,URINE (NEG) [facility] CANNABINOIDS,URINE (NEG) A [facility] COCAINE,URINE (NEG) [facility] OPIATES,URINE (NEG) A [facility] [place] NOTE: Oxycodone is not sufficientlydetec manish by this screening assay. A moresensitive assay is available upon request. PHENCYCLIDINE,URINE (NEG) [facility] PLEASE NOTE: [facility] [place] ARE REPORTED POSITIVE WHEN THE RESULT [...] FORMONITORING MEDICATION COMPLIANCE. ID Date Data Source [id number] 05/04/2020 08:09:41 AM EST [facility] Name Value Range Interpretation Code Description Data Karine rce(s) Supporting Document(s) EKG [facility] [id number] [file] [id number]= ID Date Data Source [id number] 05/04/2020 07:19:55 AM EST [facility] Name Value Range Interpretation Code Description Data Karine rce(s) Supporting Document(s) EKG [facility] [id number] [file] supply chain tech//[id number] [file] [id number]= ID Date Data Source [id number] 05/04/2020 07:38:57 AM EST [facility] Name Value Range Interpretation Code Description Data Karine rce(s) Supporting Document(s) SODIUM 143 mmol/L (136-145) [facility] POTASSIUM 3.9 mmol/L (3.6-5.2) [facility] CHLORIDE 109 mmol/L (100-108) H [facility] CO2 25 mmol/L (22-31) [facility] ANION GAP 9 mmol/L (7-16) [facility] UREA NITROGEN 16 mg/dL (7-24) [facility] CREATININE 0.87 mg/dL (0.80-1.30) [facility] BUN/CREAT RATIO 18.4 RATIO (10.0-20.0) [facility] GLUCOSE 104 mg/dL (70-99) H [facility] CALCIUM 8.4 mg/dL (8.4-10.2) [facility] GFR >60 ml/min/1.73m2 (>59) [facility] GFR ( AMER) >60 ml/min/1.73m2 (>59) [facility] GFR INTERPRETATION [facility] --NORMAL KIDNEY FUNCTION OR MILD DISEASE - GFR >OR= 60CHRONIC KIDNEY DISEASE - GFR 15 - 59RENAL FAILURE - GFR <15 Est. GFR calculation based on the MDRDstudy equation, which assumes a steadystate for creatinine. Est. GFR should notbe used for medication dosing. ID Date Data Source [id number] 05/04/2020 07:02:16 AM EST [facility] [place] Name Value Range Interpretation Code Description Data Karien rce(s) Supporting Document(s) APTT 29.1 s (22.0-34.3) [facility] ID Date Data Source [id number] 05/04/2020 06:50:56 AM EST [facility] Name Value Range Interpretation Code Description Data Karine rce(s) Supporting Document(s) WBC 9.3 10*3/uL (4.1-11.0) [facility] [place] RBC 4.66 10*6/uL (4.60-6.10) [facility] HGB 14.2 g/dL (13.5-18.0) [facility] HCT 41.3 % (41.0-53.0) [facility] MCV 88.7 fL (80.0-95.0) [facility] MCH 30.4 pg (27.0-32.0) [facility] MCHC 34.3 g/dL (32.0-36.0) [facility] RDW 13.6 % (10.5-14.5) [facility] PLT 220 10*3/uL (150-450) [facility] MPV 7.0 fL (7.1-10.7) L [facility] ID Date Data Source [id number] 05/04/2020 03:49:26 AM EST [facility] Name Value Range Interpretation Code Description Data Karine rce(s) Supporting Document(s) TROPONIN I <0.05 ng/mL (<0.05) [facility] [place] Less than 0.05: Myocardial injury unlike lyGreater than or equal to 0.05: Highly suggestive of myocardial injuryCorrelation with rise and/or fall ofserial troponins, clinical symptomsand ECG changes is necessary. ID Date Data Source [id number] 05/04/2020 12:59:44 AM EST [facility] [place] Name Value Range Interpretation Code Description Data Karine rce(s) Supporting Document(s) HEMOGLOBIN A1C @ 5.6 % (4.0-6.0) [facility] [place] Performed using Siemens [place] immunoassa y.Care must be taken when interpreting GwZ8fftryvpe in patients with a hemoglobin variantor decreased erythrocyte lifespan. Values 5.7 - 6.4% suggest prediabetes.Values >=6.5% are diagnostic for diabetes.REFERENCE: DIABETES CARE 2018: 41(S13-S27).PERFORMED AT [address] [place] [id number] EST AVERAGE GLUCOSE 114 mg/dL [facility] [place] ID Date Data Source [id number] 05/04/2020 09:22:43 AM EST [facility] [place] Name Value Range Interpretation Code Description Data Karine rce(s) Supporting Document(s) CHOLESTEROL @ 103 mg/dL (0-200) [facility] TRIGLYCERIDE @ 102 mg/dL (30-200) [facility] HDL CHOLESTEROL @ 37 mg/dL (>40) L [facility] PER NCEP ATP III GUIDELINES:RESULTS LOWE R THAN 40 MG/DL ARE SUGGESTIVEOF INCREASED RISK FOR CORONARY ARTERYDISEASE. RESULTS > OR = TO 60 MG/DL ARECONSIDERED A NEGATIVE RISK FACTOR. CHOL/HDL RATIO 2.8 RATIO [facility] INTERPRETATION OF CHOL-HDL RATIO CHD RISK FEMALE MALEVERY HIGH >8.3 >14.3HIGH 5.6- 8.3 6.7- 14.3AVERAGE 3.7- 5.6 4.0- 6.7BELOW AVERAGE 2.5- 3.7 2.7- 4.0PROTECTED <2.5 <2.7 LDL CHOL (CALC) 46 mg/dL (<130) [facility] PER NCEP ATP III GUIDELINES: OPTIMAL < 100 NEAR OPTIMAL 100 - 129BORDERLINE HIGH 130 - 159 HIGH 160 - 189 VERY HIGH > 189 ID Date Data Source [id number] 05/04/2020 01:14:44 AM EST [facility] [place] Name Value Range Interpretation Code Description Data Karine rce(s) Supporting Document(s) TSH,ULTRASENSITIVE @ 2.516 mIU/L (0.360-4.170) [facility] PERFORMED AT [address] [place] [address] [place] [address] ID Date Data Source [id number] 05/04/2020 01:14:44 AM EST [facility] Name Value Range Interpretation Code Description Data Karine rce(s) Supporting Document(s) NT PRO BNP 219 pg/mL (0-125) H [facility] ID Date Data Source [id number] 05/04/2020 01:14:44 AM EST [facility] Name Value Range Interpretation Code Description Data Karine rce(s) Supporting Document(s) TROPONIN I <0.05 ng/mL (<0.05) [facility] [place] Less than 0.05: Myocardial injury unlike lyGreater than or equal to 0.05: Highly suggestive of myocardial injuryCorrelation with rise and/or fall ofserial troponins, clinical symptomsand ECG changes is necessary. ID Date Data Source [id number] 05/04/2020 01:14:44 AM EST [facility] Name Value Range Interpretation Code Description Data Karine rce(s) Supporting Document(s) SODIUM 142 mmol/L (136-145) [facility] POTASSIUM 3.5 mmol/L (3.6-5.2) L [facility] CHLORIDE 111 mmol/L (100-108) H [facility] CO2 24 mmol/L (22-31) [facility] ANION GAP 7 mmol/L (7-16) [facility] UREA NITROGEN 16 mg/dL (7-24) [facility] CREATININE 1.00 mg/dL (0.80-1.30) [facility] BUN/CREAT RATIO 16.0 RATIO (10.0-20.0) [facility] GLUCOSE 109 mg/dL (70-99) H [facility] CALCIUM 9.1 mg/dL (8.4-10.2) [facility] TOTAL PROTEIN 7.4 g/dL (6.4-8.2) [facility] ALBUMIN 4.2 g/dL (3.5-4.6) [facility] GLOBULIN 3.2 g/dL (2.7-4.3) [facility] ALB/GLOB RATIO 1.3 RATIO [facility] ALKALINE PHOSPHATASE 94 U/L (45-117) [facility] BILIRUBIN,TOTAL 1.0 mg/dL (0.0-1.0) [facility] PLEASE NOTE:Total bilirubin results may be falselyelevated in patients taking Eltrombopag. AST (SGOT) 32 U/L (11-39) [facility] ALT (SGPT) 51 U/L (12-78) [facility] GFR >60 ml/min/1.73m2 (>59) [facility] GFR ( AMER) >60 ml/min/1.73m2 (>59) [facility] GFR INTERPRETATION [facility] --NORMAL KIDNEY FUNCTION OR MILD DISEASE - GFR >OR= 60CHRONIC KIDNEY DISEASE - GFR 15 - 59RENAL FAILURE - GFR <15 Est. GFR calculation based on the MDRDstudy equation, which assumes a steadystate for creatinine. Est. GFR should notbe used for medication dosing. ID Date Data Source [id number] 05/04/2020 01:06:13 AM EST [facility] Name Value Range Interpretation Code Description Data Karine rce(s) Supporting Document(s) MAGNESIUM 1.7 mg/dL (1.7-2.4) [facility] ID Date Data Source [id number] 05/04/2020 12:48:46 AM EST [facility] Name Value Range Interpretation Code Description Data Karine rce(s) Supporting Document(s) APTT 26.4 s (22.0-34.3) [facility] ID Date Data Source [id number] 05/04/2020 12:37:17 AM EST [facility] Name Value Range Interpretation Code Description Data Karine rce(s) Supporting Document(s) WBC 13.4 10*3/uL (4.1-11.0) H [facility] RBC 4.91 10*6/uL (4.60-6.10) [facility] HGB 14.8 g/dL (13.5-18.0) [facility] HCT 41.7 % (41.0-53.0) [facility] MCV 84.9 fL (80.0-95.0) [facility] MCH 30.1 pg (27.0-32.0) [facility] MCHC 35.4 g/dL (32.0-36.0) [facility] RDW 13.9 % (10.5-14.5) [facility] PLT 264 10*3/uL (150-450) [facility] MPV 7.1 fL (7.1-10.7) [facility] NEUT % 72.0 % (35.0-75.0) [facility] LYMPH % 17.8 % (16.0-52.0) [facility] MONO % 8.4 % (0.0-8.0) H [facility] EOS % 0.9 % (0.0-5.0) [facility] BASO % 0.9 % (0.0-4.0) [facility] NEUT # 9.7 10*3/uL (1.8-7.7) H [facility] LYMPH # 2.4 10*3/uL (1.2-4.8) [facility] MONO # 1.1 10*3/uL (0.0-0.8) H [facility] Eosinophils [#/volume] in Blood by Automated count 0.1 10*3/uL (0.0-0 .5) [facility] BASO # 0.1 10*3/uL (0.0-0.2) [facility] ID Date Data Source [id number] 05/03/2020 10:04:00 AM EST [facility] ([facility]) Name Value Range Interpretation Code Description Data Karine rce(s) Supporting Document(s) Hemoglobin A1c/Hemoglobin.total in Blood 5.6 [facility] ([facility]) ID Date Data Source [id number] 05/03/2020 10:04:00 AM EST [facility] ([facility]i [facility]) Name Value Range Interpretation Code Description Data Karine rce(s) Supporting Document(s) Magnesium Level 1.7 1.8-2.4 [facility] ([facility]) ID Date Data Source [id number] 05/03/2020 10:04:00 AM EST [facility] ([facility]) Name Value Range Interpretation Code Description Data Karine rce(s) Supporting Document(s) Albumin [Mass/volume] in Serum or Plasma 4.2 [facility] ([facility]) Alanine aminotransferase [Enzymatic activity/volume] in Serum or Pl asma 51 [facility] ([facility]) Calcium [Mass/volume] in Serum or Plasma 9.1 [facility] ([facility]) Carbon dioxide, total [Moles/volume] in Serum or Plasma 24 [facility] ([facility]) Chloride [Moles/volume] in Serum or Plasma 111 [facility] ([facility]) Potassium [Moles/volume] in Serum or Plasma 3.5 [facility] ([facility]) Alkaline phosphatase [Enzymatic activity/volume] in Serum or Plasma 9 4 [facility] ([facility]) Aspartate aminotransferase [Enzymatic activity/volume] in Serum or Plasma 32 [facility] ([facility]) Sodium 142 [facility] ([facility]) Protein [Mass/volume] in Serum or Plasma 7.4 [facility] ([facility]) Urea nitrogen [Mass/volume] in Serum or Plasma 16 [facility] ([facility]) Glucose 109 70-99 [facility] ([facility]) Creatinine For GFR 1.00 [facility] (Car [facility]) ID Date Data Source [id number] 05/03/2020 10:04:00 AM EST [facility] ([facility]) Name Value Range Interpretation Code Description Data Karine rce(s) Supporting Document(s) Cholesterol 103 0-200 [facility] ([facility]) Triglycerides 102 30-200 [facility] (Cardiolo gy [facility]) Cholesterol in LDL [Mass/volume] in Serum or Plasma by calculation 46 [facility] ([facility]) HDL 37 [facility] ([facility]) Chol/HDL Ratio 2.8 [facility] ([facility]iol [facility]gy [facility]) ID Date Data Source [id number] 05/03/2020 10:04:00 AM EST [facility] ([facility]i [facility]) Name Value Range Interpretation Code Description Data Karine rce(s) Supporting Document(s) Thyroid Stimulating Hormone 2.516 ME DENT ([facility]) Natriuretic peptide.B prohormone N-Terminal [Mass/volu me] in Serum or Plasma 219 [facility] (Chemical Comp[facility] Helper s [facility]) ID Date Data Source [id number] 05/03/2020 10:04:00 AM EST [facility] ([facility]) Name Value Range Interpretation Code Description Data Karine rce(s) Supporting Document(s) White Blood Count 14.7 4.0-10.0 [facility] ([facility]) Platelets 273 150-450 [facility] ([facility]) Red Blood Count 5.17 4.30-6.10 [facility] ([facility]io [facility]) Hematocrit 44.8 [facility] ([facility]) Hemoglobin 14.9 [facility] ([facility]) ID Date Data Source [id number] 05/03/2020 10:04:00 AM EST [facility] ([facility]) Name Value Range Interpretation Code Description Data Karine rce(s) Supporting Document(s) Troponin Laboratory test result [facility] ([facility]) ID Date Data Source [id number] 03/18/2020 02:33:[address] [facility] INFORMATIONPatient MRN Name Date of Age Gend*PT [id number] Codey Molina 1975 44 years M IPPT Location Admission Date/Time Visit ID Attending [id number] 03/16/20 0915 --- Simon Witt MD([id number]) EPI ID CSN Admitting Provider [id number] Simon Witt MD([id number]) Attestation signed by Jesus Garcia MD at 03/18/2020 2:33 PMI saw and evaluated the patient and reviewed Ms. Norman's note. I agree with thehistory, physical and medical decision making.Signature: Jesus De La Rosa MDDate: March 18, 2020Time: 2:33 PM Physician Discharge Summary Codey Mantilla TracyMRN: [id number] date: 03/16/2020Attending Physician: Simon Witt MDAdmission Diagnosis: STEMI (ST elevation myocardial infarction)Principle Procedures:1. Cardiac catheterization: 03/16/2020Interpretation Hliqnft60-tqtf-gqx man with history of syncope status post dual-chamber pacemakerpresenting with inferior myocardial infarction post lytics. 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 Critical stenosis in the mid right coronary [...] complications, estimated blood loss minimal.Cardiac catheterization: 03/17/2020Interpretation Jjbhnor55-wmdd-wso man with coronary artery disease or myocardial [...] He will follow-up with Dr. Newby in [place] no complications, estimated blood loss minimal.Echocardiogram: 03/17/2020Interpretation [...] effusion.Indication for Admission: "44-year-old man transferred from [facility] for acute inferior myocardial infarction post thrombolytic therapy. The patient is obese and smoker and has no other known risk factor for coronaryartery disease and he awoke from sleep around 3 in the morning when he startedcomplaining of substernal chest pressure without radiation. Soon after hestarted becoming sweaty and nauseous. In the morning he was taken to theemergency department in [place] where his EKG showed ST elevation in [...] 03/16/2020D-Dimer: No results found for: DDAT, PROCALCITON, LIPSABXZxmW1n: No results found for: NIEB2LMnwlaunltbpxja:Lab ResultsComponent Value Date CHOL 192 03/17/2020 TRIG [...] Your MedicationsThese medications were sent to [facility] - [place], [place] - [address] [address] [facility] [id number] atorvastatin 40 MG tablet carvedilol 3.125 MG [...] rce(s) Supporting Document(s) ID Date Data Source [id number] 03/18/2020 09:53:00 AM EDT [facility] ([facility]i [facility]) Name Value Range Interpretation Code Description Data Karine rce(s) Supporting Document(s) Calcium [Mass/volume] in Serum or Plasma 8.8 [facility] ([facility]) Sodium 139 [facility] ([facility]) Chloride [Moles/volume] in Serum or Plasma 106 [facility] ([facility]) Carbon dioxide, total [Moles/volume] in Serum or Plasma 24 [facility] ([facility]) Potassium [Moles/volume] in Serum or Plasma 3.7 [facility] ([facility]) Glucose 100 70-99 [facility] (Cardiology [facility]) Blood Urea Nitrogen 9 7-24 [facility] (Ca [facility]diology [facility]) Creatinine 0.79 0.80-1.30 [facility] ([facility]) Glomerular filtration rate/1.73 sq M.pre dicted [Volume Rate/Area] in Serum or Plasma by Creatinine-based formula (MDRD) [facility] ID Date Data Source [id number] 03/18/2020 10:07:55 AM EDT [facility] Name Value Range Interpretation Code Description Data Karine rce(s) Supporting Document(s) SODIUM 139 mmol/L (136-145) [facility] POTASSIUM 3.7 mmol/L (3.6-5.2) [facility] CHLORIDE 106 mmol/L (100-108) [facility] CO2 24 mmol/L (22-31) [facility] ANION GAP 9 mmol/L (7-16) [facility] UREA NITROGEN 9 mg/dL (7-24) [facility] CREATININE 0.79 mg/dL (0.80-1.30) L [facility] BUN/CREAT RATIO 11.4 RATIO (10.0-20.0) [facility] GLUCOSE 100 mg/dL (70-99) H [facility] CALCIUM 8.8 mg/dL (8.4-10.2) [facility] GFR >60 ml/min/1.73m2 (>59) [facility] GFR ( AMER) >60 ml/min/1.73m2 (>59) [facility] GFR INTERPRETATION [facility] --NORMAL KIDNEY FUNCTION OR MILD DISEASE - GFR >OR= 60CHRONIC KIDNEY DISEASE - GFR 15 - 59RENAL FAILURE - GFR <15 Est. GFR calculation based on the MDRDstudy equation, which assumes a steadystate for creatinine. Est. GFR should notbe used for medication dosing. ID Date Data Source [id number] 03/18/2020 09:27:27 AM EDT [facility] Name Value Range Interpretation Code Description Data Karine rce(s) Supporting Document(s) WBC 10.2 10*3/uL (4.1-11.0) [facility] RBC 5.24 10*6/uL (4.60-6.10) [facility] HGB 15.4 g/dL (13.5-18.0) [facility] HCT 47.1 % (41.0-53.0) [facility] MCV 89.9 fL (80.0-95.0) [facility] MCH 29.3 pg (27.0-32.0) [facility] MCHC 32.6 g/dL (32.0-36.0) [facility] RDW 13.7 % (10.5-14.5) [facility] PLT 224 10*3/uL (150-450) [facility] MPV 7.5 fL (7.1-10.7) [facility] NEUT % 68.7 % (35.0-75.0) [facility] LYMPH % 22.4 % (16.0-52.0) [facility] MONO % 7.4 % (0.0-8.0) [facility] EOS % 1.0 % (0.0-5.0) [facility] BASO % 0.5 % (0.0-4.0) [facility] NEUT # 7.0 10*3/uL (1.8-7.7) [facility] LYMPH # 2.3 10*3/uL (1.2-4.8) [facility] MONO # 0.8 10*3/uL (0.0-0.8) [facility] Eosinophils [#/volume] in Blood by Automated count 0.1 10*3/uL (0.0-0 .5) [facility] BASO # 0.0 10*3/uL (0.0-0.2) [facility] ID Date Data Source [id number] 03/17/2020 03:48:21 PM EDT [facility] Name Value Range Interpretation Code Description Data Karine rce(s) Supporting Document(s) &PDF [facility] LDANLn0cXsVHBnDv57/RDPjcVWTwl2OaVGxrAPt7XGqdVIRuM0QklMpgMUWCHR5CEYUIEBpYDN2iLzBf yKE [file] Yw6IMcK7WAC7kZXsDd6OVQZyOBHUXuJfJE7KNSl= ID Date Data Source [id number] 03/17/2020 01:48:45 PM EDT [facility] Name Value Range Interpretation Code Description Data Karine rce(s) Supporting Document(s) CHOLESTEROL @ 192 mg/dL (0-200) [facility] TRIGLYCERIDE @ 135 mg/dL (30-200) [facility] HDL CHOLESTEROL @ 33 mg/dL (>40) L [facility] PER NCEP ATP III GUIDELINES:RESULTS LOWE R THAN 40 MG/DL ARE SUGGESTIVEOF INCREASED RISK FOR CORONARY ARTERYDISEASE. RESULTS > OR = TO 60 MG/DL ARECONSIDERED A NEGATIVE RISK FACTOR. CHOL/HDL RATIO 5.8 RATIO [facility] INTERPRETATION OF CHOL-HDL RATIO CHD RISK FEMALE MALEVERY HIGH >8.3 >14.3HIGH 5.6- 8.3 6.7- 14.3AVERAGE 3.7- 5.6 4.0- 6.7BELOW AVERAGE 2.5- 3.7 2.7- 4.0PROTECTED <2.5 <2.7 LDL CHOL (CALC) 132 mg/dL (<130) H [facility] PER NCEP ATP III GUIDELINES: OPTIMAL < 100 NEAR OPTIMAL 100 - 129BORDERLINE HIGH 130 - 159 HIGH 160 - 189 VERY HIGH > 189 ID Date Data Source [id number] 03/17/2020 09:43:00 AM EDT [facility] ([facility]) Name Value Range Interpretation Code Description Data Karine rce(s) Supporting Document(s) Red Blood Count 4.90 4.60-6.10 [facility] ([facility]) White Blood Count 10.3 4.1-11.0 [facility] ([facility]) Platelets 203 150-450 [facility] Hemoglobin 14.6 13.5-18.0 [facility] ([facility]) Hematocrit 43.9 41.0-53.0 [facility] ([facility]) ID Date Data Source [id number] 03/17/2020 09:43:00 AM EDT [facility] Name Value Range Interpretation Code Description Data Karine rce(s) Supporting Document(s) Cholesterol 190 0-200 [facility] ([facility]) Triglycerides 135 [facility] ([facility]iol[facility]) Chol/HDL Ratio 5.8 [facility] ([facility]iol [facility]) HDL 33 [facility] Cholesterol in LDL [Mass/volume] in Serum or Plasma by calculation 13 2 [facility] ([facility]) ID Date Data Source [id number] 03/17/2020 09:43:00 AM EDT [facility] ([facility]) Name Value Range Interpretation Code Description Data Karine rce(s) Supporting Document(s) Troponin 14.40 [facility] (Cardiology [facility]) ID Date Data Source [id number] 03/17/2020 09:43:00 AM EDT [facility] ([facility]) Name Value Range Interpretation Code Description Data Karine rce(s) Supporting Document(s) Calcium [Mass/volume] in Serum or Plasma 8.4 [facility] ([facility]) Carbon dioxide, total [Moles/volume] in Serum or Plasma 22 [facility] ([facility]) Sodium 142 [facility] ([facility]) Chloride [Moles/volume] in Serum or Plasma 108 [facility] ([facility]) Glucose 98 70-99 [facility] ([facility]) Potassium [Moles/volume] in Serum or Plasma 3.9 [facility] ([facility]) Blood Urea Nitrogen 9 7-24 [facility] (Ca [facility]) Glomerular filtration rate/1.73 sq M.pre dicted [Volume Rate/Area] in Serum or Plasma by Creatinine-based formula (MDRD) Laboratory test result [facility] ([facility]) Creatinine 0.77 0.80-1.30 [facility] ([facility]) ID Date Data Source [id number] 03/17/2020 09:14:16 AM EDT [facility] Name Value Range Interpretation Code Description Data Karine rce(s) Supporting Document(s) &PDF [facility] QWAPEb7cBoVESiRl29/IYOxdTIFuc5JpRDkqQPz7POcqXYTzE7MocCahBGDMGX2OZYIUHXySLD4cXmOu yKE [file] dBFk3v9jNYAdopWuq7bqBfzGws0TQIQc/bgPXG5M6feWhqaKBi657UoIYc/COFFEE MACHINE TECHNICIAN/fEaSbOK3kVQ35V0Gf [file] ICAgICAgICAgICAgICAgICAgICAgICAgICAgICAgICAgICAgICAgICAgICAgICAgICAgICAgICAgICAg SQMfLNHrVZQnMMVyUFYmKSRyJGAbPDHyRF1LOOTeAKAaMVTeXHOmBEKrYHPkUCZlLCFyJJJeOSRhIJBq ICAgICAgICAgICAgICAgICAgICAgICAgICAgICAgIC QsLRJpURQqWWMeBZPjIVGxVYVdLGBcEXQtFRIdMNUfQNNkQS6XXINvSVZgVZLvPSJnQQElCDRfIWLfKY AgICAgICAgICAgICAgICAgICAgICAgICAgICAgICAgICAgICAgICAgICAgICAgICAgICAgICAgICAgIC JdRIJiSYRpLEKrOHBsIFHjDM7KTLRgDWTsTFLmEHUq ICAgICAgICAgICAgICAgICAgICAgICAgICAgICAgICAgICAgICAgICAgICAgICAgICAgICAgICAgICAg OKXaSWXaURIiIFJlOLNhESKxTYXxEUEiOOVnFL9OSCZxSUAtWQJpUWEiIKPyWYRhVWPqWXUgOMDjXQUw ICAgICAgICAgICAgICAgICAgICAgICAgICAgICAgIC XpVVYlOBRyECOpSGPmUJIdMEPhQPGzNTLyYZFrNUOqZTJhNNEoAB4GYSTiTPJwRHZuUIFeLZUnYOChMX AgICAgICAgICAgICAgICAgICAgICAgICAgICAgICAgICAgICAgICAgICAgICAgICAgICAgICAgICAgIC AfORDpUMIyOXBoQKRpHIIkDRYnAT4WINDzURKfURZm ICAgICAgICAgICAgICAgICAgICAgICAgICAgICAgICAgICAgICAgICAgICAgICAgICAgICAgICAgICAg KVNcMQViLSUuCJNpTIOqLEWuHGYePXEvSBAtBOCtWD7RNPCdLBStHBPyXNFxIMOkJFFoTYTlMNQdBQDb ICAgICAgICAgICAgICAgICAgICAgICAgICAgICAgIC CoBUSmEYQqYDLzAOLhFAXoMJCcNEBjARQtXTLdRULcRNYmIZFlUKIvJG6MCIGoGJFyIEMhWABpUVHwNO AgICAgICAgICAgICAgICAgICAgICAgICAgICAgICAgICAgICAgICAgICAgICAgICAgICAgICAgICAgIC JlLPBsHBWcTZDpCHZjBDUcHMIrFJMeIP5POBDvDSEv ICAgICAgICAgICAgICAgICAgICAgICAgICAgICAgICAgICAgICAgICAgICAgICAgICAgICAgICAgICAg QAOzQJHkSLTtLKYxWWWlWKSkZHLrKFFpEHAtVNMyJLDwLZ2RYL18dAUwk8U8TZHxLT6gvty/Ra5WSOaa mpDafVDyNV3MViBwYP5ilu7GSmMxTL2tek8GOIcHWa JaB0N1mJYaPRRpNHSGGoUgU93vNVamIv27RHpuEKEzPsTnQUz7Ay3MOgAkU7klWVLaJqH9LOAuGpT5BO ZmHoX1EOJbHyWvXCrhJE9Vv4SbfFXhVMz+Vz6RPV5rz3PgAJkgCIFzYI2brw6WCYtJGxUwB0Z0oRBzD7 N3QGejOu4AAUAyPZMhZhMjIQOGSVitKA5HVS0qkdD9 HJ2FxWQkOAIcWJMuuGTlNBn0Q69bvELnQIdyIF1GNNC+Jignesh+Cd6OJFAgEMPtRWPqEbCdPNJDLrSbD67c rPMqHPFxKJK4OUGhOn3JSUKtG1BjdpDxfJripyHyFFNxSLUDNP0KAOeeebCccPIlqVjqKO65qZudIF7O Xy5ZIcGaFY4uiq1CyQDdDw7MBMTkZi7ZKVKiKQEpUQ SgRQE3KBWdPyIqDOnrLLTyTXRjFUI2EXSwVYBcWV9TFrMwPEAsAFN8GqPzBHQdSHTsnu0YLGCjTHP7Pv T0SUSdIZOnJMSdYJauSLAvDHEzGAslKZNpUTViBD1DMwYdGGWvVTBgPKWmVBPvKKNrnh9FIRIwQKOqVh V6ATLtYKGcFREtFXrmKKKgTTN2DJyeBDZeBXHbQG5D ItEdQCPdHBA6KVNeDPJcYRLqhk6WOJIlIFAuDaBxWrFmYRGmGBAgTVilAFXrFFB0OlA7CSEoPOJlEN3B PtZtJMUyPCt9MhAvSQAdKHZfqw4NAMBpJXBiRUy0AbDuVQMoHVXcXQftILCbXXH8VSN8HJNkEDPmPB6L DoCmRSCzLKz9LEUsBXLzAIHgwv5WDTHjYWIqLCNwNe IhZOOgANBeHDpeIUFcNVDaQjE1YSYgHQZmGF3NUjIkZRImCATkBbJuIXHvJJTnpd1NTKRbBGHlKSF0CX NlTZQsVHHnPEhaDZRcODW7JfumEYVoPRSbXY8ZXoDkECNoAZS9NwMaWDGoIBVoop5WSCSvEBEtOuG5Jt RsHYPlIKSvEWutQHVmYNC9GBG0KKViWYKoAG0ZKjUh BDUxWWklAZYvHZEcGXRasd3FYEWiJTYfSnO2XvDmUOHqMWSxJEdfABLaSPUqUQTtBTYiUINiQW8SDiDd QDRtAgV2JApxZGRdIWQbps3OTGJdYQYbMuWaHkYlDHMhMMQjNPdnXZPqACN4MuXhGKLyIAAvZJ1PViHm LVKtSCv8NRShMUZuLRRnpz9YCRMwHRM6PCY7TJRtJF QtBOFtYRvfUOQvXPV6UiQxJXWsQDIjXZ9ZFjMqWLIlQoP0BxAmERLwIDLorw3JJIChXJR2AMT7AVKjYE NjQLIrMAenMRJmPVbbMrR7AKKqLTFnCN5JQbBbDSEiVZS3KlTxZIPiSWYmqc0VbAWepUnwej6GNNfOHz 1PhZnmHWL4QKxdBu0npUJlWUBqRZPCSq4NeiMuRKOp SPPZJHfsAGAuRUU0Lew3EsbjZzc5BnXzFOx4LIKqHnEaHwW9GDZ6XpUsBaM3EIXxUsp5SSGeHWocRmGs RZf3DNTwUCCoSlXbXXc1OHN+HF4wNDj+Jc3Sg9BsvtD2zhUmJFc6Lqq8QT5HGZOIM3ALTh== ID Date Data Source [id number] 03/17/2020 08:10:01 AM EDT [facility] Name Value Range Interpretation Code Description Data Karine rce(s) Supporting Document(s) EKG [facility] TFBSRm8uJgUBKdSap6NrCqRxBYOyGV6jrju2G0L2zHEqG8BbsFJsd8zdL2BaF6ZaZFYgESVSAH4BbORw jb2 [file] 3Fh3fzkpp/WY1EEs37z9UYUfmn4OuyMuk/u21MX72z3BoJm23+Marie/xGcANBh9H1E7Uf/eV3Ba1OdNTqz ZR30naUmXg8ut3067kaAvklwZI1s+Stak7VkRggy8vMZgUeTyfnub925MvI5R1OK9r8oQRs+Z/0q1w/P fBZDmRLl7lzRsIv/6jfb69I7qlM6XHu4mdF3gLBqyH KTni+YGLADB/B+x5vNHs+W/tUZ55b+AoIUeMPIpP6sne0cpR5r0QxAZCj8k5Uh5pZyZ2rATlwcI0N0tZ 92p60WibbuR7r426KHbh8pxwZO0HEhUJTdnoGfb4HxLdjdCpgxt5Vw95Kcsb6WjGkHiYC03Dg0PdrIlb /jpr3bbl0U9ynhcA9V7vlQqWbw1v91K/D3iYSU5/2N 9jcs+hbsBQ7M3O8Dj/4rTrwQWa2RWyeq3+3H8hjVRbhQE01k9vHXs4JTP8imp6z/7++supply chain tech+7Xnmag5+32 wSbmh3392jYT/nsqB4FCTto/v78+WAtP6iYoHkbCmzqCK1YNE/BuLA/jXEpy5DtD+zkubZ89/avTF57+ 8XV8jW3fxw84/bvNY9a4h+wxqgm53ipyioG2coK70N l88lQdsuvIZar4CaEDOJWLkJVp2kcVUFh4+aBAVKUjpNgAjHQFwon51idxj32f5b2aI+Dsrlw3diJM/j UFNmAHxrjCfNAxH/HeL0CA0fABf8qse8s9dRzYgPLm07Ieb6D5/CtSUvye2Q+RR3+VLMa35EJpaA8ZfU i+p9QjIpwxRc0RRXNubS3EnvguUzz+2+qyxmx48ZvJ xtN+Ytw1FhzXj4tagGnjVSch6ellOe9j2Qh2NbQuhgdJ1alk05NAcMBpnnEvMcODp+2uajxA6f7PzYtw 15rhOYDpz/oCl6525VI4bv55bgpwUum/JK9dl2iawa/ua8kYWu2QhV/pOXmpfL/A/rUlp8PiL99/Y05c 41OVdh7B6t4KyEqd/Bmi72RjeMgRktevL9JrjOcCgM 0ScvAaaDI7bOJ4wpGc40MNLdpt/cD+BAzyQ3CeAWqZ56ZJPR4tIioJANVRtUNqQIFGYNd4o4pU1gmN+A ZSzi3ng7I+YHj7k+G9fxTe+dndmKxGv67rbG3BJKgR2lh6gi5r53neZwJOHhFOsoVx2b4V/CF7c0xSjM 1X1tXN3N9/x+90e9t69+89sYz1MVae76OK/H6Bhp8G I2V5uvP33o/trebeIklj96mL/2o/va+auvO1bHH4Uuz27pXKK/Eiv19m0hnPs6Mp4XW2+8Z6+8Z6+5YJ 3O/wtn1GF7gdcNCfHW1/bDV0ul1GKBCEbQXG7mJjXf0ikkc73RcaZ2tvB8xzY5zXBmSfP7gpqrj64FrP u9d92JQ5p/b+72FJfWYxJ4WaVc9nOp11xA38emk9us heWP0GTutPZqmqQo2b5/8BM45YPkcEqsb1nJIW9k2C7w1oEiodRq50mLcgs9dtrG0bF/vPO3p+tKPtxg 6UhOT177YL9oI0mOd6qYnX73v/c4k2TfpL6g1XeHw4uId8S2h8dI8m6pZ8PdNQ2a4jDf6nzDXh0h1ojn 8spzwnY32zX3k40ZimReaJlIjL3GKavY9VY6Hkn5L6 U0DsvDN2JhVJ3e5YqFjtPvqgzrnsFGNW+jgLPNXL4o4ElyaaYHmHSOfuqI/SFMWD9wrbYxkEid9dQn9T KVc7Jtqw06jDg8r92FWQhVcc6wn4kpxmQk8YpG8k8x1DD70+M1//Mety/lkFhEib92NdZDX06oPPKtR5 HcHyMXhAlOed7kmsCwW9v8BwqbXGONGsulLm61FLqn fdhoo9LXHQAYlSnneJhF+hUHv3skt+AFAVifrd8AucaUXLK+ifG5lrWbLQ0YsRdM0Q1mY+HyEQcfsER2 N1dtYeladaqfLvqXQmMSK/iKx+7wGSGUR73IlhRqFZImOtZZG9vPfqpYjRbge3UK4aY2qfYif9bxWFUK /ogDjWD0Du6t3f03IVJ8OiCXz5LYk/+uuXdblv/wzs R44KqM+0hePmB1o11NQbYaHZVxKZ/2ANVFt6eEkmtBL9VbT+unstwH22i7DGwJKSM+l1ytVU1zXVoaMi j1cpp8Imvp4xBDpVhumtx5w6fUbadM2WtBQgS8PlW8nNJsEFgZei8f4FoInSn0CdGUDj65Q+ZdblbjJJ Fm+gJEbiJEyvUGpgDwnbwNgGxjYwtgFmrWPQJlYc/i [file] a224DPZrFSCFEoi+ShomkUVswHppQYQTWKE8EumVVIPLD6M= ID Date Data Source [id number] 03/17/2020 09:17:14 AM EDT [facility] Name Value Range Interpretation Code Description Data Karine rce(s) Supporting Document(s) TROPONIN I 14.40 ng/mL (<0.05) [facility] [place] Less than 0.05: Myocardial injury unlike lyGreater than or equal to 0.05: Highly suggestive of myocardial injuryCorrelation with rise and/or fall ofserial troponins, clinical symptomsand ECG changes is necessary.ALERTED CRITICAL RESULT TOCHRIS([id number]) [place] [address] ON 03/17/20 [place]15 [place] [id number] ID Date Data Source [id number] 03/17/2020 09:17:14 AM EDT [facility] Name Value Range Interpretation Code Description Data Karine rce(s) Supporting Document(s) CKMB 50.2 ng/mL (0.0-5.0) [facility] ALERTED CRITICAL RESULT TOCHRIS([id number]) [place] [address] ON 03/17/20 [place] [id number] CKMB RELATIVE INDEX 5.1 {index_val} (0.0-4.0) H [facility] ID Date Data Source [id number] 03/17/2020 08:43:37 AM EDT [facility] Name Value Range Interpretation Code Description Data Karine rce(s) Supporting Document(s) CK 987 U/L (39-308) H [facility] ID Date Data Source [id number] 03/17/2020 08:43:37 AM EDT [facility] Name Value Range Interpretation Code Description Data Karine rce(s) Supporting Document(s) SODIUM 142 mmol/L (136-145) [facility] POTASSIUM 3.9 mmol/L (3.6-5.2) [facility] CHLORIDE 108 mmol/L (100-108) [facility] CO2 22 mmol/L (22-31) [facility] ANION GAP 12 mmol/L (7-16) [facility] UREA NITROGEN 9 mg/dL (7-24) [facility] CREATININE 0.77 mg/dL (0.80-1.30) L [facility] BUN/CREAT RATIO 11.7 RATIO (10.0-20.0) [facility] GLUCOSE 98 mg/dL (70-99) [facility] CALCIUM 8.4 mg/dL (8.4-10.2) [facility] GFR >60 ml/min/1.73m2 (>59) [facility] GFR ( AMER) >60 ml/min/1.73m2 (>59) [facility] GFR INTERPRETATION [facility] --NORMAL KIDNEY FUNCTION OR MILD DISEASE - GFR >OR= 60CHRONIC KIDNEY DISEASE - GFR 15 - 59RENAL FAILURE - GFR <15 Est. GFR calculation based on the MDRDstudy equation, which assumes a steadystate for creatinine. Est. GFR should notbe used for medication dosing. ID Date Data Source [id number] 03/17/2020 07:59:45 AM EDT [facility] Name Value Range Interpretation Code Description Data Karine rce(s) Supporting Document(s) WBC 10.3 10*3/uL (4.1-11.0) [facility] RBC 4.90 10*6/uL (4.60-6.10) [facility] HGB 14.6 g/dL (13.5-18.0) [facility] HCT 43.9 % (41.0-53.0) [facility] MCV 89.5 fL (80.0-95.0) [facility] MCH 29.9 pg (27.0-32.0) [facility] MCHC 33.4 g/dL (32.0-36.0) [facility] RDW 13.8 % (10.5-14.5) [facility] PLT 203 10*3/uL (150-450) [facility] MPV 7.3 fL (7.1-10.7) [facility] NEUT % 66.8 % (35.0-75.0) [facility] LYMPH % 24.4 % (16.0-52.0) [facility] MONO % 7.5 % (0.0-8.0) [facility] EOS % 0.9 % (0.0-5.0) [facility] BASO % 0.4 % (0.0-4.0) [facility] NEUT # 6.9 10*3/uL (1.8-7.7) [facility] LYMPH # 2.5 10*3/uL (1.2-4.8) [facility] MONO # 0.8 10*3/uL (0.0-0.8) [facility] Eosinophils [#/volume] in Blood by Automated count 0.1 10*3/uL (0.0-0 .5) [facility] BASO # 0.0 10*3/uL (0.0-0.2) [facility] ID Date Data Source [id number] 03/17/2020 01:40:51 AM EDT [facility] Name Value Range Interpretation Code Description Data Karine rce(s) Supporting Document(s) CKMB 64.4 ng/mL (0.0-5.0) [facility] ALERTED CRITICAL RESULT TOMIKE ([id number]) [place] [address] ON 03/17/20 [place] [id number] CKMB RELATIVE INDEX 6.1 {index_val} (0.0-4.0) H [facility] ID Date Data Source [id number] 03/17/2020 01:40:51 AM EDT [facility] Name Value Range Interpretation Code Description Data Karine rce(s) Supporting Document(s) CK 1057 U/L (39-308) [facility] ALERTED CRITICAL RESULT TOMIKE ([id number]) [place] [address] ON 03/17/20 [place] [id number] ID Date Data Source [id number] 03/16/2020 02:03:04 PM EDT [facility] Name Value Range Interpretation Code Description Data Karine rce(s) Supporting Document(s) EKG [facility] UPROCf6bOdFTRmQvu4HgYqZhFCHoBZ4qqtt7F3I6pGAiY2OwxMLmj1zzF7WdY8PhXKUxUVDNCF5MwWGh jb2 [file] [id number]//rSdv5iEbUw23NbD99cg8jN/3j58ef/w8T8/ f+qG20+aCif1duArLqmnRa/11t0BNrfjUWCGA08Y4+/e/vrx/dvDlzydnj9/cToZXFAktee9CSE/PMUh R/+fbbFv4ZYW/31rTsu27/M76fA+cyydFm6Dt3kgr/jrj36ghou1nEkidWu7HS/yRm1ZmBe+dYEAr0tY T533fOf88WULgl2/7HTf/D+TyCaHHsZiRTN9phXqbC mkrhXjNcuPFKvoZEVrCda4TQ4QqTSmXCBeH5K1FUUrrj7kSXInINQxkFAzYaFdJSUHIH7VtOWjQM5XSG t1INCtZMYsCdCbUEXypwY1KKKtOZIpRDAyI2UvflOhwWOcWJGyHz1+GX9ti9GrTcHwIXSgPof4WG6MsL HfMZ3ZrPCnyQ2lviFmU125isMaQQYqJxqso2TfFGng RUYWHJ4YSAA7SRS2JRTdUg6+LY6ff3ZvWyTsDNVoKeo1FN6DiAKxr7XjQW6MF8EsWTMqBTOEAWR6j8Go EMCktbiyrdrnX1DjFVU6gF8fEEH6IZZiFJvwEZRgJGWyUUB4OETuRQzwWQUqEWWsZELxHABzPQz1oRGe YX6DG3UnNMGjZCVSMHLjurEuZk4sBLVGXA6LDOQGVJ STH2kGCCL4SOO1BSLfZUvsY4L3XksnK4LiZQ9ZL4HyADQfIJQIIUMhlsDlGD6MzjMjzL1dGTnQLSMCYO fXOBjhAuN3v30yugCXDXXbDJYlMLrsLTSeNSCaQYCqTQFtPKBfKYDgSHQiJB6VZ1AoUXQxXIMWPHY5u6 IbBFZcqtirzbgqIf2mnnNwYfh+LbssUCVty1RyJZws K5T4iWHhN0UzL0RuWS3EbNLnLRolKZOrHGKfRVIaZ841goKpHN2+IH7wj9WiRqikYFAYSHXoPRToLPDt VBF6DxXgHDZsGJXvMJTdMfV3IwMqSlUTQNAsLBR9JsHoYGEvSEZfJJXeEJhuQOMhYYTyJjq1OMIwRURv OF2iFfDdOWNsDNZlWMJnPYLpISGmckCAAEPmHSUtWX FlFKR7CETcZJQeRAwpWJRqXFWnWIR8TDJhNBWcSQ9kSmVnZEXdBQReGtnnEBVuFXLoriJTNKRnTYMjYQ C7WsHbSLMdMNHnNEghXAWfCUZkSpl5DFNaQNAaMS4gQpRpQPAbBZO9YIxcIGWrUEOcknEDDLHwIEVqQI KzFyRlOEPlFVRvWPisWPRsEQOmYoWsWOCzDRHuHU8n ThBiOEIxRNK5PISiWLYeFUFtcyBFUMSzWGOcSFa2ANSwOFNjSNHwEVmwFOFgAUItDFN1OPTzZHTkOH3u LlGmKBYgALArGVHpPMHrQYFafmILKONaCEWfMFU8SKNnEHTrCUCcCDhwWDVwAOFzUzj7BVNwBHCmDJ4x JmUuMUVuXGV8NEFpVSIkSUDomyGALMYkUDV0DiM9AK FoIKUwIMZrFMbdPEGxWOXxJgE1KRSrAFAdOF2bQfZwVMWeHHU1XgJcLEFmDSYzzpJUPVYkTKEcEQM5Ti BgVWWiIXQqNOhrFTQvZVSbSIDsZKA2DGA1ZQBlLnGiQVviIWJRGEkRA1CsceYkUbRLU2dzHb4tOpWsLG GZC0Awp0MgCATkHBYZHf5+JlC2TUT9rTEyFzo4OlW9LghvSQVYHl== ID Date Data Source [id number] 03/16/2020 02:03:04 PM EDT [facility] Name Value Range Interpretation Code Description Data Karine rce(s) Supporting Document(s) EKG [facility] OPWOKp8cFqQGQlBbx7CxHnXyRVAoKO7vcvj3Z4R0gPQhL4MtlAAyt1xiI3UmA9SfIKZoCHWFOI7ZsPPi jb2 [file] 9TjfFyZURpQPRJFr9Of258BNDuROMDOog+PvwfyOMfpQgeLUETFVr8CXpHIDOZB0W= ID Date Data Source [id number] 03/16/2020 12:31:09 PM EDT [facility] Name Value Range Interpretation Code Description Data Karine rce(s) Supporting Document(s) EKG [facility] BSDWWk7rZdMZCwTym3FeNzYuXSPeBF4wruu5I8C0gQZcR9JchMEil7zuO1EiO5MvNTHpBLBMDW5ArKEo jb2 [file] y1AZD68f67ymquV//0o7trV9DW+kl5+reEM7E//F3VPERAtuuWCNEP/supply chain tech/Fh0WehlTB97sxcLZKBYNAU X46lfLR5pOQuKFfdlWmc2M7TeTl8GFAY6xBAKXcnLs +w6epwjQaxi1reu4/gcsb+pl3O+SU2q8vBKO43ZgKM3om5Z+ofND6I/acnp1377kFLvSVb6r+9qHwQ1/ njIp12BY++vD6stgwzqkru9nUp1uLz1iYw5mEhd2S0AKmaD/YP+cakbj0UlMFxpfglYRf59aeaBj909W 7D8v/aB/GUDa59Q2yByfm0D9411vbdPXq60Vz+7M87 [file] MRvWY4mrsp4aw8ZiDMzi1dS+YRol0rIZT6lbnGDn+fN7vgF1CHJHtfOdFz9mlB8nE/Earnest+HcuSBnOxbk zFaC5mXGmi3z0FnPTr7pBCB6tGTyV2LOigYJKMjHHd 8kAYGYIoTcYWvIRHaQZtOU0gte6WERDpxFdcSJFNH5IUKWWJQK3KzQH6Dl0tNL3ZBYu9vksH7sxYVr5P Oz0IsGh0k8PIRVgCWEXQ7DEZia0eJ70oPBZ2xSSmIUDXuXRuhBTDXAR611MBKUwoXufgPNGS2ut8KaUd MHXsm5rRIvXUiPJCpC+jADC3HM/FkD5WscrQrIe7Da pyJofD8BK0qCAAGT0MyanUwA8f87ODGThklRSxvs5CsLC0bz6yKyisSw2Sakx5kV8N3s5o+7fe/zcurm yfXzb2/vXn91+s+OL94cVtXcBpm0hHm0ilHMIYUFuUKRMf1AftCCx6j4X/c96gsnVVwCFkX5p8QQap04 //X5h1/cctvot16DV98+fvX0/bkNj8k5r+0Th3Wee+ /it218Pn5y9ki6l/lGP4my4XJXC249vXCxEz1otd+ffxaf590o/c/bd+9/PP3y0++//fTxTy6/DN1++b ecZp86n191zp14095uZhtzfa84hRZ5lmb74jOr2xDQ009qE1c8e+nlf5z4+Yy0ZllxZ2+mH84zslQ87E bm/d9of8e2xwu5I+7vnt58/+z67vTq+ub2+fV/3d6d nly/Pj/1n0dmKkq+4luk19IyVp6Z/slvXEzoPryfP/7nyt1gks//056Om724482+/NcN0kiNlx+9ff/z 6Yd/fpZ2meeF4cHmJ5u+Cd/v8K8vNrMitJ9bGa8Gz+4izBm4lkQm3yb/SktPIsvmrE5Wp5lB4+f5X1vn 8/noQju0BjQMsdW39nPL9V6mdV0nEm953ftqHa0OqZ vxWWt0g90GLh5gaQoAVNxtITm9+/mU8fxbaSt/a9leVWg5T17+1Sl4dRnoFJbufdb7gi04/+m3r0+/supply chain tech 3t/YO7X+Cg8X9qSseMu47/ma1cn700+nb43y806zTd27/537c//8ntZ6/82e1XX/oewn0Ozsz0+vxpnR v/4fOnL++/p15+cX/o3gu78v63575/w/rbJE11t75N [file] BEHMTn4Yb659HBEvGMGVQkv+IyqinGJzeXzyHGMZXEh8JHdHHZAPV8O= ID Date Data Source [id number] 03/16/2020 12:00:31 PM EDT [facility] Name Value Range Interpretation Code Description Data Karine rce(s) Supporting Document(s) &PDF [facility] KWDYWi6uTeITUcLm46/EUXcxPXMcv4LdZFisPYu3SFphKKJdC0GijBjxUIXOVP0HVTCMHDcVXE6nHaQq yKE [file] jExuFBXTLgl2AnO1TCnoBTTCEz0M ID Date Data Source [id number] 03/16/2020 01:54:34 PM EDT [facility] Name Value Range Interpretation Code Description Data Karine rce(s) Supporting Document(s) CKMB 31.9 ng/mL (0.0-5.0) [facility] ALERTED CRITICAL RESULT TOSARAH([id number])[place] [address] AT 1141 ON 546687 BY [address] CKMB RELATIVE INDEX 7.5 {index_val} (0.0-4.0) H [facility] ID Date Data Source [id number] 03/16/2020 11:46:00 AM EDT [facility] Name Value Range Interpretation Code Description Data Karine rce(s) Supporting Document(s) CK 428 U/L (39-308) [facility] ALERTED CRITICAL RESULT TOSARAH([id number])[place] [address] AT 1141 ON [id number] BY [id number] ID Date Data Source [id number] 03/16/2020 11:31:53 AM EDT [facility] Name Value Range Interpretation Code Description Data Karine rce(s) Supporting Document(s) TROPONIN I 3.70 ng/mL (<0.05) [facility] Less than 0.05: Myocardial injury unlike lyGreater than or equal to 0.05: Highly suggestive of myocardial injuryCorrelation with rise and/or fall ofserial troponins, clinical symptomsand ECG changes is necessary.ALERTED CRITICAL RESULT TOSARAH([id number])[place] [address] ON 393643 AT 1125 [place] [address] ID Date Data Source [id number] 03/16/2020 10:54:44 AM EDT [facility] Name Value Range Interpretation Code Description Data Karine rce(s) Supporting Document(s) APTT 36.8 s (22.0-34.3) [facility] ID Date Data Source [id number] 03/16/2020 10:43:38 AM EDT [facility] Name Value Range Interpretation Code Description Data Karine rce(s) Supporting Document(s) WBC 11.9 10*3/uL (4.1-11.0) [facility] RBC 4.96 10*6/uL (4.60-6.10) [facility] HGB 14.8 g/dL (13.5-18.0) [facility] HCT 43.0 % (41.0-53.0) [facility] MCV 86.7 fL (80.0-95.0) [facility] MCH 29.8 pg (27.0-32.0) [facility] MCHC 34.4 g/dL (32.0-36.0) [facility] RDW 14.1 % (10.5-14.5) [facility] PLT 237 10*3/uL (150-450) [facility] MPV 7.4 fL (7.1-10.7) [facility] ID Date Data Source [id number] 03/16/2020 09:41:00 AM EDT [facility]) Name Value Range Interpretation Code Description Data Karine rce(s) Supporting Document(s) White Blood Count 11.2 4.0-10.0 [facility] ([facility]) Hemoglobin 15.1 [facility] ([facility]) Platelets 248 150-450 [facility] ([facility]) Red Blood Count 5.11 4.30-6.10 [facility] ([facility]) Hematocrit 44.8 [facility] ([facility]) ID Date Data Source [id number] 03/16/2020 09:41:00 AM EDT [facility] ([facility]) Name Value Range Interpretation Code Description Data Karine rce(s) Supporting Document(s) Sodium 141 [facility] ([facility]) Calcium [Mass/volume] in Serum or Plasma 9.4 [facility] ([facility]) Chloride [Moles/volume] in Serum or Plasma 108 [facility] ([facility]) Carbon dioxide, total [Moles/volume] in Serum or Plasma 25 [facility] ([facility]) Potassium [Moles/volume] in Serum or Plasma 3.7 [facility] ([facility]) Blood Urea Nitrogen 12 7-18 [facility] ([facility]) Glucose 140 70-100 [facility] Creatinine 1.05 0.70-1.30 [facility]) Glomerular filtration rate/1.73 sq M.pre dicted [Volume Rate/Area] in Serum or Plasma by Creatinine-based formula (MDRD) Laboratory test result [facility] ([facility]) ID Date Data Source [id number] 03/16/2020 09:41:00 AM EDT [facility] ([facility]) Name Value Range Interpretation Code Description Data Karine rce(s) Supporting Document(s) Troponin 0.13 [facility] ([facility]) ID Date Data Source [id number] 03/16/2020 09:33:[address] [facility] NT INFORMATIONPatient MRN Name Date of Age Gend*PT [id number] Tracy Codey Jose Rafael 1975 44 years M EDPT Location Admission Date/Time Visit ID Attending ProviderCV-[id number] 03/16/20 0915 --- Simon Witt MD ([id number]) EPI ID CSN Admitting Provider [id number] Simon Witt MD([id number])44-year-old man transferred from [facility] for acute inferiormyocardial infarction post thrombolytic therapy.The patient is obese and smoker and has no other known risk factor for coronaryartery disease and he awoke from sleep around 3 in the morning when he startedcomplaining of substernal chest pressure without radiation. Soon after hestarted becoming sweaty and nauseous. In the morning he was taken to theemergency department in [place] where his EKG showed ST elevation in [...] Name Value Range Interpretation Code Description Data [facility] Supporting Document(s) ID Date Data Source [id number] 03/16/2020 09:33:00 AM EDT [facility] Name Value Range Interpretation Code Description Data [facility] Supporting Document(s) EKG [facility] CALTZb1oTiDLIjUbj7WuMqUaPLPoKF7hxuz3P0V4fBRgR8SkjPEwm4obV7CrR6WoTEIjEMVRUF4VrNOj jb2 [file] chain tech/99/ vf/5617h7Bb4+Hn/47fcR75BkS92+AjFeBn3mlkGfM L47+uHUNCyx4tpy3isBiSm2+/tODzH6dp5T4Bl18x/WcGncf30y48xdS67/xNji+E26hSY1wPbxm4+2L K6rPX2Pag5R3MXX97CdVcg57hbThN5GQUywMnhXm8yTUPMR9z+KsNKVoi5lyvsMJd68fVZmDhXGC5nz1 7DL1b6w8o+/I4m1mZhXGqqouE1D7/nUfi0t/ePc5+P qs2M9N08yz/encapsulator/1C1aQ9SnpigEYac9uDw5LkjLtz7i89+Osr///Cee6qq7efv41t96kR/eCj5n1ilqI8 [file] 3EkbCiVHIjRHHNVq3Tb698AJCoCPWPZwf+JwaivJWknHexRQLTUMF8DOZSVVPSX5W= ID Date Data Source [id number] 03/16/2020 09:00:00 AM EDT [facility] Name Value Range Interpretation Code Description Data Karine rce(s) Supporting Document(s) SARS coronavirus 2 RNA [Presence] in Res piratory specimen by NELLIE with probe detection [facility] This lab was reported by [facility]. ID Date Data Source [id number] 03/16/2020 11:27:53 AM EDT [facility] Name Value Range Interpretation Code Description Data Karine rce(s) Supporting Document(s) SPECIMEN DESCRIPTION [facility] [place] COVID19 RESULT (NDET) [facility] THIS ASSAY AMPLIFIES AND DETECTSTHE TARG ET RNA USING REAL-TIME PCR.NEGATIVE 2019_NCOV RT-PCR RESULTS DONOT PRECLUDE 2019_NCOV INFECTION ANDSHOULD NOT BE USED THE SOLE BASISFOR PATIENT MANAGEMENT DECISIONS. COMMENT [facility] [place] UNDER AN EMERGENCY USE AUTHORIZATION(EUA ) FOR THE DETECTION AND/OR DIAGNOSISOF THE VIRUS THAT CAUSES COVID-19.EMAILED TO [facility] AT [id number] [id number] [place] [id number]. FIRST TEST [facility] [place] [employer] IN [employer] [facility] [place] SYMPTOMATIC [facility] DATE OF SYMPT ONSET [facility] [place] HOSPITALIZED [facility] ICU [facility] [place] CONGREGATE CARE SET [facility] [place] [facility] [place] Procedure Social History Code Duration Value Status Description Data Source(s ) Smoking 01/19/2021 12:00:00 AM EDT Current Smoker completed Curre nt Smoker eCW1 ([facility]) Smoking 01/08/2021 12:00:00 AM EDT Former Smoker completed Former Smoker eCW1 ([facility]) Smoking 01/08/2021 12:00:00 AM EDT Former Smoker completed Former Smoker eCW1 ([facility]) Smoking 09/29/2020 12:00:00 AM EDT Former Smoker completed Former Smoker eCW1 ([facility]) Smoking 09/29/2020 12:00:00 AM EDT Former Smoker completed Former Smoker eCW1 ([facility]) Smoking 09/29/2020 12:00:00 AM EDT Former Smoker completed Former Smoker eCW1 ([facility]) Smoking 09/29/2020 12:00:00 AM EDT Former Smoker completed Former Smoker eCW1 ([facility]) Smoking 09/08/2020 12:00:00 AM EDT Current Smoker completed Curre nt Smoker eCW1 ([facility]) Smoking 09/08/2020 12:00:00 AM EDT Current Smoker completed Curre nt Smoker eCW1 ([facility]) Smoking 08/18/2020 12:00:00 AM EST Current Smoker completed Curre nt Smoker eCW1 ([facility]) Smoking 08/18/2020 12:00:00 AM EST Current Smoker completed Curre nt Smoker eCW1 ([facility]) Smoking 08/18/2020 12:00:00 AM EST Current Smoker completed Curre nt Smoker eCW1 ([facility]) Smoking 08/11/2020 12:00:00 AM EST Current Smoker completed Curre nt Smoker eCW1 ([facility]) Smoking 07/10/2020 12:00:00 AM EST Former Smoker completed Former Smoker eCW1 ([facility]) Smoking 06/30/2020 12:00:00 AM EST Current Smoker completed Curre nt Smoker eCW1 ([facility]) Smoking 06/30/2020 12:00:00 AM EST Current Smoker completed Curre nt Smoker eCW1 ([facility]) Smoking 06/30/2020 12:00:00 AM EST Current Smoker completed Curre nt Smoker eCW1 ([facility]) Smoking 06/30/2020 12:00:00 AM EST Current Smoker completed Curre nt Smoker eCW1 ([facility]) Smoking 06/19/2020 12:00:00 AM EST Former Smoker completed Former Smoker eCW1 ([facility]) Smoking 05/26/2020 12:00:00 AM EST Current Smoker completed Curre nt Smoker eCW1 ([facility]) Smoking 05/18/2020 12:00:00 AM EST Former Smoker completed Former Smoker eCW1 ([facility]) Smoking 05/10/2020 12:00:00 AM EST Patient is a former smoker completed Patient is a former smoker MEDENT ([facility]) Alcohol intake 05/05/2020 12:00:00 AM EST Ex-drinker (finding) comp leted Ex- drinker (finding) [facility] Cigarette pack-years 05/05/2020 12:00:00 AM EST UNK completed [facility] Cigarettes smoked current (pack per day) - Reported 05/05/20 12:00:00 AM EST UNK completed [facility] Smoking 05/05/2020 12:00:00 AM EST Former smoker completed Former smoker [facility] Tobacco use and exposure 05/04/2020 12:00:00 AM EST Never used co mpleted Never used [facility] Cigarette pack-years 05/04/2020 12:00:00 AM EST UNK completed [facility] Cigarettes smoked current (pack per day) - Reported 05/04/20 12:00:00 AM EST UNK completed [facility] Smoking 05/04/2020 12:00:00 AM EST Former smoker completed Former smoker [facility] Smoking 04/15/2020 12:00:00 AM EDT Former Smoker completed Former Smoker eCW1 ([facility]) Smoking 04/15/2020 12:00:00 AM EDT Former Smoker completed Former Smoker eCW1 ([facility]) Smoking 04/15/2020 12:00:00 AM EDT Former Smoker completed Former Smoker eCW1 ([facility]) Smoking 04/15/2020 12:00:00 AM EDT Former Smoker completed Former Smoker eCW1 ([facility]) Vital Signs ID Date Data Source UNK Name Value Range Interpretation Code Description Data Source(s) Body height 67 [in_i] 67 [in_i] eCW1 ([facility]) Body weight 246.6 [lb_av] 246.6 [lb_av] eCW1 ([facility]) Body mass index (BMI) [Ratio] 38.62 kg/m2 38.62 kg/m2 eCW1 ([facility]) Body temperature 98.0 [degF] 98.0 [degF] eCW1 ( [facility]) Heart rate 62 /min 62 /min eCW1 ([facility]) Respiratory rate 18 /min 18 /min eCW1 ([facility]) Oxygen saturation in Arterial blood by Pulse oximetry 96 % 96 % eCW1 ([facility]) Systolic blood pressure 122 mm[Hg] 122 mm[Hg] [facility] Diastolic blood pressure 67 mm[Hg] 67 mm[Hg] [facility] Heart rate 62 /min 62 /min [facility] Body temperature 36.5 Victorina 36.5 Victorina [facility] Respiratory rate 18 /min 18 /min [facility] Oxygen saturation in Arterial blood by Pulse oximetry 96 % 96 % [facility] Body height 180.3 cm 180.3 cm [facility] Body weight 115.214 kg 115.214 kg [facility] Body mass index (BMI) [Ratio] 35.43 kg/m2 35.43 kg/m2 [facility] Systolic blood pressure 117 mm[Hg] 117 mm[Hg] [...] M EDENT ([facility]) Body height 71 [in_i] 71 [in_i] MEDENT ([facility]) 5'11" Diastolic blood pressure 86 mm[Hg] 86 mm[Hg] MEDENT ([facility]) Body mass index (BMI) [Ratio] 37.0 kg/m2 37.0 k g/m2 [facility] ([facility]) Body weight 265.00 [lb_av] 265.00 [lb_av] MEDEN T ([facility]) Heart rate 96 /min 96 /min [facility] ([facility]) Body temperature 98.6 [degF] 98.6 [degF] MEDENT ([facility]) Body height 67 [in_i] 67 [in_i] eCW1 ([facility]) Body weight 268.8 [lb_av] 268.8 [lb_av] eCW1 ([facility]) Body mass index (BMI) [Ratio] 42.10 kg/m2 42.10 kg/m2 eCW1 ([facility]) Body temperature 97.9 [degF] 97.9 [degF] eCW1 ( [facility]) Heart rate 70 /min 70 /min eCW1 ([facility]) Respiratory rate 18 /min 18 /min eCW1 ([facility]) Oxygen saturation in Arterial blood by Pulse oximetry 97 % 97 % eCW1 ([facility]) Body weight 269.6 [lb_av] 269.6 [lb_av] eCW1 ([facility]) Body height 70 [in_i] 70 [in_i] eCW1 ([facility]) Body mass index (BMI) [Ratio] 38.68 kg/m2 38.68 kg/m2 eCW1 ([facility]) Body weight 266.00 [lb_av] 266.00 [lb_av] MEDEN T ([facility]) Body mass index (BMI) [Ratio] 37.1 kg/m2 37.1 k g/m2 MEDENT ([facility]) Body height 71 [in_i] 71 [in_i] [facility] ([facility]) 5'11" Systolic blood pressure--sitting 132 mm[Hg] 132 mm[Hg] MEDENT ([facility]) Ra, large cuff Diastolic blood pressure--sitting 80 mm[Hg] 80 mm[Hg] MEDENT ([facility]) Ra, large cuff Body height 67 [in_i] 67 [in_i] eCW1 ([facility]) Body weight 263.2 [lb_av] 263.2 [lb_av] eCW1 ([facility]) Body mass index (BMI) [Ratio] 41.22 kg/m2 41.22 kg/m2 eCW1 ([facility]) Body temperature 98.0 [degF] 98.0 [degF] eCW1 ( [facility]) Heart rate 90 /min 90 /min eCW1 ([facility]) Respiratory rate 18 /min 18 /min eCW1 ([facility]) Oxygen saturation in Arterial blood by Pulse oximetry 98 % 98 % eCW1 ([facility]) Diastolic blood pressure 80 mm[Hg] 80 mm[Hg] eCW1 ([facility]) Body weight 263.4 [lb_av] 263.4 [lb_av] eCW1 ([facility]) Body height 70 [in_i] 70 [in_i] eCW1 ([facility]) Body mass index (BMI) [Ratio] 37.79 kg/m2 37.79 kg/m2 eCW1 ([facility]) Systolic blood pressure 110 mm[Hg] 110 mm[Hg] e CW1 ([facility]) Body weight 265 [lb_av] 265 [lb_av] eCW1 ([facility]) Body height 70 [in_i] 70 [in_i] eCW1 ([facility]) Body mass index (BMI) [Ratio] 38.02 kg/m2 38.02 kg/m2 eCW1 ([facility]) Systolic blood pressure 124 mm[Hg] 124 mm[Hg] e CW1 ([facility]) Diastolic blood pressure 76 mm[Hg] 76 mm[Hg] eCW1 ([facility]) Body height 67 [in_i] 67 [in_i] eCW1 ([facility]) Body weight 268.4 [lb_av] 268.4 [lb_av] eCW1 ([facility]) Body mass index (BMI) [Ratio] 42.03 kg/m2 42.03 kg/m2 eCW1 ([facility]) Body temperature 98.4 [degF] 98.4 [degF] eCW1 ( [facility]) Heart rate 70 /min 70 /min eCW1 ([facility]) Respiratory rate 18 /min 18 /min eCW1 ([facility]) Oxygen saturation in Arterial blood by Pulse oximetry 96 % 96 % eCW1 ([facility]) Body weight 262.00 [lb_av] 262.00 [lb_av] HOLDEN T ([facility]) Body height 71 [in_i] 71 [in_i] JEAN ([facility]) 5'11" Body mass index (BMI) [Ratio] 36.5 kg/m2 36.5 k g/m2 MED[facility] ([facility]) Heart rate 72 /min 72 /min [facility] ([facility]) regular Respiratory rate 16 /min 16 /min MED[facility] ( [facility]) nonlabored Systolic blood pressure--sitting 118 mm[Hg] 118 mm[Hg] MEDENT ([facility]) Ra, large cuff Diastolic blood pressure--sitting 72 mm[Hg] 72 mm[Hg] MED[facility] ([facility]) Ra, large cuff Body weight 266.0 [lb_av] 266.0 [lb_av] eCW1 ([facility]) Body height 70 [in_i] 70 [in_i] eCW1 ([facility]) Body mass index (BMI) [Ratio] 38.16 kg/m2 38.16 kg/m2 eCW1 ([facility]) Systolic blood pressure 122 mm[Hg] 122 mm[Hg] e CW1 ([facility]) Diastolic blood pressure 76 mm[Hg] 76 mm[Hg] eCW1 ([facility]) Body height 67 [in_i] 67 [in_i] eCW1 ([facility]) Body weight 260.8 [lb_av] 260.8 [lb_av] eCW1 ([facility]) Body mass index (BMI) [Ratio] 40.84 kg/m2 40.84 kg/m2 eCW1 ([facility]) Body temperature 98.6 [degF] 98.6 [degF] eCW1 ( [facility]) Heart rate 70 /min 70 /min eCW1 ([facility]) Respiratory rate 18 /min 18 /min eCW1 ([facility]) Oxygen saturation in Arterial blood by Pulse oximetry 96 % 96 % eCW1 ([facility]) Body weight 267.0 [lb_av] 267.0 [lb_av] eCW1 ([facility]) Body height 70 [in_i] 70 [in_i] eCW1 ([facility]) Body mass index (BMI) [Ratio] 38.31 kg/m2 38.31 kg/m2 eCW1 ([facility]) Systolic blood pressure 128 mm[Hg] 128 mm[Hg] e CW1 ([facility]) Diastolic blood pressure 84 mm[Hg] 84 mm[Hg] eCW1 ([facility]) Body mass index (BMI) [Ratio] 37.9 kg/m2 37.9 k g/m2 MED[facility] ([facility]) Heart rate 68 /min 68 /min [facility] ([facility]) Regular Diastolic blood pressure 76 mm[Hg] 76 mm[Hg] MEDENT ([facility]) sitting, large cuff Respiratory rate 16 /min 16 /min [facility] ( [facility]) Systolic blood pressure 126 mm[Hg] 126 mm[Hg] M EDENT ([facility]) sitting, large cuff Body weight 272.00 [lb_av] 272.00 [lb_av] MEDEN T ([facility]) Body height 71 [in_i] 71 [in_i] MEDENT ([facility]) 5'11" Systolic blood pressure 119 mm[Hg] 119 mm[Hg] [facility] Diastolic blood pressure 65 mm[Hg] 65 mm[Hg] [facility] Heart rate 69 /min 69 /min [facility] Oxygen saturation in Arterial blood by Pulse oximetry 94 % 94 % [facility] Body temperature 36.56 Victorina 36.56 Victorina [facility] Respiratory rate 16 /min 16 /min [facility] Body weight 119.115 kg 119.115 kg [facility] Body mass index (BMI) [Ratio] 37.68 kg/m2 37.68 kg/m2 [facility] Body height 177.8 cm 177.8 cm [facility] Body height 67 [in_i] 67 [in_i] eCW1 ([facility]) Body weight 275.6 [lb_av] 275.6 [lb_av] eCW1 ([facility]) Body mass index (BMI) [Ratio] 43.16 kg/m2 43.16 kg/m2 eCW1 ([facility]) Body temperature 98.8 [degF] 98.8 [degF] eCW1 ( [facility]) Heart rate 71 /min 71 /min eCW1 ([facility]) Respiratory rate 17 /min 17 /min eCW1 ([facility]) Oxygen saturation in Arterial blood by Pulse oximetry 97 % 97 % eCW1 ([facility]) Body weight 266.00 [lb_av] 266.00 [lb_av] MEDEN T ([facility]) Body height 71 [in_i] 71 [in_i] MEDENT ([facility]) 5'11" Body mass index (BMI) [Ratio] 37.1 kg/m2 37.1 k g/m2 [facility] ([facility]) Heart rate 69 /min 69 /min [facility] ([facility]) Systolic blood pressure--sitting 118 mm[Hg] 118 mm[Hg] MEDENT ([facility]) large cuff, Ra Diastolic blood pressure--sitting 78 mm[Hg] 78 mm[Hg] MED[facility] ([facility]) large cuff, Ra Patient Treatment Plan of Care Planned Activity Planned Date Details Description Data Source (s) Lisinopril 5 MG Oral Tablet 01/06/2021 09:00:00 AM EDT [facility] Acetaminophen 325 MG / Oxycodone Hydrochloride 5 MG Or al Tablet 01/06/2021 12:00:00 AM EDT [facility] Acetaminophen 325 MG / Oxycodone Hydrochloride 5 MG Or al Tablet 01/06/2021 12:00:00 AM EDT [facility] 10 ML Atropine Sulfate 0.1 MG/ML Prefilled Syringe 01/05/2021 11 :43:58 PM EDT [facility] Nitroglycerin 0.4 MG Sublingual Tablet 01/04/2021 11:28:01 PM EDT [facility] Albuterol 0.83 MG/ML Inhalant Solution 01/04/2021 11:27:52 PM EDT [facility] normal saline flush 0.9 % injection 10 mL 01/04/2021 10:00:00 PM ED T [facility] 24 HR Nicotine 0.583 MG/HR Transdermal Patch 09/29/2020 12:00:00 AM EDT eCW1 ([facility]) 24 HR Nicotine 0.583 MG/HR Transdermal Patch 09/29/2020 12:00:00 AM EDT eCW1 ([facility]) 24 HR Nicotine 0.583 MG/HR Transdermal Patch 09/29/2020 12:00:00 AM EDT eCW1 ([facility]) 24 HR Nicotine 0.583 MG/HR Transdermal Patch 09/29/2020 12:00:00 AM EDT eCW1 ([facility]) 24 HR Nicotine 0.875 MG/HR Transdermal Patch 08/18/2020 12:00:00 AM EST eCW1 ([facility]) 24 HR Nicotine 0.875 MG/HR Transdermal Patch 08/18/2020 12:00:00 AM EST eCW1 ([facility]) 24 HR Nicotine 0.875 MG/HR Transdermal Patch 08/18/2020 12:00:00 AM EST eCW1 ([facility]) Sinecatechins 0.15 MG/MG Topical Ointment [Veregen] 07/10/19 12:00:00 AM EST eCW1 ([facility]) Sertraline 25 MG Oral Tablet [Zoloft] 05/26/2020 12:00:00 AM EST eCW1 ([facility]) Sertraline 25 MG Oral Tablet [Zoloft] 05/26/2020 12:00:00 AM EST eCW1 ([facility]) imiquimod 50 MG/ML Topical Cream 05/18/2020 12:00:00 AM EST eCW1 ([facility]) 24 HR Nicotine 0.875 MG/HR Transdermal Patch 03/19/2020 12:00:00 AM EDT [facility] clopidogrel 75 MG Oral Tablet 03/19/2020 12:00:00 AM EDT [facility] Nitroglycerin 0.4 MG Sublingual Tablet 03/18/2020 12:00:00 AM EDT [facility] carvedilol 3.125 MG Oral Tablet 03/18/2020 12:00:00 AM EDT [facility] atorvastatin 40 MG Oral Tablet 03/18/2020 12:00:00 AM EDT [facility] Famotidine 20 MG Oral Tablet [facility]
[2021-04-18 16:45] VITALS: BP 123/75
--- NOTE | 2021-04-19 07:46 | ED PDOC ---
Post-Departure Follow-Up radiology report faxed to ignacio Antunez Sarah MD Apr 19, 2021 07:46
--- NOTE | 2021-04-19 09:43 | ECGEPIP ---
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
== END 2021-04-18 17:25 | disposition left against medical advice (07) ==
LOC: M ED 13:14
DX: R07.9 Chest pain, unspecified (principal); Z53.9 Procedure and treatment not carried out, unspecified reason; I25.10 Atherosclerotic heart disease of native coronary artery without angina pectoris; I25.2 Old myocardial infarction; Z95.5 Presence of coronary angioplasty implant and graft; Z95.0 Presence of cardiac pacemaker; Z79.82 Long term (current) use of aspirin; Z79.899 Other long term (current) drug therapy; Z91.018 Allergy to other foods; Z91.040 Latex allergy status
CPT/HCPCS: 71045; 71275; 80048; 80076; 82550; 82553; 83690; 85025; 85610; 87631; 93005; 93041; 94760; 96374; 96375; 99285; J2270; J2405

== ENCOUNTER → 2022-03-05 | Outpatient (REF) | payer OTHER ==
[~2022-03-05] MED LIST changes: +LISI2.5T9
[2022-03-05 23:08] LABS: GC DNA AMPLIFICATION NEGATIVE (NEGATIVE)
== END ==
LOC: M WUC 20:12
PROVIDERS: ATTEND Student in an Organized Health Care Education/Training Program
DX: A64 Unspecified sexually transmitted disease (principal)

== ENCOUNTER 2023-01-29 23:05 | Emergency (ER) | payer OTHER ==
[~2023-01-29] VITALS: Ht 180.3 cm; Wt 107.2 kg
[2023-01-29 23:47] LABS: BASO # 0.1 10^3/uL (0.0-0.2); BASO % 0.5 % (0.0-1.0); EOS # 0.3 10^3/uL (0.0-0.5); EOS % 2.8 % (0.0-3.0); HEMATOCRIT 41.1 % (42.0-52.0); HEMOGLOBIN 14.1 g/dl (13.5-17.5); LYMPH # 3.6 10^3/uL (1.5-5.0); LYMPH % 36.3 % (24.0-44.0); MEAN CORPUSCULAR HEMOGLOBIN 29.6 pg (27.0-33.0); MEAN CORPUSCULAR HGB CONC 34.3 g/dl (32.0-36.5); MEAN CORPUSCULAR VOLUME 86.3 fl (80.0-96.0); MONO # 0.8 10^3/uL (0.0-0.8); MONO % 7.9 % (2.0-8.0); NEUTROPHILS # 5.2 10^3/uL (1.5-8.5); NEUTROPHILS % 52.3 % (36.0-66.0); PLATELET COUNT, AUTOMATED 254 10^3/uL (150-450); RED BLOOD COUNT 4.76 10^6/uL (4.30-6.10); WHITE BLOOD COUNT 9.9 10^3/uL (4.0-10.0)
[2023-01-30 00:12] LABS: AMPHETAMINES LEVEL URINE NEGATIVE (NEGATIVE); BARBITURATES URINE NEGATIVE (NEGATIVE); BENZODIAZEPINES URINE NEGATIVE (NEGATIVE); COCAINE METABOLITE URINE NEGATIVE (NEGATIVE); METHADONE URINE NEGATIVE (NEGATIVE); OPIATES URINE NEGATIVE (NEGATIVE); PHENCYCLIDINE URINE NEGATIVE (NEGATIVE)
[2023-01-30 00:13] LABS: CANNABINOIDS URINE POSITIVE (NEGATIVE)
[2023-01-30 00:16] LABS: BLOOD UREA NITROGEN 15 MG/DL (9-23); CARBON DIOXIDE LEVEL 28 MMOL/L (20-31); CHLORIDE LEVEL 105 MMOL/L (98-107); CK-MB VALUE MASS 1.5 NG/ML (<3.6); CPK CREATINE PHOSPHOKINASE 331 U/L (46-171); CREATININE FOR GFR 0.81 MG/DL (0.70-1.30); GLOMERULAR FILTRATION RATE > 60.0 (>60); GLUCOSE, FASTING 97 MG/DL (60-100); MAGNESIUM LEVEL 2.1 MG/DL (1.8-2.4); MB/CK RELATIVE INDEX 0.45 (< OR =4); POTASSIUM SERUM 3.5 MMOL/L (3.5-5.1); SODIUM LEVEL 140 MMOL/L (136-145)
[2023-01-30 00:19] LABS: RSV AMPLIFICATION NEGATIVE (NEGATIVE); THYROID STIMULATING HORMONE 5.314 uIU/ML (0.55-4.78)
[2023-01-30 01:01] LABS: CK-MB VALUE MASS 1.8 NG/ML (<3.6)
[2023-01-30 01:05] LABS: MB/CK RELATIVE INDEX 0.54 (< OR =4)
[2023-01-30] MEDS ORDERED: KETOROLAC 30 MG/ML 1ML VIAL IV ONE (01:20)
[2023-01-30 02:45] VITALS: BP 117/71
[2023-01-30 02:50] VITALS: TEMP 97.4; O2SAT 99
== END 2023-01-30 03:02 | disposition home or self-care (01) ==
LOC: M ED 23:05
DX: R07.89 Other chest pain (principal); M25.512 Pain in left shoulder; I11.9 Hypertensive heart disease without heart failure; E78.5 Hyperlipidemia, unspecified; I25.10 Atherosclerotic heart disease of native coronary artery without angina pectoris; K21.9 Gastro-esophageal reflux disease without esophagitis; J44.9 Chronic obstructive pulmonary disease, unspecified; F32.A Depression, unspecified; Z95.0 Presence of cardiac pacemaker; Z91.040 Latex allergy status; Z91.018 Allergy to other foods; Z79.899 Other long term (current) drug therapy; Z79.82 Long term (current) use of aspirin
CPT/HCPCS: 71045; 73030; 80048; 80307; 82550; 82553; 83605; 83735; 84443; 85025; 85379; 87631; 93005; 93041; 94760; 96374; 99285; J1885

== ENCOUNTER 2023-11-06 22:03 | Emergency (ER) | payer OTHER ==
[~2023-11-06] VITALS: Ht 180.3 cm; Wt 113.6 kg
[2023-11-07] MEDS: oxyCODONE 5MG TAB PO ONE (00:39)
[2023-11-07] MEDS: ACETAMINOPHEN *IV* 1,000 MG in IV 1 EA IV ONE (00:39)
[2023-11-07] MEDS ORDERED: HYDR-3713 PO (02:42)
[2023-11-07 03:09] VITALS: BP 118/74; TEMP 98.1; O2SAT 98
== END 2023-11-07 03:10 | disposition home or self-care (01) ==
LOC: M ED 22:03 → EDBD 22:03 → M ED 11-07 03:10
DX: M19.071 Primary osteoarthritis, right ankle and foot (principal); S90.31XA Contusion of right foot, initial encounter; Y92.019 Unspecified place in single-family (private) house as the place of occurrence of the external cause; Y93.E1 Activity, personal bathing and showering; Y99.9 Unspecified external cause status; W18.2XXA Fall in (into) shower or empty bathtub, initial encounter; Z91.040 Latex allergy status; Z91.018 Allergy to other foods; Z79.1 Long term (current) use of non-steroidal anti-inflammatories (NSAID); Z79.810 Long term (current) use of selective estrogen receptor modulators (SERMs); Z79.899 Other long term (current) drug therapy
CPT/HCPCS: 73564; 73590; 73630; 96365; 99284; J0131

== ENCOUNTER 2023-11-22 16:02 | Observation (INO) | payer OTHER ==
[~2023-11-22] VITALS: Ht 180.3 cm; Wt 114.1 kg
[~2023-11-22 16:02] MED LIST changes: +HYDR-3713 PO; -LISI2.5T9; +LISI2.5T9 PO
[2023-11-22] MEDS: IBUPROFEN 400MG TAB PO ONE (16:42)
[2023-11-22] MEDS: NS 2,550 ML in IV 1 EA IV ONE (16:42)
[2023-11-22] MEDS: cefTRIAXone SOD 2 GM in D5W MINI-BAG PLUS 50 ML IV ONE (16:42)
[2023-11-22 16:47] LABS: VENOUS BASE EXCESS 0.3 (-2.0-2.0); VENOUS HCO3 24.3 MMOL/L (23.0-27.0); VENOUS O2 SATURATION 72.8 % (60.0-80.0); VENOUS PARTIAL PRESSURE CO2 37.5 mmHg (38.0-50.0); VENOUS PARTIAL PRESSURE O2 35.5 mmHg (30.0-50.0); VENOUS STANDARD HCO3 24.1 MMOL/L; VENOUS TOTAL CO2 25.5 MMOL/L (24.0-28.0)
[2023-11-22 16:51] LABS: BASO % 0.3 % (0.0-1.0); EOS % 0.3 % (0.0-3.0); HEMATOCRIT 41.3 % (42.0-52.0); HEMOGLOBIN 14.3 g/dl (13.5-17.5); LYMPH # 1.1 10^3/uL (1.5-5.0); LYMPH % 10.3 % (24.0-44.0); MEAN CORPUSCULAR HEMOGLOBIN 29.8 pg (27.0-33.0); MEAN CORPUSCULAR HGB CONC 34.6 g/dl (32.0-36.5); MONO # 0.8 10^3/uL (0.0-0.8); MONO % 7.5 % (2.0-8.0); NEUTROPHILS # 8.7 10^3/uL (1.5-8.5); NEUTROPHILS % 81.2 % (36.0-66.0); PLATELET COUNT, AUTOMATED 227 10^3/uL (150-450); WHITE BLOOD COUNT 10.7 10^3/uL (4.0-10.0)
[2023-11-22 17:15] LABS: CK-MB VALUE MASS < 1.0 NG/ML (<3.6)
[2023-11-22 17:17] LABS: CPK CREATINE PHOSPHOKINASE 375 U/L (46-171); MB/CK RELATIVE INDEX 0.26 (< OR =4)
[2023-11-22 17:18] LABS: ALBUMIN 3.7 G/DL (3.2-5.2); ALKALINE PHOSPHATASE 75 U/L (46-116); ALT/SGPT 32 U/L (7.0-40); AST/SGOT 22 U/L (<34); BILIRUBIN,DIRECT 0.2 MG/DL (<0.4); BILIRUBIN,TOTAL 0.3 MG/DL (0.3-1.2); BLOOD UREA NITROGEN 12 MG/DL (9-23); CALCIUM LEVEL 8.8 MG/DL (8.5-10.1); CARBON DIOXIDE LEVEL 25 MMOL/L (20-31); CHLORIDE LEVEL 108 MMOL/L (98-107); GLOMERULAR FILTRATION RATE > 60.0 (>56); GLUCOSE, FASTING 103 MG/DL (60-100); POTASSIUM SERUM 3.6 MMOL/L (3.5-5.1); SODIUM LEVEL 141 MMOL/L (136-145); TOTAL PROTEIN 6.6 G/DL (5.7-8.2)
[2023-11-22 17:20] LABS: THYROID STIMULATING HORMONE 0.681 uIU/ML (0.55-4.78)
[2023-11-22 17:24] LABS: PROCALCITONIN 0.32 ng/ml
[2023-11-22 18:12] LABS: CK-MB VALUE MASS < 1.0 NG/ML (<3.6)
[2023-11-22 18:17] LABS: CPK CREATINE PHOSPHOKINASE 338 U/L (46-171); MB/CK RELATIVE INDEX 0.29 (< OR =4)
[2023-11-22] MEDS: methylPREDNISolone 125MG 2ML VIAL IV ONE (18:47)
[2023-11-22] MEDS: IPRATROPIUM 0.5MG/ALBUTEROL 2.5MG INH SOL UD 3ML (DUONEB) NEB ONE (19:07)
[2023-11-22] MEDS ORDERED: IPRATROPIUM 0.5MG/ALBUTEROL 2.5MG INH SOL UD 3ML (DUONEB) NEB PRN (20:10)
[2023-11-22] MEDS ORDERED: OMEP40CA4 PO (20:51)
[2023-11-22] MEDS ORDERED: HOME MED LIST COMPLETE! XX SCH (20:55)
[2023-11-22] MEDS: DOXYCYCLINE HYCLATE 100MG TABLET PO SCH (21:06)
[2023-11-22] MEDS: guaiFENesin ER TABLET 600 MG TAB PO SCH (21:06)
[2023-11-22] MEDS: BENZONATATE 100MG CAPSULE PO ONE (21:06)
[2023-11-22 22:43] VITALS: BP 114/56; TEMP 99.3; O2SAT 93
[2023-11-22] MEDS: TICAGRELOR 90 MG TABLET (BRILINTA) PO SCH (23:39)
[2023-11-22] MEDS: SUCRALFATE 1 GM TAB PO SCH (23:39)
[2023-11-22] MEDS: ATORVASTATIN 20 MG TAB PO SCH (23:39)
[2023-11-23 00:11] VITALS: BP 114/58; TEMP 99.4; O2SAT 94
[2023-11-23 03:57] VITALS: BP 119/57; TEMP 97.9; O2SAT 92
[2023-11-23] MEDS: LISINOPRIL *2.5 MG* TAB PO SCH (03:58)
[2023-11-23] MEDS: SERTRALINE HCL 25 MG TABLET PO SCH (03:59)
[2023-11-23] MEDS: IPRATROPIUM 0.5MG/ALBUTEROL 2.5MG INH SOL UD 3ML (DUONEB) NEB SCH (05:08)
[2023-11-23] MEDS: HEPARIN SOD (PORCINE) 5000UNITS/ML 1ML VIAL/SYRINGE SC SCH (06:59)
[2023-11-23 07:20] VITALS: BP 122/58; TEMP 98.2; O2SAT 99
[2023-11-23] MEDS: predniSONE 20 MG TAB PO SCH (08:04)
[2023-11-23] MEDS: PANTOPRAZOLE 40MG TAB (PROTONIX) PO SCH (08:04)
[2023-11-23] MEDS: ASPIRIN 81MG CHEW TABLET PO SCH (08:04)
[2023-11-23] MEDS: CARVedilol 3.125 MG TAB PO SCH (08:05)
[2023-11-23 08:22] LABS: HEMATOCRIT 38.3 % (42.0-52.0); HEMOGLOBIN 13.2 g/dl (13.5-17.5); MEAN CORPUSCULAR HEMOGLOBIN 29.9 pg (27.0-33.0); MEAN CORPUSCULAR HGB CONC 34.5 g/dl (32.0-36.5); MEAN CORPUSCULAR VOLUME 86.7 fl (80.0-96.0); PLATELET COUNT, AUTOMATED 223 10^3/uL (150-450); RED BLOOD COUNT 4.42 10^6/uL (4.30-6.10); WHITE BLOOD COUNT 13.6 10^3/uL (4.0-10.0)
[2023-11-23] MEDS: FORMOTEROL FUMARATE 20 MCG/2 ML INHALATION SOLUTION (PERFOROMIST) INH SCH (08:45)
[2023-11-23] MEDS: BUDESONIDE 0.5 MG/2 ML INHALATION SUSPENSION NEB SCH (08:45)
[2023-11-23 08:56] LABS: BLOOD UREA NITROGEN 15 MG/DL (9-23); CALCIUM LEVEL 8.3 MG/DL (8.5-10.1); CARBON DIOXIDE LEVEL 23 MMOL/L (20-31); CHLORIDE LEVEL 110 MMOL/L (98-107); CREATININE FOR GFR 0.63 MG/DL (0.70-1.30); GLOMERULAR FILTRATION RATE > 60.0 (>56); GLUCOSE, FASTING 149 MG/DL (60-100); POTASSIUM SERUM 3.5 MMOL/L (3.5-5.1); SODIUM LEVEL 141 MMOL/L (136-145)
[2023-11-23] MEDS: guaiFENesin ER TABLET 600 MG TAB PO ONE (09:18)
[2023-11-23] MEDS: ACETAMINOPHEN TAB 650MG DOSE (2X325MG) PO PRN (09:18)
[2023-11-23 11:22] VITALS: BP 115/57; TEMP 96.8; O2SAT 99
[2023-11-23 16:08] VITALS: BP 132/63; TEMP 96.7; O2SAT 96
[2023-11-23] MEDS: cefTRIAXone SOD 2 GM in D5W MINI-BAG PLUS 50 ML IV SCH (17:02)
[2023-11-23 19:44] VITALS: BP 142/59; TEMP 99; O2SAT 94
[2023-11-23] MEDS: guaiFENesin ER TABLET 600 MG TAB PO SCH (20:21)
[2023-11-23] MEDS: BENZONATATE 100MG CAPSULE PO PRN (20:23)
[2023-11-24] VITALS (21 sets, daily range): BP systolic 115–153; BP diastolic 59–89; TEMP 97.3–98.9; O2SAT 92–96
[2023-11-24] MEDS: NITROGLYCERIN 0.4MG SUBL TABLET SL PRN (00:28)
[2023-11-24] MEDS: RAMELTEON 8 MG TAB (ROZEREM) PO PRN (01:46)
[2023-11-24] MEDS: NICOTINE 21MG/24HR 1 EA TRANSDERMAL TD PRN (01:47)
[2023-11-24 05:36] LABS: BASO % 0.1 % (0.0-1.0); EOS % 0.2 % (0.0-3.0); HEMATOCRIT 37.7 % (42.0-52.0); HEMOGLOBIN 12.9 g/dl (13.5-17.5); LYMPH # 2.5 10^3/uL (1.5-5.0); LYMPH % 21.7 % (24.0-44.0); MEAN CORPUSCULAR HEMOGLOBIN 29.7 pg (27.0-33.0); MEAN CORPUSCULAR HGB CONC 34.2 g/dl (32.0-36.5); MEAN CORPUSCULAR VOLUME 86.7 fl (80.0-96.0); MONO # 0.5 10^3/uL (0.0-0.8); MONO % 4.5 % (2.0-8.0); NEUTROPHILS # 8.5 10^3/uL (1.5-8.5); PLATELET COUNT, AUTOMATED 230 10^3/uL (150-450); RED BLOOD COUNT 4.35 10^6/uL (4.30-6.10); WHITE BLOOD COUNT 11.7 10^3/uL (4.0-10.0)
[2023-11-24 06:01] LABS: BLOOD UREA NITROGEN 17 MG/DL (9-23); CALCIUM LEVEL 8.2 MG/DL (8.5-10.1); CARBON DIOXIDE LEVEL 23 MMOL/L (20-31); CHLORIDE LEVEL 111 MMOL/L (98-107); CREATININE FOR GFR 0.67 MG/DL (0.70-1.30); GLOMERULAR FILTRATION RATE > 60.0 (>56); GLUCOSE, FASTING 113 MG/DL (60-100); MAGNESIUM LEVEL 1.7 MG/DL (1.8-2.4); POTASSIUM SERUM 3.4 MMOL/L (3.5-5.1); SODIUM LEVEL 144 MMOL/L (136-145)
[2023-11-24] MEDS: POTASSIUM CHLORIDE 10MEQ SR TABLET PO ONE (08:07)
[2023-11-24] MEDS: MAG SULF 1GM/100ML (MAG RUN) 1 GM in IV 1 EA IV SCH (08:12)
[2023-11-24] MEDS: KCL 10MEQ/100ML SWI (KRUN) 10 MEQ in IV 1 EA IV SCH (10:12)
[2023-11-24 13:24] LABS: BLOOD UREA NITROGEN 16 MG/DL (9-23); CALCIUM LEVEL 8.4 MG/DL (8.5-10.1); CARBON DIOXIDE LEVEL 23 MMOL/L (20-31); CHLORIDE LEVEL 110 MMOL/L (98-107); CREATININE FOR GFR 0.61 MG/DL (0.70-1.30); GLOMERULAR FILTRATION RATE > 60.0 (>56); GLUCOSE, FASTING 136 MG/DL (60-100); MAGNESIUM LEVEL 2.1 MG/DL (1.8-2.4); POTASSIUM SERUM 4.4 MMOL/L (3.5-5.1); SODIUM LEVEL 141 MMOL/L (136-145)
[2023-11-24] MEDS: FIORICET TAB PO PRN (14:16)
[2023-11-24] MEDS: diphenhydrAMINE 25MG CAP PO ONE (23:33)
[2023-11-24] MEDS: METOCLOPRAMIDE 10MG TAB PO ONE (23:33)
[2023-11-24] MEDS: KETOROLAC 30 MG/ML 1ML VIAL IV ONE (23:34)
[2023-11-25] VITALS (14 sets, daily range): BP systolic 124–147; BP diastolic 57–76; TEMP 96.8–98.2; O2SAT 93–97
[2023-11-25 06:07] LABS: BASO % 0.1 % (0.0-1.0); EOS % 0.4 % (0.0-3.0); HEMATOCRIT 36.1 % (42.0-52.0); HEMOGLOBIN 12.3 g/dl (13.5-17.5); LYMPH # 2.5 10^3/uL (1.5-5.0); LYMPH % 31.2 % (24.0-44.0); MEAN CORPUSCULAR HEMOGLOBIN 29.7 pg (27.0-33.0); MEAN CORPUSCULAR HGB CONC 34.1 g/dl (32.0-36.5); MEAN CORPUSCULAR VOLUME 87.2 fl (80.0-96.0); MONO # 0.6 10^3/uL (0.0-0.8); MONO % 7.1 % (2.0-8.0); NEUTROPHILS # 4.8 10^3/uL (1.5-8.5); NEUTROPHILS % 60.8 % (36.0-66.0); PLATELET COUNT, AUTOMATED 245 10^3/uL (150-450); RED BLOOD COUNT 4.14 10^6/uL (4.30-6.10); WHITE BLOOD COUNT 7.9 10^3/uL (4.0-10.0)
[2023-11-25 06:27] LABS: BLOOD UREA NITROGEN 15 MG/DL (9-23); CALCIUM LEVEL 8.3 MG/DL (8.5-10.1); CARBON DIOXIDE LEVEL 26 MMOL/L (20-31); CHLORIDE LEVEL 110 MMOL/L (98-107); CREATININE FOR GFR 0.67 MG/DL (0.70-1.30); GLOMERULAR FILTRATION RATE > 60.0 (>56); GLUCOSE, FASTING 98 MG/DL (60-100); MAGNESIUM LEVEL 1.9 MG/DL (1.8-2.4); POTASSIUM SERUM 3.7 MMOL/L (3.5-5.1); SODIUM LEVEL 142 MMOL/L (136-145)
[2023-11-25] MEDS ORDERED: ADV100INH INH (09:42)
[2023-11-25] MEDS ORDERED: VENTAER INH (09:42)
[2023-11-25] MEDS ORDERED: PANT40TA29 PO (09:42)
[2023-11-25] MEDS ORDERED: SUCR1TA PO (09:42)
[2023-11-25] MEDS ORDERED: CEFD1CAP9 PO (09:42)
[2023-11-25] MEDS ORDERED: MUCI600T31 PO (09:42)
[2023-11-25] MEDS ORDERED: PRED10TA2 PO (09:42)
[2023-11-25] MEDS ORDERED: DOXY100T PO (09:42)
[2023-11-27 18:41] LABS: URINE STREP PNEUMONIAE ANTIGEN NOT DETECTED (NOT DETECT)
== END 2023-11-25 12:55 | disposition home or self-care (01) ==
LOC: M ED 16:02 → M ED INP 16:03 → M PCU 22:36
PROVIDERS: ADMIT Internal Medicine; ATTEND Internal Medicine
DX: R55 Syncope and collapse (principal); J20.8 Acute bronchitis due to other specified organisms; A41.9 Sepsis, unspecified organism; B97.81 Human metapneumovirus as the cause of diseases classified elsewhere; E83.42 Hypomagnesemia; E87.6 Hypokalemia; I25.10 Atherosclerotic heart disease of native coronary artery without angina pectoris; Z98.61 Coronary angioplasty status; F32.A Depression, unspecified; Z95.0 Presence of cardiac pacemaker; K21.9 Gastro-esophageal reflux disease without esophagitis; N39.0 Urinary tract infection, site not specified; R05.1 Acute cough; I25.2 Old myocardial infarction; F17.200 Nicotine dependence, unspecified, uncomplicated; Z82.49 Family history of ischemic heart disease and other diseases of the circulatory system; Z79.899 Other long term (current) drug therapy; Z79.52 Long term (current) use of systemic steroids; Z79.02 Long term (current) use of antithrombotics/antiplatelets; Z91.040 Latex allergy status; Z91.018 Allergy to other foods
CPT/HCPCS: 36415; 70450; 71045; 80048; 80076; 81001; 82550; 82553; 82803; 83605; 83735; 84145; 84443; 84484; 85025; 85027; 87040; 87086; 87205; 87449; 87486; 87581; 87633; 87641; 87798; 87899; 93005; 93041; 93306; 94640; 94760; 96365; 96366; 96367; 96372; 96375; 96376; 99285; J0696; J1885; J2919; J3475; J7512; J7606

== ENCOUNTER → 2024-01-26 | Outpatient (REF) ==
[~2024-01-26] MED LIST changes: +ADV100INH INH; +CEFD1CAP9 PO; +DOXY100T PO; +MUCI600T31 PO; +PANT40TA29 PO; +PRED10TA2 PO; +VENTAER INH
== END ==
LOC: M EMP 07:47
PROVIDERS: ATTEND Family Medicine
DX: Z11.52 Encounter for screening for COVID-19 (principal)

== ENCOUNTER 2024-05-20 10:09 | Emergency (ER) | payer OTHER ==
[~2024-05-20] VITALS: Ht 180.3 cm; Wt 118.2 kg
[~2024-05-20 10:09] MED LIST changes: -ADV100INH INH; +ADVA1AER8 INH
[2024-05-20 10:24] VITALS: TEMP 98.1
[2024-05-20 10:55] LABS: BASO % 0.2 % (0.0-1.0); EOS # 0.1 10^3/uL (0.0-0.5); EOS % 0.6 % (0.0-3.0); HEMATOCRIT 48.1 % (42.0-52.0); HEMOGLOBIN 16.5 g/dl (13.5-17.5); LYMPH # 1.3 10^3/uL (1.5-5.0); LYMPH % 10.5 % (24.0-44.0); MEAN CORPUSCULAR HEMOGLOBIN 29.3 pg (27.0-33.0); MEAN CORPUSCULAR HGB CONC 34.3 g/dl (32.0-36.5); MEAN CORPUSCULAR VOLUME 85.4 fl (80.0-96.0); MONO # 0.5 10^3/uL (0.0-0.8); MONO % 4.5 % (2.0-8.0); NEUTROPHILS # 10.1 10^3/uL (1.5-8.5); PLATELET COUNT, AUTOMATED 282 10^3/uL (150-450); RED BLOOD COUNT 5.63 10^6/uL (4.30-6.10)
[2024-05-20 11:07] LABS: INR 0.97; PARTIAL THROMBOPLASTIN TIME 31.8 SECONDS (24.8-34.2); PROTHROMBIN TIME 13.2 SECONDS (12.5-14.5)
[2024-05-20 11:20] LABS: CK-MB VALUE MASS 1.4 NG/ML (<3.6); LIPASE 42 U/L (12-53)
[2024-05-20 11:22] LABS: ALBUMIN 4.1 G/DL (3.2-5.2); ALKALINE PHOSPHATASE 87 U/L (40-129); ALT/SGPT 45 U/L (7.0-40); AST/SGOT 27 U/L (<34); BILIRUBIN,DIRECT 0.2 MG/DL (<0.4); BILIRUBIN,TOTAL 0.6 MG/DL (0.3-1.2); BLOOD UREA NITROGEN 17 MG/DL (9-23); CALCIUM LEVEL 9.6 MG/DL (8.5-10.1); CARBON DIOXIDE LEVEL 28 MMOL/L (20-31); CHLORIDE LEVEL 105 MMOL/L (98-107); CREATININE FOR GFR 0.83 MG/DL (0.70-1.30); GLOMERULAR FILTRATION RATE > 60.0 (>56); GLUCOSE, FASTING 121 MG/DL (60-100); POTASSIUM SERUM 3.9 MMOL/L (3.5-5.1); SODIUM LEVEL 140 MMOL/L (136-145); TOTAL PROTEIN 7.6 G/DL (5.7-8.2)
[2024-05-20 11:23] LABS: THYROID STIMULATING HORMONE 2.134 uIU/ML (0.55-4.78)
[2024-05-20 11:25] LABS: FREE T4 1.24 NG/DL (0.89-1.76)
[2024-05-20] MEDS: SUCRALFATE SUSP 1GM/10ML UD PO ONE (11:27)
[2024-05-20] MEDS: PANTOPRAZOLE 40MG VIAL IV ONE (11:27)
[2024-05-20 11:28] LABS: CPK CREATINE PHOSPHOKINASE 242 U/L (46-171); MB/CK RELATIVE INDEX 0.57 (< OR =4)
[2024-05-20 12:23] LABS: CK-MB VALUE MASS 1.3 NG/ML (<3.6)
[2024-05-20 12:37] LABS: MB/CK RELATIVE INDEX 0.56 (< OR =4)
[2024-05-20] MEDS ORDERED: ISOVUE-370 76% 100ML VIAL As Ordered ONE (12:43)
[2024-05-20 15:00] VITALS: BP 132/67
[2024-05-20 15:39] VITALS: O2SAT 95
[2024-05-20] MEDS ORDERED: PROT1TAB2 PO (15:49)
[2024-05-20] MEDS ORDERED: SUCR1SS PO (15:49)
== END 2024-05-20 16:00 | disposition home or self-care (01) ==
LOC: M ED 10:09
DX: R07.9 Chest pain, unspecified (principal); I25.2 Old myocardial infarction; I25.119 Atherosclerotic heart disease of native coronary artery with unspecified angina pectoris; K21.9 Gastro-esophageal reflux disease without esophagitis; J44.9 Chronic obstructive pulmonary disease, unspecified; F33.9 Major depressive disorder, recurrent, unspecified; Z91.040 Latex allergy status; Z91.018 Allergy to other foods; Z79.51 Long term (current) use of inhaled steroids; Z79.1 Long term (current) use of non-steroidal anti-inflammatories (NSAID); Z79.2 Long term (current) use of antibiotics; Z79.899 Other long term (current) drug therapy
CPT/HCPCS: 36415; 71045; 71275; 74177; 80048; 80076; 82550; 82553; 83690; 84439; 84443; 84484; 85025; 85610; 85730; 93005; 93041; 94760; 96374; 99285; J2470; Q9967